=== PATIENT | male | born 1940 | race Caucasian/White ===

== ENCOUNTER → 2019-03-04 | Outpatient (CLI) | payer MEDICARE ==
--- NOTE | 2019-03-05 14:46 | ECHOF ---
Referral Reason:I10 G47.33 I48.1 MEASUREMENTS -------- HEIGHT: 182.9 cm WEIGHT: 120.2 kg BP: RVIDd: 2.7 cm (< 3.3) IVSd: 1.7 cm (0.6 - 1.1) LVIDd: 3.5 cm (3.9 - 5.3) LVPWd: 1.9 cm (0.6 - 1.1) IVSs: 2.3 cm LVIDs: 2.2 cm LVPWs: 2.5 cm LAESV Index (A-L): 66.17 ml/m Ao Diam: 2.8 cm (2.0 - 3.7) AV Cusp: 0.8 cm (1.5 - 2.6) LA Diam: 5.3 cm (2.7 - 3.8) MV EXCURSION: 16.659 mm (> 18.000) MV EF SLOPE: 122 mm/s (70 - 150) EPSS: 0.7 cm MV E Carter: 0.99 m/s MV DecT: 219 ms MV A Carter: 0.31 m/s MV E/A Ratio: 3.22 AV maxP.17 mmHg AV meanP.74 mmHg RAP: 5.00 mmHg RVSP: 32.20 mmHg TAPSE: 13.36 mm FINDINGS -------- Pacerwire seen in RV and RA. Pacemaker This was a technically difficult study with suboptimal views. The left ventricular size is normal. There is severe concentric left ventricular hypertrophy. Ove rall left ventricular systolic function is mild-moderately impaired with, an EF between 40 - 45 %. Left ventricular fillimg pressure cannot be estimated due to paced rhythm. Septal Hypokinesis The right ventricle is normal in size. LA is severely dilated >40 ml/m2 The right atrial size is normal. Lumason used Aortic valve is trileaflet and is severely thickened. There is enugjyxe-xp-iayslu aortic stenosis p resent. Peak/mean gradient across the Aortic Valve is 37.17mmHg / 22.74mmHg. The mitral valve is normal. The mitral valve leaflets are mildly thickened. Mild mitral regurgita tion is present. The tricuspid valve appears structurally normal. Mild tricuspid regurgitation present. Right vent ricular systolic pressure is normal at < 35 mmHg. There is no pulmonic regurgitation present. The aortic root size is normal. IVC Not well visulized. The pulmonary veins were not recorded. There is no pericardial effusion. CONCLUSIONS -------- 1. Pacerwire seen in RV and RA. 2. Pacemaker 3. This was a technically difficult study with suboptimal views. 4. The left ventricular size is normal. 5. There is severe concentric left ventricular hypertrophy. 6. Overall left ventricular systolic function is mild-moderately impaired with, an EF between 40 - 45 %. 7. Left ventricular fillimg pressure cannot be estimated due to paced rhythm. 8. Septal Hypokinesis 9. The right ventricle is normal in size. 10. LA is severely dilated >40 ml/m2 11. The right atrial size is normal. 12. Lumason used 13. Aortic valve is trileaflet and is severely thickened. 14. There is fbzzkssv-ea-depifs aortic stenosis present. 15. Peak/mean gradient across the Aortic Valve is 37.17mmHg / 22.74mmHg. 16. The mitral valve is normal. 17. The mitral valve leaflets are mildly thickened. 18. Mild mitral regurgitation is present. 19. The tricuspid valve appears structurally normal. 20. Mild tricuspid regurgitation present. 21. Right ventricular systolic pressure is normal at < 35 mmHg. 22. There is no pulmonic regurgitation present. 23. The aortic root size is normal. 24. IVC Not well visulized. 25. The pulmonary veins were not recorded. 26. There is no pericardial effusion. [employer]IC INBOARD/OUTBOARD: Hanna Sanchez, [facility]
== END | disposition home or self-care (01) ==
LOC: RADECHMAIN 11:17
PROVIDERS: ATTEND Internal Medicine Cardiovascular Disease
DX: I08.1 Rheumatic disorders of both mitral and tricuspid valves (principal); I11.9 Hypertensive heart disease without heart failure; G47.33 Obstructive sleep apnea (adult) (pediatric); I48.1 Persistent atrial fibrillation; Z95.0 Presence of cardiac pacemaker
CPT/HCPCS: C8929; Q9950; 93306

== ENCOUNTER 2019-07-18 14:21 | Inpatient (IN) | payer MEDICARE ==
[2019-07-18] MEDS ORDERED: MORPHINE SULFATE 4 MG/ML SYRINGE IV STA (14:56)
--- NOTE | 2019-07-18 15:03 | ED ---
General Adult HPI - General Chief complaint: Fall Stated complaint: Fall, hip pain Time Seen by Provider: 07/18/19 14:34 Source: EMS Mode of arrival: EMS Limitations: no limitations - History of Present Illness Initial comments: Dictation was produced using [employer] dictation software. please excuse any grammatical, word or spelling errors. Chief Complaint: 79-year-old male presents with right leg pain. History of Present Illness: -year-old male was walking around at home when he tripped over a board on the floor in his house. Patient states he fell sideways. Patient denies any trauma to the head. Since he has exquisite pain to his right thigh area. EMS was called patient brought to the emergency department. Patient is most comfortable comorbidities. He takes apixaban for atrial fibrillation. was at bedside now that his right foot seems cold. Patient has no other complaints except for right leg pain. States it's worse with movement. EMS was called. EMS provided patient 5 mg of IV morphine with improvement of symptoms. The ROS documented in this emergency department record has been reviewed and confirmed by me. Those systems with pertinent positive or negative responses have been documented in the HPI. All other systems are other negative and/or noncontributory. PHYSICAL EXAM: General Impression: Alert and oriented x3, not in acute distress HEENT: Normocephalic atraumatic, extra-ocular movements intact, pupils equal and reactive to light bilaterally, mucous membranes moist. Cardiovascular: Heart regular rate and rhythm, S1&S2 audible, no murmurs, rubs or gallops Chest: Lungs clear to auscultation bilaterally, no rhonchi, no wheeze, no rales Abdomen: Bowel sounds present, abdomen soft, non-tender, non-distended, no organomegaly Musculoskeletal: Pulses present and equal in all extremities, no peripheral edema, particularly of the right foot compared to the left however there is 2+ DP and PT pulse in the right lower extremity. Tenderness to palpation with squeezing of the right thigh Motor: no focal deficits noted Neurological: CN II-XII grossly intact, no focal motor or sensory deficits noted Skin: Intact with no visualized rashes Psych: Normal affect and mood ED course: 79-year-old male presents with right hip pain after fall. Patient suffered a mechanical fall. His multiple comorbidities and is on anticoagulation therapy. X-rays were obtained. Patient has subcapital femur fracture. Chest x-ray was concerning for possible right lower lobe pneumonia. Patient does not have any URI or respiratory symptoms. No cough. Computed tomography scan of the brain showed old left occipital craniotomy. Patient also has sinus opacifications that are incidentally found.. Patient will be admitted orthopedic surgery. Discussed patient case with Dr. braxton. [facility] was contacted because patient's surgeon is Dr. Guillory. Thanks. Dr. Braxton requests [facility] [place] [facility] to be consulted for medical evaluation and medical consultation. Also cardiology consulted for cardiac clearance. Apixaban will be held at this time in preparation for likely surgery. Patient will require medical consultation. Dr. Delatorre will be on consult for a dressing other medical issues. Labs are grossly unremarkable. EKG interpretation: Ventricular rate 70, paced rhythm, QRS 150, QTc 516. - Related Data Home Medications Medication Instructions Recorded Confirmed Apixaban [Eliquis] 5 mg PO BID@0900,1800 07/18/19 07/18/19 Diltiazem HCl [Cardizem LA] 180 mg PO DAILY 07/18/19 07/18/19 Dulaglutide [Trulicity] 1.5 mg SQ MO 07/18/19 07/18/19 Ergocalciferol [Vitamin D2] 50,000 unit PO TU 07/18/19 07/18/19 Escitalopram [Lexapro] 20 mg PO DAILY 07/18/19 07/18/19 Furosemide [Lasix] 40 mg PO DAILY 07/18/19 07/18/19 Insulin Glargine,Hum.rec.anlog 46 unit SQ BID@0900,1800 07/18/19 07/18/19 [Lantus Solostar] Isosorbide Mononitrate ER [Imdur] 30 mg PO DAILY 07/18/19 07/18/19 Metoprolol Tartrate [Lopressor] 50 mg PO BID@0900,1800 07/18/19 07/18/19 Rosuvastatin Calcium [Crestor] 10 mg PO DAILY 07/18/19 07/18/19 buPROPion [Wellbutrin] 75 mg PO BID@0900,1800 07/18/19 07/18/19 Allergies Allergy/AdvReac Type Severity Reaction Status Date / Time No Known Allergies Allergy Verified 07/18/19 17:06 Review of Systems ROS Statement: Those systems with pertinent positive or pertinent negative responses have been documented in the HPI. ROS Other: All systems not noted in ROS Statement are negative. Past Medical History History of Any Multi-Drug Resistant Organisms: None Reported Past Psychological History: No Psychological Hx Reported Smoking Status: Never smoker Past Alcohol Use History: None Reported Past Drug Use History: None Reported General Exam Limitations: no limitations Course Vital Signs 07/18/19 07/18/19 07/18/19 14:25 15:00 16:30 Temperature 98.2 F Pulse Rate 70 77 75 Respiratory 20 18 18 Rate Blood Pressure 183/102 183/102 168/123 O2 Sat by Pulse 95 97 Oximetry 07/18/19 07/18/19 07/18/19 17:00 17:50 18:00 Temperature Pulse Rate 78 75 85 Respiratory 18 18 16 Rate Blood Pressure 179/124 172/105 185/104 O2 Sat by Pulse 95 Oximetry Medical Decision Making - Lab Data Result diagrams: 07/18/19 14:50 07/18/19 14:50 Lab Results 07/18/19 07/18/19 07/18/19 Range/Units 14:50 14:50 14:50 WBC 7.5 (3.8-10.6) k/uL RBC 5.20 (4.30-5.90) m/uL Hgb 16.1 (13.0-17.5) gm/dL Hct 50.6 (39.0-53.0) % MCV 97.3 (80.0-100.0) fL MCH 31.0 (25.0-35.0) pg MCHC 31.9 (31.0-37.0) g/dL RDW 13.2 (11.5-15.5) % Plt Count 129 L (150-450) k/uL Neutrophils % 82 % Lymphocytes % 11 % Monocytes % 5 % Eosinophils % 0 % Basophils % 1 % Neutrophils # 6.2 (1.3-7.7) k/uL Lymphocytes # 0.8 L (1.0-4.8) k/uL Monocytes # 0.4 (0-1.0) k/uL Eosinophils # 0.0 (0-0.7) k/uL Basophils # 0.1 (0-0.2) k/uL PT 10.7 (9.0-12.0) sec INR 1.0 (<1.2) APTT 22.4 (22.0-30.0) sec Sodium 138 (137-145) mmol/L Potassium 4.8 (3.5-5.1) mmol/L Chloride 100 (98-107) mmol/L Carbon Dioxide 29 (22-30) mmol/L Anion Gap 9 mmol/L BUN 19 (9-20) mg/dL Creatinine 1.44 H (0.66-1.25) mg/dL Est GFR (CKD-EPI)AfAm 53 (>60 ml/min/1.73 sqM) Est GFR (CKD-EPI)NonAf 46 (>60 ml/min/1.73 sqM) Glucose 235 H (74-99) mg/dL Calcium 9.8 (8.4-10.2) mg/dL Disposition Clinical Impression: Hip fracture Disposition: ADMITTED IP TO THIS [facility] Condition: Fair Decision Time: 18:28
[2019-07-18 15:09] LABS: Basophils # (A) 0.1 k/uL (0-0.2); Basophils % (A) 1 %; Eosinophils % (A) 0 %; HCT 50.6 % (39.0-53.0); HGB 16.1 gm/dL (13.0-17.5); Lymphocytes # (A) 0.8 k/uL (1.0-4.8); Lymphocytes % (A) 11 %; MCHC 31.9 g/dL (31.0-37.0); MCV 97.3 fL (80.0-100.0); Mean Platelet Volume 7.5; Monocytes # (A) 0.4 k/uL (0-1.0); Monocytes % (A) 5 %; Neutrophils # (A) 6.2 k/uL (1.3-7.7); Neutrophils % (A) 82 %; Platelet Count 129 k/uL (150-450); RDW 13.2 % (11.5-15.5); WBC 7.5 k/uL (3.8-10.6)
[2019-07-18 15:17] LABS: Calcium 9.8 mg/dL (8.4-10.2); Partial Thromboplastin Time 22.4 sec (22.0-30.0); Potassium 4.8 mmol/L (3.5-5.1); Prothrombin Time 10.7 sec (9.0-12.0)
--- NOTE | 2019-07-18 16:16 | CT ---
EXAMINATION TYPE: CT brain wo con DATE OF EXAM: 07/18/2019 COMPARISON: None INDICATION: Fall, right hip injury. DLP: 2328.4 mGycm, Automated exposure control for dose reduction was used. CONTRAST: None CT of the brain is performed utilizing 3 mm thick sections through the posterior fossa and 3 mm thick sections through the remaining calvarium. Study is performed within 24 hours of arrival to the hosp ital. Motion artifact limits the exam. There is an occipital craniotomy with adjacent encephalomalacia of the cerebellum. No abnormal hyperdensity is present to suggest an acute intracranial hemorrhage. No mass lesion is evident. No acute infarcts are evident. Mild periventricular white matter hypodensity is present, likely on th e basis of chronic white matter ischemic changes. Ventricles and sulci are appropriate for the patient age. There is opacification of the right maxillary sinus. There may be some extension as well as some calc ification in the nasal passage adjacent to the right maxillary sinus. IMPRESSIONS: 1. Mild age-related atrophy with some periventricular ischemic changes. 2. 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 3. Opacified right maxillary sinus with some calcification within the nasal passage portion of the so ft tissue. Recommend additional workup, neoplasm is not excluded
--- NOTE | 2019-07-18 16:25 | XR ---
EXAMINATION TYPE: XR chest 1V DATE OF EXAM: 07/18/2019 COMPARISON: None INDICATION: Pain TECHNIQUE: Single frontal view of the chest is obtained. FINDINGS: The heart size is normal. The pulmonary vasculature is normal. There is an infiltrate in the right lower lobe. Some thickening may be along the right pleural margin . Pacemaker overlies left chest. There is elevation left diaphragm. IMPRESSION: 1. Clinical correlation recommended for right lower lobe pneumonia. Follow-up exams are recommended.
--- NOTE | 2019-07-18 16:29 | XR ---
EXAMINATION TYPE: XR femur RT DATE OF EXAM: 07/18/2019 COMPARISON: None HISTORY: Pain TECHNIQUE: 2 view right femur FINDINGS: There is a subcapital fracture of the right femoral neck. Femoral head articulates with the acetabulum. Joint spaces narrowed Remainder the femur appears intact. Degenerative changes are at the knee. No effusion is evident. IMPRESSION: 1. Subcapital femoral neck fracture right hip. 2. Degenerative joint changes right hip
--- NOTE | 2019-07-18 16:30 | XR ---
EXAMINATION TYPE: XR Hip RT and AP Pelvis DATE OF EXAM: 07/18/2019 COMPARISON: None HISTORY: Pain TECHNIQUE: AP pelvis with right hip FINDINGS: There is a subcapital fracture at the right hip. Mild degenerative joint changes are at the bilateral joint hips. Symphysis pubis and sacroiliac joints are normal. IMPRESSION: 1. Subcapital fracture right hip
[2019-07-18] MEDS ORDERED: HYDROmorphone 0.5 MG/0.5 ML SYRINGE IVP STA (16:31)
[2019-07-18] MEDS ORDERED: NALOXONE 0.4 MG/ML 1 ML VIAL IV PRN (16:46)
[2019-07-18] MEDS ORDERED: ONDANSETRON 4 MG/2 ML VIAL IVP PRN (16:57)
[2019-07-18] MEDS: SODIUM CHLORIDE 0.9% 1,000 ML IV SCH (17:50)
[2019-07-18] MEDS ORDERED: LABETALOL 5 MG/ML VIAL MDV IVP STA (18:02)
--- NOTE | 2019-07-18 20:23 | P.CONS ---
History of Present Illness - Reason for Consult Consult date: 07/18/19 Medical management Requesting physician: Brannon Pond - Chief Complaint Consult for medical management - History of Present Illness The patient is a 79-year-old male with a past medical history of type 2 diabetes with peripheral neuropathy, atrial fibrillation on anticoagulation with Eliquis with his last dose taken this morning, essential hypertension, his tory of cerebral hemorrhage stroke 2006, uric stenosis with plans for TAVR procedure next month at [facility] who presents to the ER via EMS after a fall at home earlier today. Apparently the patient was working in his garage and tripped over at higher block and fell and hit his right hip. The patient denied any head trauma or loss of consciousness, he reported severe right hip pain following this fall and was unable to get up. The patient's found him approximately 30 minutes later breathing and pain in the garage, the patient denied any chest pain or shortness of breath, denies syncope or presyncope prior to his fall. In the ER the patient had a comprehensive workup CT of the head showed mild age- related atrophy with some periventricular ischemic changes, old left occipital craniotomy with subtotal malacia of the adjacent cerebellum, opacified right maxillary sinus with some calcifications in the nasal passage. Hip and pelvic x-rays showed a subcapital fracture of the right hip along with degenerative changes. Abnormal labs include a platelet count of 129, creatinine of 1.44, blood sugar of 235. The patient was given morphine and admitted to the orthopedic service Review of Systems Pertinent positives per HPI all other review of systems are otherwise negative Past Medical History History of Any Multi-Drug Resistant Organisms: None Reported Past Psychological History: No Psychological Hx Reported Smoking Status: Never smoker Past Alcohol Use History: None Reported Past Drug Use History: None Reported Medications and Allergies Home Medications Medication Instructions Recorded Confirmed Type Apixaban [Eliquis] 5 mg PO BID@0900,1800 07/18/19 07/18/19 History Diltiazem HCl [Cardizem LA] 180 mg PO DAILY 07/18/19 07/18/19 History Dulaglutide [Trulicity] 1.5 mg SQ MO 07/18/19 07/18/19 History Ergocalciferol [Vitamin D2] 50,000 unit PO TU 07/18/19 07/18/19 History Escitalopram [Lexapro] 20 mg PO DAILY 07/18/19 07/18/19 History Furosemide [Lasix] 40 mg PO DAILY 07/18/19 07/18/19 History Insulin Glargine,Hum.rec.anlog 46 unit SQ BID@0900,1800 07/18/19 07/18/19 History [Lantus Solostar] Isosorbide Mononitrate ER [Imdur] 30 mg PO DAILY 07/18/19 07/18/19 History Metoprolol Tartrate [Lopressor] 50 mg PO BID@0900,1800 07/18/19 07/18/19 History Rosuvastatin Calcium [Crestor] 10 mg PO DAILY 07/18/19 07/18/19 History buPROPion [Wellbutrin] 75 mg PO BID@0900,1800 07/18/19 07/18/19 History Allergies Allergy/AdvReac Type Severity Reaction Status Date / Time No Known Allergies Allergy Verified 07/18/19 17:06 Physical Exam Vitals: Vital Signs Temp Pulse Resp BP Pulse Ox 07/18/19 18:53 74 18 153/86 07/18/19 18:33 80 16 153/80 07/18/19 18:00 85 16 185/104 07/18/19 17:50 75 18 172/105 07/18/19 17:00 78 18 179/124 95 07/18/19 16:30 75 18 168/123 97 07/18/19 15:00 77 18 183/102 07/18/19 14:25 98.2 F 70 20 183/102 95 Intake and Output 07/18/19 07/18/19 07/18/19 06:59 14:59 22:59 Other: Weight 117.934 kg Constitutional: No acute distress, conversant, pleasant Eyes: Anicteric sclerae, moist conjunctiva, no lid-lag, PERRLA ENMT: NC/AT,Oropharynx clear, no erythema, exudates Neck:Supple, FROM, no masses, or JVD, No carotid bruits; No thyromegaly Lungs: Clear to auscultation, Clear to percussion, Normal respiratory effort, no accessory muscle use Cardiovascular: Heart regular in rate and rhythm, No murmurs, gallops, or rubs no peripheral edema Abdominal: Soft Nontender, nom distended, no guarding, no rebound or rigidity, Normoactive bowel sounds No hepatomegaly, No splenomegaly, No palpable mass No abdominal wall hernia noted Skin: Normal temperature, tone, texture, turgor, No induration No subcutaneous nodules, No rash, lesions, No ulcers Extremities:No digital cyanosis No clubbing, Pedal pulses intact and symmetrical Radial pulses intact and, tenderness to palpation of squeezing the right thigh Psychiatric: Alert and oriented to person, place and time, Appropriate affect Intact judgement Neuro: Muscles Strength 5/5 in all 4 extremities, Sensation to light touch grossly present throughout, Cranial nerves II-XII grossly intact. No focal sensory deficits Results CBC & Chem 7: 07/18/19 14:50 07/18/19 14:50 Labs: Abnormal Lab Results - Last 24 Hours (Table) 07/18/19 07/18/19 Range/Units 14:50 14:50 Plt Count 129 L (150-450) k/uL Lymphocytes # 0.8 L (1.0-4.8) k/uL Creatinine 1.44 H (0.66-1.25) mg/dL Glucose 235 H (74-99) mg/dL Assessment and Plan Assessment: Type 2 diabetes with peripheral neuropathy and hyperglycemia Essential hypertension History of Atrial fibrillation on DOAcs fall with subcapital right hip fracture History of cerebral hemorrhage and stroke Severe aortic stenosis with TAVR scheduled within the next month Plan: The patient is admitted to the primary orthopedic service with a right hip subcapital fracture after fall at home. We'll defer all analgesic therapy and management to the primary service. The patient has a significant cardiac history including atrial fibrillation currently on DOAcs, severe aortic stenosis with planned TAVR procedure , and a history of CVA with intracerebral hemorrhage. Based on the revised cardiac index patient represents a class IV risk and is and is considered high risk for surgery. We'll plan to consult cardiology for any further recommendations. The patient's home medications were restarted and eliquis is held, continue perioperative beta blockers with metoprolol. Resume insulin regimen with Accu-Cheks qachs. Continue to follow patient's clinical course CODE STATUS: Full code Discussed care with patient's Anticipated discharge place : SNF vs home Greater than 60 minutes was spent in the evaluation of this medically complex patient
[2019-07-18 20:35] LABS: Glucose,Whole Blood 208 mg/dL (75-99)
[2019-07-18] MEDS: INSULIN ASPART (NovoLOG) 100 UNIT/ML VIAL SQ SCH (21:28)
[2019-07-19] MEDS: HYDROmorphone 1 MG/ML 1 ML SYRINGE IVP PRN ×4 (01:31→23:34)
[2019-07-19] MEDS: SODIUM CHLORIDE 0.9% 1,000 ML IV SCH ×2 (01:35→09:28)
[2019-07-19 06:55] LABS: Glucose,Whole Blood 213 mg/dL (75-99)
[2019-07-19] MEDS: INSULIN ASPART (NovoLOG) 100 UNIT/ML VIAL SQ SCH ×4 (07:33→19:54)
[2019-07-19] MEDS: DILTIAZEM CD 180 MG CAP.ER.24H PO SCH (09:28)
[2019-07-19] MEDS: buPROPion 75 MG TAB PO SCH ×2 (09:28→18:09)
[2019-07-19] MEDS: ATORVASTATIN 20 MG TAB PO SCH (09:28)
[2019-07-19] MEDS: FUROSEMIDE 40 MG TAB PO SCH (09:28)
[2019-07-19] MEDS: METOPROLOL TARTRATE 50 MG TAB PO SCH ×2 (09:28→17:22)
[2019-07-19] MEDS: ESCITALOPRAM 20 MG TAB PO SCH (09:28)
[2019-07-19] MEDS: ISOSORBIDE MONONITRATE ER 30 MG TAB.ER.24H PO SCH (09:28)
[2019-07-19] MEDS: INSULIN DETEMIR (LEVEMIR) 100 UNIT/ML SYR SQ SCH ×2 (09:29→18:09)
[2019-07-19] MEDS ORDERED: HYDROmorphone 1 MG/ML 1 ML SYRINGE IVP PRN (10:32)
[2019-07-19] MEDS ORDERED: HYDROcodone/APAP 7.5-325MG 1 EACH TAB PO PRN (11:09)
--- NOTE | 2019-07-19 11:14 | P.PN ---
Subjective Progress Note Date: 07/19/19 Principal diagnosis: fall Patient is a 79 y CM with a hx of DM 2 with peripheral neuropathy, A fib on anticoagulation with eliquis, HTN, and aortic stenosis with plan for TAVR at [facility] on August 06, 2019 who presented after a fall with resultant right subcapital femoral hip fracture. Patient seen and examined at bedside. He reports some right hip pain. He denies any chest pain, shortness breath, nausea, or vomiting. He follows with Dr. Jazmyne Kiran at [facility]. He has known aortic stenosis and is currently being worked up for possible to have her. He has recently had a PATI and a TTE done at [facility]. He reports that he has had worsening fatigue over the last several months. He denies any chest pain, shortness of breath, or syncopal episodes. Objective - Vital Signs Vital signs: Vital Signs Temp 99.6 F 07/19/19 07:00 Pulse 64 07/19/19 07:00 Resp 17 07/19/19 07:00 BP 174/67 07/19/19 07:00 Pulse Ox 94 L 07/19/19 07:00 Intake & Output 07/18/19 07/19/19 07/19/19 18:59 06:59 18:59 Weight 117.934 kg Other: Voiding Method Urinal # Voids 2 - Exam General: non toxic, mild distress due to pain, appears at stated age Derm: warm, dry Head: atraumatic, normocephalic, symmetric Eyes: EOMI, no lid lag, anicteric sclera Mouth: no lip lesion, mucus membranes moist Cardiovascular: S1S2 reg with systolic murmur, positive posterior tibial pulse bilateral, Lungs: Decreased bs bilateral, no rhonchi, no rales , no accessory muscle use Abdominal: soft, nontender to palpation, no guarding, no appreciable organomegaly Ext: no gross muscle atrophy, no edema, no contractures Neuro: CN II-XI grossly intact, no focal neuro deficits Psych: Alert, oriented, appropriate affect - Labs CBC & Chem 7: 07/18/19 14:50 07/18/19 14:50 Labs: Abnormal Lab Results - Last 24 Hours (Table) 07/18/19 07/18/19 07/18/19 Range/Units 14:50 14:50 20:32 Plt Count 129 L (150-450) k/uL Lymphocytes # 0.8 L (1.0-4.8) k/uL Creatinine 1.44 H (0.66-1.25) mg/dL Glucose 235 H (74-99) mg/dL POC Glucose (mg/dL) 208 H (75-99) mg/dL 07/19/19 Range/Units 06:53 Plt Count (150-450) k/uL Lymphocytes # (1.0-4.8) k/uL Creatinine (0.66-1.25) mg/dL Glucose (74-99) mg/dL POC Glucose (mg/dL) 213 H (75-99) mg/dL Assessment and Plan Assessment: Patient is a 79 yo CM s/p fall with hip subcapital femoral fracture. Chronic A fib, rate controlled - off eliquis, last dose AM on 07/18 - Lopressor, cardizem - follow HR Aortic stenosis - obtain records of PATI from [facility] - cardio recs for risk stratification for surgery - avoid episodes of hypotension HTN urgency - likely related pain - increase pain control - continue with lopressor, cadizem, and imdur DM 2 - Lantus - SSI - check A1C - Trulicity on hold ISAEL VS CKD - repeat CR in AM - avoid additional nephrotoxic agents DVT prophylaxis: SCDs, consider Heparin if surgery on hold till Sunday Discussed with: patient, nursing, cardio Anticipated discharge: 4-[address]: home with HH VS SNF A total of 40 minutes was spent on the care of this complex patient more than 50% of the time was spent in counseling and care coordination.
[2019-07-19 11:29] LABS: Glucose,Whole Blood 271 mg/dL (75-99)
--- NOTE | 2019-07-19 11:32 | XR ---
EXAMINATION TYPE: XR chest 1V portable DATE OF EXAM: 07/19/2019 HISTORY: pneumonia, ? tenting of diaphragm on right . REFERENCE: Previous study dated 07/18/2019. FINDINGS: There is a bipolar pacemaker in place on the left. Heart is mildly prominent. There is bibasilar airspace disease, worse on the right than the left. Bot h CP angles are blunted. I could not exclude small effusions. The study is quite rotated. IMPRESSION: SUBOPTIMAL EXAMINATION DEMONSTRATING BIBASILAR AIRSPACE DISEASE AND SMALL, BILATERAL EFFUSIONS.
--- NOTE | 2019-07-19 12:23 | P.HPOR ---
History of Present Illness H&P Date: 07/19/19 Chief Complaint: Right hip pain/fracture 79-year-old patient admitted for a right hip femoral neck fracture. He states he was at home walking in the garage while building some shelves for his and tripped over a piece of wood landing on the right hip. He had immediate pain and discomfort. He was brought to our facility and found to have a femoral neck fracture and subsequently was admitted for this. He does have a history of knee osteoarthritis. He reports no other orthopedic complaints at this point. Review of Systems Constitutional: Reports as per HPI Past Medical History Past Medical History: CVA/TIA, Diabetes Mellitus, Hypertension History of Any Multi-Drug Resistant Organisms: None Reported Additional Past Surgical History / Comment(s): brain sx 2007 Past Psychological History: No Psychological Hx Reported Smoking Status: Never smoker Past Alcohol Use History: None Reported Past Drug Use History: None Reported Medications and Allergies Home Medications Medication Instructions Recorded Confirmed Type Apixaban [Eliquis] 5 mg PO BID@0900,1800 07/18/19 07/18/19 History Diltiazem HCl [Cardizem LA] 180 mg PO DAILY 07/18/19 07/18/19 History Dulaglutide [Trulicity] 1.5 mg SQ MO 07/18/19 07/18/19 History Ergocalciferol [Vitamin D2] 50,000 unit PO TU 07/18/19 07/18/19 History Escitalopram [Lexapro] 20 mg PO DAILY 07/18/19 07/18/19 History Furosemide [Lasix] 40 mg PO DAILY 07/18/19 07/18/19 History Insulin Glargine,Hum.rec.anlog 46 unit SQ BID@0900,1800 07/18/19 07/18/19 History [Lantus Solostar] Isosorbide Mononitrate ER [Imdur] 30 mg PO DAILY 07/18/19 07/18/19 History Metoprolol Tartrate [Lopressor] 50 mg PO BID@0900,1800 07/18/19 07/18/19 History Rosuvastatin Calcium [Crestor] 10 mg PO DAILY 07/18/19 07/18/19 History buPROPion [Wellbutrin] 75 mg PO BID@0900,1800 07/18/19 07/18/19 History Allergies Allergy/AdvReac Type Severity Reaction Status Date / Time No Known Allergies Allergy Verified 07/18/19 17:06 Physical Examination Osteopathic Statement: *. No significant issues noted on an osteopathic structural exam other than those noted in the History and Physical/Consult. There is mild shortening of the right lower extremity. There are good pedal pulses bilaterally. Any attempted range of motion of right hip causes severe pain. Gentle log rolling of the left hip is without pain. Good sensation is noted distally to both lower extremities. Results - Labs Labs: Abnormal Lab Results - Last 24 Hours (Table) 07/18/19 07/18/19 07/18/19 Range/Units 14:50 14:50 20:32 Plt Count 129 L (150-450) k/uL Lymphocytes # 0.8 L (1.0-4.8) k/uL Creatinine 1.44 H (0.66-1.25) mg/dL Glucose 235 H (74-99) mg/dL POC Glucose (mg/dL) 208 H (75-99) mg/dL 07/19/19 07/19/19 Range/Units 06:53 11:27 Plt Count (150-450) k/uL Lymphocytes # (1.0-4.8) k/uL Creatinine (0.66-1.25) mg/dL Glucose (74-99) mg/dL POC Glucose (mg/dL) 213 H 271 H (75-99) mg/dL H & H 07/18/19 Range/Units 14:50 Hgb 16.1 (13.0-17.5) gm/dL Hct 50.6 (39.0-53.0) % Coagulation 07/18/19 Range/Units 14:50 INR 1.0 (<1.2) Result Diagrams: 07/18/19 14:50 07/18/19 14:50 - Diagnostic results Hip x-ray: image reviewed (Right femoral neck fracture with some displacement. Moderate/severe osteoarthritis of the right hip.) Assessment and Plan Assessment: 1. Right hip displaced femoral neck fracture 2. Right hip osteoarthritis 3. Multiple medical comorbidities Plan: I discussed his femoral neck fracture and concomitant osteoarthritis. I recommend direct anterior right total hip arthroplasty. I discussed the proc edure, risks, complications and recovery with both patient and his who is at bedside. All questions were answered to their satisfaction. I will await cardiac clearance. Given his last dose of Eliquis yesterday we will plan on proceeding with the direct anterior right total hip arthroplasty procedure on Sunday. Time with Patient: Less than 30
--- NOTE | 2019-07-19 15:01 | ECHOF ---
Referral Reason:Moderate to Severe / Atrial Fibrillation MEASUREMENTS -------- HEIGHT: 182.9 cm WEIGHT: 117.9 kg BP: RVIDd: 3.7 cm (< 3.3) IVSd: 1.4 cm (0.6 - 1.1) LVIDd: 4.1 cm (3.9 - 5.3) LVPWd: 1.2 cm (0.6 - 1.1) IVSs: 1.3 cm LVIDs: 3.1 cm LVPWs: 1.5 cm LA Diam: 5.1 cm (2.7 - 3.8) Ao Diam: 3.7 cm (2.0 - 3.7) AV Cusp: 0.5 cm (1.5 - 2.6) MV EXCURSION: 22.126 mm (> 18.000) MV EF SLOPE: 70 mm/s (70 - 150) EPSS: 0.8 cm MV E Carter: 0.50 m/s MV DecT: 356 ms MV A Carter: 0.64 m/s MV E/A Ratio: 0.78 AV maxP.14 mmHg AV meanP.50 mmHg FINDINGS -------- Paced rhythm. Pt unable to turn due to hip fx. The left ventricular size is normal. There is moderate concentric left ventricular hypertrophy. O verall left ventricular systolic function is mildly impaired with, an EF between 45 - 50 %. Anterse ptal Hypokinesis The right ventricle is normal in size. The left atrium is moderately dilated. The right atrial size is normal. 5.0mg OF Lumason UTLIZED: 2 OR MORE WALL SEGMENTS NOT VISUALIZED. The aortic valve was not well visualized. There is dzweozcs-cd-vnaowh aortic stenosis present. Pe ak/mean gradient across the Aortic Valve is 47.14mmHg / 27.50mmHg. Mild mitral annular calcification present. Mild mitral regurgitation is present. Mild tricuspid regurgitation present. Right ventricular systolic pressure is normal at < 35 mmHg. There is no evidence of pulmonary hypertension. There is no pulmonic regurgitation present. The aortic root size is normal. There is no pericardial effusion. CONCLUSIONS -------- 1. Paced rhythm. 2. Pt unable to turn due to hip fx. 3. The left ventricular size is normal. 4. There is moderate concentric left ventricular hypertrophy. 5. Overall left ventricular systolic function is mildly impaired with, an EF between 45 - 50 %. 6. Anterseptal Hypokinesis 7. The right ventricle is normal in size. 8. The left atrium is moderately dilated. 9. The right atrial size is normal. 10. 5.0mg OF Lumason UTLIZED: 2 OR MORE WALL SEGMENTS NOT VISUALIZED. 11. The aortic valve was not well visualized. 12. There is uebiszqq-ea-rthqbj aortic stenosis present. 13. Peak/mean gradient across the Aortic Valve is 47.14mmHg / 27.50mmHg. 14. Mild mitral annular calcification present. 15. Mild mitral regurgitation is present. 16. Mild tricuspid regurgitation present. 17. Right ventricular systolic pressure is normal at < 35 mmHg. 18. There is no evidence of pulmonary hypertension. 19. There is no pulmonic regurgitation present. 20. The aortic root size is normal. 21. There is no pericardial effusion. [employer] MACHINIST: Josephine Zhang RDCS
--- NOTE | 2019-07-19 16:02 | P.CRDCN ---
History of Present Illness Consult date: 07/19/19 Consult reason: pre-op evaluation Chief complaint: pre-op cardiology clearance History of present illness: HISTORY OF PRESENT ILLNESS AND PLAN: This is a 79-year-old male with history of DM 2, peripheral neuropathy, chronic atrial fibrillation with anticoagulation with Eliquis 5mg twice daily, hypertension, CVA in 2006, severe , EF at 40-45% and planning for TAVR in August 2019. Patient presents to Hospital s/p fall on 07/18/2019 which resulted in sub-capital femur fracture. Cardiology has been consult at this day for Pre- op clearance for right hip repair. Pt following with Dr. Grant at [facility] for upcoming TaVR. Patient had recent PATI and echocardiogram, records to be requested from [facility]. Patient currently lying in bed with severe hip pain. Patient unable to tolerate any movement. remains at bedside. BP currently elevated, probably secondary to hip pain. Patient is on no current telemetry but EKG revealed sinus rhythm with left bundle branch block in the ER. Patient bilateral lung urban are diminished and patient is on 4 L of O2 NC. ELIQUIS has been held for pending hip surgery. No current telemetry. SIGNIFICANT PAST MEDICAL HISTORY: DM 2, peripheral neuropathy, chronic atrial fibrillation with anticoagulation with Eliquis 5mg twice daily, hypertension, CVA in 2006, severe , EF at 40-45% and planning for TAVR in August 2019. PAST SURGICAL HISTORY: See list. EKG = SR, LBBB. HR 70 Troponins negative x none currently. SIGNIFICANT LABORATORY VALUES: WNL. Chest x-ray 07/19/19 = bi-basilar airspace disease and small bilateral effusions Most recent echo = pending obtaining records from [facility] for recent cardiology workup. REVIEW OF SYSTEMS: CONSTITUTIONAL: Denies fever. Denies chills. EYES: Denies blurred vision. Denies blurred vision or vision changes. Denies eye pain. EARS, NOSE, MOUTH & THROAT: Denies headache. Denies sore throat. Denies ear pain Denies hemoptysis. CARDIOVASCULAR: Denies chest pain. Denies shortness of breath. Denies orthopnea. Denies PND. Denies palpitations. RESPIRATORY: Denies cough. Denies shortness of breath. GASTROINTESTINAL: Denies abdominal pain or distention. Denies diarrhea. Denies constipation. Denies nausea. Denies vomiting. MUSCULOSKELETAL: C/O significant RIGHT hip and upper leg pain/myalgias. INTEGUMENTARY: Denies pruitis. Denies rash. ENDOCRINE: Denies fatigue. Denies weight change. Denies polydipsia. Denies polyurina Denies heat/cold intolerance. GENITOURINARY: Denies burning, hematuria or urgency with micturation. HEMATOLOGIC: Denies history of anemia. Denies bleeding. NEUROLOGIC: C/O numbness in RIGHT lower leg. Denies tingling. C/O weakness. PSYCHIATRIC: Denies anxiety. Denies depression. PHYSICAL EXAM: GENERAL: Well developed, in no acute distress. HEENT: Head is atraumatic, normocephalic. Pupils are equal, round. Extra ocular movements intact. Mucous membranes moist. Neck supple. No JVD. No carotid bruit. No thyromegaly. LUNGS: Diminished to auscultation. No wheezes, rales or rhonchi. No chest wall t enderness on palpation or with deep breathing. HEART: Regular rate and rhythm, no rubs or gallops. S1 and S2 heard. No murmur. ABDOMEN: Abdominal exam, WNL. Bowel sounds x4 quads. Soft, non-tender, without masses, organomegaly, or abdominal aorta enlargement. EXTREMITIES/VASCULAR: Extremities have easily palpable radial, femoral, dorsalis pedis and posterior tibial pulses. No cyanosis, calf tenderness. No BLE edema. NEUROLOGIC: Patient is awake, alert and oriented x3. No focal neurologic abn ormalities. FINAL IMPRESSION: 1. status post fall with right femur/hip fracture 2. severe aortic stenosis 3. atrial fibrillation, currently sinus rhythm 4. s/p CVA 5. hypertension PLAN: Telemetry and EKG ordered. Echocardiogram ordered, patient has mild decrease in ejection fraction at 45-50%. Patient is a high risk candidate for surgery under anesthesia but no absolute contraindication. Cautious IV fluid and blood pressure control advised. Avoid low blood pressure. Close hemodynamic monitoring advised. Patient to be admitted to ICU status post right hip repair. Continue to hold ELIQUIS. Continue same all other medical/medication regime. cardiology to follow along. Nurse Practitioner note has been reviewed by the Physician. Signing provider agrees with the documented findings, assessment and plan of care. Past Medical History Past Medical History: CVA/TIA, Diabetes Mellitus, Hypertension History of Any Multi-Drug Resistant Organisms: None Reported Additional Past Surgical History / Comment(s): brain sx 2007 Past Psychological History: No Psychological Hx Reported Smoking Status: Never smoker Past Alcohol Use History: None Reported Past Drug Use History: None Reported Medications and Allergies Home Medications Medication Instructions Recorded Confirmed Type Apixaban [Eliquis] 5 mg PO BID@0900,1800 07/18/19 07/18/19 History Diltiazem HCl [Cardizem LA] 180 mg PO DAILY 07/18/19 07/18/19 History Dulaglutide [Trulicity] 1.5 mg SQ MO 07/18/19 07/18/19 History Ergocalciferol [Vitamin D2] 50,000 unit PO TU 07/18/19 07/18/19 History Escitalopram [Lexapro] 20 mg PO DAILY 07/18/19 07/18/19 History Furosemide [Lasix] 40 mg PO DAILY 07/18/19 07/18/19 History Insulin Glargine,Hum.rec.anlog 46 unit SQ BID@0900,1800 07/18/19 07/18/19 History [Lantus Solostar] Isosorbide Mononitrate ER [Imdur] 30 mg PO DAILY 07/18/19 07/18/19 History Metoprolol Tartrate [Lopressor] 50 mg PO BID@0900,1800 07/18/19 07/18/19 History Rosuvastatin Calcium [Crestor] 10 mg PO DAILY 07/18/19 07/18/19 History buPROPion [Wellbutrin] 75 mg PO BID@0900,1800 07/18/19 07/18/19 History Allergies Allergy/AdvReac Type Severity Reaction Status Date / Time No Known Allergies Allergy Verified 07/18/19 17:06 Physical Exam Vitals: Vital Signs Temp Pulse Pulse Resp BP BP Pulse Ox 07/19/19 15:20 92 L 07/19/19 14:47 98.1 F 60 16 131/70 96 07/19/19 07:00 99.6 F 64 17 174/67 94 L 07/19/19 02:10 98.3 F 79 18 141/78 92 L 07/18/19 20:32 99.2 F 82 18 159/83 94 L 07/18/19 18:53 74 18 153/86 07/18/19 18:33 80 16 153/80 07/18/19 18:00 85 16 185/104 07/18/19 17:50 75 18 172/105 07/18/19 17:00 78 18 179/124 95 07/18/19 16:30 75 18 168/123 97 Intake and Output 07/19/19 07/19/19 07/19/19 06:59 14:59 22:59 Other: # Voids 2 Results 07/18/19 14:50 07/18/19 14:50 Current Medications Generic Name Dose Route Start Last Admin Trade Name Freq PRN Reason Stop Dose Admin Hydrocodone Bitart/Acetaminophen 1 each 07/19/19 11:09 07/19/19 13:10 [place] 7.5-325 PO 1 each Q6H PRN Administration Pain Atorvastatin Calcium 20 mg 07/19/19 09:00 07/19/19 09:28 Lipitor PO 20 mg DAILY [facility] Administration Bupropion HCl 75 mg 07/19/19 09:00 07/19/19 09:28 Wellbutrin PO 75 mg BID@0900,1800 [facility] Administration Diltiazem HCl 180 mg 07/19/19 09:00 07/19/19 09:28 Cardizem Cd PO 180 mg DAILY [facility] Administration Ergocalciferol 50,000 unit 07/22/19 12:00 Vitamin D2 PO TU [facility] Escitalopram Oxalate 20 mg 07/19/19 09:00 07/19/19 09:28 Lexapro PO 20 mg DAILY [facility] Administration Furosemide 40 mg 07/19/19 09:00 07/19/19 09:28 Lasix PO 40 mg DAILY [facility] Administration Hydromorphone HCl 1 mg 07/19/19 11:09 Dilaudid IVP Q3HR PRN Pain Insulin Aspart 0 unit 07/18/19 21:00 07/19/19 13:10 Novolog SQ 6 unit ACHS [facility] Administration Protocol Insulin Detemir 46 unit 07/19/19 09:00 07/19/19 09:29 Levemir SQ 46 unit BID@0900,1800 [facility] Administration Isosorbide Mononitrate 30 mg 07/19/19 09:00 07/19/19 09:28 Imdur PO 30 mg DAILY [facility] Administration Metoprolol Tartrate 50 mg 07/19/19 09:00 07/19/19 09:28 Lopressor PO 50 mg BID@0900,1800 [facility] Administration Naloxone HCl 0.2 mg 07/18/19 16:46 Narcan IV Q2M PRN Opioid Reversal Ondansetron HCl 4 mg 07/18/19 16:57 Zofran IVP Q8HR PRN Nausea And Vomiting Intake and Output 07/19/19 07/19/19 07/19/19 06:59 14:59 22:59 Other: # Voids 2 07/18/19 14:50 07/18/19 14:50
[2019-07-19 17:04] LABS: Glucose,Whole Blood 186 mg/dL (75-99)
[2019-07-19] MEDS: HYDROcodone/APAP 10-325MG 1 EACH TAB PO PRN (19:49)
[2019-07-19 19:53] LABS: Glucose,Whole Blood 130 mg/dL (75-99)
[2019-07-20] MEDS: HYDROcodone/APAP 10-325MG 1 EACH TAB PO PRN ×3 (04:16→22:35)
[2019-07-20 06:42] LABS: Glucose,Whole Blood 178 mg/dL (75-99)
[2019-07-20 07:06] LABS: Calcium 9.2 mg/dL (8.4-10.2); Potassium 4.4 mmol/L (3.5-5.1)
[2019-07-20 07:14] LABS: Basophils # (A) 0.1 k/uL (0-0.2); Basophils % (A) 1 %; Eosinophils # (A) 0.1 k/uL (0-0.7); Eosinophils % (A) 2 %; HCT 44.7 % (39.0-53.0); Lymphocytes # (A) 0.7 k/uL (1.0-4.8); Lymphocytes % (A) 11 %; MCHC 31.3 g/dL (31.0-37.0); MCV 99.3 fL (80.0-100.0); Mean Platelet Volume 8.5; Monocytes # (A) 0.4 k/uL (0-1.0); Monocytes % (A) 6 %; Neutrophils % (A) 79 %; RDW 13.3 % (11.5-15.5); WBC 6.3 k/uL (3.8-10.6)
[2019-07-20] MEDS: ATORVASTATIN 20 MG TAB PO SCH (07:36)
[2019-07-20] MEDS: METOPROLOL TARTRATE 50 MG TAB PO SCH ×2 (07:36→18:45)
[2019-07-20] MEDS: FUROSEMIDE 40 MG TAB PO SCH (07:36)
[2019-07-20] MEDS: ISOSORBIDE MONONITRATE ER 30 MG TAB.ER.24H PO SCH (07:36)
[2019-07-20] MEDS: ESCITALOPRAM 20 MG TAB PO SCH (07:37)
[2019-07-20] MEDS: INSULIN DETEMIR (LEVEMIR) 100 UNIT/ML SYR SQ SCH ×2 (07:37→18:01)
[2019-07-20] MEDS: INSULIN ASPART (NovoLOG) 100 UNIT/ML VIAL SQ SCH ×4 (07:37→20:04)
[2019-07-20] MEDS: HYDROmorphone 1 MG/ML 1 ML SYRINGE IVP PRN (07:37)
[2019-07-20] MEDS: DILTIAZEM CD 180 MG CAP.ER.24H PO SCH (07:38)
[2019-07-20] MEDS: buPROPion 75 MG TAB PO SCH ×2 (07:38→18:45)
[2019-07-20 08:51] LABS: Platelet Count 82 k/uL (150-450)
[2019-07-20 11:29] LABS: Glucose,Whole Blood 126 mg/dL (75-99)
--- NOTE | 2019-07-20 12:08 | P.PN ---
Subjective This is a pleasant 79-year-old male past medical history significant for valvular heart disease scheduled for TAVR August 2019, diabetes mellitus, paroxysmal atrial fibrillation on long-term anticoagulation, hypertension, CVA and cardiomyopathy with ejection fraction 40-45%. He unfortunately suffered a fall and is scheduled for orthopedic surgery tomorrow. Eliquis is currently on hold. He is seen and examined sitting up in bed in no acute distress. He is complaining of significant pain in his right hip. He denies chest pain, diz ziness, palpitations or shortness of breath. Blood pressure 124/68 heart rate 65 afebrile maintaining oxygen saturation on nasal cannula. Laboratory data reviewed, WBC 6.3, hemoglobin 14, platelets 82, sodium 138, potassium 4.4, magnesium 2.0, creatinine 1.39 and NT proBNP 4280. Currently maintained on atorvastatin 20 mg daily, diltiazem 180 mg daily, Lasix 40 mg by mouth daily, Imdur 30 mg daily and metoprolol 50 mg twice a day. Echocardiogram obtained reveals mildly impaired LV systolic function with ejection fraction 45-50%, anteroseptal hypokinesia, moderate to severe stenosis with a mean gradient 27 mmHg, mild MR and mild TR. GENERAL: Well-appearing, well-nourished and in no acute distress. NECK: Supple without JVD or thyromegaly. LUNGS: Breath sounds clear to auscultation bilaterally. Respiration equal and unlabored. No wheezes, rales or rhonchi. HEART: Regular rate and rhythm with systolic ejection murmur at the base, no rubs or gallops. S1 and S2 heard. EXTREMITIES: Normal range of motion, no edema. No clubbing or cyanosis. Peripheral pulses intact. ASSESSMENT Mechanical fall Right femoral neck fracture Aortic stenosis, severe awaiting to have her procedure Paroxysmal atrial fibrillation on long-term anticoagulation, Maintaining sinus mechanism History of CVA Hypertension Dyslipidemia PLAN Continue current medical regimen. Patient is high risk to undergo surgical intervention however contraindications. Hold Eliquis and resume after surgery as soon as possible for thromboembolic protection. Recommend recovery on selective care unit post surgery. Nurse Practitioner note has been reviewed, I agree with a documented findings and plan of care. Patient was seen and examined. Objective - Vital Signs Vital signs: Vital Signs Temp 99.2 F 07/20/19 07:00 Pulse 65 07/20/19 07:00 Resp 19 07/20/19 07:00 BP 124/68 07/20/19 07:00 Pulse Ox 92 L 07/20/19 07:00 Intake & Output 07/19/19 07/20/19 07/20/19 18:59 06:59 18:59 Intake Total 240 Output Total 975 Balance -735 Intake: Intake, IV Titration 240 Amount Sodium Chloride 0.9% 1, 240 000 ml @ 120 mls/hr IV . Q8H20M [facility] Rx#:[id number] Output: Urine 975 Other: Voiding Method Indwelling Catheter Indwelling Catheter # Voids 2 - Labs CBC & Chem 7: 07/20/19 05:36 07/20/19 05:36 Labs: Abnormal Lab Results - Last 24 Hours (Table) 07/19/19 07/19/19 07/20/19 Range/Units 17:02 19:51 05:36 Plt Count (150-450) k/uL Lymphocytes # (1.0-4.8) k/uL Carbon Dioxide 31 H (22-30) mmol/L Creatinine 1.39 H (0.66-1.25) mg/dL Glucose 129 H (74-99) mg/dL POC Glucose (mg/dL) 186 H 130 H (75-99) mg/dL 07/20/19 07/20/19 07/20/19 Range/Units 05:36 06:40 11:27 Plt Count 82 L (150-450) k/uL Lymphocytes # 0.7 L (1.0-4.8) k/uL Carbon Dioxide (22-30) mmol/L Creatinine (0.66-1.25) mg/dL Glucose (74-99) mg/dL POC Glucose (mg/dL) 178 H 126 H (75-99) mg/dL
--- NOTE | 2019-07-20 13:18 | P.PN ---
Progress Note - Text Progress Note Date: 07/20/19 Patient seen lying in bed with his at the bedside. He reports some persistent right hip pain. He has no new complaints today. He has been seen by cardiology. We did review his increased risk for surgery given his cardiac and medical comorbidities. Both he and his understand this. He has pain with any attempted log rolling of the right hip. His distal neurovascular exam remains intact to both lower extremities. Homans and Robinson remain negative bilaterally. Impression: 1. Right hip femoral neck fracture 2. Multiple medical and cardiac comorbidities Plan: We will plan to proceed with direct anterior right total hip arthroplasty tomorrow
--- NOTE | 2019-07-20 15:21 | P.PN ---
Subjective Progress Note Date: 07/20/19 Principal diagnosis: Right hip fracture Patient was seen and examined. No acute events overnight. Patient reports pain in his right lower extremity that is well-controlled when he is not moving. He denies any chest pain, shortness of breath or palpitations. No nausea or vomi ting. No fever or chills. His is at bedside. Objective - Vital Signs Vital signs: Vital Signs Temp 99.2 F 07/20/19 07:00 Pulse 65 07/20/19 07:00 Resp 19 07/20/19 07:00 BP 124/68 07/20/19 07:00 Pulse Ox 92 L 07/20/19 07:00 Intake & Output 07/19/19 07/20/19 07/20/19 18:59 06:59 18:59 Intake Total 240 420 Output Total 975 Balance -735 420 Intake: Intake, IV Titration 240 Amount Sodium Chloride 0.9% 1, 240 000 ml @ 120 mls/hr IV . Q8H20M [facility] Rx#:[id number] Oral 420 Output: Urine 975 Other: Voiding Method Indwelling Catheter Indwelling Catheter # Voids 2 - Exam General: [non toxic], [no distress on nasal cannula], [appears at stated age] Derm: [warm], [dry] Head: [atraumatic], [normocephalic], [symmetric] Eyes: [EOMI], [no lid lag], [anicteric sclera] Mouth: [no lip lesion], [mucus membranes moist] Cardiovascular: [S1S2 reg with systolic murmur], [no murmur], [positive DP pulse bilateral], Lungs: [Decreased breath sounds bilateral], [no rhonchi, no rales] , [no accessory muscle use] Abdominal: [soft], [ nontender to palpation], [no guarding], [no appreciable organomegaly] Ext: [no gross muscle atrophy], [no edema], [shortened right lower extremity with external rotation] Neuro: [ CN II-XI grossly intact], [no focal neuro deficits] Psych: [Alert], [oriented], [appropriate affect] - Labs CBC & Chem 7: 07/20/19 05:36 07/20/19 05:36 Labs: Abnormal Lab Results - Last 24 Hours (Table) 07/19/19 07/19/19 07/20/19 Range/Units 17:02 19:51 05:36 Plt Count (150-450) k/uL Lymphocytes # (1.0-4.8) k/uL Carbon Dioxide 31 H (22-30) mmol/L Creatinine 1.39 H (0.66-1.25) mg/dL Glucose 129 H (74-99) mg/dL POC Glucose (mg/dL) 186 H 130 H (75-99) mg/dL 07/20/19 07/20/19 07/20/19 Range/Units 05:36 06:40 11:27 Plt Count 82 L (150-450) k/uL Lymphocytes # 0.7 L (1.0-4.8) k/uL Carbon Dioxide (22-30) mmol/L Creatinine (0.66-1.25) mg/dL Glucose (74-99) mg/dL POC Glucose (mg/dL) 178 H 126 H (75-99) mg/dL Assessment and Plan Assessment: Chronic atrial fibrillation Aortic stenosis Hypertension Diabetes mellitus Acute kidney injury on chronic kidney disease Last dose of Eliquis was July 18. Plans: Continue beta santiago. Continue Cardizem. Potassium greater than 4 magnesium greater than 2. Telemetry monitoring. Cardiology following. As seen on echocardiogram. Plans: Cardiology evaluated the patient, high risk for surgery, recommends cardiac selective postsurgery. BP 114/68. Plans: Continue beta santiago. Continue Cardizem. Monitor vitals, adjust medications as necessary. Urzmh-mw-bean glucose 126. Plans: Continue home dose of insulin. Hold Trulicity. Insulin sliding-scale. Regular Accu-Cheks. Hypoglycemic precautions. Creatinine 1.39. Improved from admission. Plans: Daily BMP. Avoid nephrotoxins. [Patient admitted after mechanical fall and right hip fracture. Cardio evaluated the patient, cleared for surgery but high risk. Plans for OR on Sunday. Social work on board for rehab. Patient is pending clinical improvement. Likely DC in 2-3 days.]
[2019-07-20 16:44] LABS: Glucose,Whole Blood 179 mg/dL (75-99)
[2019-07-20 20:01] LABS: Glucose,Whole Blood 163 mg/dL (75-99)
[2019-07-21 06:47] LABS: Glucose,Whole Blood 65 mg/dL (75-99)
[2019-07-21] MEDS: INSULIN ASPART (NovoLOG) 100 UNIT/ML VIAL SQ SCH ×4 (06:59→21:05)
[2019-07-21] MEDS: INSULIN DETEMIR (LEVEMIR) 100 UNIT/ML SYR SQ SCH ×2 (06:59→20:47)
[2019-07-21 07:04] LABS: Glucose,Whole Blood 61 mg/dL (75-99)
[2019-07-21] MEDS ORDERED: DEXTROSE 10 % IN WATER 250 ML IV ONE (07:10)
[2019-07-21] MEDS: FUROSEMIDE 40 MG TAB PO SCH (07:13)
[2019-07-21] MEDS: ATORVASTATIN 20 MG TAB PO SCH (07:16)
[2019-07-21] MEDS: METOPROLOL TARTRATE 50 MG TAB PO SCH ×2 (07:16→20:54)
[2019-07-21] MEDS: ISOSORBIDE MONONITRATE ER 30 MG TAB.ER.24H PO SCH (07:16)
[2019-07-21] MEDS: buPROPion 75 MG TAB PO SCH ×2 (07:20→20:49)
[2019-07-21] MEDS: ESCITALOPRAM 20 MG TAB PO SCH (07:20)
[2019-07-21] MEDS: DILTIAZEM CD 180 MG CAP.ER.24H PO SCH (07:20)
[2019-07-21 07:27] LABS: Glucose,Whole Blood 115 mg/dL (75-99)
[2019-07-21] MEDS: DEXTROSE 5%-0.9% NACL 1,000 ML IV SCH (09:21)
[2019-07-21] MEDS: HYDROmorphone 1 MG/ML 1 ML SYRINGE IVP PRN (10:59)
[2019-07-21 11:56] LABS: Glucose,Whole Blood 115 mg/dL (75-99)
[2019-07-21] MEDS ORDERED: PATIENT'S OWN MED (Dulaglutide [Trulicity] 1.5 MG) SQ SCH (12:00)
--- NOTE | 2019-07-21 13:06 | P.PN ---
Subjective Progress Note Date: 07/21/19 Principal diagnosis: Right hip fracture Patient was seen and examined. No acute events overnight. Patient reports pain in his right lower extremity that is well-controlled when he is not moving. He denies any chest pain, shortness of breath or palpitations. No nausea or vomi ting. No fever or chills. Family at beside, questions answered. Objective - Vital Signs Vital signs: Vital Signs Temp 98.2 F 07/21/19 07:07 Pulse 70 07/21/19 07:07 Resp 17 07/21/19 07:07 BP 162/80 07/21/19 07:07 Pulse Ox 98 07/21/19 07:07 Intake & Output 07/20/19 07/21/19 07/21/19 18:59 06:59 18:59 Intake Total 420 200 Output Total 400 Balance 420 -200 Intake: Oral 420 200 Output: Urine 400 Other: Voiding Method Indwelling Catheter Indwelling Catheter - Exam General: [non toxic], [no distress on nasal cannula], [appears at stated age] Derm: [warm], [dry] Head: [atraumatic], [normocephalic], [symmetric] Eyes: [EOMI], [no lid lag], [anicteric sclera] Mouth: [no lip lesion], [mucus membranes moist] Cardiovascular: [S1S2 reg with systolic murmur], [no murmur], [positive DP pulse bilateral], Lungs: [Decreased breath sounds bilateral], [no rhonchi, no rales] , [no accessory muscle use] Abdominal: [soft], [ nontender to palpation], [no guarding], [no appreciable organomegaly] Ext: [no gross muscle atrophy], [no edema], [shortened right lower extremity with external rotation] Neuro: [no focal neuro deficits] Psych: [Alert], [oriented], [appropriate affect] - Labs CBC & Chem 7: 07/20/19 05:36 07/20/19 05:36 Labs: Abnormal Lab Results - Last 24 Hours (Table) 07/20/19 07/20/19 07/21/19 Range/Units 16:29 20:00 06:44 POC Glucose (mg/dL) 179 H 163 H 65 L (75-99) mg/dL 07/21/19 07/21/1920 Range/Units 07:03 07:20 11:53 POC Glucose (mg/dL) 61 L 115 H 115 H (75-99) mg/dL Assessment and Plan Assessment: Chronic atrial fibrillation Aortic stenosis Hypertension Diabetes mellitus Acute kidney injury on chronic kidney disease Last dose of Eliquis was July 18. Plans: Continue beta santiago. Continue Cardizem. Potassium greater than 4 magnesium greater than 2. Telemetry monitoring. Cardiology following. As seen on echocardiogram. Plans: Cardiology evaluated the patient, high risk for surgery, recommends cardiac selective postsurgery. BP 162/80. Plans: Continue beta santiago. Continue Cardizem. Monitor vitals, adjust medications as necessary. Rktoo-ub-qmcy glucose 115. Plans: Continue home dose of insulin. Hold Trulicity. Insulin sliding-scale. Regular Accu-Cheks. Hypoglycemic precautions. Creatinine 1.39. Improved from admission. Plans: Daily BMP. Avoid nephrotoxins. [Patient admitted after mechanical fall and right hip fracture. Cardio evaluated the patient, cleared for surgery but high risk. Plans for OR today. Social work on board for rehab. Patient is pending clinical improvement. Likely DC in 2-3 days.]
[2019-07-21] MEDS ORDERED: LACTATED RINGERS 1,000 ML IV ONE ×2 (13:25→16:25)
[2019-07-21 13:32] LABS: Glucose,Whole Blood 111 mg/dL (75-99)
--- NOTE | 2019-07-21 13:32 | CDI ---
Documentation Clarification Form Date: 07/21/2019 01:26:53 PM From: Pat Delgado RN, CCDS Admit Date: 07/18/2019 04:46:00 PM Patient Name: Jarrod Tinoco Visit Number: [id number] Discharge Date: ATTENTION: The Clinical Documentation Specialists (CDI) and [facility] Coding Staff appreciate your assistance in clarifying documentation. Please respond to the clarification below the line at the bottom and electronically sign. The CDI & [facility] Coding staff will review the response and follow-up if needed. Please note: Queries are made part of the Legal Health Record. If you have any questions, please contact the author of this message via ITS. Dr. Dea Walters Patient was admitted 07/18 with right hip fracture. Labs on day of admission has BUN 19 Creatinine 1.44 and GFR 46 acute kidney injury on chronic kidney disease is in your progress note on 07/20 and further specificity of the chronic kidney disease is needed. History/Risk Factors: Diabetes, Chronic atrial fibrillation, (paroxysmal per cardiology on 07/20) Clinical Indicators: 79-year-old male who present to ED on 07/18 after a mechanical fall on his right hip. 07/20 BUN 19 CR 1.39 GFR:48 Patients Baseline BUN/CR/GFR: Not noted Treatment: 07/18 1/Liter .9 saline @ 120 hr 07/21 D5/<9 @ 50 mls/hr IV Monitor BUN, Cr, Lytes In order to capture the severity of condition, please clarify if the condition signifies: CKD Stage 3 (GFR 30-59) Other, please specify Unable to determine (Last Revision: September 2017) unable to determine, probably acute kidney injury and not CKD MTDD
[2019-07-21] MEDS ORDERED: MIDAZOLAM 2 MG/2 ML VIAL IV ONE (14:00)
[2019-07-21] MEDS ORDERED: ROCURONIUM BROMIDE 10 MG/ML 5 ML VIAL IV ONE (14:15)
[2019-07-21] MEDS ORDERED: NEOSTIGMINE 1 MG/ML 10 ML VIAL ONE (14:15)
[2019-07-21] MEDS ORDERED: ETOMIDATE 2 MG/ML 10 ML VIAL ONE (14:15)
[2019-07-21] MEDS ORDERED: hydrALAZINE HCL 20 MG/ML 1 ML VIAL ONE (14:15)
[2019-07-21] MEDS ORDERED: fentaNYL (PF) 50 MCG/ML 2 ML AMP ONE (14:15)
[2019-07-21] MEDS ORDERED: METOPROLOL TARTRATE 5 MG/5 ML VIAL IVP ONE (14:15)
[2019-07-21] MEDS ORDERED: SUCCINYLCHOLINE CHLORIDE 100 MG/5 ML SYR IV ONE (14:15)
[2019-07-21] MEDS ORDERED: GLYCOPYRROLATE 0.2 MG/ML 2 ML VIAL ONE (14:15)
[2019-07-21] MEDS ORDERED: ESMOLOL 100 MG/10 ML VIAL ONE (14:15)
[2019-07-21] MEDS ORDERED: NALOXONE 0.4 MG/ML 1 ML VIAL ONE (14:15)
[2019-07-21] MEDS ORDERED: DEXAMETHASONE SOD PHOS (MDV) 100 MG/10 ML VIAL ONE (14:15)
[2019-07-21] MEDS ORDERED: LABETALOL 5 MG/ML VIAL MDV ONE (14:15)
[2019-07-21] MEDS ORDERED: PHENYLEPHRINE-0.9% NACL SYG 1 MG/10 ML SYRINGE ONE (14:15)
[2019-07-21] MEDS ORDERED: LIDOCAINE 1% INJ 10MG/ML (20 ML MDV) ONE (14:15)
[2019-07-21] MEDS ORDERED: ONDANSETRON 4 MG/2 ML VIAL ONE (14:15)
[2019-07-21] MEDS ORDERED: SODIUM CHLORIDE 0.9% 100 ML with ceFAZolin 2,000 MG IV ONE ×2 (14:49)
[2019-07-21] MEDS ORDERED: ceFAZolin 3,000 MG in SODIUM CHLORIDE 0.9% IRRIGATIO 3,000 ML IRRIGATION ONE (14:50)
[2019-07-21] MEDS: ROPIVACAINE 246.25 MG, EPINEPHrine 0.5 MG, KETOROLAC 30 MG, cloNIDine HCL/PF 80 MCG, WA... MISCELLANE ONE ×15 (15:05→15:49)
[2019-07-21] MEDS ORDERED: ONDANSETRON 4 MG/2 ML VIAL IVP PRN (16:11)
[2019-07-21] MEDS ORDERED: NALOXONE 0.4 MG/ML 1 ML VIAL IV PRN (16:11)
--- NOTE | 2019-07-21 16:11 | P.OP ---
Date of Procedure: 07/21/19 Preoperative Diagnosis: Displaced left hip femoral neck fracture Postoperative Diagnosis: Displaced left hip femoral neck fracture Procedure(s) Performed: Direct anterior left total hip arthroplasty Implants: 1. Depuy Corail KA size 16 standard collar press-fit femoral stem 2. Depuy pinnacle 62 mm multihole press-fit acetabular shell 3. Depuy pinnacle polyethylene acetabular liner neutral 36 mm ID 62 mm OD 4. Depuy metallic femoral head 36 mm -2 Anesthesia: TODDA, local Surgeon: Joselo Choudhury Spice Fumigator #1: Keven Bella Estimated Blood Loss (ml): 150 Pathology: other (Femoral head) Condition: stable Disposition: PACU Indications for Procedure: 79-year-old patient seen with a displaced left hip femoral neck fracture. He did have some concomitant osteoarthritis. We discussed direct anterior left total hip arthroplasty. I reviewed the procedure risks complications benefits and recovery with the patient and his . They were agreeable. Consent was obtained. Medical and cardiac clearances were obtained. The patient and family understood he was a high risk candidate for any type of surgery. Operative Findings: See description of procedure Description of Procedure: The patient was taken to the operative suite. Patient underwent a general anesthetic by the department of anesthesia. Patient was then transferred to the Collins table. Patient was given preoperative IV antibiotics. Both lower extremities were placed in standard leg spars. The hip was then prepped and draped in the normal sterile orthopedic fashion. A standard anterior incision was made beginning 3 cm lateral and 1 cm distal to the ASIS extending 10 cm. Dissection was then carried down through the subcutaneous soft tissues down to the fascia overlying the tensor fascia tristian. An incision was now made through the fascia. Careful dissection was taken down exposing the tensor fascia tristian muscle. A Cobra retractor was now placed along the medial femoral neck and a s econd one along the lateral femoral neck. The venous circumflex vessels were now identified, cauterized and clipped. We identified the anterior hip capsule. An incision was made through the hip capsule along the lateral border. I performed a partial anterior capsulectomy. I immediately encountered hemarthrosis and noted the displaced comminuted femoral neck fracture Retractors were now placed around the femoral neck itself. I utilized a sagittal saw to cut away some of the residual femoral neck distally. I removed those bony fragments. The femoral head was now removed without difficulty. The femoral head did reveal some moderate osteoarthritic changes as well. The extremity was now rotated to 45 of external rotation. It was locked in position. Residual labrum was now debrided out. I did note some moderate plus osteoarthritis of the acetabulum. Serial reaming was performed of the acetabulum while Berry QUINTANILLA assisted holding an anterior retractor for exposure. Once we reached the appropriate size and a trial was position and fit nicely. The appropriate size was now chosen opened and made available. It was introduced into the acetabulum without difficulty. The C-arm/fluoroscopy was now brought into the operative field. We made sure we had a true AP pelvic view. We now under direct C- arm/fluoroscopy introduced into the acetabular component with appropriate v ersion and inclination. I held the cup in appropriate position well Berry QUINTANILLA used a mallet to seat the acetabular component. I noted the component now to be well seated and stable. Acetabular cup introduce her was removed. The C-arm was pulled back. An appropriate liner was introduced and clicked into position. It was felt to be stable. At this point retractors were removed. The extr emity was now placed into 120 external rotation with no traction. The leg was now dropped to the ground and adducted. Appropriate retractors were now positioned along the proximal femur. We also placed our femoral look into position. Additional capsular releasing was performed to gain access to the proximal femur. We now used a box osteotome. A canal finder was now utilized. Serial broaching was now performed with the assistance of Berry QUINTANILLA tapping the broaches down with a mallet while held the broach in appropriate rotation and position. This was done until we reached the appropriate size with good overall rotational stability. Appropriate calcar planing was performed. A trial head/neck was placed into position. The hip was now reduced. The C- arm/fluoroscopy was brought back into the operative field. A spot film was obtained of the nonoperative hip. A spot film was obtained of the trial components. Overlays were performed, we noted good overall alignment and pos itioning for determining leg length. The C-arm/fluoroscopy was pulled back. Retractors were repositioned and the hip was dislocated. The leg was again taken down to the ground and adducted. Appropriate retractors were repositioned as well as the femoral hook. All trial components were removed. The femoral implant was opened along with the femoral head. The femoral implant was introduced on the appropriate handle into our pre-broached area. I held the component position well Berry QUINTANILLA used a mallet to seat the femoral component. The femoral component was now noted to be well seated and stable.. The femoral head was introduced with good positioning and fixation noted. Retractors were now removed. The hip was now reduced. There appeared be good positioning of the hip confirmed on intraoperative fluoroscopy. Spot films were obtained to document this. The deep and superficial soft tissues were infiltrated with local analgesic. Bipolar cautery had been utilized intermitte ntly through the procedure for hemostasis. The wound was irrigated copiously with pulse lavage mechanical irrigation. The fascia was repaired with Vicryl suture. The subcutaneous soft tissues were repaired in layers with Vicryl suture. The skin was approximated with pernio/Dermabond. Sterile dressings were applied. Patient was then awakened, transferred to a bed and taken to recovery in stable condition. Berry QUINTANILLA assisted with the complex procedure.
[2019-07-21] MEDS ORDERED: HYDROmorphone 0.5 MG/0.5 ML SYRINGE IVP ONE (17:07)
[2019-07-21 17:41] LABS: Glucose,Whole Blood 142 mg/dL (75-99)
--- NOTE | 2019-07-21 17:43 | P.CNPUL ---
History of Present Illness Consult date: 07/21/19 Reason for consult: other Chief complaint: Right hip fracture, severe aortic stenosis History of present illness: 79-year-old white male patient with past history of type 2 diabetes mellitus with peripheral neuropathy, chronic atrial fibrillation on Eliquis, hypertension, history of CVA in 2006, severe aortic valve stenosis with plans for TAVR procedure next month at [facility] who presented to the emergency department via EMS after sustaining a fall at home on 07/18/2019. The patient was working in his garage and tripped over a higher block and fell onto his right hip. No loss of consciousness, no chest pain or shortness of breath, no syncope or presyncope. CT of the head showed mild age-related atrophy with some periventricular ischemic changes, old left occipital craniotomy with subtotal malacia of the adjacent cerebellum, opacified right maxillary sinus with some calcifications in the nasal passage. Hip and pelvic x-rays showed a subcapital fracture of the right hip along with degenerative changes. Preoperative echocardiogram showed EF between 45 and 50%, moderate to severe aortic stenosis with peak/mean gradient of 47.1/27.5 mmHg, mild MR and mild TR, and right ventricular systolic pressure of less than 35 mmHg. Today on 07/21/2019 patient underwent left total hip arthroplasty for the displaced left hip femoral neck fracture. Following his surgery he seen in the recovery room, he is still somnolent, but really spends to verbal questioning, denies any acute distress, been noted to be hypertensive in the postoperative period, he was given hydralazine, and labetalol, and currently his blood pressure is better controlled at 152/46, he is on 6 L of oxygen per simple mask and his pulse ox is 98%, and sinus mechanism with a rate of 70 BPM, he is afebrile, respirations are nonlabored, patient was given a couple doses of Narcan earlier for hypoventilation related to sedation. Patient was requested to be monitored in the ICU in the immediate postoperative period related to his complex medical history and severe aortic stenosis Review of Systems All systems: negative Constitutional: Denies chills, Denies fever Eyes: denies blurred vision, denies pain Ears, nose, mouth and throat: Denies headache, Denies sore throat Cardiovascular: Reports shortness of breath, Denies chest pain Respiratory: Denies cough Gastrointestinal: Denies abdominal pain, Denies diarrhea, Denies nausea, Denies vomiting Musculoskeletal: Reports frequent falls, Denies myalgias Musculoskeletal: right: hip pain Integumentary: Denies pruritus, Denies rash Neurological: Denies numbness, Denies weakness Psychiatric: Denies anxiety, Denies depression Endocrine: Denies fatigue, Denies weight change Past Medical History Past Medical History: Atrial Fibrillation, CVA/TIA, Diabetes Mellitus, Hypertension Additional Past Medical History / Comment(s): Moderate to severe aortic stenosis awaiting TAVR procedure next month History of Any Multi-Drug Resistant Organisms: None Reported Additional Past Surgical History / Comment(s): brain sx 2006 Past Psychological History: No Psychological Hx Reported Smoking Status: Never smoker Past Alcohol Use History: None Reported Past Drug Use History: None Reported Medications and Allergies Home Medications Medication Instructions Recorded Confirmed Type Apixaban [Eliquis] 5 mg PO BID@0900,1800 07/18/19 07/18/19 History Diltiazem HCl [Cardizem LA] 180 mg PO DAILY 07/18/19 07/18/19 History Dulaglutide [Trulicity] 1.5 mg SQ MO 07/18/19 07/18/19 History Ergocalciferol [Vitamin D2] 50,000 unit PO TU 07/18/19 07/18/19 History Escitalopram [Lexapro] 20 mg PO DAILY 07/18/19 07/18/19 History Furosemide [Lasix] 40 mg PO DAILY 07/18/19 07/18/19 History Insulin Glargine,Hum.rec.anlog 46 unit SQ BID@0900,1800 07/18/19 07/18/19 History [Lantus Solostar] Isosorbide Mononitrate ER [Imdur] 30 mg PO DAILY 07/18/19 07/18/19 History Metoprolol Tartrate [Lopressor] 50 mg PO BID@0900,1800 07/18/19 07/18/19 History Rosuvastatin Calcium [Crestor] 10 mg PO DAILY 07/18/19 07/18/19 History buPROPion [Wellbutrin] 75 mg PO BID@0900,1800 07/18/19 07/18/19 History Allergies Allergy/AdvReac Type Severity Reaction Status Date / Time No Known Allergies Allergy Verified 02/17/20 13:25 Physical Exam Vitals: Vital Signs Temp Pulse Resp BP BP Pulse Ox 07/21/19 17:07 97.5 F L 70 18 168/51 164/48 96 07/21/19 13:17 98.3 F 70 16 139/75 94 L 07/21/19 07:07 98.2 F 70 17 162/80 98 07/21/19 02:25 97.9 F 70 18 123/73 94 L 07/20/19 18:55 98.8 F 69 18 116/67 95 Intake and Output 07/21/19 07/21/19 07/21/19 06:59 14:59 22:59 Intake Total 1101 300 Output Total 400 500 300 Balance -400 601 0 Intake: IV 1101 300 Output: Urine 400 500 150 Uretheral (Horan) 500 Estimated Blood Loss 150 Other: Voiding Method Indwelling Catheter GENERAL EXAM: Somnolent, 79 -year-old white male patient, responding to verbal stimuli, following commands, squeezing hands and command currently on 6 L per face mask, with a pulse ox of 98%, comfortable in no apparent distress. HEAD: Normocephalic/atraumatic. EYES: Normal reaction of pupils, equal size. Conjunctiva pink, sclera white. NOSE: Clear with pink turbinates. THROAT: No erythema or exudates. NECK: No masses, no JVD, no thyroid enlargement, no adenopathy. CHEST: No chest wall deformity. Symmetrical expansion. LUNGS: Equal air entry with no crackles, wheeze, rhonchi or dullness. CVS: Regular rate and rhythm, normal S1 and S2, no gallops, no murmurs, no rubs ABDOMEN: Soft, nontender. No hepatosplenomegaly, normal bowel sounds, no guarding or rigidity. EXTREMITIES: No clubbing, no edema, no cyanosis, 2+ pulses and upper and lower extremities. Right anterior hip incision covered with a dressing, clean dry and intact, distal pulses are palpable MUSCULOSKELETAL: Muscle strength and tone normal. SPINE: No scoliosis or deformity SKIN: No rashes CENTRAL NERVOUS SYSTEM: Somnolent and oriented -2. No focal deficits, tone is normal in all 4 extremities. PSYCHIATRIC: Somnolent and oriented -2. Appropriate affect. Intact judgment and insight. Results - Laboratory Findings CBC and BMP: 07/20/19 05:36 07/20/19 05:36 PT/INR, D-dimer PT 10.7 sec (9.0-12.0) 07/18/19 14:50 INR 1.0 (<1.2) 07/18/19 14:50 Abnormal lab findings: Abnormal Labs 07/18/19 07/18/19 07/18/19 14:50 14:50 20:32 Plt Count 129 L Lymphocytes # 0.8 L Carbon Dioxide Creatinine 1.44 H Glucose 235 H POC Glucose (mg/dL) 208 H 07/19/19 07/19/19 07/19/19 06:53 11:27 17:02 Plt Count Lymphocytes # Carbon Dioxide Creatinine Glucose POC Glucose (mg/dL) 213 H 271 H 186 H 07/19/19 07/20/19 07/20/19 19:51 05:36 05:36 Plt Count 82 L Lymphocytes # 0.7 L Carbon Dioxide 31 H Creatinine 1.39 H Glucose 129 H POC Glucose (mg/dL) 130 H 07/20/19 07/20/19 07/20/19 06:40 11:27 16:29 Plt Count Lymphocytes # Carbon Dioxide Creatinine Glucose POC Glucose (mg/dL) 178 H 126 H 179 H 07/20/19 07/21/19 07/21/19 20:00 06:44 07:03 Plt Count Lymphocytes # Carbon Dioxide Creatinine Glucose POC Glucose (mg/dL) 163 H 65 L 61 L 07/21/19 07/21/19 07/21/19 07:20 11:53 13:23 Plt Count Lymphocytes # Carbon Dioxide Creatinine Glucose POC Glucose (mg/dL) 115 H 115 H 111 H - Diagnostic Findings Chest x-ray: report reviewed, image reviewed Assessment and Plan Plan: Assessment: #1. Acute hypoxic respiratory failure related to combination of acute congestive heart failure with systolic dysfunction, small bilateral pleural effusions, and hypoventilation related to procedural sedation #2. Mechanical fall and right hip subcapital fracture, status post right total hip arthroplasty postoperative day 0 #3. Acute kidney injury #4. Chronic congestive heart failure with EF of 40-45% #5. Chronic A. fib on Eliquis which is currently on hold for right hip surgery #6. Severe aortic stenosis awaiting TAVR at [facility] on 08/06/2019 #7. Diabetes mellitus with peripheral neuropathy #8. Hypertension #9. History of cerebral hemorrhagic stroke in 2017 status post craniotomy Plan: Continue current medical treatment, pain control, close hemodynamic monitoring in the intensive care unit, currently vital signs are stable, patient has been seen and evaluated in the recovery room following the procedure, we'll obtain follow-up chest x-ray in the morning, incentive spirometry to the bedside, continue antibiotics per orthopedic surgery, DVT prophylaxis per orthopedic surgery, patient's Eliquis is being resumed tonight. Repeat blood work in the morning. We'll continue to follow and monitor patient closely in the intensive care unit. I performed a history & physical examination of the patient and discussed their management with my nurse practitioner, Milly Amos. I reviewed the nurse practitioner's note and agree with the documented findings and plan of care. Lung sounds are positive for diminished breath sounds. The findings and the i mpression was discussed with the patient. I attest to the documentation by the nurse practitioner. Time with Patient: Greater than 30
[2019-07-21] MEDS: SODIUM CHLORIDE 0.9% 1,000 ML IV SCH (18:04)
[2019-07-21] MEDS: APIXABAN 5 MG TAB PO SCH (20:54)
[2019-07-21] MEDS: SENNOSIDES-DOCUSATE SODIUM 1 EACH TAB PO SCH (20:55)
[2019-07-21 21:00] LABS: Glucose,Whole Blood 169 mg/dL (75-99)
[2019-07-22] MEDS: SODIUM CHLORIDE 0.9% 1,000 ML IV SCH (00:36)
--- NOTE | 2019-07-22 03:31 | XR ---
EXAMINATION TYPE: XR Hip Limited RT, FL guidance operating room DATE OF EXAM: 07/21/2019 Comparison: 07/18/2019 Clinical History: 79-year-old male RT anterior hip Findings: 2 intraoperative fluoroscopic images during anterior right hip replacement. FLUOROSCOPY Fluoroscopy time of 21 seconds was used during anterior total right hip arthroplasty. 2 image/s docu ment/s the procedure. Impression: Fluoroscopy as above.
[2019-07-22] MEDS: HYDROcodone/APAP 10-325MG 1 EACH TAB PO PRN ×2 (03:37→10:46)
[2019-07-22 05:05] LABS: Basophils % (A) 0 %; Eosinophils % (A) 0 %; HCT 36.6 % (39.0-53.0); HGB 11.7 gm/dL (13.0-17.5); Lymphocytes # (A) 0.4 k/uL (1.0-4.8); Lymphocytes % (A) 5 %; MCH 31.3 pg (25.0-35.0); MCV 97.6 fL (80.0-100.0); Mean Platelet Volume 9.5; Monocytes # (A) 0.3 k/uL (0-1.0); Monocytes % (A) 5 %; Neutrophils # (A) 5.8 k/uL (1.3-7.7); Neutrophils % (A) 88 %; RBC 3.75 m/uL (4.30-5.90); RDW 13.1 % (11.5-15.5); WBC 6.6 k/uL (3.8-10.6)
[2019-07-22 05:14] LABS: Platelet Count 82 k/uL (150-450)
[2019-07-22 05:29] LABS: Calcium 8.7 mg/dL (8.4-10.2); Potassium 4.4 mmol/L (3.5-5.1)
[2019-07-22 06:42] LABS: Glucose,Whole Blood 248 mg/dL (75-99)
[2019-07-22] MEDS: DEXTROSE 5%-0.9% NACL 1,000 ML IV SCH (06:45)
[2019-07-22] MEDS: INSULIN ASPART (NovoLOG) 100 UNIT/ML VIAL SQ SCH ×4 (06:55→21:21)
--- NOTE | 2019-07-22 07:37 | XR ---
EXAMINATION TYPE: XR chest 1V portable DATE OF EXAM: 07/22/2019 Comparison: 07/19/2019 Clinical History: 79 year-old male shortness of breath Findings: Left anterior chest wall pacemaker generator with right atrial and right ventricular leads. Continued slight asymmetric elevation left hemidiaphragm. Interstitial densities and patchy bibasilar opacitie s persist though there is been slight improvement in aeration of the right base. Most of the left hea rt margin is obscured by the elevated left hemidiaphragm. Suspected old healed right-sided rib fractu re deformities. Impression: 1. Correlate for continued mild pulmonary vascular congestion. 2. Small effusions with adjacent atelectasis and/or consolidation persist, but with some interval imp rovement in aeration at the right base. 3. Continued asymmetric elevation left hemidiaphragm.
--- NOTE | 2019-07-22 09:00 | P.PN ---
Subjective Progress Note Date: 07/22/19 On today's evaluation of 07/22/2019 the patient is postop day #1. He is doing well. No specific complaints. Is on oxygen at 3 L per minute nasal cannula. Chest x-ray from today shows small bilateral pleural effusions. There is also some mild pulmonary vascular congestion. There is also some elevation of left hemidiaphragm. The patient is a pacemaker on the left. Note that the patient has multiple medical problems and comorbidities. He has severe aortic stenosis awaiting APAP are procedure. He has type II diabetic and he has peripheral neuropathy, history of atrial fibrillation maintained on Eliquis on outpatient basis along with hypertension. He has also encountered a previous history of CVA back in 2006. His appetite ejection fraction is 45-50%. There is severe aortic stenosis. No major edema in his lower extremities. Surgical wound site over the right hip area dry clean and intact. He is receiving IV fluid rate of 50 mL an hour. Tolerating diet. No altered mentation. Objective - Vital Signs Vital signs: Vital Signs Temp 99.2 F 07/22/19 08:00 Pulse 69 07/22/19 08:00 Resp 18 07/22/19 08:00 BP 136/68 07/22/19 08:00 Pulse Ox 97 07/22/19 08:00 Intake & Output 07/21/19 07/22/19 07/22/19 18:59 06:59 18:59 Intake Total 1451 1157 546 Output Total 900 545 175 Balance 551 612 371 Weight 121.5 kg 123 kg Intake: IV 1451 677 106 Lactated Ringers 1,000 ml 50 50 @ 0 mls/hr IV .[facility] Rx#:[id number] Sodium Chloride 0.9% 1, 550 100 000 ml @ 50 mls/hr IV . Q20H [facility] Rx#:[id number] ceFAZolin 2 gm In Sodium 50 Chloride 0.9% 50 ml @ 100 mls/hr IVPB Q8HR [facility] Rx# :[id number] pressure bag 27 6 Oral 480 440 Output: Urine 750 545 175 Uretheral (Horan) 500 Estimated Blood Loss 150 Other: Voiding Method Indwelling Catheter Indwelling Catheter ABP, PAP, CO, CI - Last Documented Arterial Blood Pressure 128/51 - Exam GENERAL EXAM: Somnolent, 79 -year-old white male patient, responding to verbal stimuli, following commands, squeezing hands and command currently on 6 L per face mask, with a pulse ox of 98%, comfortable in no apparent distress. HEAD: Normocephalic/atraumatic. EYES: Normal reaction of pupils, equal size. Conjunctiva pink, sclera white. NOSE: Clear with pink turbinates. THROAT: No erythema or exudates. NECK: No masses, no JVD, no thyroid enlargement, no adenopathy. CHEST: No chest wall deformity. Symmetrical expansion. LUNGS: Equal air entry with no crackles, wheeze, rhonchi or dullness. CVS: Regular rate and rhythm, normal S1 and S2, no gallops, and there is a systolic ejection murmur grade 4/6 heard throughout the precordium mainly in the left apex radiating to the neck. ABDOMEN: Soft, nontender. No hepatosplenomegaly, normal bowel sounds, no guarding or rigidity. EXTREMITIES: No clubbing, no edema, no cyanosis, 2+ pulses and upper and lower extremities. Right anterior hip incision covered with a dressing, clean dry and intact, distal pulses are palpable MUSCULOSKELETAL: Muscle strength and tone normal. SPINE: No scoliosis or deformity SKIN: No rashes CENTRAL NERVOUS SYSTEM: Somnolent and oriented -2. No focal deficits, tone is normal in all 4 extremities. PSYCHIATRIC: Somnolent and oriented -2. Appropriate af - Labs CBC & Chem 7: 07/22/19 04:50 07/22/19 04:50 Labs: Abnormal Lab Results - Last 24 Hours (Table) 07/21/19 07/21/19 07/21/19 Range/Units 11:53 13:23 17:39 RBC (4.30-5.90) m/uL Hgb (13.0-17.5) gm/dL Hct (39.0-53.0) % Plt Count (150-450) k/uL Lymphocytes # (1.0-4.8) k/uL Sodium (137-145) mmol/L BUN (9-20) mg/dL Glucose (74-99) mg/dL POC Glucose (mg/dL) 115 H 111 H 142 H (75-99) mg/dL 07/21/19 07/22/19 07/22/19 Range/Units 20:59 04:50 04:50 RBC 3.75 L (4.30-5.90) m/uL Hgb 11.7 L (13.0-17.5) gm/dL Hct 36.6 L (39.0-53.0) % Plt Count 82 L (150-450) k/uL Lymphocytes # 0.4 L (1.0-4.8) k/uL Sodium 134 L (137-145) mmol/L BUN 27 H (9-20) mg/dL Glucose 251 H (74-99) mg/dL POC Glucose (mg/dL) 169 H (75-99) mg/dL 07/22/19 Range/Units 06:41 RBC (4.30-5.90) m/uL Hgb (13.0-17.5) gm/dL Hct (39.0-53.0) % Plt Count (150-450) k/uL Lymphocytes # (1.0-4.8) k/uL Sodium (137-145) mmol/L BUN (9-20) mg/dL Glucose (74-99) mg/dL POC Glucose (mg/dL) 248 H (75-99) mg/dL Assessment and Plan Plan: #1. Acute hypoxic respiratory failure related to combination of acute congestive heart failure with systolic dysfunction, small bilateral pleural effusions, and hypoventilation related to procedural sedation, clinically improved and the patient is currently on 3 L of oxygen by nasal cannula. Chest x-ray showing some small bilateral pleural effusions and the left hemidiaphragm is slightly elevated compared to the right. There is also in mild four-vessel congestion. #2. Right hip ORIF and the patient is postop day #1. The patient has a mechanical fall and right hip subcapital fracture, #3. Acute kidney injury, recovered and the creatinine is down to 0.9. #4. Chronic congestive heart failure with EF of 40-45% #5. Chronic A. fib on Eliquis which is currently on hold for right hip surgery #6. Severe aortic stenosis awaiting TAVR at [facility] on 08/06/2019 #7. Diabetes mellitus with peripheral neuropathy #8. Hypertension #9. History of cerebral hemorrhagic stroke in 2017 status post craniotomy #10 pacemaker insertion and the patient is atrially paced Plan IV to KVO. Incentive spirometer. Restart anticoagulation with Eliquis Advance diet Lantus Insulin for blood sugar control in addition to sliding scale coverage [place] for pain control Lasix 40 mg on a daily basis Physical therapy involvement We'll continue to follow
[2019-07-22] MEDS: ATORVASTATIN 20 MG TAB PO SCH (09:34)
[2019-07-22] MEDS: ISOSORBIDE MONONITRATE ER 30 MG TAB.ER.24H PO SCH (09:34)
[2019-07-22] MEDS: DILTIAZEM CD 180 MG CAP.ER.24H PO SCH (09:34)
[2019-07-22] MEDS: buPROPion 75 MG TAB PO SCH ×2 (09:34→17:53)
[2019-07-22] MEDS: APIXABAN 5 MG TAB PO SCH ×2 (09:34→21:21)
[2019-07-22] MEDS: METOPROLOL TARTRATE 50 MG TAB PO SCH ×2 (09:35→17:53)
[2019-07-22] MEDS: FUROSEMIDE 40 MG TAB PO SCH (09:35)
[2019-07-22] MEDS: ESCITALOPRAM 20 MG TAB PO SCH (09:37)
[2019-07-22] MEDS: INSULIN DETEMIR (LEVEMIR) 100 UNIT/ML SYR SQ SCH ×2 (09:38→18:02)
[2019-07-22] MEDS: HYDROcodone/APAP 7.5-325MG 1 EACH TAB PO PRN ×3 (10:45→21:55)
[2019-07-22 11:46] LABS: Glucose,Whole Blood 273 mg/dL (75-99)
[2019-07-22] MEDS ORDERED: ERGOCALCIFEROL 50,000 UNIT CAP PO SCH (12:00)
--- NOTE | 2019-07-22 13:24 | P.PN ---
Subjective Progress Note Date: 07/22/19 Principal diagnosis: s/p right anterior total hip arthroplasty Patient evaluated at bedside in the ICU, he is sitting in the hospital chair. His pain is well controlled, no acute complaints. He had done well with PT at this time. He denies chest pain, shortness of breath, nausea/vomiting, fever or chills Objective - Vital Signs Vital signs: Vital Signs Temp 99.2 F 07/22/19 08:00 Pulse 69 07/22/19 12:00 Resp 21 07/22/19 12:32 BP 134/71 07/22/19 12:00 Pulse Ox 90 L 07/22/19 12:00 Intake & Output 07/21/19 07/22/19 07/22/19 18:59 06:59 18:59 Intake Total 1451 1157 942 Output Total 900 545 390 Balance 551 612 552 Weight 121.5 kg 123 kg Intake: IV 1451 677 262 Lactated Ringers 1,000 ml 50 50 @ 0 mls/hr IV .[facility] Rx#:[id number] Sodium Chloride 0.9% 1, 550 200 000 ml @ 20 mls/hr IV . Q24H [facility] Rx#:[id number] ceFAZolin 2 gm In Sodium 50 50 Chloride 0.9% 50 ml @ 100 mls/hr IVPB Q8HR [facility] Rx# :[id number] pressure bag 27 12 Oral 480 680 Output: Urine 750 545 390 Uretheral (Horan) 500 Estimated Blood Loss 150 Other: Voiding Method Indwelling Catheter Indwelling Catheter Indwelling Catheter ABP, PAP, CO, CI - Last Documented Arterial Blood Pressure 142/57 - Exam Right lower extremity: Incision is clean, dry and intact. Exofin tape is in good condition. No significant soft tissue swelling or erythema. Calf is soft, no tenderness with palpation. Skin is warm to touch, dorsalis pedis pulse is 2+ - Labs CBC & Chem 7: 07/22/19 04:50 07/22/19 04:50 Labs: Abnormal Lab Results - Last 24 Hours (Table) 07/21/19 07/21/19 07/21/19 Range/Units 13:23 17:39 20:59 RBC (4.30-5.90) m/uL Hgb (13.0-17.5) gm/dL Hct (39.0-53.0) % Plt Count (150-450) k/uL Lymphocytes # (1.0-4.8) k/uL Sodium (137-145) mmol/L BUN (9-20) mg/dL Glucose (74-99) mg/dL POC Glucose (mg/dL) 111 H 142 H 169 H (75-99) mg/dL 07/22/19 07/22/19 07/22/19 Range/Units 04:50 04:50 06:41 RBC 3.75 L (4.30-5.90) m/uL Hgb 11.7 L (13.0-17.5) gm/dL Hct 36.6 L (39.0-53.0) % Plt Count 82 L (150-450) k/uL Lymphocytes # 0.4 L (1.0-4.8) k/uL Sodium 134 L (137-145) mmol/L BUN 27 H (9-20) mg/dL Glucose 251 H (74-99) mg/dL POC Glucose (mg/dL) 248 H (75-99) mg/dL 07/22/19 Range/Units 11:44 RBC (4.30-5.90) m/uL Hgb (13.0-17.5) gm/dL Hct (39.0-53.0) % Plt Count (150-450) k/uL Lymphocytes # (1.0-4.8) k/uL Sodium (137-145) mmol/L BUN (9-20) mg/dL Glucose (74-99) mg/dL POC Glucose (mg/dL) 273 H (75-99) mg/dL Assessment and Plan Plan: Assessment: Post op day #1 s/p direct anterior right total hip arthroplasty Plan: Pain control, will decrease norco to 7.5mg/325mg DVT prophylaxis, he has resumed Eliquis Wound care instructions discussed Urinary catheter to be removed today Continue with PT, walker for ambulation Anticipate transfer to , hopeful discharge to home tomorrow with homecare Time with Patient: Less than 30
--- NOTE | 2019-07-22 14:01 | P.PN ---
Subjective Progress Note Date: 07/22/19 Principal diagnosis: Right hip fracture Patient was seen and examined. No acute events overnight. Patient reports well-controlled right lower extremity. He denies any chest pain, shortness of breath or palpitations. No nausea or vomiting. No fever or chills. Objective - Vital Signs Vital signs: Vital Signs Temp 99.2 F 07/22/19 08:00 Pulse 69 07/22/19 12:00 Resp 21 07/22/19 12:32 BP 134/71 07/22/19 12:00 Pulse Ox 90 L 07/22/19 12:00 Intake & Output 07/21/19 07/22/19 07/22/19 18:59 06:59 18:59 Intake Total 1451 1157 942 Output Total 900 545 390 Balance 551 612 552 Weight 121.5 kg 123 kg Intake: IV 1451 677 262 Lactated Ringers 1,000 ml 50 50 @ 0 mls/hr IV .[facility] Rx#:[id number] Sodium Chloride 0.9% 1, 550 200 000 ml @ 20 mls/hr IV . Q24H [facility] Rx#:[id number] ceFAZolin 2 gm In Sodium 50 50 Chloride 0.9% 50 ml @ 100 mls/hr IVPB Q8HR [facility] Rx# :[id number] pressure bag 27 12 Oral 480 680 Output: Urine 750 545 390 Uretheral (Horan) 500 Estimated Blood Loss 150 Other: Voiding Method Indwelling Catheter Indwelling Catheter Indwelling Catheter ABP, PAP, CO, CI - Last Documented Arterial Blood Pressure 142/57 - Exam General: [non toxic], [no distress on nasal cannula], [appears at stated age] Derm: [warm], [dry] Head: [atraumatic], [normocephalic], [symmetric] Eyes: [EOMI], [no lid lag], [anicteric sclera] Mouth: [no lip lesion], [mucus membranes moist] Cardiovascular: [S1S2 reg with systolic murmur], [no murmur], [positive DP pulse bilateral], Lungs: [Decreased breath sounds bilateral], [no rhonchi, no rales] , [no accessory muscle use] Abdominal: [soft], [ nontender to palpation], [no guarding], [no appreciable organomegaly] Ext: [no gross muscle atrophy], [no edema], [right hip with restricted range of motion due to pain, lateral dressing clean dry and intact] Neuro: [no focal neuro deficits] Psych: [Alert], [oriented], [appropriate affect] - Labs CBC & Chem 7: 07/22/19 04:50 07/22/19 04:50 Labs: Abnormal Lab Results - Last 24 Hours (Table) 07/21/19 07/21/19 07/22/19 Range/Units 17:39 20:59 04:50 RBC 3.75 L (4.30-5.90) m/uL Hgb 11.7 L (13.0-17.5) gm/dL Hct 36.6 L (39.0-53.0) % Plt Count 82 L (150-450) k/uL Lymphocytes # 0.4 L (1.0-4.8) k/uL Sodium (137-145) mmol/L BUN (9-20) mg/dL Glucose (74-99) mg/dL POC Glucose (mg/dL) 142 H 169 H (75-99) mg/dL 07/22/19 07/22/19 07/22/19 Range/Units 04:50 06:41 11:44 RBC (4.30-5.90) m/uL Hgb (13.0-17.5) gm/dL Hct (39.0-53.0) % Plt Count (150-450) k/uL Lymphocytes # (1.0-4.8) k/uL Sodium 134 L (137-145) mmol/L BUN 27 H (9-20) mg/dL Glucose 251 H (74-99) mg/dL POC Glucose (mg/dL) 248 H 273 H (75-99) mg/dL Assessment and Plan Assessment: Acute blood loss anemia Chronic atrial fibrillation Aortic stenosis Hypertension Diabetes mellitus Hemoglobin 11.7. Expected blood loss from surgery. Plans: Repeat CBC tomorrow morning. Transfuse if hemoglobin less than 7. Last dose of Eliquis was July 18. Plans: Continue beta santiago. Continue Cardizem. Eliquis restarted today. Potassium greater than 4 magnesium greater than 2. Telemetry monitoring. Cardiology following. As seen on echocardiogram. Plans: Cardiology evaluated the patient, high risk for surgery, recommends ICU monitoring postsurgery. BP 134/71. Plans: Continue beta santigao. Continue Cardizem. Monitor vitals, adjust medications as necessary. [id number] glucose 273. Plans: Continue home dose of insulin. Hold Trulicity. Insulin sliding-scale. Regular Accu-Cheks. Hypoglycemic precautions. [Patient admitted after mechanical fall and right hip fracture. POD 1 of direct anterior left total hip arthroplasty. Patient to start working with PT. Social work on board for rehab.]
[2019-07-22 17:04] LABS: Glucose,Whole Blood 264 mg/dL (75-99)
[2019-07-22 17:23] LABS: Glucose,Whole Blood 235 mg/dL (75-99)
[2019-07-22 20:29] LABS: Glucose,Whole Blood 328 mg/dL (75-99)
[2019-07-22] MEDS: SENNOSIDES-DOCUSATE SODIUM 1 EACH TAB PO SCH (21:21)
[2019-07-23 06:14] LABS: Glucose,Whole Blood 148 mg/dL (75-99)
[2019-07-23] MEDS: INSULIN ASPART (NovoLOG) 100 UNIT/ML VIAL SQ SCH ×4 (06:15→21:02)
[2019-07-23] MEDS: FUROSEMIDE 40 MG TAB PO SCH (08:57)
[2019-07-23] MEDS: ATORVASTATIN 20 MG TAB PO SCH (08:57)
[2019-07-23] MEDS: APIXABAN 5 MG TAB PO SCH ×2 (08:57→19:52)
[2019-07-23] MEDS: SODIUM CHLORIDE 0.9% 1,000 ML IV SCH (08:57)
[2019-07-23] MEDS: METOPROLOL TARTRATE 50 MG TAB PO SCH ×2 (08:57→17:04)
[2019-07-23] MEDS: DILTIAZEM CD 180 MG CAP.ER.24H PO SCH (08:57)
[2019-07-23] MEDS: ESCITALOPRAM 20 MG TAB PO SCH (08:57)
[2019-07-23] MEDS: ISOSORBIDE MONONITRATE ER 30 MG TAB.ER.24H PO SCH (08:57)
[2019-07-23] MEDS: HYDROcodone/APAP 7.5-325MG 1 EACH TAB PO PRN ×2 (08:58→23:17)
[2019-07-23] MEDS: INSULIN DETEMIR (LEVEMIR) 100 UNIT/ML SYR SQ SCH ×2 (08:58→17:58)
[2019-07-23] MEDS: buPROPion 75 MG TAB PO SCH ×2 (08:58→17:04)
[2019-07-23] MEDS ORDERED: BENZOCAINE/MENTHOL LOZENG 1 EACH LOZENGE MUCOUS MEM PRN (11:50)
--- NOTE | 2019-07-23 12:05 | P.PN ---
Subjective Progress Note Date: 07/23/19 Principal diagnosis: s/p right anterior total hip arthroplasty Patient has been transferred from the ICU to the cardiac stepdown unit. Pain is well-controlled at this time. Physical therapy/occupational therapy are on the case at this time. According to their notes, is having a difficult time with transferring, he's requiring multiple assistance when doing so , they're will mmending subacute rehab. He denies chest pain, shortness of breath, nausea/vomiting, fever or chills Objective - Vital Signs Vital signs: Vital Signs Temp 97.8 F 07/23/19 08:00 Pulse 78 07/23/19 08:00 Resp 18 07/23/19 09:20 BP 131/68 07/23/19 08:00 Pulse Ox 83 L 07/23/19 09:20 Intake & Output 07/22/19 07/23/19 07/23/19 18:59 06:59 18:59 Intake Total 1207 160 240 Output Total 500 125 200 Balance 707 35 40 Weight 122.5 kg Intake: IV 527 160 Sodium Chloride 0.9% 1, 465 160 000 ml @ 20 mls/hr IV . Q24H [facility] Rx#:[id number] ceFAZolin 2 gm In Sodium 50 Chloride 0.9% 50 ml @ 100 mls/hr IVPB Q8HR [facility] Rx# :[id number] pressure bag 12 Oral 680 240 Output: Urine 500 125 200 Other: Voiding Method Indwelling Catheter Urinal # Voids 1 ABP, PAP, CO, CI - Last Documented Arterial Blood Pressure 142/57 - Exam Right lower extremity: Incision is clean, dry and intact. Exofin tape is in good condition. No significant soft tissue swelling or erythema. Calf is soft, no tenderness with palpation. Skin is warm to touch, dorsalis pedis pulse is 2+ - Labs CBC & Chem 7: 07/22/19 04:50 07/22/19 04:50 Labs: Abnormal Lab Results - Last 24 Hours (Table) 07/22/19 07/22/19 07/22/19 Range/Units 17:02 17:21 20:26 POC Glucose (mg/dL) 264 H 235 H 328 H (75-99) mg/dL 07/23/19 Range/Units 06:13 POC Glucose (mg/dL) 148 H (75-99) mg/dL Assessment and Plan Plan: Assessment: Post op day #2 s/p direct anterior right total hip arthroplasty Plan: Pain control, continue current medication DVT prophylaxis, he has resumed Eliquis Wound care instructions discussed Urinary catheter to be removed today Continue with PT, walker for ambulation Authorization has been placed for subacute rehab, will await placement Time with Patient: Less than 30
--- NOTE | 2019-07-23 12:27 | P.CONS ---
History of Present Illness - Chief Complaint Walking difficulty, right hip fracture - History of Present Illness I had the opportunity to see patient for inpatient rehab consultation with regard to walking difficulty.. Admitted to [facility] 14 history trip and fall and garage and right hip pain. Evaluated by Dr. Choudhury and found to have a right femoral neck fracture and on underwent MAYNOR. Was seen by cardiology preoperatively. Chest x-ray demonstrated congestion, atelectasis and effusions. OT reports supervision for upper dressing to person assist for lower dressing, moderate assistance for bathing and total assistance for toileting. 2 person maximal assistance for functional mobility. PT prescribed. Previous functional history as elicited from patient: 79-year-old right-handed white male who is lives in one floor home with . Both are retired. does cooking, laundry, driving. Patient independent with sitdown shower and gait with standard cane around the house and outside. PMD is Christina Patel. Patient denies tobacco or alcohol history. Family history both parents with heart disease. Past Medical History Past Medical History: Atrial Fibrillation, CVA/TIA, Diabetes Mellitus, Hypertension Additional Past Medical History / Comment(s): Moderate to severe aortic stenosis awaiting TAVR procedure next month History of Any Multi-Drug Resistant Organisms: None Reported Additional Past Surgical History / Comment(s): brain sx 2007 Past Psychological History: No Psychological Hx Reported Smoking Status: Never smoker Past Alcohol Use History: None Reported Past Drug Use History: None Reported Medications and Allergies Home Medications Medication Instructions Recorded Confirmed Type Apixaban [Eliquis] 5 mg PO BID@0900,1800 07/18/19 07/18/19 History Diltiazem HCl [Cardizem LA] 180 mg PO DAILY 07/18/19 07/18/19 History Dulaglutide [Trulicity] 1.5 mg SQ MO 07/18/19 07/18/19 History Ergocalciferol [Vitamin D2] 50,000 unit PO TU 07/18/19 07/18/19 History Escitalopram [Lexapro] 20 mg PO DAILY 07/18/19 07/18/19 History Furosemide [Lasix] 40 mg PO DAILY 07/18/19 07/18/19 History Insulin Glargine,Hum.rec.anlog 46 unit SQ BID@0900,1800 07/18/19 07/18/19 History [Lantus Solostar] Isosorbide Mononitrate ER [Imdur] 30 mg PO DAILY 07/18/19 07/18/19 History Metoprolol Tartrate [Lopressor] 50 mg PO BID@0900,1800 07/18/19 07/18/19 History Rosuvastatin Calcium [Crestor] 10 mg PO DAILY 07/18/19 07/18/19 History buPROPion [Wellbutrin] 75 mg PO BID@0900,1800 07/18/19 07/18/19 History Allergies Allergy/AdvReac Type Severity Reaction Status Date / Time No Known Allergies Allergy Verified 07/21/19 13:25 Physical Exam Vitals: Vital Signs Temp Pulse Pulse Pulse Resp BP BP 07/23/19 09:20 18 07/23/19 08:00 97.8 F 78 18 131/68 07/23/19 04:00 97.3 F L 70 16 116/61 07/23/19 01:04 18 07/23/19 01:03 98.5 F 70 18 134/67 07/22/19 23:00 70 12 134/73 07/22/19 22:00 70 19 137/61 07/22/19 21:00 70 18 128/62 07/22/19 20:00 98.4 F 73 19 132/68 07/22/19 19:00 70 19 132/65 07/22/19 18:00 70 20 135/76 07/22/19 17:00 70 13 129/81 07/22/19 16:00 98.2 F 70 11 L 115/71 07/22/19 15:24 22 07/22/19 15:00 70 22 141/67 07/22/19 14:45 70 19 141/67 07/22/19 14:30 70 18 07/22/19 14:00 70 18 124/69 07/22/19 13:30 70 18 124/69 07/22/19 13:00 70 20 120/69 07/22/19 12:32 21 07/22/19 12:30 70 16 120/69 Pulse Ox 07/23/19 09:20 83 L 07/23/19 08:00 91 L 07/23/19 04:00 94 L 07/23/19 01:04 07/23/19 01:03 97 07/22/19 23:00 97 07/22/19 22:00 95 07/22/19 21:00 91 L 07/22/19 20:00 90 L 07/22/19 19:00 93 L 07/22/19 18:00 98 07/22/19 17:00 99 07/22/19 16:00 85 L 07/22/19 15:24 07/22/19 15:00 85 L 07/22/19 14:45 89 L 07/22/19 14:30 95 07/22/19 14:00 94 L 07/22/19 13:30 95 07/22/19 13:00 95 07/22/19 12:32 07/22/19 12:30 92 L Intake and Output 07/22/19 07/23/19 07/23/19 22:59 06:59 14:59 Intake Total 160 240 Output Total 125 200 Balance 160 -125 40 Intake: IV 160 Sodium Chloride 0.9% 1, 160 000 ml @ 20 mls/hr IV . Q24H [facility] Rx#:[id number] Oral 240 Output: Urine 125 200 Other: Voiding Method Urinal Urinal # Voids 1 1 Weight 122.5 kg Skin: Atrophic, intact. General: Overweight build and comfortable appearance. Head: Normocephalic, atraumatic. Eyes: Symmetric. Pupils equal round. Ears: Symmetric. Hearing within normal limits. Mouth: Clear. Neck: Supple. Carotid without bruit. Cardiac: Regular rate and rhythm. Lungs: Clear anteriorly and posteriorly. Abdomen: Soft active nontender. Extremities: Normal tone. Neurological: Mental status: Alert, cooperative, pleasant. Cranial nerves: Symmetric facial tone and trapezius. Motor: Active movement all 4 limbs but with at least giveaway weakness right hip and leg. Sensation: Intact throughout. DTRs: Symmetric and equal throughout. Mobility: Observe therapy for difficulty standing patient from Janis chair with two-person assist. Results CBC & Chem 7: 07/22/19 04:50 07/22/19 04:50 Labs: Abnormal Lab Results - Last 24 Hours (Table) 07/22/19 07/22/19 07/22/19 Range/Units 17:02 17:21 20:26 POC Glucose (mg/dL) 264 H 235 H 328 H (75-99) mg/dL 02/19/20 Range/Units 06:13 POC Glucose (mg/dL) 148 H (75-99) mg/dL Assessment and Plan (1) Hip fracture Current Visit: Yes Status: Acute Code(s): S72.009A - FRACTURE OF UNSP PART OF NECK OF UNSP FEMUR, INIT SNOMED Code(s): 632206266 Plan: Impression: 1. Walking ability. 2. Right femoral neck fracture status post MAYNOR. 3. Hypertension. 4. Diabetes. 5. Atrial fibrillation. 6. History of stroke. Comments and plan: At this time OT ongoing in PT prescribed. Safety concerns noted. 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
[2019-07-23 12:38] LABS: Glucose,Whole Blood 202 mg/dL (75-99)
--- NOTE | 2019-07-23 14:54 | P.PN ---
Subjective Progress Note Date: 07/23/19 Principal diagnosis: Right hip fracture Patient was seen and examined. No acute events overnight. Patient reports well-controlled right lower extremity. He denies any chest pain, shortness of breath or palpitations. No nausea or vomiting. No fever or chills. Objective - Vital Signs Vital signs: Vital Signs Temp 97.8 F 07/23/19 08:00 Pulse 76 07/23/19 12:00 Resp 20 07/23/19 12:00 BP 137/67 07/23/19 12:00 Pulse Ox 97 07/23/19 12:00 Intake & Output 07/22/19 07/23/19 07/23/19 18:59 06:59 18:59 Intake Total 1207 160 600 Output Total 500 125 200 Balance 707 35 400 Weight 122.5 kg Intake: IV 527 160 Sodium Chloride 0.9% 1, 465 160 000 ml @ 20 mls/hr IV . Q24H [facility] Rx#:[id number] ceFAZolin 2 gm In Sodium 50 Chloride 0.9% 50 ml @ 100 mls/hr IVPB Q8HR [facility] Rx# :[id number] pressure bag 12 Oral 680 600 Output: Urine 500 125 200 Other: Voiding Method Indwelling Catheter Urinal # Voids 1 ABP, PAP, CO, CI - Last Documented Arterial Blood Pressure 142/57 - Exam General: [non toxic], [no distress on nasal cannula], [appears at stated age] Derm: [warm], [dry] Head: [atraumatic], [normocephalic], [symmetric] Eyes: [EOMI], [no lid lag], [anicteric sclera] Mouth: [no lip lesion], [mucus membranes moist] Cardiovascular: [S1S2 reg with systolic murmur], [no murmur], [positive DP pulse bilateral], Lungs: [Decreased breath sounds bilateral], [no rhonchi, no rales] , [no accessory muscle use] Abdominal: [soft], [ nontender to palpation], [no guarding], [no appreciable organomegaly] Ext: [no gross muscle atrophy], [no edema], [right hip with restricted range of motion due to pain, lateral dressing clean dry and intact] Neuro: [no focal neuro deficits] Psych: [Alert], [oriented], [appropriate affect] - Labs CBC & Chem 7: 07/22/19 04:50 07/22/19 04:50 Labs: Abnormal Lab Results - Last 24 Hours (Table) 07/22/19 07/22/19 07/22/19 Range/Units 17:02 17:21 20:26 POC Glucose (mg/dL) 264 H 235 H 328 H (75-99) mg/dL 07/23/19 07/23/19 Range/Units 06:13 12:26 POC Glucose (mg/dL) 148 H 202 H (75-99) mg/dL Assessment and Plan Assessment: Acute blood loss anemia Chronic atrial fibrillation Aortic stenosis Hypertension Diabetes mellitus Hemoglobin 11.7. Expected blood loss from surgery. Plans: Repeat CBC tomorrow morning. Transfuse if hemoglobin less than 7. Last dose of Eliquis was July 18. Plans: Continue beta santiago. Continue Cardizem. Eliquis restarted yesterday. Potassium greater than 4 magnesium greater than 2. Telemetry monitoring. Cardiology following. As seen on echocardiogram. Plans: Cardiology following. BP 137/67. Plans: Continue beta santiago. Continue Cardizem. Monitor vitals, adjust medications as necessary. [id number] glucose 202. Plans: Continue home dose of insulin. Hold Trulicity. Insulin sliding-scale. Regular Accu-Cheks. Hypoglycemic precautions. [Patient admitted after mechanical fall and right hip fracture. POD 2 of direct anterior left total hip arthroplasty. Patient to start working with PT. Ins urance authorization pending for inpatient rehab.]
[2019-07-23 17:54] LABS: Glucose,Whole Blood 217 mg/dL (75-99)
[2019-07-23] MEDS: SENNOSIDES-DOCUSATE SODIUM 1 EACH TAB PO SCH (19:52)
[2019-07-23 19:54] VITALS: RESP 18
[2019-07-23 20:56] LABS: Glucose,Whole Blood 241 mg/dL (75-99)
[2019-07-24] MEDS: SODIUM CHLORIDE 0.9% 1,000 ML IV SCH (01:41)
[2019-07-24 05:57] LABS: Glucose,Whole Blood 105 mg/dL (75-99)
[2019-07-24] MEDS: INSULIN ASPART (NovoLOG) 100 UNIT/ML VIAL SQ SCH ×2 (05:58→14:40)
[2019-07-24] MEDS: ISOSORBIDE MONONITRATE ER 30 MG TAB.ER.24H PO SCH (08:57)
[2019-07-24] MEDS: METOPROLOL TARTRATE 50 MG TAB PO SCH (08:57)
[2019-07-24] MEDS: DILTIAZEM CD 180 MG CAP.ER.24H PO SCH (08:57)
[2019-07-24] MEDS: INSULIN DETEMIR (LEVEMIR) 100 UNIT/ML SYR SQ SCH (08:57)
[2019-07-24] MEDS: APIXABAN 5 MG TAB PO SCH (08:57)
[2019-07-24] MEDS: FUROSEMIDE 40 MG TAB PO SCH (08:57)
[2019-07-24] MEDS: ESCITALOPRAM 20 MG TAB PO SCH (08:57)
[2019-07-24] MEDS: buPROPion 75 MG TAB PO SCH (08:57)
[2019-07-24] MEDS: ATORVASTATIN 20 MG TAB PO SCH (08:57)
--- NOTE | 2019-07-24 09:42 | P.PN ---
Subjective Progress Note Date: 07/24/19 Principal diagnosis: s/p right anterior total hip arthroplasty Patient's pain is well-controlled this time. He has no acute complaints today. He denies chest pain, shortness of breath, nausea/vomiting, fever or chills Objective - Vital Signs Vital signs: Vital Signs Temp 98.1 F 07/24/19 04:00 Pulse 76 07/24/19 04:00 Resp 18 07/24/19 04:00 BP 122/64 07/24/19 04:00 Pulse Ox 96 07/24/19 04:00 Intake & Output 07/23/19 07/24/19 07/24/19 18:59 06:59 18:59 Intake Total 960 240 Output Total 300 150 Balance 660 -150 240 Weight 118.3 kg Intake: Oral 960 240 Output: Urine 300 150 Other: Voiding Method Urinal ABP, PAP, CO, CI - Last Documented Arterial Blood Pressure 142/57 - Exam Right lower extremity: Incision is clean, dry and intact. Exofin tape is in good condition. No significant soft tissue swelling or erythema. Calf is soft, no tenderness with palpation. Skin is warm to touch, dorsalis pedis pulse is 2+ - Labs CBC & Chem 7: 07/22/19 04:50 07/22/19 04:50 Labs: Abnormal Lab Results - Last 24 Hours (Table) 07/23/19 07/23/19 07/23/19 Range/Units 12:26 17:41 20:54 POC Glucose (mg/dL) 202 H 217 H 241 H (75-99) mg/dL 07/24/19 Range/Units 05:55 POC Glucose (mg/dL) 105 H (75-99) mg/dL Assessment and Plan Plan: Assessment: Post op day #3 s/p direct anterior right total hip arthroplasty Plan: Pain control, planning for discharge on [place] 7.5 mg/325 mg DVT prophylaxis, he has resumed Eliquis Wound care instructions discussed Continue with PT, walker for ambulation Discharge to subacute rehab today Time with Patient: Less than 30
--- NOTE | 2019-07-24 09:44 | P.DS ---
Providers Date of admission: 07/18/19 16:46 Expected date of discharge: 07/24/19 Attending physician: Joselo Choudhury Consults: 07/18/19 16:47 Consult Physician Routine Consulting Provider: Sumanth Delatorre Consult Reason/Comments: medical consult Do you want consulting provider notified?: Yes 07/18/19 17:12 Consult Physician Routine Consulting Provider: Que Regan Consult Reason/Comments: cardiac clearance Do you want consulting provider notified?: Yes 07/21/19 15:01 Consult Physician Routine Consulting Provider: Shalom Bourne Consult Reason/Comments: PER DR DANIEL KILPATRICK. STRONG CARDIAC HISTORY. Do you want consulting provider notified?: Yes 07/23/19 10:19 Consult Physician Routine Consulting Provider: Berry Luis Consult Reason/Comments: IPR Do you want consulting provider notified?: Yes Primary care physician: Christina Patel DO Hospital Course: Date of admission: 07/18/2019 Date of discharge: 07/24/2019 Admission diagnosis: Displaced right femoral neck fracture Discharge diagnosis: Status post direct anterior right total hip arthroplasty Attending physician: Dr. Choudhury Surgical procedures: Direct anterior right total hip arthroplasty Brief history: Patient is a 79-year-old male who presented to [facility] on 07/18/2019 after sustaining a fall. Upon arrival to the hospital, imaging test demonstrated a displaced right femoral neck fracture. Orthopedic team was contacted with regards to this case, he was admitted under our care with plan for likely surgical intervention. Proper consults were placed for medical and cardiology clearance. Hospital course: Details of patient's surgery can be found in operative report. Patient tolerated the procedure well and was subsequently transported to orthopedic floor. Patient's orthopeidc and medical care was provided daily. Patient had daily laboratory tests performed for evaluation of overall blood counts. Patient had daily physical therapy to include strengthening range of motion as well as education with walker ambulation. Patient was treated with Eliquis for their postoperative DVT prophylaxis during their inpatient stay. Patient was noted to have a relatively uneventful postoperative course. Patient reported satisfactory pain control with oral pain medications by postoperative day 0. Patient showed satisfactory progress with physical therapy. Patient m kavita steadily through the program and had no difficulty meeting the goals by postoperative day 3. Given patient's otherwise satisfactory course and having met physical therapy goals, plan is to discharge patient rehab on postoperative day 3. Discharge condition/disposition: Patient will be discharged rehab in stable condition. Discharge medications: Instructions are given on resumption of patient's normal daily medications per primary care recommendation, in addition patient will be prescribed [place] 7.5 mg/325 mg, Colace 100 mg. Discharge instructions: 1. Wound care and infection precautions, keep incision dry and covered while showering, no lotions, creams, moisturizers. No soaking, tubs, pools, hottubs. Do not scrub over the incision. 2. Weight-bear as tolerated with walker / cane until follow-up. 3. Ice and elevate when necessary. Do not exceed 20 minutes per hour with ice pack. 4. Utilize compression sleeve until seen at first follow up appointment. 5. Visiting nursing care. 6. Home physical therapy. 7. Pain meds and anticoagulants per prescription. 8. Pain medication has potential to cause constipation. Increase oral fluid and fiber intake. Contact primary care provider if you have not had a bowel movement within 48 hours after discharge 9. No anti-inflammatory medication until discussed at first post operative visit, this including Motrin, Aleve, Mobic, Diclofenac. 10. Follow up in office at 2 weeks postop with Berry Bella PA-C 11. Follow up with your primary care doctor 7-10 days after discharge. 12. Contact [facility] with any questions, . Procedures: Direct anterior right total hip arthroplasty Patient Condition at Discharge: Fair Plan - Discharge Summary New Discharge Prescriptions: New Docusate [Colace] 100 mg PO DAILY #30 capsule HYDROcodone/APAP 7.5-325MG [[place] 7.5] 1 - 2 each PO Q6HR PRN #56 tab PRN Reason: Pain No Action Insulin Glargine,Hum.rec.anlog [Lantus Solostar] 46 unit SQ BID@0900,1800 Furosemide [Lasix] 40 mg PO DAILY Escitalopram [Lexapro] 20 mg PO DAILY Apixaban [Eliquis] 5 mg PO BID@0900,1800 buPROPion [Wellbutrin] 75 mg PO BID@0900,1800 Metoprolol Tartrate [Lopressor] 50 mg PO BID@0900,1800 Isosorbide Mononitrate ER [Imdur] 30 mg PO DAILY Ergocalciferol [Vitamin D2] 50,000 unit PO TU Diltiazem HCl [Cardizem LA] 180 mg PO DAILY Rosuvastatin Calcium [Crestor] 10 mg PO DAILY Dulaglutide [Trulicity] 1.5 mg SQ MO Discharge Medication List Apixaban [Eliquis] 5 mg PO BID@0900,1800 07/18/19 [History] Diltiazem HCl [Cardizem LA] 180 mg PO DAILY 07/18/19 [History] Dulaglutide [Trulicity] 1.5 mg SQ MO 07/18/19 [History] Ergocalciferol [Vitamin D2] 50,000 unit PO TU 07/18/19 [History] Escitalopram [Lexapro] 20 mg PO DAILY 07/18/19 [History] Furosemide [Lasix] 40 mg PO DAILY 07/18/19 [History] Insulin Glargine,Hum.rec.anlog [Lantus Solostar] 46 unit SQ BID@0900,1800 07/18/19 [History] Isosorbide Mononitrate ER [Imdur] 30 mg PO DAILY 07/18/19 [History] Metoprolol Tartrate [Lopressor] 50 mg PO BID@0900,1800 07/18/19 [History] Rosuvastatin Calcium [Crestor] 10 mg PO DAILY 07/18/19 [History] buPROPion [Wellbutrin] 75 mg PO BID@0900,1800 07/18/19 [History] Docusate [Colace] 100 mg PO DAILY #30 capsule 07/24/19 [Rx] HYDROcodone/APAP 7.5-325MG [[place] 7.5] 1 - 2 each PO Q6HR PRN #56 tab 07/24/19 [Rx] Follow up Appointment(s)/Referral(s): Christina Patel DO [Primary Care Provider] - 1-2 days Keven Bella PAC [[employer]] - 2 Weeks Activity/Diet/Wound Care/Special Instructions: Orthopedic Discharge Instructions: 1. Wound care and infection precautions, keep incision dry and covered while showering, no lotions, creams, moisturizers. No soaking, pools, hot tubs. Do not scrub over incision. 2. Weight-bear as tolerated with walker / cane until follow-up. 3. Ice and elevate when necessary. Do not exceed 20 minutes per hour with ice pack. 4. Utilize compression sleeve until seen at first follow up appointment. 5. Pain meds and anticoagulants per prescription. 6. Pain medication has potential to cause constipation. Increase oral fluid and fiber intake. Contact primary care provider if you have not had a bowel movement within 48 hours after discharge. 7. No anti-inflammatory medication until discussed at first post operative visit, this including Motrin, Aleve, Mobic, Diclofenac. 8. Follow up in office at 2 weeks postop with Berry Bella PA-C 9. Follow up with your primary care doctor 7-10 days after discharge. 10. Contact [facility] with any questions, . Discharge Disposition: TRANSFER TO SNF/ECF
[2019-07-24 10:42] LABS: Basophils % (A) 0 %; Eosinophils # (A) 0.2 k/uL (0-0.7); Eosinophils % (A) 2 %; HCT 33.8 % (39.0-53.0); HGB 11.2 gm/dL (13.0-17.5); Lymphocytes # (A) 0.4 k/uL (1.0-4.8); Lymphocytes % (A) 6 %; Mean Platelet Volume 7.9; Monocytes # (A) 0.4 k/uL (0-1.0); Monocytes % (A) 6 %; Neutrophils # (A) 5.8 k/uL (1.3-7.7); Neutrophils % (A) 85 %; RBC 3.48 m/uL (4.30-5.90); RDW 13.7 % (11.5-15.5); WBC 6.8 k/uL (3.8-10.6)
[2019-07-24 10:53] LABS: Platelet Count 128 k/uL (150-450)
[2019-07-24 11:00] VITALS: TEMP 98
[2019-07-24 12:16] LABS: Glucose,Whole Blood 124 mg/dL (75-99)
--- NOTE | 2019-07-24 12:46 | P.PN ---
Subjective Progress Note Date: 07/24/19 Principal diagnosis: Right hip fracture Patient was seen and examined. No acute events overnight. Patient reports well-controlled right lower extremity. He denies any chest pain, shortness of breath or palpitations. No nausea or vomiting. No fever or chills. Objective - Vital Signs Vital signs: Vital Signs Temp 98.0 F 07/24/19 08:00 Pulse 86 07/24/19 08:00 Resp 18 07/24/19 08:00 BP 142/69 07/24/19 08:00 Pulse Ox 94 L 07/24/19 08:00 Intake & Output 07/23/19 07/24/19 07/24/19 18:59 06:59 18:59 Intake Total 960 260 Output Total 300 150 450 Balance 660 -150 -190 Weight 118.3 kg Intake: IV 20 Sodium Chloride 0.9% 1, 20 000 ml @ 20 mls/hr IV . Q24H LAURA Rx#:[id number] Oral 960 240 Output: Urine 300 150 450 Other: Voiding Method Urinal # Bowel Movements 1 ABP, PAP, CO, CI - Last Documented Arterial Blood Pressure 142/57 - Exam General: [non toxic], [no distress on nasal cannula], [appears at stated age] Derm: [warm], [dry] Head: [atraumatic], [normocephalic], [symmetric] Eyes: [EOMI], [no lid lag], [anicteric sclera] Mouth: [no lip lesion], [mucus membranes moist] Cardiovascular: [S1S2 reg with systolic murmur], [no murmur], [positive DP pulse bilateral], Lungs: [Decreased breath sounds bilateral], [no rhonchi, no rales] , [no accessory muscle use] Abdominal: [soft], [ nontender to palpation], [no guarding], [no appreciable organomegaly] Ext: [no gross muscle atrophy], [no edema], [right hip with restricted range of motion due to pain, lateral dressing clean dry and intact] Neuro: [no focal neuro deficits] Psych: [Alert], [oriented], [appropriate affect] - Labs CBC & Chem 7: 07/24/19 10:21 07/22/19 04:50 Labs: Abnormal Lab Results - Last 24 Hours (Table) 07/23/19 07/23/19 07/24/19 Range/Units 17:41 20:54 05:55 RBC (4.30-5.90) m/uL Hgb (13.0-17.5) gm/dL Hct (39.0-53.0) % Plt Count (150-450) k/uL Lymphocytes # (1.0-4.8) k/uL POC Glucose (mg/dL) 217 H 241 H 105 H (75-99) mg/dL 07/24/19 07/24/19 Range/Units 10:21 11:50 RBC 3.48 L (4.30-5.90) m/uL Hgb 11.2 L (13.0-17.5) gm/dL Hct 33.8 L (39.0-53.0) % Plt Count 128 L D (150-450) k/uL Lymphocytes # 0.4 L (1.0-4.8) k/uL POC Glucose (mg/dL) 124 H (75-99) mg/dL Assessment and Plan Assessment: Acute blood loss anemia Chronic atrial fibrillation Aortic stenosis Hypertension Diabetes mellitus Hemoglobin 11.2. Expected blood loss from surgery. Plans: Repeat CBC tomorrow morning. Transfuse if hemoglobin less than 7. Last dose of Eliquis was July 18. Plans: Continue beta santiago. Continue Cardizem. Eliquis restarted. Potassium greater than 4 magnesium greater than 2. Telemetry monitoring. Cardiology following. As seen on echocardiogram. Plans: Cardiology following. BP 142/69. Plans: Continue beta santiago. Continue Cardizem. Monitor vitals, adjust medications as necessary. Rlhzv-yu-mown glucose 124. Plans: Continue home dose of insulin. Hold Trulicity. Insulin sliding-scale. Regular Accu-Cheks. Hypoglycemic precautions. [Patient admitted after mechanical fall and right hip fracture. POD 3 of direct anterior left total hip arthroplasty. Patient to start working with PT. Plans for [facility] today.]
[2019-07-24 13:39] VITALS: BP 115/69; PULSE 77
[2019-07-24] MEDS: HYDROcodone/APAP 7.5-325MG 1 EACH TAB PO PRN (14:43)
[2019-07-24 14:51] VITALS: BMI 32.5
== END 2019-07-24 14:55 | DRG 469 ==
LOC: EC 14:21 → 4SSUR 16:46 → 2SICU 07-21 14:09 → 3SCARD 07-23 01:02
PROVIDERS: ADMIT Orthopaedic Surgery; ATTEND Orthopaedic Surgery
PROC: 0SRB0JA Replacement of Left Hip Joint with Synthetic Substitute, Uncemented, Open Approach (ICD-10-PCS; principal; 2019-07-21 14:22)
DX: S72.012A Unspecified intracapsular fracture of left femur, initial encounter for closed fracture (principal); I50.23 Acute on chronic systolic (congestive) heart failure; J96.01 Acute respiratory failure with hypoxia; I13.0 Hypertensive heart and chronic kidney disease with heart failure and stage 1 through stage 4 chronic kidney disease, or unspecified chronic kidney disease; N17.9 Acute kidney failure, unspecified; I48.20 Chronic atrial fibrillation, unspecified; D62 Acute posthemorrhagic anemia; J98.11 Atelectasis; E11.22 Type 2 diabetes mellitus with diabetic chronic kidney disease; E11.42 Type 2 diabetes mellitus with diabetic polyneuropathy; E78.5 Hyperlipidemia, unspecified; Z96.641 Presence of right artificial hip joint; M16.11 Unilateral primary osteoarthritis, right hip; M17.10 Unilateral primary osteoarthritis, unspecified knee; W01.0XXA Fall on same level from slipping, tripping and stumbling without subsequent striking against object, initial encounter; I35.0 Nonrheumatic aortic (valve) stenosis; I44.7 Left bundle-branch block, unspecified; I16.0 Hypertensive urgency; N18.9 Chronic kidney disease, unspecified; Y92.009 Unspecified place in unspecified non-institutional (private) residence as the place of occurrence of the external cause; Z86.73 Personal history of transient ischemic attack (TIA), and cerebral infarction without residual deficits; Z79.4 Long term (current) use of insulin; Z79.899 Other long term (current) drug therapy; Z79.01 Long term (current) use of anticoagulants
CPT/HCPCS: 36415; 70450; 71045; 73501; 73502; 80048; 83735; 83880; 85025; 85610; 85730; 88305; 88311; 93005; 93306; 94760; 96374; 96375; 99285

== ENCOUNTER 2020-07-13 11:02 | Emergency (ER) | payer MEDICARE ==
[2020-07-13 11:08] VITALS: TEMP 98.5
--- NOTE | 2020-07-13 12:30 | ED ---
Psych HPI - General Chief Complaint: Psychiatric Symptoms Stated Complaint: EPS eval Time Seen by Provider: 07/13/20 11:11 Source: patient Mode of arrival: ambulatory - History of Present Illness Initial Comments: Patient is an 80-year-old male, history of A. fib, diabetes, presenting to the emergency department for a psych evaluation. Patient states he is having suicidal thoughts that of an increasing over the past few days and also wanting to "hurt everyone around him." He states he has felt this way in the past many years ago but recently with family drama his thoughts have come back. He denies taking any new medications, he denies alcohol or drug abuse. Patient denies any pains anywhere including no chest pains or shortness of breath, no recent fevers. He has no further complaints. Upon arrival to the ER, his vitals are stable. - Related Data Home Medications Medication Instructions Recorded Confirmed Apixaban [Eliquis] 5 mg PO BID@0900,1800 07/18/19 07/13/20 Diltiazem HCl [Cardizem LA] 180 mg PO DAILY 07/18/19 07/13/20 Dulaglutide [Trulicity] 1.5 mg SQ MO 07/18/19 07/13/20 Ergocalciferol [Vitamin D2 50,000 unit PO TU 07/18/19 07/13/20 (DRISDOL)] Insulin Glargine,Hum.rec.anlog 46 unit SQ BID@0900,1800 07/18/19 07/13/20 [Lantus Solostar] Metoprolol Tartrate [Lopressor] 50 mg PO BID@0900,1800 07/18/19 07/13/20 Rosuvastatin Calcium [Crestor] 10 mg PO DAILY 07/18/19 07/13/20 HYDROcodone/APAP 10-325MG [[place] 1 tab PO TID PRN 07/13/20 07/13/20 10-325] Nitroglycerin 0.4 mg SUBLINGUAL Q5M PRN 07/13/20 07/13/20 Allergies Allergy/AdvReac Type Severity Reaction Status Date / Time No Known Allergies Allergy Verified 07/13/20 11:08 Review of Systems ROS Statement: Those systems with pertinent positive or pertinent negative responses have been documented in the HPI. ROS Other: All systems not noted in ROS Statement are negative. Past Medical History Past Medical History: Atrial Fibrillation, CVA/TIA, Diabetes Mellitus, Hypertension Additional Past Medical History / Comment(s): Moderate to severe aortic stenosis awaiting TAVR procedure next month History of Any Multi-Drug Resistant Organisms: None Reported Additional Past Surgical History / Comment(s): brain sx 2006 Past Psychological History: No Psychological Hx Reported Smoking Status: Never smoker Past Alcohol Use History: None Reported Past Drug Use History: None Reported General Exam - General Exam Comments Initial Comments: GENERAL: Patient is well-developed and well-nourished. Patient is nontoxic and in no acute distress. HEAD: Atraumatic, normocephalic. EYES: Pupils equal round and reactive to light, extraocular movements intact, sclera anicteric, conjunctiva are normal. Eyelids were unremarkable. ENT: TMs normal, nares patent, oropharynx clear without exudates. Moist mucous membranes. NECK: Normal range of motion, supple without lymphadenopathy or JVD. LUNGS: Unlabored respirations. Breath sounds clear to auscultation bilaterally and equal. No wheezes rales or rhonchi. HEART: Regular rate and rhythm without murmurs, rubs or gallops. ABDOMEN: Soft, nontender, normoactive bowel sounds. No guarding, no rebound. No masses appreciated. : Deferred MUSCULOSKELETAL: Normal extremities with adequate strength and normal range of motion, no pitting or edema. No clubbing or cyanosis. NEUROLOGICAL: Patient is alert and oriented x 3. Motor and sensory are also intact. Cranial nerves II through XII grossly intact. Symmetrical smile. Normal speech, normal gait. PSYCH: Patient seems anxious, angry SKIN: Warm, Dry, normal turgor, no rashes or lesions noted. Limitations: no limitations Course Vital Signs 07/13/20 07/13/20 11:05 13:56 Temperature 98.5 F Pulse Rate 74 86 Respiratory 18 16 Rate Blood Pressure 157/95 141/79 O2 Sat by Pulse 94 L 99 Oximetry Medical Decision Making - Medical Decision Making Patient is an 80-year-old male with history of A. fib, diabetes, presenting for psychiatric evaluation. He is having suicidal thoughts and thoughts of wanting to "harm everyone around him." He denies any drug or alcohol use. Patient was evaluated by EPS. Patient did agree to a safety plan. Patient was given providers that are in his network with his insurance. He will check in with mobile crisis tonight at 1800. Patient is discharged with his . Patient is in agreement with this plan of care. Strict return parameters were discussed with the patient and he verbalized understanding. Case discussed with Dr. Aldridge. Disposition Clinical Impression: Suicidal ideation, Depression Disposition: HOME SELF-CARE Condition: Stable Instructions (If sedation given, give patient instructions): Suicide Prevention (ED) Additional Instructions: Please return to the Emergency Department if symptoms worsen or any other concerns. Safety contract in place. Please contact [facility] as discussed. Is patient prescribed a controlled substance at d/c from ED?: No Referrals: Christina Patel DO [Primary Care Provider] - 1-2 days
[2020-07-13 13:57] VITALS: BP 141/79; PULSE 86; RESP 16
== END 2020-07-13 14:10 | disposition home or self-care (01) ==
LOC: EC 11:02
DX: F32.9 Major depressive disorder, single episode, unspecified (principal); I48.91 Unspecified atrial fibrillation; E11.9 Type 2 diabetes mellitus without complications; I10 Essential (primary) hypertension; Z79.4 Long term (current) use of insulin; Z79.01 Long term (current) use of anticoagulants; Z79.899 Other long term (current) drug therapy; Z86.73 Personal history of transient ischemic attack (TIA), and cerebral infarction without residual deficits
CPT/HCPCS: 82075; 99285

== ENCOUNTER 2020-09-18 19:40 | Emergency (ER) | payer MEDICARE ==
--- NOTE | 2020-09-18 20:25 | ED ---
General Adult HPI - General Chief complaint: Recheck/Abnormal Lab/Rx Stated complaint: Covid exposure - History of Present Illness Initial comments: Patient is an 80-year-old male with past medical history of A. fib, CVA, diabetes who accompanies his to the emergency Department. was short of breath and therefore tested for occult blood. She was found because of the positive. Patient is a symptomatically but also requesting testing. They have both had both Pfizer vaccines. Second dose was on the . He denies any sick contacts other than his who tested positive. He denies any chest pain or shortness of breath. No fevers, chills or cough. No other alleviating, precipitating or modifying factors - Related Data Home Medications Medication Instructions Recorded Confirmed Apixaban [Eliquis] 5 mg PO BID@0900,1800 07/18/19 07/13/20 Diltiazem HCl [Cardizem LA] 180 mg PO DAILY 07/18/19 07/13/20 Dulaglutide [Trulicity] 1.5 mg SQ MO 07/18/19 07/13/20 Ergocalciferol [Vitamin D2 50,000 unit PO TU 07/18/19 07/13/20 (DRISDOL)] Insulin Glargine,Hum.rec.anlog 46 unit SQ BID@0900,1800 07/18/19 07/13/20 [Lantus Solostar] Metoprolol Tartrate [Lopressor] 50 mg PO BID@0900,1800 07/18/19 07/13/20 Rosuvastatin Calcium [Crestor] 10 mg PO DAILY 07/18/19 07/13/20 HYDROcodone/APAP 10-325MG [[place] 1 tab PO TID PRN 07/13/20 07/13/20 10-325] Nitroglycerin 0.4 mg SUBLINGUAL Q5M PRN 07/13/20 07/13/20 Allergies Allergy/AdvReac Type Severity Reaction Status Date / Time No Known Allergies Allergy Verified 07/13/20 11:08 Review of Systems ROS Statement: Those systems with pertinent positive or pertinent negative responses have been documented in the HPI. ROS Other: All systems not noted in ROS Statement are negative. Past Medical History Past Medical History: Atrial Fibrillation, CVA/TIA, Diabetes Mellitus, Hypertension Additional Past Medical History / Comment(s): Moderate to severe aortic stenosis awaiting TAVR procedure next month History of Any Multi-Drug Resistant Organisms: None Reported Additional Past Surgical History / Comment(s): brain sx 2007 Past Psychological History: No Psychological Hx Reported Smoking Status: Never smoker Past Alcohol Use History: None Reported Past Drug Use History: None Reported Medical Decision Making - Medical Decision Making Upon arrival patient was placed into room 5 with his . Thorough history and physical exam was performed. Patient is offered Covid. He is requesting discharge before he receives his results. Patient is notified that he will be called with positive results. Patient is discharged home without any discharge instructions - Lab Data Lab Results 09/18/20 Range/Units 20:16 Coronavirus (PCR) Not Detected (Not Detectd) Disposition Clinical Impression: Exposure to COVID-19 virus Disposition: HOME SELF-CARE Condition: Stable Is patient prescribed a controlled substance at d/c from ED?: No Referrals: Christina Patel DO [Primary Care Provider] - 1-2 days Time of Disposition: 20:25
== END 2020-09-18 20:37 | disposition home or self-care (01) ==
LOC: EC 19:40
DX: Z20.822 Contact with and (suspected) exposure to COVID-19 (principal); I48.91 Unspecified atrial fibrillation; E11.9 Type 2 diabetes mellitus without complications; I10 Essential (primary) hypertension; Z86.73 Personal history of transient ischemic attack (TIA), and cerebral infarction without residual deficits; Z79.4 Long term (current) use of insulin; Z79.01 Long term (current) use of anticoagulants
CPT/HCPCS: 87635; 99282

== ENCOUNTER 2021-03-08 06:20 | Emergency (ER) | payer MEDICARE ==
[2021-03-08 06:25] VITALS: RESP 18; TEMP 98.6
[2021-03-08] MEDS ORDERED: KETOROLAC 15 MG/ML 1 ML VIAL IM STA (06:43)
[2021-03-08] MEDS ORDERED: METOPROLOL TARTRATE 50 MG TAB PO STA (06:49)
--- NOTE | 2021-03-08 06:55 | ED ---
General Adult HPI - General Chief complaint: Extremity Injury, Lower Stated complaint: Fall,Hip Pain Time Seen by Provider: 03/08/21 06:26 Source: patient Mode of arrival: ambulatory Limitations: no limitations - History of Present Illness Initial comments: 81-year-old male with a past medical history of atrial fibrillation, hypertension, diabetes mellitus presents to the emergency room for a chief complaint of left leg pain. Patient states he has pain starting in the left mid buttock that radiates down to his foot. States it is a burning pain. Patient denies any bladder or bowel changes, saddle anesthesia, weakness of the legs, fevers or chills. Patient able to ambulate. Patient has no other complaints at this time including shortness of breath, chest pain, abdominal pain, nausea or vomiting, headache, or visual changes. - Related Data Home Medications Medication Instructions Recorded Confirmed Apixaban [Eliquis] 5 mg PO BID@0900,1800 07/18/19 03/08/21 Diltiazem HCl [Cardizem LA] 180 mg PO DAILY 07/18/19 03/08/21 Dulaglutide [Trulicity] 1.5 mg SQ MO 07/18/19 03/08/21 Ergocalciferol [Vitamin D2 50,000 unit PO MO 07/18/19 03/08/21 (DRISDOL)] Insulin Glargine,Hum.rec.anlog 39 unit SQ BID@0900,1800 07/18/19 03/08/21 [Lantus Solostar Pen] Metoprolol Tartrate [Lopressor] 50 mg PO BID@0900,1800 07/18/19 03/08/21 Rosuvastatin Calcium [Crestor] 10 mg PO DAILY 07/18/19 03/08/21 Nitroglycerin 0.4 mg SUBLINGUAL Q5M PRN 07/13/20 03/08/21 ARIPiprazole [Abilify] 2 mg PO HS 03/08/21 03/08/21 Losartan Potassium 50 mg PO DAILY 03/08/21 03/08/21 Tamsulosin HCl [Flomax] 0.4 mg PO DAILY 03/08/21 03/08/21 Allergies Allergy/AdvReac Type Severity Reaction Status Date / Time No Known Allergies Allergy Verified 03/08/21 07:13 Review of Systems ROS Statement: Those systems with pertinent positive or pertinent negative responses have been documented in the HPI. ROS Other: All systems not noted in ROS Statement are negative. Past Medical History Past Medical History: Atrial Fibrillation, CVA/TIA, Diabetes Mellitus, Hypertension Additional Past Medical History / Comment(s): Moderate to severe aortic stenosis awaiting TAVR procedure next month History of Any Multi-Drug Resistant Organisms: None Reported Additional Past Surgical History / Comment(s): brain sx 2007 Past Psychological History: No Psychological Hx Reported Smoking Status: Never smoker Past Alcohol Use History: None Reported Past Drug Use History: None Reported General Exam Limitations: no limitations General appearance: alert, in no apparent distress Head exam: Present: atraumatic Eye exam: Present: normal appearance, PERRL, EOMI. Absent: scleral icterus, conjunctival injection ENT exam: Present: normal exam, mucous membranes moist Neck exam: Present: normal inspection, full ROM. Absent: tenderness Respiratory exam: Present: normal lung sounds bilaterally. Absent: respiratory distress, wheezes Cardiovascular Exam: Present: regular rate, normal rhythm, normal heart sounds GI/Abdominal exam: Present: soft, normal bowel sounds. Absent: distended, tenderness Extremities exam: Present: normal capillary refill (cap refill < 2 seconds, DP pulse 2+ LLE), other (+ SLR left leg. Strength 5 out of 5 of bilateral lower extremities) Back exam: Absent: vertebral tenderness Neurological exam: Present: alert Course Vital Signs 03/08/21 03/08/21 03/08/21 06:20 07:25 10:23 Temperature 98.6 F Pulse Rate 75 71 Respiratory 18 18 18 Rate Blood Pressure 208/93 194/91 O2 Sat by Pulse 99 98 Oximetry Medical Decision Making - Medical Decision Making Patient presents with radicular symptoms of the left leg. Neurovascular status intact. X-ray of the lumbar spine was obtained to rule out masses. X-ray shows compression fracture of L3 which is age indeterminate. Therefore a CT was ordered. This does show severe compression deformity of indeterminate age L3. There is posterior superior wall displacement into the canal. There is wall the slice an L3 in conjunction with facet hypertrophy contributing to AP spinal canal stenosis. Case was discussed with neck branch to spoke with Dr. Govea's and about this case as patient is a patient of [facility]. At this time given patient has full strength and neurovascularly intact discharged home with TLSO and outpatient follow-up. He will return here for any worsening symptoms. Disposition Clinical Impression: L3 vertebral fracture Disposition: HOME SELF-CARE Condition: Good Instructions (If sedation given, give patient instructions): Thoracolumbar Fracture (ED) Additional Instructions: Please take Motrin and Tylenol for pain. Please use brace. Follow-up with orthopedics. Return to the emergency room for any worsening symptoms such as bladder or bowel changes, saddle anesthesia, or weakness of the legs. Is patient prescribed a controlled substance at d/c from ED?: No Referrals: Christina Patel DO [Primary Care Provider] - 1-2 days Mariusz Rosales DO [Doctor of Osteopathic Medicine] - 1-2 days Time of Disposition: 11:13
--- NOTE | 2021-03-08 08:02 | XR ---
AP pelvis HISTORY: Hip pain Single frontal view the pelvis submitted and correlated to prior pelvis 07/18/2019 Interval right hip arthroplasty change is noted. Degenerative disc changes are present in the lower l umbar spine. Bone mineralization is reduced. No evident fracture or dislocation. Phlebolith noted in the left hemipelvis. Patient is rotated. IMPRESSION: Low bone mineralization, postop change and degenerative disc disease.
--- NOTE | 2021-03-08 08:05 | XR ---
Lumbar spine HISTORY: Pain 3 views of the lumbar spine No comparisons There is a levoscoliosis present. There is a compression deformity at L3, loss of height centrally of greater than 50%. Bone mineralization is reduced. Anterior wedging is noted at T12. Sclerosis is pre sent in the posterior elements of the lumbar spine. There is multilevel spondylosis. Loss of disc hei ght is greatest at L5-S1, L1-2. Atherosclerotic calcifications present in the aorta iliac distributio n. 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 Degenerative disc disease, ost eopenia, facet arthropathy and scoliosis.
--- NOTE | 2021-03-08 09:52 | CT ---
EXAMINATION TYPE: CT lumbar spine wo con DATE OF EXAM: 03/08/2021 COMPARISON: 03/08/2021 HISTORY: Pain down Lt leg, abn lumbar xray CT DLP: 1261.6 mGycm CONTRAST: None TECHNIQUE: CT of the lumbar spine is performed on a spiral scan at 3 mm thick sections. Reconstructed images are performed in the coronal and sagittal planes. FINDINGS: There is a superior endplate compression deformity of T12. There is a severe compression de formity of L3 there is approximately a 0.6 cm superior posterior wall displacement. Borderline spinal canal stenosis is present at 1.0 cm. T12-L1: No focal disc herniation or significant disc bulge is evident. No spinal canal stenosis or neural foraminal stenosis is present. L1-L2: Broad-based disc bulge is mild intrathecal sac compression. Facet hypertrophy is present. No s [place] canal stenosis is present. Mild left and moderate right foraminal narrowing is present. L2-L3: No focal disc herniation is identified. Posterior wall displacement is contributing to AP spin al canal stenosis at 1.0 cm. Moderate bilateral foraminal stenosis is present. L3-L4: Facet hypertrophy and congenitally short pedicles are activity into spinal canal stenosis at t he L3-4 level. Broad-based disc bulges moderate intrathecal sac impression. L4-L5: No focal disc herniation or significant disc bulge is evident. Facet hypertrophy is present. M ild disc bulge has intrathecal sac contact. There is some mild canal narrowing. Severe right and mode rate to severe left foraminal stenosis is present. Correlate with radicular symptoms. L5-S1: Vacuum disc phenomenon is present. Disc bulges anterior thecal sac contact. Moderate to severe left foraminal stenosis and severe right foraminal stenosis present. Correlate with radicular sympto ms. IMPRESSION: 1. Severe compression deformity of indeterminate age of L3. There is posterior-superior wall displace ment into the canal. 2. Wall displacement at L3 in conjunction with facet hypertrophy is contributing to AP spinal canal s tenosis of 1.0 cm. 3. Facet hypertrophy and congenitally short pedicles at L3-4 disc contributing to spinal canal narrow ing. 4. Milder disc bulge is present within the lumbar spine discussed above with mild anterior thecal sac compression but without stenosis. 5. Multilevel foraminal stenosis moderate to severe discussed above. Correlate with radicular symptom s
[2021-03-08 10:27] VITALS: BP 194/91; PULSE 71
== END 2021-03-08 11:53 | disposition home or self-care (01) ==
LOC: EC 06:20
DX: S32.030A Wedge compression fracture of third lumbar vertebra, initial encounter for closed fracture (principal); I10 Essential (primary) hypertension; E11.9 Type 2 diabetes mellitus without complications; I48.91 Unspecified atrial fibrillation; Z79.01 Long term (current) use of anticoagulants; Z79.4 Long term (current) use of insulin; Z86.73 Personal history of transient ischemic attack (TIA), and cerebral infarction without residual deficits; X58.XXXA Exposure to other specified factors, initial encounter
CPT/HCPCS: 99284; 96372; 72100; 72170; 72131; J1885

== ENCOUNTER 2021-04-22 17:45 | Emergency (ER) | payer MEDICARE ==
[2021-04-22 18:00] VITALS: RESP 18
[2021-04-22] MEDS ORDERED: MORPHINE SULFATE 4 MG/ML SYRINGE IM STA (18:22)
[2021-04-22] MEDS ORDERED: KETOROLAC 15 MG/ML 1 ML VIAL IM STA (18:22)
--- NOTE | 2021-04-22 18:29 | ED ---
General Adult HPI - General Chief complaint: Extremity Problem,Nontraumatic Stated complaint: Numbness/Burning in Lt Leg Time Seen by Provider: 04/22/21 17:52 Source: patient Mode of arrival: ambulatory Limitations: no limitations - History of Present Illness Initial comments: Dictation was produced using [employer] dictation software. please excuse any grammatical, word or spelling errors. Chief Complaint: 81-year-old male presents to the emergency department for burning sensation to the left lower extremity History of Present Illness: Is an 81-year-old male who has past medical history of sciatica to the right lower extremity. States that at that time he had symptoms from his back or down his leg. Over the last 3 days he's had a burning sensation from his left gluteal area going down his left lower extremity and affecting his left lateral ankle. Patient states he has palpatory tenderness to the left gluteus area. Denies any numbness to his left lower extremity. Patient denies any back pain. No fever, chills or night sweats. Patient states his leg feels worse whenever he moves it. Denies any nausea vomiting. No constitutional symptoms. Patient states he made his symptoms worse recently when trying to move boxes full of [place] decorations. The ROS documented in this emergency department record has been reviewed and confirmed by me. Those systems with pertinent positive or negative responses have been documented in the HPI. All other systems are other negative and/or noncontributory. PHYSICAL EXAM: General Impression: Alert and oriented x3, not in acute distress HEENT: Normocephalic atraumatic, extra-ocular movements intact, pupils equal and reactive to light bilaterally, mucous membranes moist. Cardiovascular: Heart regular rate and rhythm Chest: Able to complete full sentences, no retractions, no tachypnea Abdomen: abdomen soft, non-tender, non-distended, no organomegaly Musculoskeletal: Pulses present and equal in all extremities, no peripheral edema, good capillary refill to the left foot, warm to touch, palpatory tenderness to the left piriformis. He states that there is a burning sensation to the left lateral malleolus Motor: no focal deficits noted Neurological: CN II-XII grossly intact, no focal motor or sensory deficits noted Skin: Intact with no visualized rashes Psych: Normal affect and mood ED course: 81-year-old male presents to the emergency department for clinical presentation concerning for sciatica. Vital signs upon arrival are within acceptable limits. Hip and pelvis x-ray shows osteopenia which could limit evaluation for nondisplaced fractures. There is a lucency near intertrochanteric region of indeterminate significance. Otherwise no other acute processes. Patient notified of change lucency in his x-ray and told to follow-up with primary care doctor. He is reevaluated at the bedside a 40 5 PM [facility] stable medical condition. Physical presentation consistent with sciatica arising from the piriformis. - Related Data Home Medications Medication Instructions Recorded Confirmed Apixaban [Eliquis] 5 mg PO BID 07/18/19 04/22/21 Diltiazem HCl [Cardizem LA] 180 mg PO DAILY 07/18/19 04/22/21 Dulaglutide [Trulicity] 1.5 mg SQ MO 07/18/19 04/22/21 Insulin Glargine,Hum.rec.anlog 39 unit SQ BID 07/18/19 04/22/21 [Lantus Solostar Pen] Metoprolol Tartrate [Lopressor] 50 mg PO BID 07/18/19 04/22/21 Rosuvastatin Calcium [Crestor] 10 mg PO DAILY 07/18/19 04/22/21 ARIPiprazole [Abilify] 2 mg PO HS 03/08/21 04/22/21 Losartan Potassium 50 mg PO DAILY 03/08/21 04/22/21 Tamsulosin HCl [Flomax] 0.4 mg PO DAILY 03/08/21 04/22/21 Cholecalciferol [Vitamin D3 (25 25 mcg PO DAILY 04/22/21 04/22/21 Mcg = 1000 Iu)] Allergies Allergy/AdvReac Type Severity Reaction Status Date / Time No Known Allergies Allergy Verified 04/22/21 18:41 Review of Systems ROS Statement: Those systems with pertinent positive or pertinent negative responses have been documented in the HPI. ROS Other: All systems not noted in ROS Statement are negative. Past Medical History Past Medical History: Atrial Fibrillation, CVA/TIA, Diabetes Mellitus, Hype rtension Additional Past Medical History / Comment(s): Moderate to severe aortic stenosis awaiting TAVR procedure next month History of Any Multi-Drug Resistant Organisms: None Reported Additional Past Surgical History / Comment(s): brain sx 2006 Past Psychological History: No Psychological Hx Reported Smoking Status: Never smoker Past Alcohol Use History: None Reported Past Drug Use History: None Reported General Exam Limitations: no limitations Course Vital Signs 04/22/21 17:49 Temperature 98.1 F Pulse Rate 70 Respiratory 18 Rate Blood Pressure 191/119 O2 Sat by Pulse 98 Oximetry Disposition Clinical Impression: Sciatica Disposition: HOME SELF-CARE Condition: Good Instructions (If sedation given, give patient instructions): Sciatica (ED) Additional Instructions: there was a strange indetermite lucency on your hip xray that you need to follow up with your PCP about Is patient prescribed a controlled substance at d/c from ED?: No Referrals: Christina Patel DO [Primary Care Provider] - 1-2 days
--- NOTE | 2021-04-22 19:22 | XR ---
EXAMINATION TYPE: XR Hip LT and AP Pelvis DATE OF EXAM: 04/22/2021 COMPARISON: 03/08/2021 prior radiographs of the pelvis and hip joints HISTORY: 81 years Male. STUDY INDICATION GIVEN: left piriformis pain . TECHNIQUE: AP pelvis and AP and lateral left hip joint radiographs IMPRESSION: There is generalized osteopenia which could limit evaluation for nondisplaced fractures. There is a S-shaped lucency in the intertrochanteric region of indeterminate significance and may be artifactual or reflective of a nondisplaced fracture of the left intertrochanteric region. Left hip j oint CT without contrast may be beneficial. 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 There are degenerative changes in lower lumbar spine and bila teral right greater than left sacroiliac joints. There is total arthroplasty of the right hip joint with intact appearing hardware. Included abdomen and pelvis are within normal limit.
[2021-04-22] MEDS ORDERED: ACET/COD 300 MG/30 MG STARTER PACK 6 TAB BTL PO STA (20:45)
[2021-04-23 00:40] VITALS: BP 168/89; PULSE 69; TEMP 98.7
== END 2021-04-22 21:15 | disposition home or self-care (01) ==
LOC: EC 17:45
DX: M54.32 Sciatica, left side (principal); I48.91 Unspecified atrial fibrillation; E11.9 Type 2 diabetes mellitus without complications; I10 Essential (primary) hypertension; Z79.01 Long term (current) use of anticoagulants; Z79.4 Long term (current) use of insulin; Z86.73 Personal history of transient ischemic attack (TIA), and cerebral infarction without residual deficits
CPT/HCPCS: 99284; 96372 ×2; 73502; J2270; J1885

== ENCOUNTER 2021-04-24 08:06 | Emergency (ER) | payer MEDICARE ==
[2021-04-24 08:19] VITALS: RESP 18; TEMP 98.3
[2021-04-24] MEDS ORDERED: ORPHENADRINE 30 MG/ML 2 ML VIAL IM STA (08:37)
[2021-04-24] MEDS ORDERED: KETOROLAC 15 MG/ML 1 ML VIAL IM STA (08:37)
--- NOTE | 2021-04-24 09:03 | ED ---
General Adult HPI - General Chief complaint: Back Pain/Injury Stated complaint: Revisit/Back Pain Time Seen by Provider: 04/24/21 08:20 Source: patient, EMS, RN notes reviewed, old records reviewed Mode of arrival: EMS Limitations: no limitations - History of Present Illness Initial comments: Patient is a 81-year-old male with history of A. fib, diabetes, presenting to the emergency department via EMS with complaints of left sided sciatica pain over the past few days. He was seen here 2 days ago for similar complaint. He did have x-rays and pain control, he states he was feeling a little bit better. He said describes the pain as deep and his "flu with some radiation down the back of his leg, describes as burning and sharp at times. He denies any falls or trauma in the past couple weeks. No fevers or chills, he does have chronic back pain but he states it has not changed. He denies any surgeries of his left hip, does have right hip replacement. He has no further complaints. Upon arrival to the ER, his vitals are stable. - Related Data Home Medications Medication Instructions Recorded Confirmed Apixaban [Eliquis] 5 mg PO BID 07/18/19 04/22/21 Diltiazem HCl [Cardizem LA] 180 mg PO DAILY 07/18/19 04/22/21 Dulaglutide [Trulicity] 1.5 mg SQ MO 07/18/19 04/22/21 Insulin Glargine,Hum.rec.anlog 39 unit SQ BID 07/18/19 04/22/21 [Lantus Solostar Pen] Metoprolol Tartrate [Lopressor] 50 mg PO BID 07/18/19 04/22/21 Rosuvastatin Calcium [Crestor] 10 mg PO DAILY 07/18/19 04/22/21 ARIPiprazole [Abilify] 2 mg PO HS 03/08/21 04/22/21 Losartan Potassium 50 mg PO DAILY 03/08/21 04/22/21 Tamsulosin HCl [Flomax] 0.4 mg PO DAILY 03/08/21 04/22/21 Cholecalciferol [Vitamin D3 (25 25 mcg PO DAILY 04/22/21 04/22/21 Mcg = 1000 Iu)] Previous Rx's Medication Instructions Recorded Cyclobenzaprine [Flexeril] 5 mg PO BID #10 tablet 04/24/21 predniSONE 50 mg PO DAILY #5 tab 04/24/21 Allergies Allergy/AdvReac Type Severity Reaction Status Date / Time No Known Allergies Allergy Verified 04/22/21 18:41 Review of Systems ROS Statement: Those systems with pertinent positive or pertinent negative responses have been documented in the HPI. ROS Other: All systems not noted in ROS Statement are negative. Past Medical History Past Medical History: Atrial Fibrillation, CVA/TIA, Diabetes Mellitus, Hypertens ion Additional Past Medical History / Comment(s): Moderate to severe aortic stenosis awaiting TAVR procedure next month History of Any Multi-Drug Resistant Organisms: None Reported Additional Past Surgical History / Comment(s): brain sx 2006 Past Psychological History: No Psychological Hx Reported Smoking Status: Never smoker Past Alcohol Use History: None Reported Past Drug Use History: None Reported General Exam - General Exam Comments Initial Comments: GENERAL: Patient is well-developed and well-nourished. Patient is nontoxic and in no acute distress. HEAD: Atraumatic, normocephalic. EYES: Pupils equal round and reactive to light, extraocular movements intact, sclera anicteric, conjunctiva are normal. Eyelids were unremarkable. ENT: Moist mucous membranes. NECK: Normal range of motion, supple without lymphadenopathy or JVD. LUNGS: Unlabored respirations. Breath sounds clear to auscultation bilaterally and equal. No wheezes rales or rhonchi. HEART: Regular rate and rhythm without murmurs, rubs or gallops. ABDOMEN: Soft, nontender, normoactive bowel sounds. MUSCULOSKELETAL: Pain with palpation in the left glue, puriform S, sciatica area, increased pain with straight leg raise. Neurovascular intact bilateral lower extremity is. No clubbing or cyanosis. NEUROLOGICAL: Patient is alert and oriented x 3. Normal speech, normal gait. SKIN: Warm, Dry, normal turgor, no rashes or lesions noted. Course Vital Signs 04/24/21 08:09 Temperature 98.3 F Pulse Rate 66 Respiratory 18 Rate Blood Pressure 196/85 O2 Sat by Pulse 96 Oximetry Medical Decision Making - Medical Decision Making Patient is an 81-year-old male here for left sided sciatica pain increasing over the past week. He was seen for the same complaint 2 days ago. Hip x-ray performed 2 days ago, reveals a lucency in the intertrochanteric region of indeterminate significance. Given patient's continued pain, we did do a CT of the left hip, this revealed no fractures or dislocations. Patient was given pain control and Norflex here in the ER. He reports some mild improvement of symptoms. Discussed these findings with him. We will try a course of oral steroids and a muscle relaxer. If symptoms persist he needs to follow-up with an orthopedic doctor. He states he has seen Dr. Field in the past for his knee and will follow-up with him. Return parameters were discussed with him and he verbalized understanding. Case discussed with Dr. Love. Disposition Clinical Impression: Left sided sciatica Disposition: HOME SELF-CARE Condition: Stable Instructions (If sedation given, give patient instructions): Sciatica (ED) Additional Instructions: Please return to the Emergency Department if symptoms worsen or any other concerns. Trial of oral steroids, be sure to monitor your glucose levels. Recommend heat packs to the area, muscle relaxers at nighttime. Continue with Tylenol for pain relief. If symptoms persist, follow up with your orthopedic doctor. Prescriptions: Cyclobenzaprine [Flexeril] 5 mg PO BID #10 tablet predniSONE 50 mg PO DAILY #5 tab Is patient prescribed a controlled substance at d/c from ED?: No Referrals: Christina Patel DO [Primary Care Provider] - 1-2 days Joselo Choudhury DO [Doctor of Osteopathic Medicine] - 1-2 days Time of Disposition: 09:50
--- NOTE | 2021-04-24 09:33 | CT ---
EXAMINATION TYPE: CT hip LT wo con DATE OF EXAM: 04/24/2021 COMPARISON: 04/22/2021 left hip radiographs HISTORY: Lt hip pain, abn xray TECHNIQUE: CT scan of the left hip joint without contrast CT DLP: 701.5 mGycm Automated exposure control for dose reduction was used. FINDINGS: No acute fracture or dislocation. Mild osteoarthrosis of the left hip joint. Degenerative changes at the left ischium. Left fat-containing inguinal hernia. Mild soft tissue swelling posterior aspect of the proximal thigh. There are sclerotic calcifications in the left common femoral artery. [employer] radiograph shows right total hip arthroplasty which was not scanned. IMPRESSION: NO ACUTE FRACTURE OR DISLOCATION. LEFT FAT-CONTAINING INGUINAL HERNIA.
[2021-04-24 10:05] VITALS: BP 155/91; PULSE 70
== END 2021-04-24 10:06 | disposition home or self-care (01) ==
LOC: EC 08:06
DX: M54.32 Sciatica, left side (principal); E11.9 Type 2 diabetes mellitus without complications; I10 Essential (primary) hypertension; I48.91 Unspecified atrial fibrillation; Z79.01 Long term (current) use of anticoagulants; Z79.4 Long term (current) use of insulin; Z79.52 Long term (current) use of systemic steroids; Z79.899 Other long term (current) drug therapy
CPT/HCPCS: 73700; 99284; 96372 ×2; J2360; J1885

== ENCOUNTER 2021-05-04 07:51 | Day surgery (SDC) | payer MEDICARE ==
[2021-05-04 08:38] VITALS: TEMP 98.5
[2021-05-04 08:44] LABS: Glucose,Whole Blood 201 mg/dL (75-99)
[2021-05-04] MEDS ORDERED: diazePAM 5 MG TAB PO STA (08:48)
--- NOTE | 2021-05-04 10:07 | CT ---
EXAMINATION TYPE: CT lumbar spine wo con DATE OF EXAM: 05/04/2021 9:46 AM COMPARISON: 03/08/2021 HISTORY: Low back pain CT DLP: 1900.2 mGycm Automated exposure control for dose reduction was used. Unenhanced CT of the lumbar spine was performed. Bone and soft tissue window settings are submitted as well as coronal and sagittal reconstructions. T12-L1: No focal disc herniation or significant disc bulge is evident. No spinal canal stenosis or ne ural foraminal stenosis is present. L1-L2: Broad-based disc bulge is mild intrathecal sac compression. Facet hypertrophy is present. No spinal canal stenosis is present. Mild left and moderate right foraminal narrowing is present. L2-L3: No focal disc herniation is identified. Posterior wall displacement is contributing to AP spin al canal stenosis at 1.0 cm. Moderate bilateral foraminal stenosis is present. L3-L4: Facet hypertrophy and congenitally short pedicles are activity into spinal canal stenosis at t he L3-4 level. Broad-based disc bulges moderate intrathecal sac impression. L4-L5: No focal disc herniation or significant disc bulge is evident. Facet hypertrophy is present. M ild disc bulge has intrathecal sac contact. There is some mild canal narrowing. Severe right and mode rate to severe left foraminal stenosis is present. Correlate with radicular symptoms. L5-S1: Vacuum disc phenomenon is present. Disc bulges anterior thecal sac contact. Moderate to severe left foraminal stenosis and severe right foraminal stenosis present. Correlate with radicular sympto ms. Severe compression fracture involving L3 with loss of height estimated at the approximately 90%. Bony retropulsion estimated at 4 mm. Moderate loss of height involving T12 with loss of height of approxi mately 50% is also unchanged. IMPRESSION: 1. Compression fractures of L3 and T12 unchanged from prior study. 2. Spinal stenosis at L3 is unchanged. See above
[2021-05-04 10:16] VITALS: BP 151/89; PULSE 74; RESP 16
== END 2021-05-04 10:19 | disposition home or self-care (01) ==
LOC: RADPROMAIN 07:51
PROVIDERS: ATTEND Orthopaedic Surgery
DX: M48.56XA Collapsed vertebra, not elsewhere classified, lumbar region, initial encounter for fracture (principal); M48.061 Spinal stenosis, lumbar region without neurogenic claudication
CPT/HCPCS: 72131

== ENCOUNTER 2021-06-09 06:56 | Emergency (ER) | payer MEDICARE ==
[2021-06-09 07:09] VITALS: PULSE 70; RESP 16
[2021-06-09] MEDS ORDERED: HYDROmorphone 1 MG/ML 1 ML SYRINGE IVP STA (07:17)
[2021-06-09] MEDS ORDERED: ONDANSETRON 4 MG/2 ML VIAL IVP STA (07:17)
--- NOTE | 2021-06-09 07:30 | ED ---
Back Pain HPI - General Chief Complaint: Back Pain/Injury Stated Complaint: leg pain Time Seen by Provider: 06/09/21 07:03 Source: patient, RN notes reviewed Limitations: no limitations - History of Present Illness Initial Comments: This an 81-year-old male presents emergency Department chief complaint of left leg pain. Patient states she's been dealing with sciatica for several weeks. Patient states his been getting worse and worse when he cannot tolerated. Patient states that he attempted to have an MRI yesterday but was unable to lay flat he states he seen Dr. Rosales who stated they were given medication prior for repeat MRI. Patient states that he is unable tolerate the pain presents today. He denies any bowel, bladder incontinence or retention. He states he only has pain areas on his left leg denies any paresthesias. Patient states that he's had no pain relief at home that is helping. Patient offers no other complaints. - Related Data Home Medications Medication Instructions Recorded Confirmed Apixaban [Eliquis] 5 mg PO BID 07/18/19 05/04/21 Diltiazem HCl [Cardizem LA] 180 mg PO DAILY 07/18/19 04/25/21 Dulaglutide [Trulicity] 1.5 mg SQ WEEKLY 07/18/19 05/04/21 Insulin Glargine,Hum.rec.anlog 39 unit SQ BID 07/18/19 04/25/21 [Lantus Solostar Pen] Metoprolol Tartrate [Lopressor] 50 mg PO BID 07/18/19 04/25/21 Rosuvastatin Calcium [Crestor] 10 mg PO DAILY 07/18/19 04/25/21 ARIPiprazole [Abilify] 2 mg PO HS 03/08/21 04/25/21 Losartan Potassium 50 mg PO DAILY 03/08/21 04/25/21 Cholecalciferol [Vitamin D3 (25 25 mcg PO DAILY 04/22/21 04/25/21 Mcg = 1000 Iu)] Previous Rx's Medication Instructions Recorded Cyclobenzaprine [Flexeril] 5 mg PO BID #10 tablet 04/24/21 predniSONE 50 mg PO DAILY #5 tab 04/24/21 HYDROcodone/APAP 5-325MG [[place] 5] 1 each PO Q6HR PRN #12 tab 06/09/21 Allergies Allergy/AdvReac Type Severity Reaction Status Date / Time No Known Allergies Allergy Verified 05/04/21 08:34 Review of Systems ROS Statement: Those systems with pertinent positive or pertinent negative responses have been documented in the HPI. ROS Other: All systems not noted in ROS Statement are negative. Past Medical History Past Medical History: Atrial Fibrillation, CVA/TIA, Diabetes Mellitus, Hypertension Additional Past Medical History / Comment(s): Moderate to severe aortic stenosis - had TAVR History of Any Multi-Drug Resistant Organisms: None Reported Past Surgical History: Orthopedic Surgery Additional Past Surgical History / Comment(s): brain sx 2006 - due to bleed, TAVR, right hip 2019 Past Psychological History: Anxiety, Depression Smoking Status: Never smoker Past Alcohol Use History: None Reported Past Drug Use History: None Reported General Exam General appearance: alert, in no apparent distress Head exam: Present: atraumatic, normocephalic, normal inspection Eye exam: Present: normal appearance, PERRL, EOMI. Absent: scleral icterus, conjunctival injection, periorbital swelling ENT exam: Present: normal exam, mucous membranes moist Neck exam: Present: normal inspection, full ROM. Absent: tenderness, meningismus, lymphadenopathy Respiratory exam: Present: normal lung sounds bilaterally. Absent: respiratory distress, wheezes, rales, rhonchi, stridor Cardiovascular Exam: Present: regular rate, normal rhythm, normal heart sounds. Absent: systolic murmur, diastolic murmur, rubs, gallop, clicks GI/Abdominal exam: Present: soft, normal bowel sounds. Absent: distended, tenderness, guarding, rebound, rigid Extremities exam: Present: other (Lower extremity neurovascular intact, there is pain with range of motion left leg though strength is equal) Neurological exam: Present: alert, oriented X3, CN II-XII intact, reflexes normal. Absent: motor sensory deficit Skin exam: Present: warm, dry, intact, normal color. Absent: rash Course Vital Signs 06/09/21 07:02 Temperature 97.5 F L Pulse Rate 70 Respiratory 16 Rate Blood Pressure 176/106 O2 Sat by Pulse 97 Oximetry Medical Decision Making - Medical Decision Making 81-year-old male presented low back pain. This is chronic issue with left sciatica type symptoms. Patient does see Dr. Rosales currently. I did contact [facility] who discussed the case with Dr. Rosales who recommended patient only to have pain management and to be discharged home with follow-up in office. Disposition Clinical Impression: Sciatica, Lumbar radiculopathy Disposition: HOME SELF-CARE Condition: Stable Instructions (If sedation given, give patient instructions): Acute Low Back Pain (ED) Additional Instructions: Please return to the Emergency Department if symptoms worsen or any other concerns. Prescriptions: HYDROcodone/APAP 5-325MG [[place] 5] 1 each PO Q6HR PRN #12 tab PRN Reason: Pain Is patient prescribed a controlled substance at d/c from ED?: Yes When asked, does pt state using other controlled substances?: No If prescribed controlled substance>3 days was MAPS reviewed?: Prescribed <3 Days If opioid is for acute pain is fill amount 7 days or less?: Yes If Rx opioid, was Start Talking consent form obtained?: Yes Referrals: Christina Patel DO [Primary Care Provider] - 1-2 days Mariusz Rosales DO [Doctor of Osteopathic Medicine] - 1-2 days Time of Disposition: 08:16
[2021-06-09] MEDS ORDERED: DEXAMETHASONE SOD PHOSPHATE 10 MG/ML 1 ML VIAL IVP STA (08:01)
[2021-06-09 08:45] VITALS: BP 133/82; TEMP 98
== END 2021-06-09 08:45 | disposition home or self-care (01) ==
LOC: EC 06:56
DX: M54.16 Radiculopathy, lumbar region (principal); M54.42 Lumbago with sciatica, left side; I48.91 Unspecified atrial fibrillation; E11.9 Type 2 diabetes mellitus without complications; I10 Essential (primary) hypertension; F41.9 Anxiety disorder, unspecified; F32.A Depression, unspecified; Z79.01 Long term (current) use of anticoagulants; Z79.4 Long term (current) use of insulin; Z86.73 Personal history of transient ischemic attack (TIA), and cerebral infarction without residual deficits
CPT/HCPCS: 99283; 96374; 96375 ×2; J1100; J2405; J1170

== ENCOUNTER 2022-11-06 14:02 | Inpatient (IN) | payer MEDICARE ==
--- NOTE | 2022-11-06 14:45 | ED ---
General Adult HPI - General Chief complaint: Arrhythmia/Palpitations Stated complaint: Pacemaker Sent by Time Seen by Provider: 11/06/22 14:28 Source: patient, family, RN notes reviewed Mode of arrival: ambulatory Limitations: no limitations - History of Present Illness Initial comments: Patient is a pleasant 82-year-old male presenting to the emergency department with concerns for fatigue and lightheadedness. Symptoms have been present for months. Patient does have history of pacemaker. Patient went to a new bug trimmer appointment today. They did interrogate his pacemaker and determined that if likely has not been working since July. Patient denies chest pain. Patient states symptoms are with exertion. - Related Data Home Medications Medication Instructions Recorded Confirmed Apixaban [Eliquis] 5 mg PO BID 07/18/19 06/13/21 Dulaglutide [Trulicity] 1.5 mg SQ WEEKLY 07/18/19 06/13/21 Insulin Glargine,Hum.rec.anlog 42 unit SQ BID 07/18/19 06/13/21 [Lantus Solostar Pen] Metoprolol Tartrate [Lopressor] 50 mg PO BID 07/18/19 06/13/21 Rosuvastatin Calcium [Crestor] 10 mg PO DAILY 07/18/19 06/13/21 ARIPiprazole [Abilify] 2 mg PO HS 03/08/21 06/13/21 Acetaminophen-Codeine 300-30mg 1 tab PO Q8H PRN 06/09/21 06/13/21 [Tylenol w/codeine #3] Lactulose 20 gm PO DAILY PRN 06/09/21 06/13/21 Tamsulosin HCl [Flomax] 0.4 mg PO DAILY 06/09/21 06/13/21 predniSONE [Deltasone] 20 mg PO DAILY 06/09/21 06/13/21 Previous Rx's Medication Instructions Recorded Cyclobenzaprine [Flexeril] 5 mg PO BID #10 tablet 04/24/21 HYDROcodone/APAP 5-325MG [[place] 5] 1 each PO Q6HR PRN #12 tab 06/09/21 Allergies Allergy/AdvReac Type Severity Reaction Status Date / Time No Known Allergies Allergy Verified 11/06/22 14:14 Review of Systems ROS Statement: Those systems with pertinent positive or pertinent negative responses have been documented in the HPI. ROS Other: All systems not noted in ROS Statement are negative. Constitutional: Denies: fever Eyes: Denies: eye pain ENT: Denies: ear pain Respiratory: Denies: dyspnea Cardiovascular: Denies: chest pain Endocrine: Reports: as per HPI, fatigue Gastrointestinal: Denies: abdominal pain Genitourinary: Denies: dysuria Neurological: Denies: headache Past Medical History Past Medical History: Atrial Fibrillation, CVA/TIA, Diabetes Mellitus, Hypertension Additional Past Medical History / Comment(s): Moderate to severe aortic stenosis - had TAVR History of Any Multi-Drug Resistant Organisms: None Reported Past Surgical History: Orthopedic Surgery Additional Past Surgical History / Comment(s): brain sx 2006 - due to bleed, TAV R, right hip 2019 Past Anesthesia/Blood Transfusion Reactions: No Reported Reaction Past Psychological History: Anxiety, Depression Smoking Status: Never smoker Past Alcohol Use History: None Reported Past Drug Use History: None Reported General Exam Limitations: no limitations General appearance: alert, in no apparent distress Head exam: Present: atraumatic, normocephalic Eye exam: Present: normal appearance, PERRL, EOMI Neck exam: Present: normal inspection Respiratory exam: Present: normal lung sounds bilaterally Cardiovascular Exam: Present: bradycardia, irregular rhythm Expanded Peripheral pulses: 2+: Radial (R), Radial (L) GI/Abdominal exam: Present: soft. Absent: tenderness Extremities exam: Present: normal inspection. Absent: pedal edema, calf tenderness Neurological exam: Present: alert, oriented X3, CN II-XII intact. Absent: motor sensory deficit Expanded Neurological exam: Present: protecting the airway Speech: Present: fluid speech Motor strength exam: RUE: 5, LUE: 5, RLE: 5, LLE: 5 Eye Response: (4) open spontaneously Motor Response: (6) obeys commands Verbal Response: (5) oriented Psychiatric exam: Present: normal affect, normal mood Skin exam: Present: normal color Course Vital Signs 11/06/22 14:11 Temperature 97.4 F L Pulse Rate 34 L Respiratory 18 Rate Blood Pressure 183/68 O2 Sat by Pulse 98 Oximetry EKG Findings - EKG Results: EKG: interpreted by ERMD (Right bundle branch block. LVH.), normal axis, normal ST/T EKG shows: bradycardia, atrial fibrillation Medical Decision Making - Medical Decision Making Was pt. sent in by a medical professional or institution ([facility] Fitzgerald, CARD CUTTER, urgent care, hospital, or [place] health care facility...) When possible be specific @ -Patient was sent in by cardiology office with report of having pacemaker interrogated already Did you speak to anyone other than the patient for history (EMS, parent, family, police, friend...)? What history was obtained from this source @ -Family is present who helps provide history of pacemaker Did you review nursing and triage notes (agree or disagree)? Why? @ -I reviewed and agree with nursing and triage notes Were old charts reviewed (outside hosp., previous admission, EMS record, old EKG, old radiological studies, urgent care reports/EKG's, [place] health care facility records)? Report findings @ -No old charts were reviewed Differential Diagnosis (chest pain, altered mental status, abdominal pain women, abdominal pain men, vaginal bleeding, weakness, fever, dyspnea, syncope, headache, dizziness, GI bleed, back pain, seizure, CVA, palpatations, mental health)? @ -Differential Dizziness: Benign paroxysmal positional Vertigo, Menieres disease, otitis media, acoustic neuroma, vertebrobasilar insufficiency, cerebellar stroke, encephalitis, hypovolemic, arrhythmia, coronary artery syndrome, anemia, this is not meant to be an all-inclusive list EKG interpreted by me (3pts min.). @ -As above X-rays interpreted by me (1pt min.). @ -Chest x-ray shows no acute process CT interpreted by me (1pt min.). @ -None done U/S interpreted by me (1pt. min.). @ -None done What testing was considered but not performed or refused? (CT, X-rays, U/S, labs)? Why? @ -None What meds were considered but not given or refused? Why? @ -None Did you discuss the management of the patient with other professionals (professionals i.e. [facility] Fitzgerald, CARD CUTTER, lab, RT, psych nurse, social psychologist, linseed cake trimmer, teacher, fisheries technical officer, case management director)? Give summary @ -Case was discussed with Dr. Wei who will consult with cardiology. Case also discussed with practitioner Yesica who will admit covering with Dr. Holt, working for Dr. Sprague Was smoking cessation discussed for >3mins.? @ -No Was critical care preformed (if so, how long)? @ -No Were there social determinants of health that impacted care today? How? (Homelessness, low income, unemployed, alcoholism, drug addiction, transportation, low edu. Level, literacy, decrease access to med. care, alf, rehab)? @ -No Was there de-escalation of care discussed even if they declined (Discuss DNR or withdrawal of care, Hospice)? DNR status @ -No What co-morbidities impacted this encounter? (DM, HTN, Smoking, COPD, CAD, Cancer, CVA, ARF, Chemo, Hep., AIDS, mental health diagnosis, sleep apnea, morbid obesity)? @ -None Was patient admitted / discharged? Hospital course, mention meds given and route, prescriptions, significant lab abnormalities, going to OR and other perti nent info. @ -Bradycardia. Patient has persistent bradycardia. Patient's blood pressure is actually running high. Cardiology updated. Patient will be admitted to medicine with cardiac consult for definitive treatment Undiagnosed new problem with uncertain prognosis? @ -No Drug Therapy requiring intensive monitoring for toxicity (Heparin, Nitro, Insulin, Cardizem)? @ -No Were any procedures done? @ -No Diagnosis/symptom? @ -Bradycardia Acute, or Chronic, or Acute on Chronic? @ -Acute Uncomplicated (without systemic symptoms) or Complicated (systemic symptoms)? @ -default Side effects of treatment? @ -No Exacerbation, Progression, or Severe Exacerbation? @ -No Poses a threat to life or bodily function? How? (Chest pain, USA, PA, pneumonia, PE, COPD, DKA, ARF, appy, cholecystitis, CVA, Diverticulitis, Homicidal, Suicidal, threat to staff... and all critical care pts) @ -No - Lab Data Result diagrams: 11/06/22 15:02 11/06/22 15:02 Lab Results 11/06/22 11/06/22 11/06/22 Range/Units 15:02 15:02 15:02 WBC 5.0 (3.8-10.6) k/uL RBC 4.39 (4.30-5.90) m/uL Hgb 13.9 (13.0-17.5) gm/dL Hct 43.2 (39.0-53.0) % MCV 98.3 (80.0-100.0) fL MCH 31.6 (25.0-35.0) pg MCHC 32.2 (31.0-37.0) g/dL RDW 13.0 (11.5-15.5) % Plt Count 117 L (150-450) k/uL MPV 8.3 Neutrophils % 73 % Lymphocytes % 17 % Monocytes % 8 % Eosinophils % 1 % Basophils % 0 % Neutrophils # 3.7 (1.3-7.7) k/uL Lymphocytes # 0.8 L (1.0-4.8) k/uL Monocytes # 0.4 (0-1.0) k/uL Eosinophils # 0.0 (0-0.7) k/uL Basophils # 0.0 (0-0.2) k/uL PT 12.1 H (9.0-12.0) sec INR 1.2 H (<1.2) APTT 25.7 (22.0-30.0) sec Sodium 139 (137-145) mmol/L Potassium 4.3 (3.5-5.1) mmol/L Chloride 102 (98-107) mmol/L Carbon Dioxide 27 (22-30) mmol/L Anion Gap 10 mmol/L BUN 20 (9-20) mg/dL Creatinine 1.20 (0.66-1.25) mg/dL Est GFR (CKD-EPI)AfAm 65 (>60 ml/min/1.73 sqM) Est GFR (CKD-EPI)NonAf 56 (>60 ml/min/1.73 sqM) Glucose 85 (74-99) mg/dL Calcium 9.5 (8.4-10.2) mg/dL Magnesium 1.8 (1.6-2.3) mg/dL Total Bilirubin 1.3 (0.2-1.3) mg/dL AST 26 (17-59) U/L ALT 18 (4-49) U/L Alkaline Phosphatase 60 (38-126) U/L Troponin I (0.000-0.034) ng/mL Total Protein 6.9 (6.3-8.2) g/dL Albumin 4.0 (3.5-5.0) g/dL TSH 1.990 (0.465-4.680) mIU/L Free T4 1.61 (0.78-2.19) ng/dL Free T3 pg/mL 4.2 (2.8-5.3) pg/ml 11/06/22 Range/Units 15:02 WBC (3.8-10.6) k/uL RBC (4.30-5.90) m/uL Hgb (13.0-17.5) gm/dL Hct (39.0-53.0) % MCV (80.0-100.0) fL MCH (25.0-35.0) pg MCHC (31.0-37.0) g/dL RDW (11.5-15.5) % Plt Count (150-450) k/uL MPV Neutrophils % % Lymphocytes % % Monocytes % % Eosinophils % % Basophils % % Neutrophils # (1.3-7.7) k/uL Lymphocytes # (1.0-4.8) k/uL Monocytes # (0-1.0) k/uL Eosinophils # (0-0.7) k/uL Basophils # (0-0.2) k/uL PT (9.0-12.0) sec INR (<1.2) APTT (22.0-30.0) sec Sodium (137-145) mmol/L Potassium (3.5-5.1) mmol/L Chloride (98-107) mmol/L Carbon Dioxide (22-30) mmol/L Anion Gap mmol/L BUN (9-20) mg/dL Creatinine (0.66-1.25) mg/dL Est GFR (CKD-EPI)AfAm (>60 ml/min/1.73 sqM) Est GFR (CKD-EPI)NonAf (>60 ml/min/1.73 sqM) Glucose (74-99) mg/dL Calcium (8.4-10.2) mg/dL Magnesium (1.6-2.3) mg/dL Total Bilirubin (0.2-1.3) mg/dL AST (17-59) U/L ALT (4-49) U/L Alkaline Phosphatase (38-126) U/L Troponin I 0.029 (0.000-0.034) ng/mL Total Protein (6.3-8.2) g/dL Albumin (3.5-5.0) g/dL TSH (0.465-4.680) mIU/L Free T4 (0.78-2.19) ng/dL Free T3 pg/mL (2.8-5.3) pg/ml Disposition Clinical Impression: Bradycardia Disposition: ADMITTED IP TO THIS HOSP Condition: Serious Is patient prescribed a controlled substance at d/c from ED?: No Referrals: Roland Holt MD [Primary Care Provider] - 1-2 days Time of Disposition: 16:13
[2022-11-06 15:25] LABS: INR 1.2 (<1.2); Partial Thromboplastin Time 25.7 sec (22.0-30.0); Prothrombin Time 12.1 sec (9.0-12.0)
[2022-11-06 15:37] LABS: ALT 18 U/L (4-49); AST 26 U/L (17-59); African American GFR (CKD) 65 (>60 ml/min/1.73 sqM); Alkaline Phosphatase 60 U/L (38-126); Anion Gap 10 mmol/L; Blood Urea Nitrogen 20 mg/dL (9-20); Calcium 9.5 mg/dL (8.4-10.2); Carbon Dioxide 27 mmol/L (22-30); Chloride 102 mmol/L (98-107); Glucose 85 mg/dL (74-99); Magnesium 1.8 mg/dL (1.6-2.3); Non-African American GFR(CKD) 56 (>60 ml/min/1.73 sqM); Potassium 4.3 mmol/L (3.5-5.1); Sodium 139 mmol/L (137-145); Total Bilirubin 1.3 mg/dL (0.2-1.3); Total Protein 6.9 g/dL (6.3-8.2)
--- NOTE | 2022-11-06 15:43 | XR ---
EXAMINATION TYPE: XR chest 2V DATE OF EXAM: 11/06/2022 3:29 PM COMPARISON: Chest radiographs from 07/22/2019 TECHNIQUE: XR chest 2V Frontal and lateral views of the chest. CLINICAL INDICATION:Male, 82 years old with history of dysrhythmia; FINDINGS: Lungs/Pleura: There is no evidence of pleural effusion, focal consolidation, or pneumothorax. Elevat ion left hemidiaphragm again demonstrated. Chronic senescent parenchymal change. Pulmonary vascularity: Prominence of the pulmonary vasculature. Heart/mediastinum: Cardiomediastinal silhouette is enlarged and stable. Proximal aortic stent graft. Two lead cardiac conduction device overlying the left hemithorax with lead tips projecting over the right ventricle and right atrium. Musculoskeletal: No acute osseous pathology. Mild degenerative changes of the thoracic spine. Remote right-sided rib fractures. IMPRESSION: 1. Cardiomegaly with mild pulmonary vascular congestion. Correlate for CHF exacerbation. 2. Continued asymmetric elevation left hemidiaphragm.
[2022-11-06 15:47] LABS: Basophils % (A) 0 %; Eosinophils % (A) 1 %; HCT 43.2 % (39.0-53.0); HGB 13.9 gm/dL (13.0-17.5); Lymphocytes # (A) 0.8 k/uL (1.0-4.8); Lymphocytes % (A) 17 %; MCH 31.6 pg (25.0-35.0); MCHC 32.2 g/dL (31.0-37.0); MCV 98.3 fL (80.0-100.0); Mean Platelet Volume 8.3; Monocytes # (A) 0.4 k/uL (0-1.0); Monocytes % (A) 8 %; Neutrophils # (A) 3.7 k/uL (1.3-7.7); Neutrophils % (A) 73 %; Platelet Count 117 k/uL (150-450); RBC 4.39 m/uL (4.30-5.90)
[2022-11-06 15:55] LABS: T4, Free (Free Thyroxine) 1.61 ng/dL (0.78-2.19)
[2022-11-06] MEDS ORDERED: ENALAPRILAT 1.25 MG/ML 1 ML VIAL IVP STA ×2 (16:11→17:39)
[2022-11-06] MEDS ORDERED: NALOXONE 0.4 MG/ML 1 ML VIAL IV PRN (16:14)
[2022-11-06] MEDS ORDERED: DEXTROSE 50% SYRINGE 50 ML IVP PRN ×2 (20:05)
[2022-11-06] MEDS ORDERED: ERGOCALCIFEROL 1,250 MCG (50,000 IU) CAPSULE PO SCH (20:15)
[2022-11-06 20:17] LABS: Glucose,Whole Blood 153 mg/dL (70-110)
--- NOTE | 2022-11-06 20:59 | HP ---
HISTORY AND PHYSICAL CHIEF COMPLAINTS: Not feeling well and bradycardia. HISTORY OF PRESENT ILLNESS: An 82-year-old gentleman with a past medical history of multiple medical problems including a pacemaker implantation about 10 or 12 years ago, is not feeling well since past several months. The pacemaker was apparently not functioning and was planning a repeat pacemaker insertion. The EKG showed significant bradycardia with possibly junctional rhythm. There is no history of any fever, rigors, or chills. PAST MEDICAL HISTORY: Atrial fibrillation, CHF, CVA, TIA. Rest of the history and rest of the chart is also reviewed. HOME MEDICATIONS: Reviewed include melatonin. Dose and rest of medication noted. ALLERGIES: None. FAMILY HISTORY: No history of heart disease or strokes in the family. SOCIAL HISTORY: Previous history of smoking. REVIEW OF SYSTEMS: A 14-point review is negative except as mentioned earlier. PHYSICAL EXAMINATION: VITAL SIGNS: Pulse is 36, blood pressure 197/87, respirations 19. CHEST: Conjunctivae normal. NECK: No jugular venous distention. CARDIOVASCULAR: S1, S2. Bradycardic. RESPIRATIONS: Breath sounds diminished at the bases. No rhonchi. No crackles. ABDOMEN: Soft, obese. LEGS: No edema. No swelling. NERVOUS SYSTEM: No focal deficits. SKIN: No ulcer, rash, bleeding. JOINTS: No active deforming arthropathy. LABORATORY DATA: Reviewed. ASSESSMENT: 1. Severe bradycardia secondary to pacemaker malfunction. 2. History of possible sick sinus syndrome. 3. History of atrial fibrillation. 4. History of cerebrovascular accident, transient ischemic attack. 5. Diabetes mellitus, type 2. 6. Hypertension. 7. Moderate to severe aortic stenosis, status post transcatheter aortic valve replacement. RECOMMENDATIONS AND DISCUSSION: This is an 82-year-old gentleman, who presented with multiple complex medical issues, we will monitor the patient closely. Consult Cardiology. Monitor telemetry. Avoid bradycardic medications hydralazine p.r.n. for blood pressure elevations. Otherwise, I would recommend cardiology consultation. Possible pacemaker implantation. Prognosis guarded. Further recommendations to follow. See orders for further details. MMODL / IJN: [id number] /
[2022-11-06] MEDS: ACETAMINOPHEN TAB 500 MG TAB PO SCH (22:35)
[2022-11-06] MEDS: diphenhydrAMINE 25 MG CAP PO SCH (22:36)
[2022-11-06] MEDS: MELATONIN 5 MG TABLET PO SCH (22:36)
[2022-11-06] MEDS: INSULIN ASPART (NovoLOG) 100 UNIT/ML VIAL SQ SCH (22:37)
[2022-11-07 06:14] LABS: Glucose,Whole Blood 74 mg/dL (70-110)
[2022-11-07] MEDS ORDERED: ceFAZolin 1 GM in SODIUM CHLORIDE 0.9% IRRIG BTL 250 ML IRRIGATION PRN (07:00)
[2022-11-07] MEDS: INSULIN ASPART (NovoLOG) 100 UNIT/ML VIAL SQ SCH ×3 (08:45→21:55)
[2022-11-07] MEDS: INSULIN DETEMIR (LEVEMIR) 100 UNIT/ML SYR SQ SCH (08:46)
[2022-11-07] MEDS: ATORVASTATIN 20 MG TAB PO SCH (08:50)
[2022-11-07] MEDS: CHOLECALCIFEROL 125 MCG (5000 IU) TABLET PO SCH (08:50)
[2022-11-07] MEDS: ARIPiprazole 5 MG TAB PO SCH (08:50)
[2022-11-07] MEDS: TAMSULOSIN 0.4 MG CAP.ER.24H PO SCH (08:50)
--- NOTE | 2022-11-07 10:45 | P.CRDCN ---
History of Present Illness History of present illness: HISTORY OF PRESENTING ILLNESS Patient is pleasant 82-year-old male with history diabetes mellitus type 2, peripheral neuropathy, chronic atrial fibrillation, hypertension, stroke in 2007 as well as reported "brain bleed ", severe aortic stenosis status post TAVR, mild cardiomyopathy EF 40-45%, mild increasing dementia as well as poor follow- up who presents secondary to bradycardia and increase lightheadedness. Patient apparently had previously followed with Dr. Mccauley in [facility] and had TAVR 2019. He has not been seen in the system in a while. Unfortunately his 3 months ago and has not been following up with appointments as scheduled. He was seen in our office secondary to bradycardia with pacemaker interrogation showing end of battery life. There was issues with impedance of the leads and unclear if has ever had any issues with leads. He de nies any recent chest pain or pressure. He does not recall if he had heart catheterization prior to his valve replacement. He has not actually passed out however has been feeling lightheaded for last few months. EKG shows atrial fibrillation with junctional escape rhythm. TSH noted to be normal. He is normally on metoprolol however this has been held. REVIEW OF SYSTEMS At the time of my exam: CONSTITUTIONAL: Denies fever or chills. CARDIOVASCULAR: Denies chest pain, +chronic shortness of breath, no orthopnea, PND or palpitations. +lightheadedness RESPIRATORY: Denies cough. GASTROINTESTINAL: Denies abdominal pain, diarrhea, constipation, nausea or vomiting. MUSCULOSKELETAL: Denies myalgias. NEUROLOGIC: Denies numbness, tingling or weakness. ENDOCRINE: Denies fatigue, weight change, polydipsia or polyurina. GENITOURINARY: Denies burning, hematuria or urgency with micturation. HEMATOLOGIC: Denies history of anemia or bleeding. PHYSICAL EXAMINATION Vital signs reviewed. CONSTITUTIONAL: No apparent distress. HEENT: Head is normocephalic. Pupils are equal, round. Sclerae anicteric. Mucous membranes of the mouth are moist. No JVD. No carotid bruit. CHEST EXAMINATION: Lungs are clear to auscultation. No chest wall tenderness is noted on palpation or with deep breathing. HEART EXAMINATION: Regular rhythm, bradycardic. S1, S2 heard. +2/6 systolic murmur, no gallops or rub. ABDOMEN: Soft, nontender. Positive bowel sounds. EXTREMITIES: 2+ peripheral pulses, no lower extremity edema and no calf tenderness. NEUROLOGIC EXAMINATION: Patient is awake, alert and oriented x3. ASSESSMENT 1. Symptomatic bradycardia 2. Status post dual-chamber per pacemaker with battery end of battery life 3. History of mild cardiomyopathy EF 40-45% 4. History of prior transcatheter aortic valve replacement 5. Chronic atrial fibrillation 6. History of stroke as well as hemorrhagic stroke per patient 7. Dementia 8. Poor follow-up PLAN Patient with end of battery life and will need a generator change. He may additionally need pacemaker lead implantation if significant issues with a lead. Check echo to determine if he needs a defibrillator. Otherwise not having any significant anginal type symptoms. Hold metoprolol for now and likely restart after pacemaker. Further recommendations to follow. Past Medical History Past Medical History: Atrial Fibrillation, Heart Failure, CVA/TIA, Diabetes Mellitus, Hypertension Additional Past Medical History / Comment(s): Moderate to severe aortic stenosis - had TAVR History of Any Multi-Drug Resistant Organisms: None Reported Past Surgical History: Orthopedic Surgery, Tonsillectomy Additional Past Surgical History / Comment(s): brain sx 2006 - due to bleed, TAVR, right hip 2019 Past Anesthesia/Blood Transfusion Reactions: No Reported Reaction Smoking Status: Former smoker Medications and Allergies Home Medications Medication Instructions Recorded Confirmed Type Apixaban [Eliquis] 5 mg PO BID 07/18/19 11/06/22 History Insulin Glargine,Hum.rec.anlog 42 unit SQ DAILY 07/18/19 11/06/22 History [Lantus Solostar Pen] Rosuvastatin Calcium [Crestor] 10 mg PO DAILY 07/18/19 11/06/22 History Tamsulosin HCl [Flomax] 0.4 mg PO DAILY 06/09/21 11/06/22 History ARIPiprazole [Abilify] 5 mg PO DAILY 11/06/22 11/06/22 History Acetaminophen/Diphenhydramine 2 tab PO HS 11/06/22 11/06/22 History [Tylenol PM 500-25mg] Cholecalciferol [Vitamin D3 (125 125 mcg PO DAILY 11/06/22 11/06/22 History Mcg = 5000 Iu)] Ergocalciferol (Vitamin D2) 1,250 mcg PO MO 11/06/22 11/06/22 History [Drisdol (50,000 Iu)] Melatonin 10 mg PO HS 11/06/22 11/06/22 History Metoprolol Tartrate [Lopressor] 100 mg PO BID 11/06/22 11/06/22 History Allergies Allergy/AdvReac Type Severity Reaction Status Date / Time No Known Allergies Allergy Verified 11/06/22 17:01 Physical Exam Vitals: Vital Signs Temp Pulse Pulse Resp BP BP Pulse Ox 11/07/22 10:19 38 L 18 11/07/22 08:29 95 11/07/22 07:55 97.9 F 38 L 18 149/70 95 11/07/22 04:00 96.7 F L 35 L 18 140/66 94 L 11/07/22 02:00 44 L 18 11/07/22 00:00 98.7 F 44 L 18 164/72 94 L 11/06/22 20:00 98.1 F 49 L 18 121/61 94 L 11/06/22 18:46 99.4 F 20 219/95 98 11/06/22 17:19 36 L 19 197/87 97 11/06/22 16:16 98.1 F 36 L 18 221/79 95 11/06/22 14:11 97.4 F L 34 L 18 183/68 98 Intake and Output 11/06/22 11/07/22 11/07/22 22:59 06:59 14:59 Output Total 225 200 Balance -225 -200 Output: Urine 225 200 Other: Voiding Method Urinal # Voids 2 Weight 111.584 kg Results 11/06/22 15:02 11/06/22 15:02 Cardiac Enzymes 11/06/22 11/06/22 Range/Units 15:02 15:02 AST 26 (17-59) U/L Troponin I 0.029 (0.000-0.034) ng/mL Coagulation 11/06/22 Range/Units 15:02 PT 12.1 H (9.0-12.0) sec APTT 25.7 (22.0-30.0) sec CBC 11/06/22 Range/Units 15:02 WBC 5.0 (3.8-10.6) k/uL RBC 4.39 (4.30-5.90) m/uL Hgb 13.9 (13.0-17.5) gm/dL Hct 43.2 (39.0-53.0) % Plt Count 117 L (150-450) k/uL Comprehensive Metabolic Panel 11/06/22 Range/Units 15:02 Sodium 139 (137-145) mmol/L Potassium 4.3 (3.5-5.1) mmol/L Chloride 102 (98-107) mmol/L Carbon Dioxide 27 (22-30) mmol/L BUN 20 (9-20) mg/dL Creatinine 1.20 (0.66-1.25) mg/dL Glucose 85 (74-99) mg/dL Calcium 9.5 (8.4-10.2) mg/dL AST 26 (17-59) U/L ALT 18 (4-49) U/L Alkaline Phosphatase 60 (38-126) U/L Total Protein 6.9 (6.3-8.2) g/dL Albumin 4.0 (3.5-5.0) g/dL Current Medications Generic Name Dose Route Start Last Admin Trade Name Freq PRN Reason Stop Dose Admin Acetaminophen 1,000 mg 11/06/22 21:00 11/06/22 22:35 Acetaminophen Tab 500 Mg Tab PO 1,000 mg HS LAURA Administration Aripiprazole 5 mg 11/07/22 09:00 11/07/22 08:50 Aripiprazole 5 Mg Tab PO 5 mg DAILY LAURA Administration Atorvastatin Calcium 20 mg 11/07/22 09:00 11/07/22 08:50 Atorvastatin 20 Mg Tab PO 20 mg DAILY LAURA Administration Cholecalciferol 125 mcg 11/07/22 09:00 11/07/22 08:50 Cholecalciferol 125 Mcg (5000 Iu) Tablet PO 125 mcg DAILY LAURA Administration Dextrose/Water 25 ml 11/06/22 20:05 Dextrose 50% Syringe 50 Ml IVP PER PROTOCOL PRN Hypoglycemia Protocol Dextrose/Water 50 ml 11/06/22 20:05 Dextrose 50% Syringe 50 Ml IVP PER PROTOCOL PRN Hypoglycemia Protocol Diphenhydramine HCl 50 mg 11/06/22 21:00 11/06/22 22:36 Diphenhydramine 25 Mg Cap PO 50 mg HS LAURA Administration Ergocalciferol 1,250 mcg 11/06/22 20:15 11/06/22 22:36 Ergocalciferol 1,250 Mcg (50,000 Iu) Capsule PO 1,250 mcg MO LAURA Administration Hydralazine HCl 10 mg 11/06/22 20:04 Hydralazine Hcl 20 Mg/Ml 1 Ml Vial IVP Q4HR PRN Blood Pressure - High Insulin Aspart 0 unit 11/06/22 21:00 11/07/22 08:45 Insulin Aspart (Novolog) 100 Unit/Ml Vial SQ Not Given ACHS REPLACED BY [facility] Protocol Insulin Detemir 42 unit 11/07/22 07:00 11/07/22 08:46 Insulin Detemir (Levemir) 100 Unit/Ml Syr SQ Not Given DAILY@0700 LAURA Melatonin 10 mg 11/06/22 21:00 11/06/22 22:36 Melatonin 5 Mg Tablet PO 10 mg HS LAURA Administration Naloxone HCl 0.2 mg 11/06/22 16:14 Naloxone 0.4 Mg/Ml 1 Ml Vial IV Q2M PRN Opioid Reversal Tamsulosin HCl 0.4 mg 11/07/22 09:00 11/07/22 08:50 Tamsulosin 0.4 Mg Cap.Er.24h PO 0.4 mg DAILY LAURA Administration Intake and Output 11/06/22 11/07/22 11/07/22 22:59 06:59 14:59 Output Total 225 200 Balance -225 -200 Output: Urine 225 200 Other: Voiding Method Urinal # Voids 2 Weight 111.584 kg 11/06/22 15:02 11/06/22 15:02
[2022-11-07 12:13] LABS: Glucose,Whole Blood 63 mg/dL (70-110)
[2022-11-07 12:34] LABS: Basophils % (A) 0 %; Eosinophils % (A) 1 %; HCT 41.9 % (39.0-53.0); HGB 13.4 gm/dL (13.0-17.5); Lymphocytes # (A) 0.8 k/uL (1.0-4.8); Lymphocytes % (A) 18 %; MCV 99.8 fL (80.0-100.0); Mean Platelet Volume 8.1; Monocytes # (A) 0.3 k/uL (0-1.0); Monocytes % (A) 6 %; Neutrophils # (A) 3.2 k/uL (1.3-7.7); Neutrophils % (A) 74 %; Platelet Count 100 k/uL (150-450); RDW 13.1 % (11.5-15.5); WBC 4.3 k/uL (3.8-10.6)
[2022-11-07 12:36] VITALS: BMI 30.7
[2022-11-07 12:50] LABS: African American GFR (CKD) 67 (>60 ml/min/1.73 sqM); Anion Gap 10 mmol/L; Blood Urea Nitrogen 16 mg/dL (9-20); Calcium 9.3 mg/dL (8.4-10.2); Carbon Dioxide 28 mmol/L (22-30); Chloride 102 mmol/L (98-107); Glucose 67 mg/dL (74-99); Non-African American GFR(CKD) 58 (>60 ml/min/1.73 sqM); Sodium 140 mmol/L (137-145)
[2022-11-07 13:06] LABS: Glucose,Whole Blood 88 mg/dL (70-110)
--- NOTE | 2022-11-07 13:56 | PN ---
PROGRESS NOTE DATE OF SERVICE: 11/07/2022 SUBJECTIVE: This is an 82-year-old gentleman admitted with bradycardia and pacemaker failure. He is scheduled to have a generator change by Cardiology. Dr. Tavares is also evaluating the ejection fraction for possible AICD. No chest pain. No palpitations. No fever. OBJECTIVE: VITAL SIGNS: Pulse is 38, blood pressure is 149/70, respirations 18. CHEST: Clear to auscultation. CARDIOVASCULAR: S1 and S2. ABDOMEN: Soft. LABORATORY DATA: Labs are reviewed. TSH is normal. ASSESSMENT: 1. Severe bradycardia, symptomatic secondary to pacemaker malfunction. 2. History of atrial fibrillation. 3. History of cerebrovascular accident and transient ischemic attack. 4. History of possible sick sinus syndrome. 5. History of mild cardiomyopathy. 6. Diabetes mellitus, type 2. 7. Aortic stenosis, status post transcatheter aortic valve replacement. 8. Multiple medical issues. RECOMMENDATIONS: This is an 82-year-old gentleman who presented with multiple complex medical issues, we will monitor the patient closely. Otherwise, I would recommend continue the current medications. Avoid beta blockers. Closely follow with Cardiology. Possible generator change and insertion and further recommendations to follow. See orders for further details. Prognosis guarded. MMODL / IJN: [id number] /
[2022-11-07] MEDS ORDERED: fentaNYL (PF) 50 MCG/ML 2 ML AMP ONE ×2 (14:44→15:54)
[2022-11-07] MEDS ORDERED: hydrALAZINE HCL 20 MG/ML 1 ML VIAL ONE (15:04)
[2022-11-07] MEDS: MIDAZOLAM 2 MG/2 ML VIAL IV ONE ×2 (15:07→15:44)
[2022-11-07] MEDS ORDERED: hydrALAZINE HCL 20 MG/ML 1 ML VIAL IV ONE (15:07)
[2022-11-07] MEDS ORDERED: fentaNYL (PF) 50 MCG/1 ML VIAL IV ONE (15:07)
[2022-11-07] MEDS ORDERED: MIDAZOLAM 2 MG/2 ML VIAL IV ONE ×2 (15:07→16:35)
[2022-11-07] MEDS: fentaNYL (PF) 50 MCG/1 ML VIAL IV ONE ×2 (15:07→15:43)
[2022-11-07] MEDS ORDERED: LIDOCAINE 1% INJ 10MG/ML (30 ML VIAL-PF) SQ ONE (15:10)
[2022-11-07] MEDS ORDERED: SODIUM CHLORIDE 0.9% 500 ML 500 ML IV ONE (15:10)
[2022-11-07] MEDS ORDERED: IOPAMIDOL-250 100ML BTL INTRAARTER ONE (15:37)
[2022-11-07] MEDS: fentaNYL (PF) 50 MCG/ML 2 ML AMP IV ONE ×3 (15:56→16:26)
[2022-11-07] MEDS ORDERED: LIDOCAINE 1% INJ 10MG/ML (20 ML MDV) ONE (16:23)
[2022-11-07] MEDS ORDERED: LIDOCAINE 1% INJ 10MG/ML (20 ML MDV) SQ ONE (16:37)
--- NOTE | 2022-11-07 17:09 | P.PCN ---
Description of Procedure: CARDIOLOGY PROCEDURE NOTE Retail Sales Manager: Dr. Stu Wei HPI: Patient is a pleasant 82 year old male with history of Afib, SSS, heart block s/p dual chamber PPM however poor thresholds on RV and RA leads from a few years back. He has been having poor followup and found to have battery life and bradycardia. Therefore generator change with possible pacemaker lead placement was recommended. Procedure performed: Insertion dual chamber permanent pacemaker, placement of RV lead, generator change Site: Left subclavian Indications: Sick Sinus Syndrome Complications: None Blood Loss: Minimal Description of Procedure: After the risks, benefits, and alternatives of the above-mentioned procedure was explained in detail with the patient, informed consent was obtained. The patient was taken to the cardiac catheterization suite where the left subclavian area was sterily prepped and draped in the usual fashion. One percent lidocaine was used to anesthetize the left subclavian area. Twenty milliliters of Isoview 370 contrast was injected into the left antecubital vein to allow for direct visualization of the left subclavian vein under fluoroscopy. A 1.5 inch incision was made utilizing a #15 blade in the left subclavian site. Hemostasis was made complete. Electrocautery along with digital blunt dissection was utilized to dissect to the level of the prior generator. The prior generator and leads were exposed and leads were both noted to be poor sensitivity and pacing thresholds. The decision was made to place a new RV lead. A thin walled micro puncuture needle was used to cannulate the left subclavian vein. A guide-wire was inserted through the needle into the vascular lumen under fluoroscopic guidance. The needle was removed. A venous sheath and dilator were advanced over the guidewire into the vascular lumen under fluoroscopic guidance however eventually needed a longer sheath given some tortuosity. A right ventricular bipolar lead was inserted into the sheath and advanced under fluoroscopic guidance into the right ventricle under fluoroscopic guidance. Adequate sensing and pacing thresholds were achieved and the lead was screwed into place in the RV apex. The sheath was then torn away. The lead collar was advanced and anchored into place utilizing #0 silk suture. The leads were then inserted into the appropriate position into the generator. They were then secured with the setscrew provided. The prior RV lead was capped and sutured in place. The leads and generator were inserted into the pocket with the leads posterior. The subcutaneous tissue was approximated utilizing #2.0 and 3.0 vicryl in an interrupted stitch fashion. The dermal layer was approximated utilizing #4.0 vicryl. The area was cleansed with sterile saline and dried. A sterile 4x4 dressing was applied and the patient was transferred to the post catheterization holding area in stable and satisfactory condition. The patient tolerated the procedure well. Generator Data Hydro Sprayer Operator: [employer] Brand: [id number] Richardson XT DR MRI Model #: W1DR01 Serial#: [id number] Right Atrial Bipolar Lead Data: Type: Active fixation lead Hydro Sprayer Operator: [employer] Model#: 4087 Serial Number: [id number] Right Ventricular Bipolar Lead Data: Type: Active fixation lead Hydro Sprayer Operator: [employer] Model #: 5076-58 Serial #: [id number] Capped Right Ventricular Bipolar Lead Data: Type: Active fixation lead Hydro Sprayer Operator: [employer] Model #: 4088 Serial #: [id number] Stimulation Thresholds: Right atrial bipolar lead pacing and sensing thresholds Voltage: NA Impedance: 399ohms P-wave sensin.1 Right Ventricular bipolar lead pacing and sensing thresholds Pulse Width: 0.4ms Voltage: 0.5 Impedance: 1083 ohms R-wave sensin mV Parameter Setting: Pacing mode is VVIR Lower rate 60 bpm Upper rate 120 bpm Impressions: 1. Successful generator change of a dual chamber permanent pacemaker in the left pectoral site. 2. Additional placement of new RV lead placement 3. Prior RV and RA lead failure with inadequate pacing and sensing thresholds Plan: 1. Routine post procedure care will be instituted as well as outpatient follow- up surveillance.
[2022-11-07] MEDS ORDERED: ACETAMINOPHEN TAB 325 MG TAB PO PRN (17:14)
[2022-11-07 17:26] LABS: Glucose,Whole Blood 68 mg/dL (70-110)
[2022-11-07] MEDS: SODIUM CHLORIDE 0.9% 1,000 ML IV SCH ×2 (19:03)
--- NOTE | 2022-11-07 19:32 | XR ---
EXAMINATION TYPE: XR chest 1V portable DATE OF EXAM: 11/07/2022 7:13 PM COMPARISON: Chest radiographs from 11/06/2022 TECHNIQUE: XR chest 1V portable Frontal view of the chest. CLINICAL INDICATION:Male, 82 years old with history of Lead placement check; FINDINGS: Lungs/Pleura: No evidence of focal consolidation or pneumothorax. Blunting of the costophrenic angles is present. Pulmonary vascularity: Pulmonary vascular congestion. Heart/mediastinum: Cardiomediastinal silhouette is enlarged and stable. Three lead cardiac conduction device overlying the left hemithorax with lead tips projecting over the right ventricle, right atriu m and coronary sinus. Musculoskeletal: No acute osseous pathology. IMPRESSION: Cardiac conduction leads are felt to be in appropriate position. Congestive heart failure changes with bilateral pleural effusions, pulmonary vascular congestion and cardiomegaly.
[2022-11-07 20:08] LABS: Glucose,Whole Blood 161 mg/dL (70-110)
[2022-11-07] MEDS: ACETAMINOPHEN TAB 500 MG TAB PO SCH (21:54)
[2022-11-07] MEDS: MELATONIN 5 MG TABLET PO SCH (21:55)
[2022-11-07] MEDS: TEMAZEPAM 15 MG CAP PO PRN (21:55)
[2022-11-07] MEDS: diphenhydrAMINE 25 MG CAP PO SCH (21:55)
[2022-11-08] MEDS: hydrALAZINE HCL 20 MG/ML 1 ML VIAL IVP PRN ×2 (00:47→20:14)
[2022-11-08] MEDS: SODIUM CHLORIDE 0.9% 1,000 ML IV SCH ×4 (05:53→21:35)
[2022-11-08 06:19] LABS: Glucose,Whole Blood 108 mg/dL (70-110)
[2022-11-08] MEDS: INSULIN ASPART (NovoLOG) 100 UNIT/ML VIAL SQ SCH ×4 (06:24→21:11)
[2022-11-08] MEDS: INSULIN DETEMIR (LEVEMIR) 100 UNIT/ML SYR SQ SCH (06:26)
[2022-11-08] MEDS: CHOLECALCIFEROL 125 MCG (5000 IU) TABLET PO SCH (08:29)
[2022-11-08] MEDS: ARIPiprazole 5 MG TAB PO SCH (08:29)
[2022-11-08] MEDS: ATORVASTATIN 20 MG TAB PO SCH (08:29)
[2022-11-08] MEDS: TAMSULOSIN 0.4 MG CAP.ER.24H PO SCH (08:29)
--- NOTE | 2022-11-08 09:06 | CA ---
Transthoracic Echo Report Name: Jarrod Tinoco Age: 82 Gender: M : 1940 Exam Date: 11/07/2022 11:11 Exam Location: [facility] Ht (in): 75 Wt (lb): 246 Ordering Physician: Stu Wei DO ([email or web address]) Attending/Referring Phys: Financial Rep Robin Crisostomo Procedure CPT: Indications: re: LV function Cardiac Hx: Technical Quality: Technically difficult study Contrast 1: Agitated Saline Total Dose (mL): 1 Contrast 2: Lumason Total Dose (mL): 1 MEASUREMENTS (Male / Female) Normal Values 2D ECHO LV Diastolic Diameter PLAX 3.0 cm 4.2 - 5.9 / 3.9 - 5.3 cm LV Systolic Diameter PLAX 2.8 cm IVS Diastolic Thickness 1.4 cm 0.6 - 1.0 / 0.6 - 0.9 cm LVPW Diastolic Thickness 3.0 cm 0.6 - 1.0 / 0.6 - 0.9 cm LV Relative Wall Thickness 1.5 RV Internal Dim ED PLAX 3.2 cm LVOT Diameter 2.2 cm Aortic Root Diameter 2.4 cm LA Systolic Diameter LX 4.6 cm 3.0 - 4.0 / 2.7 - 3.8 cm LV Diastolic Volume MOD BP 72.7 cm??? 67 - 155 / 56 - 104 cm??? LV Systolic Volume MOD BP 27.5 cm??? 22 - 58 / 19 - 49 cm??? LV Ejection Fraction MOD BP 62.2 % >= 55 % LV Diastolic Volume MOD 4C 89.5 cm??? LV Systolic Volume MOD 4C 35.4 cm??? LV Ejection Fraction MOD 4C 60.4 % LV Diastolic Length 4C 8.4 cm LV Systolic Length 4C 7.8 cm LV Diastolic Volume MOD 2C 55.6 cm??? LV Systolic Volume MOD 2C 19.3 cm??? LV Ejection Fraction MOD 2C 65.3 % LV Diastolic Length 2C 7.8 cm LV Systolic Length 2C 7.0 cm LA Volume 113.0 cm??? 18 - 58 / 22 - 52 cm??? DOPPLER AV Peak Velocity 127.8 cm/s AV Peak Gradient 6.5 mmHg LVOT Peak Velocity 78.7 cm/s LVOT Peak Gradient 2.5 mmHg AV Area Cont Eq pk 2.3 cm??? MV E' Velocity 3.0 cm/s TR Peak Velocity 324.3 cm/s TR Peak Gradient 42.1 mmHg Right Ventricular Systolic Press 47.1 mmHg FINDINGS Left Ventricle Left ventricular ejection fraction is estimated at 50-55 %. Right Ventricle Mild to Moderate right ventricular dilatation. RVSP= 45mmhg Right Atrium Moderate right atrial dilatation. Left Atrium Moderate Left atrial dilatation. LA volume Index= 47.1ml/m2 Mitral Valve Mitral valve not well visualized. No mitral stenosis, regurgitation or prolapse. Aortic Valve Aortic valve not well visualized. No aortic valve stenosis or regurgitation. Tricuspid Valve Tricuspid valve not well visualized. Mild to moderate TR. Pulmonic Valve Pulmonic valve not well visualized. No pulmonic regurgitation. Pericardium Normal pericardium. Aorta Normal size aortic root and proximal ascending aorta. CONCLUSIONS Low normal left ventricular systolic function was EF around 50% Poorly visualized aortic valve. Normally functioning transcatheter aortic valve Previewed by: Dr. Srinivas Tavares MD (Electronically Signed) Final Date: 08 November 2022 09:05
[2022-11-08 11:31] LABS: Glucose,Whole Blood 102 mg/dL (70-110)
--- NOTE | 2022-11-08 12:38 | PN ---
PROGRESS NOTE DATE OF SERVICE: 11/08/2022 SUBJECTIVE: This 82-year-old gentleman was admitted with severe bradycardia and pacemaker malfunction, underwent insertion of a dual-chamber permanent pacemaker and RV lead and generator change. No fever, no cough. OBJECTIVE: VITAL SIGNS: Pulse is 57, blood pressure 192/73, respirations 16. CHEST: Few scattered rhonchi. ABDOMEN: Soft. LEGS: No edema. NERVOUS SYSTEM: Nonfocal. LABORATORY DATA: Reviewed. ASSESSMENT: 1. Severe bradycardia with pacemaker malfunction, status post dual-chamber permanent pacemaker placement as well as RV lead and generator change. 2. Hypertension. 3. History of atrial fibrillation. 4. History of cerebrovascular accident and transient ischemic attack. 5. Possible sick sinus syndrome. 6. History of mild cardiomyopathy. 7. Diabetes mellitus type 2. 8. Multiple medical issues. RECOMMENDATIONS: Recommend to continue current medications, symptomatic treatment. Otherwise at this time, I recommend continuing the current medications. Monitor blood pressure closely. We will initiate Norvasc at this time. Further recommendations to follow. MMODL / IJN: [id number] /
--- NOTE | 2022-11-08 13:16 | P.PN ---
Subjective Progress Note Date: 11/08/22 HISTORY OF PRESENTING ILLNESS Patient is pleasant 82-year-old male with history diabetes mellitus type 2, peripheral neuropathy, chronic atrial fibrillation, hypertension, stroke in 2006 as well as reported "brain bleed ", severe aortic stenosis status post TAVR, mild cardiomyopathy EF 40-45%, mild increasing dementia as well as poor follow- up who presents secondary to bradycardia and increase lightheadedness. Patient apparently had previously followed with Dr. Mccauley in [facility] and had TAVR 2019. He has not been seen in the system in a while. Unfortunately his 3 months ago and has not been following up with appointments as scheduled. He was seen in our office secondary to bradycardia with pacemaker interrogation showing end of battery life. There was issues with impedance of the leads and unclear if has ever had any issues with leads. He denies any recent chest pain or pressure. He does not recall if he had heart catheterization prior to his valve replacement. He has not actually passed out however has been feeling lightheaded for last few months. EKG shows atrial fibrillation with junctional escape rhythm. TSH noted to be normal. He is normally on metoprolol however this has been held. 11/08 Yesterday, patient underwent generator change of dual-chamber permanent pacemaker and additional placement of new RV lead. Patient is seen today in [facility]. He is complaining of discomfort in the shoulder and also in his tailbone since he underwent pacemaker. Pacemaker is functioning as expected. Blood pressure is 192/73, heart rate in the 57-62 range. Pulse ox 92% on room air. Lab work is been ordered for tomorrow. Patient states he is not urinating very much but is eating and drinking okay. PHYSICAL EXAMINATION Vital signs reviewed. CONSTITUTIONAL: No apparent distress. HEENT: Head is normocephalic. Pupils are equal, round. Sclerae anicteric. Mucous membranes of the mouth are moist. No JVD. No carotid bruit. CHEST EXAMINATION: Lungs are clear to auscultation. No chest wall tenderness is noted on palpation or with deep breathing. HEART EXAMINATION: Regular rhythm, bradycardic. S1, S2 heard. +2/6 systolic murmur, no gallops or rub. ABDOMEN: Soft, nontender. Positive bowel sounds. EXTREMITIES: 2+ peripheral pulses, no lower extremity edema and no calf tenderness. NEUROLOGIC EXAMINATION: Patient is awake, alert and oriented x3. ASSESSMENT 1. Symptomatic bradycardia 2. Status post dual-chamber per pacemaker with battery end of battery life status post successful generator change and new RV lead 11/07 3. History of mild cardiomyopathy EF 40-45% 4. History of prior transcatheter aortic valve replacement 5. Chronic atrial fibrillation 6. History of stroke as well as hemorrhagic stroke per patient 7. Dementia 8. Poor follow-up PLAN Patient has tenderness at the pacemaker site. Plan to hold eliquis one more da y. Regarding elevated blood pressure readings, patient will degrees resumed on Lopressor 50 mg twice daily and started on lisinopril 10 mg daily. Blood work ordered for tomorrow. Anticipate discharge home tomorrow. Nurse practitioner note has been reviewed, I agree with the documented findings and plan of care. Patient was seen and examined. Objective - Vital Signs Vital signs: Vital Signs Temp 97.6 F 11/08/22 08:00 Pulse 57 L 11/08/22 11:10 Resp 16 11/08/22 11:10 BP 192/73 11/08/22 11:10 Pulse Ox 92 L 11/08/22 11:10 FiO2 Intake & Output 11/07/22 11/08/22 11/08/22 18:59 06:59 18:59 Intake Total 250 Output Total 425 400 Balance -175 -400 Weight 111.584 kg Intake: IV 250 Output: Urine 425 400 Other: Voiding Method Urinal Urinal Urinal # Voids 2 4 - Labs CBC & Chem 7: 11/07/22 12:08 11/07/22 12:08 Labs: Abnormal Lab Results - Last 24 Hours (Table) 11/07/22 11/07/22 11/07/22 Range/Units 12:08 12:08 17:15 Glucose 67 L (74-99) mg/dL POC Glucose (mg/dL) 68 L (70-110) mg/dL Hemoglobin A1c 6.7 H % 11/07/22 Range/Units 20:07 Glucose (74-99) mg/dL POC Glucose (mg/dL) 161 H (70-110) mg/dL Hemoglobin A1c %
[2022-11-08 16:20] LABS: Glucose,Whole Blood 190 mg/dL (70-110)
[2022-11-08] MEDS: METOPROLOL TARTRATE 50 MG TAB PO SCH ×2 (17:20→21:11)
[2022-11-08] MEDS: amLODIPine 10 MG TAB PO SCH (17:20)
[2022-11-08] MEDS: lisinopriL 10 MG TAB PO SCH (17:20)
[2022-11-08] MEDS: ACETAMINOPHEN TAB 500 MG TAB PO SCH (20:13)
[2022-11-08] MEDS: MELATONIN 5 MG TABLET PO SCH (20:14)
[2022-11-08] MEDS: TEMAZEPAM 15 MG CAP PO PRN (20:14)
[2022-11-08] MEDS: diphenhydrAMINE 25 MG CAP PO SCH (20:14)
[2022-11-08 20:58] LABS: Glucose,Whole Blood 159 mg/dL (70-110)
[2022-11-09 06:41] LABS: Glucose,Whole Blood 84 mg/dL (70-110)
[2022-11-09] MEDS: INSULIN ASPART (NovoLOG) 100 UNIT/ML VIAL SQ SCH ×4 (06:51→20:59)
[2022-11-09] MEDS: INSULIN DETEMIR (LEVEMIR) 100 UNIT/ML SYR SQ SCH (06:51)
[2022-11-09] MEDS: lisinopriL 10 MG TAB PO SCH (08:20)
[2022-11-09] MEDS: ATORVASTATIN 20 MG TAB PO SCH (08:20)
[2022-11-09] MEDS: METOPROLOL TARTRATE 50 MG TAB PO SCH ×2 (08:20→20:30)
[2022-11-09] MEDS: CHOLECALCIFEROL 125 MCG (5000 IU) TABLET PO SCH (08:20)
[2022-11-09] MEDS: TAMSULOSIN 0.4 MG CAP.ER.24H PO SCH (08:20)
[2022-11-09] MEDS: amLODIPine 10 MG TAB PO SCH (08:21)
[2022-11-09] MEDS: ARIPiprazole 5 MG TAB PO SCH (08:21)
[2022-11-09 08:26] LABS: Basophils % (A) 0 %; Eosinophils % (A) 1 %; HCT 44.2 % (39.0-53.0); HGB 14.2 gm/dL (13.0-17.5); Lymphocytes # (A) 0.7 k/uL (1.0-4.8); Lymphocytes % (A) 10 %; MCH 32.4 pg (25.0-35.0); MCHC 32.1 g/dL (31.0-37.0); MCV 100.8 fL (80.0-100.0); Mean Platelet Volume 7.7; Monocytes # (A) 0.4 k/uL (0-1.0); Monocytes % (A) 6 %; Neutrophils # (A) 5.7 k/uL (1.3-7.7); Neutrophils % (A) 83 %; Platelet Count 132 k/uL (150-450); RBC 4.39 m/uL (4.30-5.90); RDW 12.8 % (11.5-15.5); WBC 6.9 k/uL (3.8-10.6)
[2022-11-09 08:43] LABS: African American GFR (CKD) 59 (>60 ml/min/1.73 sqM); Anion Gap 11 mmol/L; Blood Urea Nitrogen 18 mg/dL (9-20); Calcium 9.3 mg/dL (8.4-10.2); Carbon Dioxide 27 mmol/L (22-30); Chloride 103 mmol/L (98-107); Glucose 84 mg/dL (74-99); Non-African American GFR(CKD) 51 (>60 ml/min/1.73 sqM); Potassium 3.5 mmol/L (3.5-5.1); Sodium 141 mmol/L (137-145)
[2022-11-09 11:57] LABS: Glucose,Whole Blood 157 mg/dL (70-110)
--- NOTE | 2022-11-09 14:30 | P.PN ---
Subjective Progress Note Date: 11/09/22 HISTORY OF PRESENTING ILLNESS Patient is pleasant 82-year-old male with history diabetes mellitus type 2, peripheral neuropathy, chronic atrial fibrillation, hypertension, stroke in 2006 as well as reported "brain bleed ", severe aortic stenosis status post TAVR, mild cardiomyopathy EF 40-45%, mild increasing dementia as well as poor follow- up who presents secondary to bradycardia and increase lightheadedness. Patient apparently had previously followed with Dr. Mccauley in [facility] and had TAVR 2019. He has not been seen in the system in a while. Unfortunately his 3 months ago and has not been following up with appointments as scheduled. He was seen in our office secondary to bradycardia with pacemaker interrogation showing end of battery life. There was issues with impedance of the leads and unclear if has ever had any issues with leads. He denies any recent chest pain or pressure. He does not recall if he had heart catheterization prior to his valve replacement. He has not actually passed out however has been feeling lightheaded for last few months. EKG shows atrial fibrillation with junctional escape rhythm. TSH noted to be normal. He is normally on metoprolol however this has been held. 11/08 Yesterday, patient underwent generator change of dual-chamber permanent pacemaker and additional placement of new RV lead. Patient is seen today in fol low-up. He is complaining of discomfort in the shoulder and also in his tailbone since he underwent pacemaker. Pacemaker is functioning as expected. Blood pressure is 192/73, heart rate in the 57-62 range. Pulse ox 92% on room air. Lab work is been ordered for tomorrow. Patient states he is not urinating very much but is eating and drinking okay. 11/09 Patient is seen today in follow-up. He still has some tenderness at the pacemaker site but no sign of infection or inflammation. He has been resumed on beta santiago. Heart rate is in the 60s, blood pressure 131/61. Creatinine slightly elevated from yesterday at 1.29. PHYSICAL EXAMINATION Vital signs reviewed. CONSTITUTIONAL: No apparent distress. HEENT: Head is normocephalic. Pupils are equal, round. Sclerae anicteric. Mucous membranes of the mouth are moist. No JVD. No carotid bruit. CHEST EXAMINATION: Lungs are clear to auscultation. No chest wall tenderness is noted on palpation or with deep breathing. HEART EXAMINATION: Regular rhythm, bradycardic. S1, S2 heard. +2/6 systolic murmur, no gallops or rub. ABDOMEN: Soft, nontender. Positive bowel sounds. EXTREMITIES: 2+ peripheral pulses, no lower extremity edema and no calf tenderness. NEUROLOGIC EXAMINATION: Patient is awake, alert and oriented x3. ASSESSMENT 1. Symptomatic bradycardia 2. Status post dual-chamber per pacemaker with battery end of battery life s tatus post successful generator change and new RV lead 11/07 3. History of mild cardiomyopathy EF 40-45% 4. History of prior transcatheter aortic valve replacement 5. Chronic atrial fibrillation 6. History of stroke as well as hemorrhagic stroke per patient 7. Dementia 8. Poor follow-up PLAN Continue patient's current cardiac medications and he can be resumed on eliquis at the time of discharge. Patient is cleared from cardiology for discharge. Nurse practitioner note has been reviewed, I agree with the documented findings and plan of care. Patient was seen and examined. Objective - Vital Signs Vital signs: Vital Signs Temp 98.4 F 11/09/22 04:00 Pulse 60 11/09/22 08:00 Resp 16 11/09/22 08:00 BP 165/64 11/09/22 08:00 Pulse Ox 96 11/09/22 09:30 FiO2 Intake & Output 11/08/22 11/09/22 11/09/22 18:59 06:59 18:59 Intake Total 470 Output Total 350 400 Balance -350 70 Intake: Oral 470 Output: Urine 350 400 Other: Voiding Method Urinal Urinal Urinal - Labs CBC & Chem 7: 11/09/22 07:50 11/09/22 07:50 Labs: Abnormal Lab Results - Last 24 Hours (Table) 11/08/22 11/08/22 11/09/22 Range/Units 16:18 20:37 07:50 MCV 100.8 H (80.0-100.0) fL Plt Count 132 L (150-450) k/uL Lymphocytes # 0.7 L (1.0-4.8) k/uL Creatinine (0.66-1.25) mg/dL POC Glucose (mg/dL) 190 H 159 H (70-110) mg/dL 11/09/22 Range/Units 07:50 MCV (80.0-100.0) fL Plt Count (150-450) k/uL Lymphocytes # (1.0-4.8) k/uL Creatinine 1.29 H (0.66-1.25) mg/dL POC Glucose (mg/dL) (70-110) mg/dL
--- NOTE | 2022-11-09 15:16 | P.PN ---
Subjective Progress Note Date: 11/09/22 This is an 82-year-old male who was recently admitted with symptomatic bradycardia being evaluated by cardiology and is status post battery change with lead replacement with Dr. Wei yesterday. Patient has been cleared by cardiology for discharge and is instructed to continue with sling and is having significant weakness and difficulty with ambulation will have physical therapy evaluate the patient as patient and family would like to go to rehab. Case management is following and patient will require insurance authorization for this. Patient is currently afebrile denies chest pain or shortness of breath. No reports of nausea or vomiting noted and patient is tolerating diet. Review of systems: Constitutional: No reports of fatigue, fever, or chills Cardiovascular: No reports of chest pain or palpitations Respiratory: No reports of shortness of breath or cough GI: reports of nausea, no reports of of vomiting, : No reports of dysuria or retention Neurovascular: reports of generalized weakness and difficulty with performing ADLs and ambulation All medications have been reviewed PHYSICAL EXAMINATION: GENERAL: The patient is alert and oriented x3, generally weak, elderly a ppearing, Well developed, well nourished. HEENT: Pupils are round and equally reacting to light. EOMI. no scleral icterus. No conjunctival pallor. Normocephalic, atraumatic. No pharyngeal erythema. No thyromegaly. CARDIOVASCULAR: S1 and S2 muffled PULMONARY: diminished breath sounds bilaterally with no wheezing or rhonchi noted. ABDOMEN: soft. Nontender on exam. non-distended, normoactive bowel sounds. No palpable organomegaly. MUSCULOSKELETAL: No joint swelling or deformity. EXTREMITIES: No cyanosis, clubbing, or pedal edema. NEUROLOGICAL: Gross neurological examination did not reveal any focal deficits. Diffuse weakness SKIN: No rashes. Assessment: Severe bradycardia with pacemaker malfunction, status post dual-chamber permanent pacemaker placement as well as RV lead and generator change Hypertension Gait dysfunction with generalized weakness History of atrial fibrillation Diabetes mellitus, type II History of CVA/TIA Possible sick sinus syndrome History of mild cardiomyopathy GI prophylaxis DVT prophylaxis Full code Plan: Recommend to continue with current medications and management status post battery replacement and lead replacement of the pacemaker with cardiology following. Cardiology has cleared the patient for discharge Per nursing staff patient is significantly weak and difficulty with gait and ADLs and patient and family would like to go to rehab for strength and mobility prior to returning home as patient lives alone Will have physical therapy evaluate the patient and case management now following working on accepting facilities and patient will also require insurance authorization Recommend continue telemetry monitoring and will continue to follow closely Possible discharge in the next 24-48 hours The impression and plan of care has been dictated by Mabel Knowles, nurse practitioner as directed. Dr. Celestine MD I have performed a history and examination and MDM of this patient, discussed the same with the dictator, and agree with the dictator's assessment and plan as written ,documented as a scribe. Based on total visit time, I have performed more than 50% of the visit. Any additional findings or plans will be noted. Objective - Vital Signs Vital signs: Vital Signs Temp 98.4 F 11/09/22 04:00 Pulse 60 11/09/22 08:00 Resp 16 11/09/22 12:00 BP 131/62 11/09/22 12:00 Pulse Ox 93 L 11/09/22 12:00 FiO2 Intake & Output 11/08/22 11/09/22 11/09/22 18:59 06:59 18:59 Intake Total 470 Output Total 350 400 Balance -350 70 Intake: Oral 470 Output: Urine 350 400 Other: Voiding Method Urinal Urinal Urinal - Labs CBC & Chem 7: 11/09/22 07:50 11/09/22 07:50 Labs: Abnormal Lab Results - Last 24 Hours (Table) 11/08/22 11/08/22 11/09/22 Range/Units 16:18 20:37 07:50 MCV 100.8 H (80.0-100.0) fL Plt Count 132 L (150-450) k/uL Lymphocytes # 0.7 L (1.0-4.8) k/uL Creatinine (0.66-1.25) mg/dL POC Glucose (mg/dL) 190 H 159 H (70-110) mg/dL 11/09/22 11/09/22 Range/Units 07:50 11:53 MCV (80.0-100.0) fL Plt Count (150-450) k/uL Lymphocytes # (1.0-4.8) k/uL Creatinine 1.29 H (0.66-1.25) mg/dL POC Glucose (mg/dL) 157 H (70-110) mg/dL
[2022-11-09 16:59] LABS: Glucose,Whole Blood 139 mg/dL (70-110)
[2022-11-09] MEDS: TEMAZEPAM 15 MG CAP PO PRN (20:30)
[2022-11-09] MEDS: diphenhydrAMINE 25 MG CAP PO SCH (20:30)
[2022-11-09] MEDS: MELATONIN 5 MG TABLET PO SCH (20:30)
[2022-11-09] MEDS: ACETAMINOPHEN TAB 500 MG TAB PO SCH (20:30)
[2022-11-09 20:59] LABS: Glucose,Whole Blood 131 mg/dL (70-110)
[2022-11-09] MEDS: SODIUM CHLORIDE 0.9% 1,000 ML IV SCH ×2 (21:55)
[2022-11-09 23:06] VITALS: TEMP 97.9
[2022-11-10 04:59] VITALS: PULSE 62
[2022-11-10] MEDS: INSULIN DETEMIR (LEVEMIR) 100 UNIT/ML SYR SQ SCH (06:36)
[2022-11-10] MEDS: INSULIN ASPART (NovoLOG) 100 UNIT/ML VIAL SQ SCH ×2 (06:36→12:11)
[2022-11-10 06:37] LABS: Glucose,Whole Blood 106 mg/dL (70-110)
[2022-11-10 09:11] VITALS: RESP 18
[2022-11-10] MEDS: TAMSULOSIN 0.4 MG CAP.ER.24H PO SCH (09:12)
[2022-11-10] MEDS: ATORVASTATIN 20 MG TAB PO SCH (09:12)
[2022-11-10] MEDS: METOPROLOL TARTRATE 50 MG TAB PO SCH (09:12)
[2022-11-10] MEDS: CHOLECALCIFEROL 125 MCG (5000 IU) TABLET PO SCH (09:12)
[2022-11-10] MEDS: ARIPiprazole 5 MG TAB PO SCH (09:12)
[2022-11-10] MEDS: amLODIPine 10 MG TAB PO SCH (09:12)
[2022-11-10] MEDS: lisinopriL 10 MG TAB PO SCH (09:12)
--- NOTE | 2022-11-10 09:14 | P.PN ---
Subjective Progress Note Date: 11/10/22 HISTORY OF PRESENTING ILLNESS Patient is pleasant 82-year-old male with history diabetes mellitus type 2, peripheral neuropathy, chronic atrial fibrillation, hypertension, stroke in 2006 as well as reported "brain bleed ", severe aortic stenosis status post TAVR, mild cardiomyopathy EF 40-45%, mild increasing dementia as well as poor follow- up who presents secondary to bradycardia and increase lightheadedness. Patient apparently had previously followed with Dr. Mccauley in [facility] and had TAVR 2019. He has not been seen in the system in a while. Unfortunately his 3 months ago and has not been following up with appointments as scheduled. He was seen in our office secondary to bradycardia with pacemaker interrogation showing end of battery life. There was issues with impedance of the leads and unclear if has ever had any issues with leads. He denies any recent chest pain or pressure. He does not recall if he had heart catheterization prior to his valve replacement. He has not actually passed out however has been feeling lightheaded for last few months. EKG shows atrial fibrillation with junctional escape rhythm. TSH noted to be normal. He is normally on metoprolol however this has been held. 11/08 Yesterday, patient underwent generator change of dual-chamber permanent pacemaker and additional placement of new RV lead. Patient is seen today in fol low-up. He is complaining of discomfort in the shoulder and also in his tailbone since he underwent pacemaker. Pacemaker is functioning as expected. Blood pressure is 192/73, heart rate in the 57-62 range. Pulse ox 92% on room air. Lab work is been ordered for tomorrow. Patient states he is not urinating very much but is eating and drinking okay. 11/09 Patient is seen today in follow-up. He still has some tenderness at the pacemaker site but no sign of infection or inflammation. He has been resumed on beta santiago. Heart rate is in the 60s, blood pressure 131/61. Creatinine slightly elevated from yesterday at 1.29. 11/10 The patient states that he is waiting for discharge to rehab. He was cleared for discharge from cardiology yesterday. Blood pressure 145/74, heart rate is in the 60s. Pulse ox 94% on room air. PHYSICAL EXAMINATION Vital signs reviewed. CONSTITUTIONAL: No apparent distress. HEENT: Head is normocephalic. Pupils are equal, round. Sclerae anicteric. Mucous membranes of the mouth are moist. No JVD. No carotid bruit. CHEST EXAMINATION: Lungs are clear to auscultation. No chest wall tenderness is noted on palpation or with deep breathing. HEART EXAMINATION: Regular rhythm, bradycardic. S1, S2 heard. +2/6 systolic murmur, no gallops or rub. ABDOMEN: Soft, nontender. Positive bowel sounds. EXTREMITIES: 2+ peripheral pulses, no lower extremity edema and no calf tenderness. NEUROLOGIC EXAMINATION: Patient is awake, alert and oriented x3. ASSESSMENT 1. Symptomatic bradycardia 2. Status post dual-chamber per pacemaker with battery end of battery life status post successful generator change and new RV lead 11/07 3. History of mild cardiomyopathy EF 40-45% 4. History of prior transcatheter aortic valve replacement 5. Chronic atrial fibrillation 6. History of stroke as well as hemorrhagic stroke per patient 7. Dementia 8. Poor follow-up PLAN Continue patient's current cardiac medications and resume eliquis. Patient is cleared from cardiology for discharge. Nurse practitioner note has been reviewed, I agree with the documented findings and plan of care. Patient was seen and examined. Objective - Vital Signs Vital signs: Vital Signs Temp 97.9 F 11/09/22 20:00 Pulse 62 11/10/22 04:00 Resp 16 11/10/22 04:00 BP 158/71 11/10/22 04:00 Pulse Ox 92 L 11/10/22 04:00 FiO2 Intake & Output 11/09/22 11/10/22 11/10/22 18:59 06:59 18:59 Intake Total 358 540 Output Total 225 175 Balance 133 365 Intake: Oral 358 540 Output: Urine 225 175 Other: Voiding Method Urinal Urinal # Bowel Movements 1 - Labs CBC & Chem 7: 11/09/22 07:50 11/09/22 07:50 Labs: Abnormal Lab Results - Last 24 Hours (Table) 11/09/22 11/09/22 11/09/22 Range/Units 07:50 07:50 11:53 MCV 100.8 H (80.0-100.0) fL Plt Count 132 L (150-450) k/uL Lymphocytes # 0.7 L (1.0-4.8) k/uL Creatinine 1.29 H (0.66-1.25) mg/dL POC Glucose (mg/dL) 157 H (70-110) mg/dL 11/09/22 11/09/22 Range/Units 16:45 20:58 MCV (80.0-100.0) fL Plt Count (150-450) k/uL Lymphocytes # (1.0-4.8) k/uL Creatinine (0.66-1.25) mg/dL POC Glucose (mg/dL) 139 H 131 H (70-110) mg/dL
[2022-11-10] MEDS ORDERED: APIXABAN 5 MG TAB PO SCH (09:15)
[2022-11-10 10:47] LABS: African American GFR (CKD) 66 (>60 ml/min/1.73 sqM); Anion Gap 8 mmol/L; Blood Urea Nitrogen 23 mg/dL (9-20); Calcium 9.1 mg/dL (8.4-10.2); Carbon Dioxide 29 mmol/L (22-30); Chloride 104 mmol/L (98-107); Glucose 151 mg/dL (74-99); Non-African American GFR(CKD) 57 (>60 ml/min/1.73 sqM); Sodium 141 mmol/L (137-145)
[2022-11-10 12:08] LABS: Glucose,Whole Blood 122 mg/dL (70-110)
--- NOTE | 2022-11-10 14:05 | P.DS ---
Providers Date of admission: 11/06/22 16:15 Expected date of discharge: 11/10/22 Attending physician: Julianne Sprague Consults: 11/06/22 16:14 Consult Physician Urgent Consulting Provider: Stu Wei Consult Reason/Comments: bradycardia Do you want consulting provider notified?: Already Contacted Primary care physician: Roland Holt [facility] Course: Final diagnosis Severe bradycardia with pacemaker malfunction, status post dual-chamber permanent pacemaker placement as well as RV lead and generator change Hypertension Gait dysfunction with generalized weakness History of atrial fibrillation Diabetes mellitus, type II History of CVA/TIA Possible sick sinus syndrome History of mild cardiomyopathy GI prophylaxis DVT prophylaxis Full code Discharge disposition Patient is being discharged in a stable condition with guarded prognosis to [facility]. Patient will follow-up with Dr. Holt in the outpatient setting upon discharge. Patient is to follow-up with cardiology outpatient in one week as scheduled. Total time taken is greater than 35 minutes. Hospital course This is a 82-year-old male who was recently admitted with symptomatic bradycardia was evaluated by cardiology and had battery replacement along with lead replacement and has been cleared by cardiology for discharge. Patient with weakness and was evaluated by physical therapy recommending rehab and patient is agreeable. Patient to continue with scaling of the left upper extremity until follow-up with cardiology. Please refer to cardiology notes for further HPI. Currently no reports of chest pain, shortness of breath, or palpitations. Patient is afebrile. No reports of nausea or vomiting and patient is tolerating diet. Patient will be going to [facility] today. Physical exam: Gen: This is a 82-year-old male who is awake, alert and oriented 3, well- developed, well-nourished, obese HEENT: Head is atraumatic, normocephalic. Pupils equal, round. Sclerae is anicteric. NECK: Supple. No JVD. No lymphadenopathy. No thyromegaly. LUNGS: Clear to auscultation. No wheezes or rhonchi. No intercostal retractions. HEART: S1, S2 are muffled, left upper chest wall dressing is dry and intact ABDOMEN: Soft. Bowel sounds are present. No masses. No tenderness. EXTREMITIES: No pedal edema. No calf tenderness. NEUROLOGICAL: Patient is awake, alert and oriented x3. Cranial nerves 2 through 12 are grossly intact. Diffusely weak Please refer to medication reconciliation sheet for a list of medications. The impression and plan of care has been dictated by Mabel Knowles, Nurse Practitioner as directed. Dr. Stevo MD I have performed a history and examination and MDM of this patient, discussed the same with the dictator, and agree with the dictator's assessment and plan as written ,documented as a scribe. Based on total visit time, I have performed more than 50% of the visit. Patient Condition at Discharge: Fair Plan - Discharge Summary Discharge Rx Participant: Yes New Discharge Prescriptions: New Acetaminophen Tab [Tylenol] 650 mg PO Q6HR PRN #30 tab PRN Reason: Mild Pain (Scale 1 To 3) amLODIPine [Norvasc] 10 mg PO DAILY #30 tab lisinopriL [Zestril] 10 mg PO DAILY #30 tab Metoprolol Tartrate [Lopressor] 50 mg PO BID 30 Days #60 tab Continue Insulin Glargine,Hum.rec.anlog [Lantus Solostar Pen] 42 unit SQ DAILY Apixaban [Eliquis] 5 mg PO BID Rosuvastatin Calcium [Crestor] 10 mg PO DAILY Melatonin 10 mg PO HS Acetaminophen/Diphenhydramine [Tylenol PM 500-25mg] 2 tab PO HS Tamsulosin HCl [Flomax] 0.4 mg PO DAILY Cholecalciferol [Vitamin D3 (125 Mcg = 5000 Iu)] 125 mcg PO DAILY Ergocalciferol (Vitamin D2) [Drisdol (50,000 Iu)] 1,250 mcg PO MO ARIPiprazole [Abilify] 5 mg PO DAILY Discontinued Metoprolol Tartrate [Lopressor] 100 mg PO BID Discharge Medication List Apixaban [Eliquis] 5 mg PO BID 07/18/19 [History] Insulin Glargine,Hum.rec.anlog [Lantus Solostar Pen] 42 unit SQ DAILY 07/18/19 [History] Rosuvastatin Calcium [Crestor] 10 mg PO DAILY 07/18/19 [History] Tamsulosin HCl [Flomax] 0.4 mg PO DAILY 06/09/21 [History] ARIPiprazole [Abilify] 5 mg PO DAILY 11/06/22 [History] Acetaminophen/Diphenhydramine [Tylenol PM 500-25mg] 2 tab PO HS 11/06/22 [History] Cholecalciferol [Vitamin D3 (125 Mcg = 5000 Iu)] 125 mcg PO DAILY 11/06/22 [History] Ergocalciferol (Vitamin D2) [Drisdol (50,000 Iu)] 1,250 mcg PO MO 11/06/22 [History] Melatonin 10 mg PO HS 11/06/22 [History] Acetaminophen Tab [Tylenol] 650 mg PO Q6HR PRN #30 tab 11/09/22 [Rx] Metoprolol Tartrate [Lopressor] 50 mg PO BID 30 Days #60 tab 11/09/22 [Rx] amLODIPine [Norvasc] 10 mg PO DAILY #30 tab 11/09/22 [Rx] lisinopriL [Zestril] 10 mg PO DAILY #30 tab 11/09/22 [Rx] Follow up Appointment(s)/Referral(s): Stu Wei DO [STAFF PHYSICIAN] - 1 Week (office will call with an appointment.) Roland Holt MD [Primary Care Provider] - 1-2 days Patient Instructions/Handouts: Pacemaker (DC) Activity/Diet/Wound Care/Special Instructions: Patient is going to [facility] Recommend continue with the sling of the left upper extremity per cardiology recommendations secondary to pacemaker battery and lead replacement Follow-up with cardiology outpatient in 1-2 weeks Follow-up primary care provider on discharge Continue taking medications as prescribed Measure blood pressure every day at the same time and keep a diary of all readings for primary and cardiology follow-up Discharge Disposition: HOME SELF-CARE
[2022-11-10 14:13] VITALS: BP 152/71
== END 2022-11-10 15:35 | DRG 243 ==
LOC: EC 14:02 → 3SCARD 16:15
PROVIDERS: ADMIT Hospitalist; ATTEND Hospitalist
PROC: 0JPT0PZ Removal of Cardiac Rhythm Related Device from Trunk Subcutaneous Tissue and Fascia, Open Approach (ICD-10-PCS; principal; 2022-11-07 07:30)
PROC: 0JH606Z Insertion of Pacemaker, Dual Chamber into Chest Subcutaneous Tissue and Fascia, Open Approach (ICD-10-PCS; principal; 2022-11-07 07:30)
PROC: 02HK3JZ Insertion of Pacemaker Lead into Right Ventricle, Percutaneous Approach (ICD-10-PCS; principal; 2022-11-07 07:30)
DX: T82.111A Breakdown (mechanical) of cardiac pulse generator (battery), initial encounter (principal); F03.93 Unspecified dementia, unspecified severity, with mood disturbance; F03.94 Unspecified dementia, unspecified severity, with anxiety; I42.9 Cardiomyopathy, unspecified; I48.20 Chronic atrial fibrillation, unspecified; I49.5 Sick sinus syndrome; Z79.4 Long term (current) use of insulin; I11.0 Hypertensive heart disease with heart failure; I50.9 Heart failure, unspecified; E11.42 Type 2 diabetes mellitus with diabetic polyneuropathy; Z20.822 Contact with and (suspected) exposure to COVID-19; R26.9 Unspecified abnormalities of gait and mobility; Z79.01 Long term (current) use of anticoagulants; Z79.85 Long-term (current) use of injectable non-insulin antidiabetic drugs; Z79.899 Other long term (current) drug therapy; Z87.891 Personal history of nicotine dependence; Z95.2 Presence of prosthetic heart valve; Z86.73 Personal history of transient ischemic attack (TIA), and cerebral infarction without residual deficits; Y71.2 Prosthetic and other implants, materials and accessory cardiovascular devices associated with adverse incidents
CPT/HCPCS: 33207; 33228; 36415; 71045; 71046; 80048; 80053; 83036; 83735; 84439; 84443; 84481; 84484; 85025; 85610; 85730; 87635; 93005; 93306; 94760; 96374; 99285

== ENCOUNTER 2023-03-05 20:15 | Inpatient (IN) | payer MEDICARE ==
[2023-03-05 20:24] LABS: Glucose,Whole Blood 100 mg/dL (70-110)
[2023-03-05] MEDS ORDERED: SODIUM CHLORIDE 0.9% 500 ML 500 ML IV STA (21:20)
[2023-03-05 21:55] LABS: INR 1.2 (<1.2); Partial Thromboplastin Time 26.3 sec (22.0-30.0)
[2023-03-05 22:00] LABS: Basophils % (A) 0 %; Eosinophils # (A) 0.1 k/uL (0-0.7); Eosinophils % (A) 1 %; HCT 37.2 % (39.0-53.0); HGB 12.1 gm/dL (13.0-17.5); Lymphocytes # (A) 1.1 k/uL (1.0-4.8); Lymphocytes % (A) 18 %; MCH 32.1 pg (25.0-35.0); MCHC 32.4 g/dL (31.0-37.0); MCV 99.1 fL (80.0-100.0); Mean Platelet Volume 9.8; Monocytes # (A) 0.5 k/uL (0-1.0); Monocytes % (A) 7 %; Neutrophils # (A) 4.4 k/uL (1.3-7.7); Neutrophils % (A) 72 %; Platelet Count 108 k/uL (150-450); RBC 3.75 m/uL (4.30-5.90); RDW 13.5 % (11.5-15.5); WBC 6.1 k/uL (3.8-10.6)
[2023-03-05 23:07] LABS: ALT 14 U/L (4-49); AST 21 U/L (17-59); African American GFR (CKD) 22 (>60 ml/min/1.73 sqM); Albumin 4.1 g/dL (3.5-5.0); Alkaline Phosphatase 53 U/L (38-126); Anion Gap 14 mmol/L; Blood Urea Nitrogen 42 mg/dL (9-20); Calcium 9.5 mg/dL (8.4-10.2); Carbon Dioxide 20 mmol/L (22-30); Chloride 105 mmol/L (98-107); Glucose 112 mg/dL (74-99); Non-African American GFR(CKD) 19 (>60 ml/min/1.73 sqM); Potassium 4.3 mmol/L (3.5-5.1); Sodium 139 mmol/L (137-145); Total Bilirubin 0.9 mg/dL (0.2-1.3); Total Protein 6.9 g/dL (6.3-8.2)
[2023-03-05] MEDS ORDERED: SODIUM CHLORIDE 0.9% 1,000 ML IV STA (23:11)
--- NOTE | 2023-03-05 23:13 | ED ---
General Adult HPI - General Chief complaint: Weakness Stated complaint: WEAKNESS Time Seen by Provider: 03/05/23 21:11 Source: EMS Mode of arrival: EMS Limitations: physical limitation - History of Present Illness Initial comments: Patient is an 83-year-old male who presents to the emergency department for weakness. According to EMS family states patient has had weakness over the last couple days where he has almost fallen. They deny any actual fall state they have guided patient to the ground. Patient presents by himself. Is alert and oriented 4. Patient states he has no symptoms besides weakness and that he overall feels well. He denies leg pain and swelling. Denies injury, headache. Denies fever, chills, upper respiratory symptoms. Denies chest pain and shortness of breath. Denies abdominal pain, nausea, vomiting. Denies urinary symptoms. Denies changes in bowel habits. - Related Data Home Medications Medication Instructions Recorded Confirmed Apixaban [Eliquis] 5 mg PO BID 07/18/19 11/06/22 Insulin Glargine,Hum.rec.anlog 42 unit SQ DAILY 07/18/19 11/06/22 [Lantus Solostar Pen] Rosuvastatin Calcium [Crestor] 10 mg PO DAILY 07/18/19 11/06/22 Tamsulosin HCl [Flomax] 0.4 mg PO DAILY 06/09/21 11/06/22 ARIPiprazole [Abilify] 5 mg PO DAILY 11/06/22 11/06/22 Acetaminophen/Diphenhydramine 2 tab PO HS 11/06/22 11/06/22 [Tylenol PM 500-25mg] Cholecalciferol [Vitamin D3 (125 125 mcg PO DAILY 11/06/22 11/06/22 Mcg = 5000 Iu)] Ergocalciferol (Vitamin D2) 1,250 mcg PO MO 11/06/22 11/06/22 [Drisdol (50,000 Iu)] Melatonin 10 mg PO HS 11/06/22 11/06/22 Previous Rx's Medication Instructions Recorded Acetaminophen Tab [Tylenol] 650 mg PO Q6HR PRN #30 tab 11/09/22 Metoprolol Tartrate [Lopressor] 50 mg PO BID 30 Days #60 tab 11/09/22 amLODIPine [Norvasc] 10 mg PO DAILY #30 tab 11/09/22 lisinopriL [Zestril] 10 mg PO DAILY #30 tab 11/09/22 Allergies Allergy/AdvReac Type Severity Reaction Status Date / Time No Known Allergies Allergy Verified 11/06/22 17:01 Review of Systems ROS Statement: Those systems with pertinent positive or pertinent negative responses have been documented in the HPI. ROS Other: All systems not noted in ROS Statement are negative. Past Medical History Past Medical History: Atrial Fibrillation, Heart Failure, CVA/TIA, Diabetes Mellitus, Hypertension Additional Past Medical History / Comment(s): Moderate to severe aortic stenosis - had TAVR History of Any Multi-Drug Resistant Organisms: None Reported Past Surgical History: Orthopedic Surgery, Tonsillectomy Additional Past Surgical History / Comment(s): brain sx 2006 - due to bleed, TAVR, right hip 2019 Past Anesthesia/Blood Transfusion Reactions: No Reported Reaction Past Psychological History: Anxiety, Depression Smoking Status: Former smoker Past Alcohol Use History: None Reported Past Drug Use History: None Reported General Exam Limitations: physical limitation General appearance: alert Head exam: Present: atraumatic, normocephalic, normal inspection Eye exam: Present: normal appearance, PERRL, EOMI. Absent: scleral icterus, conjunctival injection, periorbital swelling ENT exam: Present: normal oropharynx, mucous membranes dry Neck exam: Present: normal inspection. Absent: tenderness, meningismus Respiratory exam: Present: normal lung sounds bilaterally. Absent: respiratory distress, wheezes, rales, rhonchi, stridor Cardiovascular Exam: Present: regular rate, normal rhythm, normal heart sounds. Absent: systolic murmur, diastolic murmur, rubs, gallop, clicks GI/Abdominal exam: Present: soft, normal bowel sounds. Absent: distended, tenderness, guarding, rebound, rigid Extremities exam: Present: normal inspection, full ROM, normal capillary refill. Absent: pedal edema, calf tenderness Neurological exam: Present: alert Expanded Sensory exam: Upper Extremity Light Touch: Normal, Lower Extremity Light Touch: Normal Motor strength exam: RUE: 5, LUE: 5, RLE: 5, LLE: 5 Psychiatric exam: Present: normal affect, normal mood Skin exam: Present: warm, dry, intact, normal color. Absent: rash Course Vital Signs 03/05/23 03/05/23 03/06/23 20:17 23:18 00:46 Temperature 98.7 F Pulse Rate 72 60 60 Respiratory 18 18 18 Rate Blood Pressure 118/65 120/67 137/78 O2 Sat by Pulse 97 98 99 Oximetry 03/06/23 01:05 Temperature Pulse Rate 72 Respiratory 18 Rate Blood Pressure 122/69 O2 Sat by Pulse 98 Oximetry Medical Decision Making - Medical Decision Making EKG taken at 21:27, interpreted by myself Electronic ventricular pacemaker Ventricular rate 99, QRS duration 207, QTC 541 Was pt. sent in by a medical professional or institution ([facility], [facility], urgent care, hospital, or custodial...) When possible be specific @ -No Did you speak to anyone other than the patient for history (EMS, parent, family, police, friend...)? What history was obtained from this source @ -EMS provided history Did you review nursing and triage notes (agree or disagree)? Why? @ -I reviewed and agree with nursing and triage notes Were old charts reviewed (outside hosp., previous admission, EMS record, old EKG, old radiological studies, urgent care reports/EKG's, custodial records)? Report findings @ -No old charts were reviewed Differential Diagnosis (chest pain, altered mental status, abdominal pain women, abdominal pain men, vaginal bleeding, weakness, fever, dyspnea, syncope, headache, dizziness, GI bleed, back pain, seizure, CVA, palpatations, mental health)? @ -not applicable EKG interpreted by me (3pts min.). @ -As above X-rays interpreted by me (1pt min.). @ -None done CT interpreted by me (1pt min.). @ -None done U/S interpreted by me (1pt. min.). @ -None done What testing was considered but not performed or refused? (CT, X-rays, U/S, labs)? Why? @ -None What meds were considered but not given or refused? Why? @ -None Did you discuss the management of the patient with other professionals (professionals i.e. [facility], [facility], lab, RT, psych nurse, delinquency prevention social worker, ux researcher, teacher, founder and chief technical officer, case advocate)? Give summary @ -No Was smoking cessation discussed for >3mins.? @ -No Was critical care preformed (if so, how long)? @ -No Were there social determinants of health that impacted care today? How? (Homelessness, low income, unemployed, alcoholism, drug addiction, transportation, low edu. Level, literacy, decrease access to med. care, [place] [facility], rehab)? @ -No Was there de-escalation of care discussed even if they declined (Discuss DNR or withdrawal of care, Hospice)? DNR status @ -No What co-morbidities impacted this encounter? (DM, HTN, Smoking, COPD, CAD, Cancer, CVA, ARF, Chemo, Hep., AIDS, mental health diagnosis, sleep apnea, morbid obesity)? @ -None Was patient admitted / discharged? Hospital course, mention meds given and route, prescriptions, significant lab abnormalities, going to OR and other pertinent info. @ -83-year-old presenting for weakness. Patient appears dehydrated.Laboratory studies significant for acute kidney injury, creatinine at 2.88, baseline around 1, BUN at 42. Troponin is 0.033. Patient does not have chest pain or shortness of breath. Other laboratory studies were relatively unremarkable. Patient was unable to give urine. Bladder scan was performed with > 800 cc's. Horan catheter was placed. Renal ultrasound ordered and pending. Patient be admitted for dehydration, ISAEL, urinary retention. [place] from [facility] accepts Undiagnosed new problem with uncertain prognosis? @ -No Drug Therapy requiring intensive monitoring for toxicity (Heparin, Nitro, Insulin, Cardizem)? @ -No Were any procedures done? @ -No Diagnosis/symptom? @ -Dehydration, ISAEL, urinary retention Acute, or Chronic, or Acute on Chronic? @ -acute Uncomplicated (without systemic symptoms) or Complicated (systemic symptoms)? @ -uncomplicated Side effects of treatment? @ -No Exacerbation, Progression, or Severe Exacerbation? @ -No Poses a threat to life or bodily function? How? (Chest pain, USA, PA, pneumonia, PE, COPD, DKA, ARF, appy, cholecystitis, CVA, Diverticulitis, Homicidal, Suicidal, threat to staff... and all critical care pts) @ -No Dr. Barrientos is my attending - Lab Data Result diagrams: 03/05/23 21:26 03/05/23 21:55 Lab Results 03/05/23 03/05/23 03/05/23 Range/Units 20:23 21:26 21:26 WBC 6.1 (3.8-10.6) k/uL RBC 3.75 L (4.30-5.90) m/uL Hgb 12.1 L (13.0-17.5) gm/dL Hct 37.2 L (39.0-53.0) % MCV 99.1 (80.0-100.0) fL MCH 32.1 (25.0-35.0) pg MCHC 32.4 (31.0-37.0) g/dL RDW 13.5 (11.5-15.5) % Plt Count 108 L (150-450) k/uL MPV 9.8 Neutrophils % 72 % Lymphocytes % 18 % Monocytes % 7 % Eosinophils % 1 % Basophils % 0 % Neutrophils # 4.4 (1.3-7.7) k/uL Lymphocytes # 1.1 (1.0-4.8) k/uL Monocytes # 0.5 (0-1.0) k/uL Eosinophils # 0.1 (0-0.7) k/uL Basophils # 0.0 (0-0.2) k/uL PT 12.0 (9.0-12.0) sec INR 1.2 H (<1.2) APTT 26.3 (22.0-30.0) sec Sodium (137-145) mmol/L Potassium (3.5-5.1) mmol/L Chloride (98-107) mmol/L Carbon Dioxide (22-30) mmol/L Anion Gap mmol/L BUN (9-20) mg/dL Creatinine (0.66-1.25) mg/dL Est GFR (CKD-EPI)AfAm (>60 ml/min/1.73 sqM) Est GFR (CKD-EPI)NonAf (>60 ml/min/1.73 sqM) Glucose (74-99) mg/dL POC Glucose (mg/dL) 100 (70-110) mg/dL POC Glu [employer] [place] Plasma Lactic Acid Smith (0.7-2.0) mmol/L Calcium (8.4-10.2) mg/dL Magnesium (1.6-2.3) mg/dL Total Bilirubin (0.2-1.3) mg/dL AST (17-59) U/L ALT (4-49) U/L Alkaline Phosphatase (38-126) U/L Troponin I (0.000-0.034) ng/mL Total Protein (6.3-8.2) g/dL Albumin (3.5-5.0) g/dL Influenza Type A (PCR) (Not Detectd) Influenza Type B (PCR) (Not Detectd) RSV (PCR) (Not Detectd) SARS-CoV-2 (PCR) (Not Detectd) 03/05/23 03/05/23 03/05/23 Range/Units 21:26 21:26 21:55 WBC (3.8-10.6) k/uL RBC (4.30-5.90) m/uL Hgb (13.0-17.5) gm/dL Hct (39.0-53.0) % MCV (80.0-100.0) fL MCH (25.0-35.0) pg MCHC (31.0-37.0) g/dL RDW (11.5-15.5) % Plt Count (150-450) k/uL MPV Neutrophils % % Lymphocytes % % Monocytes % % Eosinophils % % Basophils % % Neutrophils # (1.3-7.7) k/uL Lymphocytes # (1.0-4.8) k/uL Monocytes # (0-1.0) k/uL Eosinophils # (0-0.7) k/uL Basophils # (0-0.2) k/uL PT (9.0-12.0) sec INR (<1.2) APTT (22.0-30.0) sec Sodium 139 (137-145) mmol/L Potassium 4.3 (3.5-5.1) mmol/L Chloride 105 (98-107) mmol/L Carbon Dioxide 20 L (22-30) mmol/L Anion Gap 14 mmol/L BUN 42 H (9-20) mg/dL Creatinine 2.88 H (0.66-1.25) mg/dL Est GFR (CKD-EPI)AfAm 22 (>60 ml/min/1.73 sqM) Est GFR (CKD-EPI)NonAf 19 (>60 ml/min/1.73 sqM) Glucose 112 H (74-99) mg/dL POC Glucose (mg/dL) (70-110) mg/dL POC Glu [employer] ID Plasma Lactic Acid Smith 1.3 (0.7-2.0) mmol/L Calcium 9.5 (8.4-10.2) mg/dL Magnesium 2.0 (1.6-2.3) mg/dL Total Bilirubin 0.9 (0.2-1.3) mg/dL AST 21 (17-59) U/L ALT 14 (4-49) U/L Alkaline Phosphatase 53 (38-126) U/L Troponin I (0.000-0.034) ng/mL Total Protein 6.9 (6.3-8.2) g/dL Albumin 4.1 (3.5-5.0) g/dL Influenza Type A (PCR) Not Detected (Not Detectd) Influenza Type B (PCR) Not Detected (Not Detectd) RSV (PCR) Not Detected (Not Detectd) SARS-CoV-2 (PCR) Not Detected (Not Detectd) 03/05/23 Range/Units 21:55 WBC (3.8-10.6) k/uL RBC (4.30-5.90) m/uL Hgb (13.0-17.5) gm/dL Hct (39.0-53.0) % MCV (80.0-100.0) fL MCH (25.0-35.0) pg MCHC (31.0-37.0) g/dL RDW (11.5-15.5) % Plt Count (150-450) k/uL MPV Neutrophils % % Lymphocytes % % Monocytes % % Eosinophils % % Basophils % % Neutrophils # (1.3-7.7) k/uL Lymphocytes # (1.0-4.8) k/uL Monocytes # (0-1.0) k/uL Eosinophils # (0-0.7) k/uL Basophils # (0-0.2) k/uL PT (9.0-12.0) sec INR (<1.2) APTT (22.0-30.0) sec Sodium (137-145) mmol/L Potassium (3.5-5.1) mmol/L Chloride (98-107) mmol/L Carbon Dioxide (22-30) mmol/L Anion Gap mmol/L BUN (9-20) mg/dL Creatinine (0.66-1.25) mg/dL Est GFR (CKD-EPI)AfAm (>60 ml/min/1.73 sqM) Est GFR (CKD-EPI)NonAf (>60 ml/min/1.73 sqM) Glucose (74-99) mg/dL POC Glucose (mg/dL) (70-110) mg/dL POC Glu [employer] ID Plasma Lactic Acid Smith (0.7-2.0) mmol/L Calcium (8.4-10.2) mg/dL Magnesium (1.6-2.3) mg/dL Total Bilirubin (0.2-1.3) mg/dL AST (17-59) U/L ALT (4-49) U/L Alkaline Phosphatase (38-126) U/L Troponin I 0.033 (0.000-0.034) ng/mL Total Protein (6.3-8.2) g/dL Albumin (3.5-5.0) g/dL Influenza Type A (PCR) (Not Detectd) Influenza Type B (PCR) (Not Detectd) RSV (PCR) (Not Detectd) SARS-CoV-2 (PCR) (Not Detectd) Disposition Clinical Impression: Dehydration, Weakness, ISAEL (acute kidney injury) Disposition: ADMITTED IP TO THIS HOSP Condition: Fair
[2023-03-05] MEDS ORDERED: NALOXONE 0.4 MG/ML 1 ML VIAL IV PRN (23:26)
--- NOTE | 2023-03-06 00:04 | XR ---
EXAM: XR Chest, 2 Views CLINICAL HISTORY: ITS.REASON XR Reason: Weakness TECHNIQUE: Frontal and lateral views of the chest. COMPARISON: No relevant prior studies available. FINDINGS: Lungs: Unremarkable. No consolidation. Pleural space: Small bilateral pleural effusions. No pneumothorax. Heart: Cardiomegaly. Mediastinum: Unremarkable. Bones/joints: Unremarkable. Tubes, lines and devices: Pacemaker leads. Upper abdomen: Elevated LEFT hemidiaphragm. IMPRESSION: Small bilateral pleural effusions.
[2023-03-06] MEDS: SODIUM CHLORIDE 0.9% 1,000 ML IV SCH ×2 (00:06→12:11)
[2023-03-06 01:50] LABS: Appearance,Urine Clear (Clear); Bilirubin,Urine Negative (Negative); Blood,Urine Negative (Negative); Color,Urine Yellow; Glucose,Urine (UA) Negative (Negative); Ketones,Urine Negative (Negative); Leukocyte Esterase,Urine Negative (Negative); Nitrite,Urine Negative (Negative); Protein,Urine Trace (Negative); Specific Gravity,Urine 1.023 (1.001-1.035); Urobilinogen,Urine <2.0 mg/dL (<2.0)
--- NOTE | 2023-03-06 05:18 | US ---
EXAM: US Retroperitoneal Complete, Renal CLINICAL HISTORY: urinary retention TECHNIQUE: Real-time complete ultrasound of the retroperitoneum with image documentation. COMPARISON: No relevant prior studies available. FINDINGS: Right kidney: Right kidney measures 9.2 x 5.9 x 5 cm. Lobulated right kidney with increased echogenicity. A 2.1 x 1.9 x 1.7 cm cyst is seen in the superior pole of the right kidney. No stones. No hydronephrosis. Left kidney: Left kidney measures 10.3 x 6.4 x 5.7 cm. Lobulated left kidney with increased echogenicity. No stones. No hydronephrosis. Bladder: Tip of Horan catheter is seen within a partially collapsed urinary bladder. Cannot exclude that the inflated portion of the Horan catheter is within the prostatic urethra. The ureteral jets were not seen within the urinary bladder. IMPRESSION: 1. Lobulated kidneys with increased echogenicity suggesting medical renal disease. 2. Tip of Horan catheter is seen within a partially collapsed urinary bladder. Cannot exclude that the inflated portion of the Horan catheter is within the prostatic urethra. 3. The ureteral jets were not seen within the urinary bladder. <MYCVCSECTION> Communications: 03/06/23 05:35 Verify Receipt Verified receipt with Clerk Byers who will be giving exam to Dr. Sprague on 03/06 05:35 (-04:00)
--- NOTE | 2023-03-06 09:25 | P.GSCN ---
History of Present Illness Consult date: 03/06/23 History of present illness: 83 yo male brought to the hospital for weaknass. Was found to be in urine retention and we were consulted. He had a catheter placed for a bladder scan greater than 800ml. He also apparently is dehydrated. He was on tamsulosin prior to admission. He stated that he wasnt having any real problems prior to admission with his voiding. He states that he wasnt aware that he was having problems when they put the catheter in.[ 600ml obtained] Review of Systems All systems: negative - Constitutional Denies fever, Denies weight loss - EENT Eyes: denies blurred vision Ears, nose, mouth and throat: Denies dysphagia - Cardiovascular Denies chest pain, Denies shortness of breath - Respiratory Denies cough, Denies 7 - Gastrointestinal Reports as per HPI - Genitourinary Denies dysuria, Denies hematuria - Integumentary Denies rash, Denies unusual bruising - Neurological Denies headaches, Denies syncope - Hematologic/Lymphatic Denies easy bleeding, Denies easy bruising Past Medical History Past Medical History: Atrial Fibrillation, Heart Failure, CVA/TIA, Diabetes Mellitus, Hypertension Additional Past Medical History / Comment(s): Moderate to severe aortic stenosis - had TAVR History of Any Multi-Drug Resistant Organisms: None Reported Past Surgical History: Orthopedic Surgery, Tonsillectomy Additional Past Surgical History / Comment(s): brain sx 2006 - due to bleed, TAVR, right hip 2019 Past Anesthesia/Blood Transfusion Reactions: No Reported Reaction Past Psychological History: Anxiety, Depression Smoking Status: Former smoker Past Alcohol Use History: None Reported Past Drug Use History: None Reported Medications and Allergies Home Medications Medication Instructions Recorded Confirmed Type Apixaban [Eliquis] 5 mg PO BID 07/18/19 11/06/22 History Insulin Glargine,Hum.rec.anlog 42 unit SQ DAILY 07/18/19 11/06/22 History [Lantus Solostar Pen] Rosuvastatin Calcium [Crestor] 10 mg PO DAILY 07/18/19 11/06/22 History Tamsulosin HCl [Flomax] 0.4 mg PO DAILY 06/09/21 11/06/22 History ARIPiprazole [Abilify] 5 mg PO DAILY 11/06/22 11/06/22 History Acetaminophen/Diphenhydramine 2 tab PO HS 11/06/22 11/06/22 History [Tylenol PM 500-25mg] Cholecalciferol [Vitamin D3 (125 125 mcg PO DAILY 11/06/22 11/06/22 History Mcg = 5000 Iu)] Ergocalciferol (Vitamin D2) 1,250 mcg PO MO 11/06/22 11/06/22 History [Drisdol (50,000 Iu)] Melatonin 10 mg PO HS 11/06/22 11/06/22 History Acetaminophen Tab [Tylenol] 650 mg PO Q6HR PRN #30 tab 11/09/22 Rx Metoprolol Tartrate [Lopressor] 50 mg PO BID 30 Days #60 tab 11/09/22 Rx amLODIPine [Norvasc] 10 mg PO DAILY #30 tab 11/09/22 Rx lisinopriL [Zestril] 10 mg PO DAILY #30 tab 11/09/22 Rx Allergies Allergy/AdvReac Type Severity Reaction Status Date / Time No Known Allergies Allergy Verified 11/06/22 17:01 Surgical - Exam Vital Signs Temp Pulse Resp BP Pulse Ox 98.7 F 72 18 118/65 97 03/05/23 20:17 03/05/23 20:17 03/05/23 20:17 03/05/23 20:17 03/05/23 20:17 - General well developed, well nourished, no distress - Eyes normal ocular movement, no icteric - ENT no hearing loss, no congestion - Neck no masses, trachea midline - Respiratory normal respiratory effort, clear to auscultation - Abdomen Abdomen: soft, non tender, no guarding, no rigid, no rebound - Genitourinary Indwelling catheter , uncircumcised. - Integumentary no rash, no abnormal pigmentation - Neurologic no disoriented, no combative - Psychiatric oriented to time, oriented to person, oriented to place, speech is normal, memory intact Results - Labs 03/05/23 21:26 03/05/23 21:55 Abnormal Lab Results - Last 24 Hours (Table) 03/05/23 03/05/23 03/05/23 Range/Units 21:26 21:26 21:55 RBC 3.75 L (4.30-5.90) m/uL Hgb 12.1 L (13.0-17.5) gm/dL Hct 37.2 L (39.0-53.0) % Plt Count 108 L (150-450) k/uL INR 1.2 H (<1.2) Carbon Dioxide 20 L (22-30) mmol/L BUN 42 H (9-20) mg/dL Creatinine 2.88 H (0.66-1.25) mg/dL Glucose 112 H (74-99) mg/dL Urine Protein (Negative) 03/06/23 Range/Units 00:47 RBC (4.30-5.90) m/uL Hgb (13.0-17.5) gm/dL Hct (39.0-53.0) % Plt Count (150-450) k/uL INR (<1.2) Carbon Dioxide (22-30) mmol/L BUN (9-20) mg/dL Creatinine (0.66-1.25) mg/dL Glucose (74-99) mg/dL Urine Protein Trace H (Negative) Diabetes panel 03/05/23 Range/Units 21:55 Sodium 139 (137-145) mmol/L Potassium 4.3 (3.5-5.1) mmol/L Chloride 105 (98-107) mmol/L Carbon Dioxide 20 L (22-30) mmol/L BUN 42 H (9-20) mg/dL Creatinine 2.88 H (0.66-1.25) mg/dL Glucose 112 H (74-99) mg/dL Calcium 9.5 (8.4-10.2) mg/dL AST 21 (17-59) U/L ALT 14 (4-49) U/L Alkaline Phosphatase 53 (38-126) U/L Total Protein 6.9 (6.3-8.2) g/dL Albumin 4.1 (3.5-5.0) g/dL Calcium panel 03/05/23 Range/Units 21:55 Calcium 9.5 (8.4-10.2) mg/dL Albumin 4.1 (3.5-5.0) g/dL Pituitary panel 03/05/23 Range/Units 21:55 Sodium 139 (137-145) mmol/L Potassium 4.3 (3.5-5.1) mmol/L Chloride 105 (98-107) mmol/L Carbon Dioxide 20 L (22-30) mmol/L BUN 42 H (9-20) mg/dL Creatinine 2.88 H (0.66-1.25) mg/dL Glucose 112 H (74-99) mg/dL Calcium 9.5 (8.4-10.2) mg/dL Adrenal panel 03/05/23 Range/Units 21:55 Sodium 139 (137-145) mmol/L Potassium 4.3 (3.5-5.1) mmol/L Chloride 105 (98-107) mmol/L Carbon Dioxide 20 L (22-30) mmol/L BUN 42 H (9-20) mg/dL Creatinine 2.88 H (0.66-1.25) mg/dL Glucose 112 H (74-99) mg/dL Calcium 9.5 (8.4-10.2) mg/dL Total Bilirubin 0.9 (0.2-1.3) mg/dL AST 21 (17-59) U/L ALT 14 (4-49) U/L Alkaline Phosphatase 53 (38-126) U/L Total Protein 6.9 (6.3-8.2) g/dL Albumin 4.1 (3.5-5.0) g/dL Assessment and Plan Assessment: Impression: Urine retention. gemneralized weakness. Arf perhaps due to the retention. multiple meical comorbidites. Recommedation: c/w tamsulosin. Leave catheter until weakness subsides. Remove sandoval when weakness subsides for a voiding trial.
[2023-03-06] MEDS ORDERED: ONDANSETRON 4 MG/2 ML VIAL IVP PRN (09:44)
[2023-03-06] MEDS ORDERED: NALOXONE 0.4 MG/ML 1 ML VIAL IV PRN (09:44)
[2023-03-06] MEDS ORDERED: ACETAMINOPHEN TAB 325 MG TAB PO PRN (09:44)
[2023-03-06] MEDS ORDERED: MELATONIN 3 MG TABLET PO PRN (09:44)
[2023-03-06] MEDS ORDERED: MAG HYDROX/AL HYDROX/SIMETH 30 ML CUP PO PRN (09:44)
[2023-03-06] MEDS ORDERED: DEXTROSE 50% SYRINGE 50 ML IVP PRN ×2 (09:46)
[2023-03-06 11:42] LABS: Glucose,Whole Blood 129 mg/dL (70-110)
[2023-03-06] MEDS: INSULIN ASPART (NovoLOG) 100 UNIT/ML VIAL SQ SCH ×3 (11:42→21:37)
--- NOTE | 2023-03-06 13:39 | P.HPIM ---
History of Present Illness H&P Date: 03/06/23 History of present illness; 83-year-old male with history diabetes mellitus type 2, peripheral neuropathy, chronic atrial fibrillation, hypertension, stroke, severe aortic stenosis status post TAVR, mild cardiomyopathy EF 40-45%, mild increasing dementia who presented to the ER because of increased weakness. Family noticed that the patient is becoming more and more weak and has been having a hard time ambulating. Patient has almost fallen on a couple of occasions. Denies any fever or chills at home. Denies any chest pain or shortness of breath. Denied any confusion. There was no complain of weakness of any extremity. No complain of urinary or bowel incontinence. No complaints of jerking movement of any extremity. Because of increased confusion, patient was brought to the ER Initial lab work done in the ER showed WBC 6.1, hemoglobin 10.1, platelet 06/04/2007, sodium 100 and potassium 4.3, bun 42, creatinine 2.88 Influenza AMB not detected RSV not detected COVID-19 not detected Ultrasound abdomen and kidneys showed lobulated kidneys with increased echogenicity suggesting medical renal disease UA was negative for any infection Chest x-ray done in the ER showed small bilateral pleural effusions REVIEW OF SYSTEMS: CONSTITUTIONAL: As mentioned above HEENT: No recent visual problems or hearing problems. Denied any sore throat. CARDIOVASCULAR: No chest pain, orthopnea, PND, no palpitations, no syncope. PULMONARY: No shortness of breath, no cough, no hemoptysis. GASTROINTESTINAL: No diarrhea, no nausea, no vomiting, no abdominal pain. NEUROLOGICAL: No headaches, no weakness, no numbness. HEMATOLOGICAL: Denies any bleeding or petechiae. GENITOURINARY: Denies any burning micturition, frequency, or urgency. MUSCULOSKELETAL/RHEUMATOLOGICAL: Denies any joint pain, swelling, or any muscle pain. ENDOCRINE: Denies any polyuria or polydipsia. The rest of the 14-point review of systems is negative. PHYSICAL EXAMINATION: GENERAL: The patient is alert and oriented x3, not in any acute distress. Well developed, well nourished. HEENT: Pupils are round and equally reacting to light. EOMI. No scleral icterus. No conjunctival pallor. Normocephalic, atraumatic. No pharyngeal erythema. No thyromegaly. CARDIOVASCULAR: S1 and S2 present. No murmurs, rubs, or gallops. PULMONARY: Chest is clear to auscultation, no wheezing or crackles. ABDOMEN: Soft, nontender, nondistended, normoactive bowel sounds. No palpable organomegaly. MUSCULOSKELETAL: No joint swelling or deformity. EXTREMITIES: No cyanosis, clubbing, or pedal edema. NEUROLOGICAL: Gross neurological examination did not reveal any focal deficits. SKIN: No rashes. Assessment and plan Acute kidney injury Elevated troponin Urinary retention Generalized weakness Status post dual-chamber per pacemaker History of mild cardiomyopathy EF 40-45% History of prior transcatheter aortic valve replacement Chronic atrial fibrillation History of stroke Hypertension Hyperlipidemia Insulin-dependent diabetes mellitus Dementia Monitor vital signs Monitor CBC Monitor CMP Continue telemetry monitoring Trend troponin Fall precautions Strict I's and O's Continue Horan Consult cardiology Neurology on board, recommended keeping Horan in for now, trial to void to be initiated on a later date PT consulted OT consulted Labs and medication were reviewed.. Continue same treatment. Continue with symptomatic treatment. Resume home medication. Monitor labs and vitals. DVT and GI prophylaxis. Further recommendations as per clinical course of the patient Dictation was produced using [employer] acquired by [employer] dictation software. please excuse any grammatical, word or spelling errors. Past Medical History Past Medical History: Atrial Fibrillation, Heart Failure, CVA/TIA, Diabetes Mellitus, Hypertension Additional Past Medical History / Comment(s): Moderate to severe aortic stenosis - had TAVR History of Any Multi-Drug Resistant Organisms: None Reported Past Surgical History: Orthopedic Surgery, Tonsillectomy Additional Past Surgical History / Comment(s): brain sx 2006 - due to bleed, TAVR, right hip 2019 Past Anesthesia/Blood Transfusion Reactions: No Reported Reaction Past Psychological History: Anxiety, Depression Smoking Status: Former smoker Past Alcohol Use History: None Reported Past Drug Use History: None Reported Medications and Allergies Home Medications Medication Instructions Recorded Confirmed Type Apixaban [Eliquis] 5 mg PO BID 07/18/19 03/06/23 History Insulin Glargine,Hum.rec.anlog 42 unit SQ DAILY 07/18/19 03/06/23 History [Lantus Solostar Pen] Rosuvastatin Calcium [Crestor] 10 mg PO DAILY 07/18/19 03/06/23 History Tamsulosin HCl [Flomax] 0.4 mg PO DAILY 06/09/21 03/06/23 History ARIPiprazole [Abilify] 5 mg PO HS 11/06/22 03/06/23 History Acetaminophen/Diphenhydramine 2 tab PO HS 11/06/22 03/06/23 History [Tylenol PM 500-25mg] Cholecalciferol [Vitamin D3 (125 125 mcg PO DAILY 11/06/22 03/06/23 History Mcg = 5000 Iu)] Ergocalciferol (Vitamin D2) 1,250 mcg PO MO 11/06/22 03/06/23 History [Drisdol (50,000 Iu)] Melatonin 10 mg PO HS 11/06/22 03/06/23 History Acetaminophen Tab [Tylenol] 650 mg PO Q6HR PRN #30 tab 11/09/22 03/06/23 Rx amLODIPine [Norvasc] 10 mg PO DAILY #30 tab 11/09/22 03/06/23 Rx lisinopriL [Zestril] 10 mg PO DAILY #30 tab 11/09/22 03/06/23 Rx ALPRAZolam [Xanax] 0.25 mg PO BID PRN 03/06/23 03/06/23 History ARIPiprazole [Abilify] 10 mg PO DAILY 03/06/23 03/06/23 History Gabapentin 300 mg PO BID 03/06/23 03/06/23 History Metoprolol Tartrate [Lopressor] 100 mg PO BID 03/06/23 03/06/23 History Allergies Allergy/AdvReac Type Severity Reaction Status Date / Time No Known Allergies Allergy Verified 03/06/23 09:45 Physical Exam Vitals: Vital Signs Temp Pulse Resp BP Pulse Ox 03/06/23 08:34 99.0 F 60 17 120/79 96 03/06/23 06:08 98.5 F 60 16 164/81 97 03/06/23 04:32 60 18 157/73 97 03/06/23 03:32 60 18 147/74 98 03/06/23 02:05 59 L 18 134/90 98 03/06/23 01:05 72 18 122/69 98 03/06/23 00:46 60 18 137/78 99 03/05/23 23:18 60 18 120/67 98 03/05/23 20:17 98.7 F 72 18 118/65 97 Intake and Output 1003/06/23 03/06/23 22:59 06:59 14:59 Output Total 1700 Balance -1700 Output: Urine 1700 Uretheral (Horan) 600 Other: Weight 102.965 kg Results CBC & Chem 7: 03/05/23 21:26 03/05/23 21:55 Labs: Abnormal Lab Results - Last 24 Hours (Table) 03/05/23 03/05/23 03/05/23 Range/Units 21:26 21:26 21:55 RBC 3.75 L (4.30-5.90) m/uL Hgb 12.1 L (13.0-17.5) gm/dL Hct 37.2 L (39.0-53.0) % Plt Count 108 L (150-450) k/uL INR 1.2 H (<1.2) Carbon Dioxide 20 L (22-30) mmol/L BUN 42 H (9-20) mg/dL Creatinine 2.88 H (0.66-1.25) mg/dL Glucose 112 H (74-99) mg/dL Troponin I (0.000-0.034) ng/mL Urine Protein (Negative) 03/06/23 03/06/23 Range/Units 00:47 07:25 RBC (4.30-5.90) m/uL Hgb (13.0-17.5) gm/dL Hct (39.0-53.0) % Plt Count (150-450) k/uL INR (<1.2) Carbon Dioxide (22-30) mmol/L BUN (9-20) mg/dL Creatinine (0.66-1.25) mg/dL Glucose (74-99) mg/dL Troponin I 0.042 H* (0.000-0.034) ng/mL Urine Protein Trace H (Negative)
--- NOTE | 2023-03-06 13:49 | P.CRDCN ---
History of Present Illness Consult date: 03/06/23 Reason for Consult (text): Elevated troponins History of present illness: HISTORY OF PRESENTING ILLNESS This is an 83-year-old male patient of Dr. Wei with history of diabetes mellitus type 2, peripheral neuropathy, chronic atrial fibrillation, hypertension, stroke in 2006 as well as reported "brain bleed ", severe aortic stenosis status post TAVR, mild cardiomyopathy EF 40-45%, sick sinus syndrome status post pacemaker with recent generator change in November 2022. We have been asked to evaluate the patient for elevated troponins. Patient presented to the hospital due to generalized weakness that has been progressively worsening over the last couple of days. He denies having any chest pain, no shortness of breath, no dyspnea on exertion, no palpitations, no lightheadedness or dizziness. Patient has been found to have acute kidney injury secondary to obstructive uropathy and dehydration. He has had a Horan catheter placed with initial 800 mL return. His creatinine at this time is 2.88 in in November it was 1.0. Telemetry paced rhythm Chest x-ray small bilateral pleural effusions WBC 6.1, hemoglobin 12.1, platelet count 108. INR 1.2. Sodium 139, potassium 4.3, CO2 20, BUN 42 creatinine 2.88. Blood sugar 112. Troponins 0.033, 0.032, 0.042 and 0.040. Urinalysis negative. Influenza A, influenza B, RSV, Covid 19 not detected. Home cardiac medications: Amlodipine 10 mg daily, eliquis 5 mg twice daily, lisinopril 10 mg daily, Lopressor 100 mg twice daily, Crestor 10 mg daily REVIEW OF SYSTEMS At the time of my exam: CONSTITUTIONAL: Denies fever or chills. CARDIOVASCULAR: Denies chest pain, denies shortness of breath, no orthopnea, PND or palpitations. +lightheadedness RESPIRATORY: Denies cough. GASTROINTESTINAL: Denies abdominal pain, diarrhea, constipation, nausea or vomiting. MUSCULOSKELETAL: Denies myalgias. NEUROLOGIC: Denies numbness, tingling or weakness. ENDOCRINE: Denies fatigue, weight change, polydipsia or polyurina. GENITOURINARY: Reports difficulty urinating. HEMATOLOGIC: Denies history of anemia or bleeding. PHYSICAL EXAMINATION Vital signs reviewed. Blood pressure 152/84, heart rate in the 60s, pulse ox 95% on room air. CONSTITUTIONAL: No apparent distress. HEENT: Head is normocephalic. Pupils are equal, round. Sclerae anicteric. Mucous membranes of the mouth are dry. No JVD. CHEST EXAMINATION: Lungs are clear to auscultation. No chest wall tenderness is noted on palpation or with deep breathing. HEART EXAMINATION: Regular rhythm. S1, S2 heard. +2/6 systolic murmur, no gallops or rub. ABDOMEN: Soft, nontender. Horan catheter draining katya urine.. EXTREMITIES: 2+ peripheral pulses, no lower extremity edema and no calf tenderness. NEUROLOGIC EXAMINATION: Patient is awake, alert and oriented x3. ASSESSMENT Mildly elevated troponin secondary to acute kidney injury, acute coronary syndrome ruled out Acute kidney injury Obstructive uropathy Chronic atrial fibrillation Hypertension Diabetes mellitus type 2 Peripheral neuropathy History of stroke and brain bleed Severe aortic stenosis status post TAVR Mild cardiomyopathy EF 40-45% PLAN Obtain EKG Resume patient's home cardiac medications except for lisinopril Obtain 2-D echocardiogram to assess cardiac structure and function Further recommendations as patient progresses Thank you kindly for this consultation. Nurse practitioner note has been reviewed, I agree with documented findings and plan of care. Patient was seen and examined. Past Medical History Past Medical History: Atrial Fibrillation, Heart Failure, CVA/TIA, Diabetes Mellitus, Hypertension Additional Past Medical History / Comment(s): Moderate to severe aortic stenosis - had TAVR History of Any Multi-Drug Resistant Organisms: None Reported Past Surgical History: Orthopedic Surgery, Tonsillectomy Additional Past Surgical History / Comment(s): brain sx 2006 - due to bleed, TAVR, right hip 2019 Past Anesthesia/Blood Transfusion Reactions: No Reported Reaction Past Psychological History: Anxiety, Depression Smoking Status: Former smoker Past Alcohol Use History: None Reported Past Drug Use History: None Reported Medications and Allergies Home Medications Medication Instructions Recorded Confirmed Type Apixaban [Eliquis] 5 mg PO BID 07/18/19 03/06/23 History Insulin Glargine,Hum.rec.anlog 42 unit SQ DAILY 07/18/19 03/06/23 History [Lantus Solostar Pen] Rosuvastatin Calcium [Crestor] 10 mg PO DAILY 07/18/19 03/06/23 History Tamsulosin HCl [Flomax] 0.4 mg PO DAILY 06/09/21 03/06/23 History ARIPiprazole [Abilify] 5 mg PO HS 11/06/22 03/06/23 History Acetaminophen/Diphenhydramine 2 tab PO HS 11/06/22 03/06/23 History [Tylenol PM 500-25mg] Cholecalciferol [Vitamin D3 (125 125 mcg PO DAILY 11/06/22 03/06/23 History Mcg = 5000 Iu)] Ergocalciferol (Vitamin D2) 1,250 mcg PO MO 11/06/22 03/06/23 History [Drisdol (50,000 Iu)] Melatonin 10 mg PO HS 11/06/22 03/06/23 History Acetaminophen Tab [Tylenol] 650 mg PO Q6HR PRN #30 tab 11/09/22 03/06/23 Rx amLODIPine [Norvasc] 10 mg PO DAILY #30 tab 11/09/22 03/06/23 Rx lisinopriL [Zestril] 10 mg PO DAILY #30 tab 11/09/22 03/06/23 Rx ALPRAZolam [Xanax] 0.25 mg PO BID PRN 03/06/23 03/06/23 History ARIPiprazole [Abilify] 10 mg PO DAILY 03/06/23 03/06/23 History Gabapentin 300 mg PO BID 03/06/23 03/06/23 History Metoprolol Tartrate [Lopressor] 100 mg PO BID 03/06/23 03/06/23 History Allergies Allergy/AdvReac Type Severity Reaction Status Date / Time No Known Allergies Allergy Verified 03/06/23 09:45 Physical Exam Vitals: Vital Signs Temp Pulse Resp BP Pulse Ox 03/06/23 10:05 60 16 152/84 95 03/06/23 08:34 99.0 F 60 17 120/79 96 03/06/23 06:08 98.5 F 60 16 164/81 97 03/06/23 04:32 60 18 157/73 97 03/06/23 03:32 60 18 147/74 98 03/06/23 02:05 59 L 18 134/90 98 03/06/23 01:05 72 18 122/69 98 03/06/23 00:46 60 18 137/78 99 03/05/23 23:18 60 18 120/67 98 03/05/23 20:17 98.7 F 72 18 118/65 97 Intake and Output 10/02/23 10/03/23 10/03/23 22:59 06:59 14:59 Output Total 1700 Balance -1700 Output: Urine 1700 Uretheral (Horan) 600 Other: Weight 102.965 kg Results 03/05/23 21:26 03/05/23 21:55 Cardiac Enzymes 03/05/23 03/05/23 03/06/23 Range/Units 21:55 21:55 03:55 AST 21 (17-59) U/L Troponin I 0.033 0.032 (0.000-0.034) ng/mL 03/06/23 03/06/23 Range/Units 07:25 11:34 AST (17-59) U/L Troponin I 0.042 H* 0.040 H* (0.000-0.034) ng/mL Coagulation 03/05/23 Range/Units 21:26 PT 12.0 (9.0-12.0) sec APTT 26.3 (22.0-30.0) sec CBC 03/05/23 Range/Units 21:26 WBC 6.1 (3.8-10.6) k/uL RBC 3.75 L (4.30-5.90) m/uL Hgb 12.1 L (13.0-17.5) gm/dL Hct 37.2 L (39.0-53.0) % Plt Count 108 L (150-450) k/uL Comprehensive Metabolic Panel 03/05/23 Range/Units 21:55 Sodium 139 (137-145) mmol/L Potassium 4.3 (3.5-5.1) mmol/L Chloride 105 (98-107) mmol/L Carbon Dioxide 20 L (22-30) mmol/L BUN 42 H (9-20) mg/dL Creatinine 2.88 H (0.66-1.25) mg/dL Glucose 112 H (74-99) mg/dL Calcium 9.5 (8.4-10.2) mg/dL AST 21 (17-59) U/L ALT 14 (4-49) U/L Alkaline Phosphatase 53 (38-126) U/L Total Protein 6.9 (6.3-8.2) g/dL Albumin 4.1 (3.5-5.0) g/dL Current Medications Generic Name Dose Route Start Last Admin Trade Name Freq PRN Reason Stop Dose Admin Acetaminophen 650 mg 03/06/23 09:44 Acetaminophen Tab 325 Mg Tab PO Q6HR PRN Mild Pain or Fever > 100.5 Al Hydroxide/Mg Hydroxide 15 ml 03/06/23 09:44 Mag Hydrox/Al Hydrox/Simeth 30 Ml Cup PO Q6HR PRN Indigestion Dextrose/Water 25 ml 03/06/23 09:46 Dextrose 50% Syringe 50 Ml IVP PER PROTOCOL PRN Hypoglycemia Protocol Dextrose/Water 50 ml 03/06/23 09:46 Dextrose 50% Syringe 50 Ml IVP PER PROTOCOL PRN Hypoglycemia Protocol Sodium Chloride 1,000 mls @ 75 mls/hr 03/05/23 23:30 03/06/23 12:11 Saline 0.9% IV 75 mls/hr .[id number] LAURA Administration Insulin Aspart 0 unit 03/06/23 12:30 03/06/23 11:42 Insulin Aspart (Novolog) 100 Unit/Ml Vial SQ Not Given ACHS LAURA Protocol Melatonin 3 mg 03/06/23 09:44 Melatonin 3 Mg Tablet PO HS PRN Insomnia Naloxone HCl 0.2 mg 03/06/23 09:44 Naloxone 0.4 Mg/Ml 1 Ml Vial IV Q2M PRN Opioid Reversal Ondansetron HCl 4 mg 03/06/23 09:44 Ondansetron 4 Mg/2 Ml Vial IVP Q8HR PRN Nausea And Vomiting Intake and Output 03/05/23 03/06/23 03/06/23 22:59 06:59 14:59 Output Total 1700 Balance -1700 Output: Urine 1700 Uretheral (Horan) 600 Other: Weight 102.965 kg 03/05/23 21:26 03/05/23 21:55
[2023-03-06] MEDS: amLODIPine 10 MG TAB PO SCH (13:59)
[2023-03-06] MEDS: APIXABAN 2.5 MG TABLET PO SCH ×2 (13:59→21:38)
[2023-03-06 17:03] LABS: Glucose,Whole Blood 145 mg/dL (70-110)
[2023-03-06 20:17] LABS: Glucose,Whole Blood 160 mg/dL (70-110)
[2023-03-06] MEDS: METOPROLOL TARTRATE 50 MG TAB PO SCH (21:38)
[2023-03-07] MEDS: SODIUM CHLORIDE 0.9% 1,000 ML IV SCH ×2 (03:21→14:35)
[2023-03-07 07:19] LABS: Glucose,Whole Blood 143 mg/dL (70-110)
[2023-03-07 08:39] LABS: Basophils # (A) 0.01 X 10*3/uL (0.00-0.10); Basophils % (A) 0.1 %; Eosinophils # (A) 0.01 X 10*3/uL (0.04-0.35); Eosinophils % (A) 0.1 %; HCT 44.7 % (39.6-50.0); HGB 15.1 d/dL (13.0-17.0); Lymphocytes # (A) 1.07 X 10*3/uL (0.90-5.00); Lymphocytes % (A) 12.1 %; MCH 32.2 pg (27.0-32.0); MCHC 33.8 d/dL (32.0-37.0); MCV 95.3 FL (80.0-97.0); Mean Platelet Volume 10.1 FL (9.5-12.2); Monocytes # (A) 0.93 X 10*3/uL (0.20-1.00); Monocytes % (A) 10.5 %; NRBC Per 100 WBC 0 X 10*3/uL (0.00-0.01); Neutrophils # (A) 6.76 X 10*3/uL (1.80-7.70); Neutrophils % (A) 76.6 %; Platelet Count 105 X 10*3/uL (140-440); RBC 4.69 X 10*6/uL (4.40-5.60); RDW 13.1 % (11.5-14.5); WBC 8.83 X 10*3/uL (4.50-10.00)
[2023-03-07 09:00] LABS: ALT 13 U/L (10-49); AST 40 U/L (14-35); Albumin/Globulin Ratio 1.74 Ratio (1.60-3.17); Alkaline Phosphatase 58 U/L (41-126); BUN/Creat Ratio 15.85 Ratio (12.00-20.00); Blood Urea Nitrogen 20.6 mg/dL (9.0-27.0); Calcium 9.8 mg/dL (8.7-10.3); Carbon Dioxide 22.3 mmol/L (21.6-31.8); Chloride 106 mmol/L (96-109); Globulin 2.3 d/dL (1.6-3.3); Glucose 128 mg/dL (70-110); Potassium 3.9 mmol/L (3.5-5.5); Sodium 141 mmol/L (135-145); Total Bilirubin 1.3 mg/dL (0.3-1.2); Total Protein 6.3 d/dL (6.2-8.2)
[2023-03-07] MEDS ORDERED: ATORVASTATIN 20 MG TAB PO SCH (09:00)
[2023-03-07] MEDS: INSULIN ASPART (NovoLOG) 100 UNIT/ML VIAL SQ SCH ×2 (09:52→13:06)
[2023-03-07] MEDS: METOPROLOL TARTRATE 50 MG TAB PO SCH (09:54)
[2023-03-07] MEDS: amLODIPine 10 MG TAB PO SCH (09:54)
[2023-03-07] MEDS: APIXABAN 2.5 MG TABLET PO SCH (09:54)
--- NOTE | 2023-03-07 12:06 | CA ---
Transthoracic Echo Report Name: Jarrod Tinoco Age: 83 Gender: M : 1940 Exam Date: 03/07/2023 07:40 Exam Location: [facility] Ht (in): 74 Wt (lb): 227 Ordering Physician: Cristel Adams Attending/Referring Phys: [id number], Bryan Licensed Psychologist Vivien Garcia [facility] Procedure CPT: Indications: LVF Cardiac Hx: Technical Quality: Very technically difficult study Contrast 1: Lumason Total Dose (mL): 5 Contrast 2: Total Dose (mL): MEASUREMENTS (Male / Female) Normal Values DOPPLER AV Peak Velocity 131.8 cm/s AV Peak Gradient 6.9 mmHg AV Mean Velocity 90.1 cm/s AV Mean Gradient 3.7 mmHg AV Velocity Time Integral 26.8 cm LVOT Peak Velocity 90.1 cm/s LVOT Peak Gradient 3.2 mmHg LVOT Velocity Time Integral 20.7 cm Mitral E Point Velocity 101.6 cm/s Mitral A Point Velocity 27.6 cm/s Mitral E to A Ratio 3.7 MV Deceleration Time 225.1 ms TR Peak Velocity 158.6 cm/s TR Peak Gradient 10.1 mmHg Right Atrial Pressure 8.0 mmHg Pulmonary Artery Systolic Pressu 18.1 mmHg Right Ventricular Systolic Press 18.1 mmHg FINDINGS Left Ventricle Low normal left ventricular function. Left ventricular ejection fraction is estimated at 50-55%. Apical inferior and apical septum johnson appears hypokinetic. Right Ventricle Moderate right ventricular dilatation. Right Atrium Moderate right atrial dilatation. Left Atrium Severe left atrial dilatation. Mitral Valve Mitral valve not well visualized. Mitral valve thickened. Mild mitral annular calcification. No mitral regurgitation. Aortic Valve Aortic valve not well visualized. Normal fuctioning transcatheter aortic valve. No aortic valve stenosis or regurgitation. Tricuspid Valve Tricuspid valve not well visualized. Trace tricuspid regurgitation. Pulmonic Valve Pulmonic valve not well visualized. Pericardium No pericardial effusion. Aorta Aortic root and proximal ascending aorta not well visualized. CONCLUSIONS Normal LV systolic function with hypokinesis of the inferoapical wall Normal functioning bioprosthetic valve in aortic position Previewed by: Dr. Que Regan MD (Electronically Signed) Final Date: 07 March 2023 12:05
[2023-03-07 12:32] LABS: Glucose,Whole Blood 130 mg/dL (70-110)
--- NOTE | 2023-03-07 12:57 | P.PN ---
Subjective Progress Note Date: 03/07/23 HISTORY OF PRESENTING ILLNESS This is an 83-year-old male patient of Dr. Wei with history of diabetes mellitus type 2, peripheral neuropathy, chronic atrial fibrillation, hypertension, stroke in 2006 as well as reported "brain bleed ", severe aortic stenosis status post TAVR, mild cardiomyopathy EF 40-45%, sick sinus syndrome status post pacemaker with recent generator change in November 2022. We have been asked to evaluate the patient for elevated troponins. Patient presented to the hospital due to generalized weakness that has been progressively worsening over the last couple of days. He denies having any chest pain, no shortness of breath, no dyspnea on exertion, no palpitations, no lightheadedness or dizziness. Patient has been found to have acute kidney injury secondary to obstructive uropathy and dehydration. He has had a Horan catheter placed with initial 800 mL return. His creatinine at this time is 2.88 in in November it was 1.0. Telemetry paced rhythm Chest x-ray small bilateral pleural effusions WBC 6.1, hemoglobin 12.1, platelet count 108. INR 1.2. Sodium 139, potassium 4.3, CO2 20, BUN 42 creatinine 2.88. Blood sugar 112. Troponins 0.033, 0.032, 0.042 and 0.040. Urinalysis negative. Influenza A, influenza B, RSV, Covid 19 not detected. Home cardiac medications: Amlodipine 10 mg daily, eliquis 5 mg twice daily, lisinopril 10 mg daily, Lopressor 100 mg twice daily, Crestor 10 mg daily 03/07 Echocardiogram reveals normal LV systolic function with hypokinesis of the inferior apical wall. Normal functioning bioprosthetic valve in aortic position. EF 50-55% PHYSICAL EXAMINATION Vital signs reviewed. Blood pressure 152/84, heart rate in the 60s, pulse ox 9 5% on room air. CONSTITUTIONAL: No apparent distress. HEENT: Head is normocephalic. Pupils are equal, round. Sclerae anicteric. Mucous membranes of the mouth are dry. No JVD. CHEST EXAMINATION: Lungs are clear to auscultation. No chest wall tenderness is noted on palpation or with deep breathing. HEART EXAMINATION: Regular rhythm. S1, S2 heard. +2/6 systolic murmur, no gallops or rub. ABDOMEN: Soft, nontender. Horan catheter draining katya urine.. EXTREMITIES: 2+ peripheral pulses, no lower extremity edema and no calf tenderness. NEUROLOGIC EXAMINATION: Patient is awake, alert. ASSESSMENT Mildly elevated troponin secondary to acute kidney injury, acute coronary syndrome ruled out Acute kidney injury Obstructive uropathy Chronic atrial fibrillation Hypertension Diabetes mellitus type 2 Peripheral neuropathy History of stroke and brain bleed Severe aortic stenosis status post TAVR Mild cardiomyopathy EF 40-45% PLAN Resume patient's home cardiac medications except for lisinopril Noted new hypokinesis of the inferior apical wall. Discussed results with the patient and recommend outpatient stress test and follow-up with Dr. Wei. No further cardiac workup at this time. Nurse practitioner note has been reviewed, I agree with documented findings and plan of care. Patient was seen and examined. Objective - Vital Signs Vital signs: Vital Signs Temp 98.9 F 03/07/23 07:15 Pulse 61 03/07/23 07:15 Resp 18 03/07/23 07:15 BP 155/69 03/07/23 07:15 Pulse Ox 94 L 03/07/23 07:15 FiO2 Intake & Output 03/06/23 03/07/23 03/07/23 18:59 06:59 18:59 Intake Total 118 Output Total 900 700 Balance -900 -582 Weight 98.5 kg Intake: Oral 118 Output: Urine 900 700 - Labs CBC & Chem 7: 03/07/23 04:43 03/07/23 04:43 Labs: Abnormal Lab Results - Last 24 Hours (Table) 03/06/23 03/06/23 03/06/23 Range/Units 11:34 14:31 16:53 MCH (27.0-32.0) pg Plt Count (140-440) X 10*3/uL Eosinophils # (0.04-0.35) X 10*3/uL Anion Gap (4.00-12.00) mmol/L Est GFR (CKD-EPI) (>=60) Glucose (70-110) mg/dL POC Glucose (mg/dL) 145 H (70-110) mg/dL Hemoglobin A1c (<=6.0) % Total Bilirubin (0.3-1.2) mg/dL AST (14-35) U/L Troponin I 0.040 H* 0.042 H* (0.000-0.034) ng/mL 03/06/23 03/06/23 03/07/23 Range/Units 18:48 20:15 04:43 MCH (27.0-32.0) pg Plt Count (140-440) X 10*3/uL Eosinophils # (0.04-0.35) X 10*3/uL Anion Gap (4.00-12.00) mmol/L Est GFR (CKD-EPI) (>=60) Glucose (70-110) mg/dL POC Glucose (mg/dL) 160 H (70-110) mg/dL Hemoglobin A1c 6.3 H (<=6.0) % Total Bilirubin (0.3-1.2) mg/dL AST (14-35) U/L Troponin I 0.054 H* (0.000-0.034) ng/mL 03/07/23 03/07/23 03/07/23 Range/Units 04:43 04:43 07:16 MCH 32.2 H (27.0-32.0) pg Plt Count 105 L (140-440) X 10*3/uL Eosinophils # 0.01 L (0.04-0.35) X 10*3/uL Anion Gap 12.70 H (4.00-12.00) mmol/L Est GFR (CKD-EPI) 55 L (>=60) Glucose 128 H (70-110) mg/dL POC Glucose (mg/dL) 143 H (70-110) mg/dL Hemoglobin A1c (<=6.0) % Total Bilirubin 1.3 H (0.3-1.2) mg/dL AST 40 H (14-35) U/L Troponin I (0.000-0.034) ng/mL
--- NOTE | 2023-03-07 13:00 | CDI ---
Documentation Clarification Form Date: 03/07/2023 12:47:51 PM From: Terri Blanton RN CCDS Phone: [phone] Admit Date: 03/05/2023 11:27:00 PM Patient Name: Jarrod Tinoco Visit Number: [id number] Discharge Date: ATTENTION: The Clinical Documentation Specialists (CDI) and [facility] Coding Staff appreciate your assistance in clarifying documentation. Please respond to the clarification below the line at the bottom and electronically sign. The CDI & [facility] Coding staff will review the response and follow-up if needed. Please note: Queries are made part of the Legal Health Record. If you have any questions, please contact the author of this message via ITS. Dr. Pelon Whiteside MD Your patient has the documented diagnosis of unspecified CHF 03/06,H&P. Additional information regarding the type, acuity of CHF is requested. History/Risk Factors: 83-year-old male presents to the ED, Family states the patient has weakness over the last couple days where he as almost fallen, they guided him to the ground. Medical History: CHF, AFIB, HTN, DM and HLD. 03/06, H&P Clinical Indicators: VS/Pulse OX: B/P 118/65 HR 72 Temp 98.7 F RR 18 SpO2 97% ra Echocardiogram Results: 03/07 EF 50-55% LV systolic function with hypoikinesis of the inferoapical wall. Normal functioning bio prosthetic valve in arotic position. Chest X Ray: 03/06 Small bilateral pleural effusions Treatment: 03/06 Lopressor 100mg po bid In your professional opinion, can you please clarify the acuity and type of CHF if known? [ x ] Chronic Diastolic Heart Failure (preserved EF) [ ] Other, please specify [ ] Unable to determine (Template Last Revised: July 2020) MTDD
[2023-03-07 13:45] VITALS: BP 121/68; PULSE 66; RESP 16; TEMP 98.6
[2023-03-07] MEDS ORDERED: TAMSULOSIN 0.4 MG CAP.ER.24H PO SCH (13:45)
--- NOTE | 2023-03-07 14:25 | P.DS ---
Providers Date of admission: 03/05/23 23:27 Expected date of discharge: 03/07/23 Attending physician: Julianne Sprague Consults: 03/06/23 00:26 Consult Physician Stat Consulting Provider: Willam Alex Consult Reason/Comments: urinary retention Do you want consulting provider notified?: Yes 03/06/23 09:37 Consult Physician Routine Consulting Provider: Que Regan Consult Reason/Comments: Elevated troponin Do you want consulting provider notified?: Yes Primary care physician: Roland Holt [facility] Course: Discharge diagnosis Acute kidney injury likely due to prerenal and urinary retention. Status post Horan catheter placement. Creatinine level improved from 2.88-1.3. Continue Horan catheter and onto generalized weakness improves. Elevated troponin with inferior hypokinesis on echocardiogram. Cardiology recommends outpatient stress test. Urinary retention Generalized weakness Status post dual-chamber per pacemaker History of mild cardiomyopathy EF 40-45% History of prior transcatheter aortic valve replacement Chronic atrial fibrillation History of stroke Hypertension Hyperlipidemia Insulin-dependent diabetes mellitus Dementia Hospital course History of present illness; 83-year-old male with history diabetes mellitus type 2, peripheral neuropathy, chronic atrial fibrillation, hypertension, stroke, severe aortic stenosis status post TAVR, mild cardiomyopathy EF 40-45%, mild increasing dementia who presented to the ER because of increased weakness. Family noticed that the patient is becoming more and more weak and has been having a hard time ambulating. Patient has almost fallen on a couple of occasions. Denies any fever or chills at home. Denies any chest pain or shortness of breath. Denied any confusion. There was no complain of weakness of any extremity. No complain of urinary or bowel incontinence. No complaints of jerking movement of any extremity. Because of increased confusion, patient was brought to the ER Initial lab work done in the ER showed WBC 6.1, hemoglobin 10.1, platelet 06/04/2007, sodium 100 and potassium 4.3, bun 42, creatinine 2.88 Influenza AMB not detected RSV not detected COVID-19 not detected Ultrasound abdomen and kidneys showed lobulated kidneys with increased echogenicity suggesting medical renal disease UA was negative for any infection Chest x-ray done in the ER showed small bilateral pleural effusions 03/07/2023 Patient is currently sitting in the recliner. Awake alert and oriented. No complaints of chest pain or shortness of breath. Patient has been afebrile. No nausea vomiting or abdominal pain or diarrhea. Renal function improved creatinine level I.3 today. 2-D echocardiogram showed ejection fraction 40-40% and inferior wall hypokinesis. Cardiology recommends to follow as an outpatient for stress test. Other laboratory data reviewed. Patient was seen by PT OT and recommends subacute rehab transfer. Continue Horan catheter. Patient will need trial void once generalized weakness improves unable to ambulate. PHYSICAL EXAMINATION: GENERAL: The patient is alert and oriented x3, not in any acute distress. Well developed, well nourished. HEENT: Pupils are round and equally reacting to light. EOMI. No scleral icterus. No conjunctival pallor. Normocephalic, atraumatic. No pharyngeal erythema. No thyromegaly. CARDIOVASCULAR: S1 and S2 present. No murmurs, rubs, or gallops. PULMONARY: Chest is clear to auscultation, no wheezing or crackles. ABDOMEN: Soft, nontender, nondistended, normoactive bowel sounds. No palpable organomegaly. MUSCULOSKELETAL: No joint swelling or deformity. EXTREMITIES: No cyanosis, clubbing, or pedal edema. NEUROLOGICAL: Gross neurological examination did not reveal any focal deficits. SKIN: No rashes. No skin lesions. Vital Signs 03/07/23 03/07/23 07:15 13:25 Temperature 98.9 F 98.6 F Pulse Rate [ 61 66 Right] Respiratory 18 16 Rate Blood Pressure 155/69 121/68 [Left Arm] O2 Sat by Pulse 94 L 97 Oximetry Total time taken greater than 35 minutes including 18 minutes for counseling and coordination of care. Patient Condition at Discharge: Fair Plan - Discharge Summary Discharge Rx Participant: Yes New Discharge Prescriptions: New INSULIN ASPART (NovoLOG) [NovoLOG (formulary)] 0 unit SQ ACHS each Continue Apixaban [Eliquis] 5 mg PO BID Rosuvastatin Calcium [Crestor] 10 mg PO DAILY Acetaminophen/Diphenhydramine [Tylenol PM 500-25mg] 2 tab PO HS Acetaminophen Tab [Tylenol] 650 mg PO Q6HR PRN #30 tab PRN Reason: Mild Pain (Scale 1 To 3) amLODIPine [Norvasc] 10 mg PO DAILY #30 tab lisinopriL [Zestril] 10 mg PO DAILY #30 tab Gabapentin 300 mg PO BID Tamsulosin HCl [Flomax] 0.4 mg PO DAILY Cholecalciferol [Vitamin D3 (125 Mcg = 5000 Iu)] 125 mcg PO DAILY Ergocalciferol (Vitamin D2) [Drisdol (50,000 Iu)] 1,250 mcg PO MO ARIPiprazole [Abilify] 5 mg PO HS ARIPiprazole [Abilify] 10 mg PO DAILY Metoprolol Tartrate [Lopressor] 100 mg PO BID Changed Melatonin 3 mg PO HS PRN #0 PRN Reason: Insomnia Discontinued Insulin Glargine,Hum.rec.anlog [Lantus Solostar Pen] 42 unit SQ DAILY ALPRAZolam [Xanax] 0.25 mg PO BID PRN PRN Reason: Anxiety Discharge Medication List Apixaban [Eliquis] 5 mg PO BID 07/18/19 [History] Rosuvastatin Calcium [Crestor] 10 mg PO DAILY 07/18/19 [History] Tamsulosin HCl [Flomax] 0.4 mg PO DAILY 06/09/21 [History] ARIPiprazole [Abilify] 5 mg PO HS 11/06/22 [History] Acetaminophen/Diphenhydramine [Tylenol PM 500-25mg] 2 tab PO HS 11/06/22 [History] Cholecalciferol [Vitamin D3 (125 Mcg = 5000 Iu)] 125 mcg PO DAILY 11/06/22 [History] Ergocalciferol (Vitamin D2) [Drisdol (50,000 Iu)] 1,250 mcg PO MO 11/06/22 [History] Acetaminophen Tab [Tylenol] 650 mg PO Q6HR PRN #30 tab 11/09/22 [Rx] amLODIPine [Norvasc] 10 mg PO DAILY #30 tab 11/09/22 [Rx] lisinopriL [Zestril] 10 mg PO DAILY #30 tab 11/09/22 [Rx] ARIPiprazole [Abilify] 10 mg PO DAILY 03/06/23 [History] Gabapentin 300 mg PO BID 03/06/23 [History] Metoprolol Tartrate [Lopressor] 100 mg PO BID 03/06/23 [History] INSULIN ASPART (NovoLOG) [NovoLOG (formulary)] 0 unit SQ ACHS each 03/07/23 [Rx] Melatonin 3 mg PO HS PRN #0 03/07/23 [Rx] Follow up Appointment(s)/Referral(s): Stu Wei DO [STAFF PHYSICIAN] - 2 Weeks Roland Holt MD [Primary Care Provider] - 1-2 days Discharge Disposition: TRANSFER TO SNF/ECF
== END 2023-03-07 17:17 | DRG 683 ==
LOC: EC 20:15 → 5NMEDONC 23:27
PROVIDERS: ADMIT Hospitalist; ATTEND Hospitalist
DX: N17.9 Acute kidney failure, unspecified (principal); F03.93 Unspecified dementia, unspecified severity, with mood disturbance; F03.94 Unspecified dementia, unspecified severity, with anxiety; I42.9 Cardiomyopathy, unspecified; I48.20 Chronic atrial fibrillation, unspecified; I50.32 Chronic diastolic (congestive) heart failure; I49.5 Sick sinus syndrome; E11.42 Type 2 diabetes mellitus with diabetic polyneuropathy; E86.0 Dehydration; I11.0 Hypertensive heart disease with heart failure; Z79.4 Long term (current) use of insulin; Z11.52 Encounter for screening for COVID-19; N13.9 Obstructive and reflux uropathy, unspecified; I35.0 Nonrheumatic aortic (valve) stenosis; R33.9 Retention of urine, unspecified; E78.5 Hyperlipidemia, unspecified; Q63.1 Lobulated, fused and horseshoe kidney; Z79.01 Long term (current) use of anticoagulants; Z79.899 Other long term (current) drug therapy; Z86.73 Personal history of transient ischemic attack (TIA), and cerebral infarction without residual deficits; Z87.891 Personal history of nicotine dependence; Z95.0 Presence of cardiac pacemaker; Z95.2 Presence of prosthetic heart valve
CPT/HCPCS: 36415; 51702; 51798; 71046; 76770; 80053; 81003; 83036; 83605; 83735; 84484; 85025; 85610; 85730; 87636; 93005; 93306; 96360; 96361; 99285

== ENCOUNTER 2023-04-12 13:58 | Inpatient (IN) | payer MEDICARE ==
[2023-04-12] MEDS ORDERED: SODIUM CHLORIDE 0.9% 500 ML 500 ML IV STA (15:29)
--- NOTE | 2023-04-12 15:50 | ED ---
General Adult HPI - General Chief complaint: Weakness Stated complaint: weakness Time Seen by Provider: 04/12/23 15:07 Source: patient, EMS, RN notes reviewed, old records reviewed Mode of arrival: EMS Limitations: no limitations - History of Present Illness Initial comments: 83-year-old male presenting with generalized weakness, headache. Patient has had recent admission rehabilitation at local care home. He's been home for approximately 2 weeks. He admits to not drinking much fluid throughout the day. He states that he's had some constipation and has been taking laxatives which has resulted in significant diarrhea. He denies chest pain or abdominal pain. He states he does have a headache and has not urinated today. No focal numbness or weakness. - Related Data Home Medications Medication Instructions Recorded Confirmed Apixaban [Eliquis] 5 mg PO BID 07/18/19 04/12/23 Tamsulosin HCl [Flomax] 0.4 mg PO DAILY 06/09/21 04/12/23 ARIPiprazole [Abilify] 5 mg PO HS 11/06/22 04/12/23 Acetaminophen/Diphenhydramine 2 tab PO HS 11/06/22 04/12/23 [Tylenol PM 500-25mg] Cholecalciferol [Vitamin D3 (125 125 mcg PO DAILY 11/06/22 04/12/23 Mcg = 5000 Iu)] Ergocalciferol (Vitamin D2) 1,250 mcg PO MO 11/06/22 04/12/23 [Drisdol (50,000 Iu)] ARIPiprazole [Abilify] 10 mg PO DAILY 03/06/23 04/12/23 Metoprolol Tartrate [Lopressor] 100 mg PO BID 03/06/23 04/12/23 ALPRAZolam [Xanax] 0.25 mg PO DAILY 04/12/23 04/12/23 Atorvastatin [Lipitor] 20 mg PO DAILY 04/12/23 04/12/23 Insulin Glargine,Hum.rec.anlog 8 units SQ DAILY 04/12/23 04/12/23 [Lantus Solostar Pen] Melatonin 3 mg PO HS 04/12/23 04/12/23 lisinopriL [Zestril] 10 mg PO DAILY 04/12/23 04/12/23 Previous Rx's Medication Instructions Recorded Acetaminophen Tab [Tylenol] 650 mg PO Q6HR PRN #30 tab 11/09/22 amLODIPine [Norvasc] 10 mg PO DAILY #30 tab 11/09/22 Gabapentin 300 mg PO BID #4 cap 03/07/23 Allergies Allergy/AdvReac Type Severity Reaction Status Date / Time No Known Allergies Allergy Verified 04/12/23 15:22 Review of Systems ROS Statement: Those systems with pertinent positive or pertinent negative responses have been documented in the HPI. ROS Other: All systems not noted in ROS Statement are negative. Past Medical History Past Medical History: Atrial Fibrillation, Heart Failure, CVA/TIA, Diabetes Mellitus, Hypertension Additional Past Medical History / Comment(s): Moderate to severe aortic stenosis - had TAVR History of Any Multi-Drug Resistant Organisms: None Reported Past Surgical History: Orthopedic Surgery, Tonsillectomy Additional Past Surgical History / Comment(s): brain sx 2006 - due to bleed, TAVR, right hip 2019 Past Anesthesia/Blood Transfusion Reactions: No Reported Reaction Past Psychological History: Anxiety, Depression Smoking Status: Never smoker Past Alcohol Use History: None Reported Past Drug Use History: None Reported General Exam Limitations: no limitations General appearance: alert, in no apparent distress Head exam: Present: atraumatic, normocephalic Eye exam: Present: normal appearance, PERRL ENT exam: Present: mucous membranes dry Neck exam: Present: normal inspection. Absent: tenderness, meningismus Respiratory exam: Present: normal lung sounds bilaterally. Absent: respiratory distress, wheezes Cardiovascular Exam: Present: regular rate, normal rhythm GI/Abdominal exam: Present: soft. Absent: distended, tenderness, guarding Extremities exam: Present: normal inspection, normal capillary refill Neurological exam: Present: alert, oriented X3, CN II-XII intact. Absent: motor sensory deficit Psychiatric exam: Present: normal affect, normal mood Skin exam: Present: warm, dry, intact Course Vital Signs 04/12/23 04/12/23 04/12/23 14:02 14:05 18:00 Temperature 98.2 F 98.5 F 97.9 F Pulse Rate 65 61 60 Respiratory 18 16 16 Rate Blood Pressure 124/64 124/64 164/74 O2 Sat by Pulse 98 99 96 Oximetry Medical Decision Making - Medical Decision Making Was pt. sent in by a medical professional or institution (, PA, RECYCLING COORDINATOR, urgent care, hospital, or care home...) When possible be specific @ -No Did you speak to anyone other than the patient for history (EMS, parent, family, police, friend...)? What history was obtained from this source @ -No Did you review nursing and triage notes (agree or disagree)? Why? @ -I reviewed and agree with nursing and triage notes Were old charts reviewed (outside hosp., previous admission, EMS record, old EKG, old radiological studies, urgent care reports/EKG's, care home records)? Report findings @ -No old charts were reviewed Differential Diagnosis (chest pain, altered mental status, abdominal pain women, abdominal pain men, vaginal bleeding, weakness, fever, dyspnea, syncope, headache, dizziness, GI bleed, back pain, seizure, CVA, palpatations, mental health, musculoskeletal)? @ Differential Weakness: Hypoglycemia, shock, sepsis, hyponatremia, anemia, infection, TX, ETOH, adverse medicine reaction, overdose, stroke, this is not meant to be an all-inclusive list. EKG interpreted by me (3pts min.). @ -Paced rhythm rate of 62, Q synagogue wide at 203, QTC 522 X-rays interpreted by me (1pt min.). @ -X-ray of the chest is negative for acute cardiac primary findings] CT interpreted by me (1pt min.). @ -Brain CT negative for intracranial hemorrhage, showing likely old CVA U/S interpreted by me (1pt. min.). @ -None done What testing was considered but not performed or refused? (CT, X-rays, U/S, labs)? Why? @ -None What meds were considered but not given or refused? Why? @ -None Did you discuss the management of the patient with other professionals (professionals i.e. , PA, RECYCLING COORDINATOR, lab, RT, psych nurse, social work supervisor, prosthodontist, teacher, correction officer, case work aide)? Give summary @ -[Dr. Macedo Was smoking cessation discussed for >3mins.? @ -No Was critical care preformed (if so, how long)? @ -No Were there social determinants of health that impacted care today? How? (Homelessness, low income, unemployed, alcoholism, drug addiction, transportation, low edu. Level, literacy, decrease access to med. care, nursing home, rehab)? @ -No Was there de-escalation of care discussed even if they declined (Discuss DNR or withdrawal of care, Hospice)? DNR status @ -No What co-morbidities impacted this encounter? (DM, HTN, Smoking, COPD, CAD, Cancer, CVA, ARF, Chemo, Hep., AIDS, mental health diagnosis, sleep apnea, morbid obesity)? @ CVA, hypertension, Was patient admitted / discharged? Hospital course, mention meds given and route, prescriptions, significant lab abnormalities, going to OR and other pertinent info. @ 84-year-old male with weakness. Laboratory testing is stable without significant abnormality. Patient does not make urine while in the emergency department, suspect dehydration. Bladder scan reveals only 75 mL in the bladder. The patient will be admitted for IV hydration and generalized weakness. He may require long-term placement. Undiagnosed new problem with uncertain prognosis? @ -No Drug Therapy requiring intensive monitoring for toxicity (Heparin, Nitro, Insulin, Cardizem)? @ -No Were any procedures done? @ -No Diagnosis/symptom? @ -[Weakness, dehydration Acute, or Chronic, or Acute on Chronic? @ -Acute Uncomplicated (without systemic symptoms) or Complicated (systemic symptoms)? @ -default Side effects of treatment? @ -No Exacerbation, Progression, or Severe Exacerbation? @ -No Poses a threat to life or bodily function? How? (Chest pain, [place], [place], pneumonia, PE, COPD, DKA, ARF, appy, cholecystitis, CVA, Diverticulitis, Homicidal, Suicidal, threat to staff... and all critical care pts) @ -No - Lab Data Result diagrams: 04/12/23 15:49 04/12/23 15:49 Lab Results 04/12/23 04/12/23 04/12/23 Range/Units 15:49 15:49 15:49 WBC 4.8 (3.8-10.6) k/uL RBC 4.24 L (4.30-5.90) m/uL Hgb 14.1 (13.0-17.5) gm/dL Hct 42.9 (39.0-53.0) % MCV 101.3 H (80.0-100.0) fL MCH 33.3 (25.0-35.0) pg MCHC 32.9 (31.0-37.0) g/dL RDW 13.0 (11.5-15.5) % Plt Count 123 L (150-450) k/uL MPV 7.9 Neutrophils % 67 % Lymphocytes % 23 % Monocytes % 7 % Eosinophils % 1 % Basophils % 0 % Neutrophils # 3.2 (1.3-7.7) k/uL Lymphocytes # 1.1 (1.0-4.8) k/uL Monocytes # 0.3 (0-1.0) k/uL Eosinophils # 0.1 (0-0.7) k/uL Basophils # 0.0 (0-0.2) k/uL Macrocytosis Slight PT 12.4 (10.0-12.5) sec INR 1.2 H (<1.2) APTT 23.4 (22.0-30.0) sec Sodium 139 (137-145) mmol/L Potassium 4.1 (3.5-5.1) mmol/L Chloride 105 (98-107) mmol/L Carbon Dioxide 25 (22-30) mmol/L Anion Gap 9 mmol/L BUN 19 (9-20) mg/dL Creatinine 0.94 (0.66-1.25) mg/dL Est GFR (CKD-EPI)AfAm 87 (>60 ml/min/1.73 sqM) Est GFR (CKD-EPI)NonAf 75 (>60 ml/min/1.73 sqM) Glucose 151 H (74-99) mg/dL Plasma Lactic Acid Smith (0.7-2.0) mmol/L Calcium 9.3 (8.4-10.2) mg/dL Magnesium 1.8 (1.6-2.3) mg/dL Total Bilirubin 0.7 (0.2-1.3) mg/dL AST 20 (17-59) U/L ALT 14 (4-49) U/L Alkaline Phosphatase 55 (38-126) U/L Troponin I (0.000-0.034) ng/mL Total Protein 6.3 (6.3-8.2) g/dL Albumin 3.7 (3.5-5.0) g/dL 04/12/23 04/12/23 Range/Units 15:49 15:49 WBC (3.8-10.6) k/uL RBC (4.30-5.90) m/uL Hgb (13.0-17.5) gm/dL Hct (39.0-53.0) % MCV (80.0-100.0) fL MCH (25.0-35.0) pg MCHC (31.0-37.0) g/dL RDW (11.5-15.5) % Plt Count (150-450) k/uL MPV Neutrophils % % Lymphocytes % % Monocytes % % Eosinophils % % Basophils % % Neutrophils # (1.3-7.7) k/uL Lymphocytes # (1.0-4.8) k/uL Monocytes # (0-1.0) k/uL Eosinophils # (0-0.7) k/uL Basophils # (0-0.2) k/uL Macrocytosis PT (10.0-12.5) sec INR (<1.2) APTT (22.0-30.0) sec Sodium (137-145) mmol/L Potassium (3.5-5.1) mmol/L Chloride (98-107) mmol/L Carbon Dioxide (22-30) mmol/L Anion Gap mmol/L BUN (9-20) mg/dL Creatinine (0.66-1.25) mg/dL Est GFR (CKD-EPI)AfAm (>60 ml/min/1.73 sqM) Est GFR (CKD-EPI)NonAf (>60 ml/min/1.73 sqM) Glucose (74-99) mg/dL Plasma Lactic Acid Smith 1.6 (0.7-2.0) mmol/L Calcium (8.4-10.2) mg/dL Magnesium (1.6-2.3) mg/dL Total Bilirubin (0.2-1.3) mg/dL AST (17-59) U/L ALT (4-49) U/L Alkaline Phosphatase (38-126) U/L Troponin I 0.019 (0.000-0.034) ng/mL Total Protein (6.3-8.2) g/dL Albumin (3.5-5.0) g/dL Disposition Clinical Impression: Weakness, Dehydration Disposition: ADMITTED IP TO THIS [facility] Condition: Stable Is patient prescribed a controlled substance at d/c from ED?: No Referrals: Roland Holt MD [Primary Care Provider] - 1-2 days Time of Disposition: 19:33
[2023-04-12 16:04] LABS: Basophils % (A) 0 %; Eosinophils # (A) 0.1 k/uL (0-0.7); Eosinophils % (A) 1 %; HCT 42.9 % (39.0-53.0); HGB 14.1 gm/dL (13.0-17.5); Lymphocytes # (A) 1.1 k/uL (1.0-4.8); Lymphocytes % (A) 23 %; MCH 33.3 pg (25.0-35.0); MCHC 32.9 g/dL (31.0-37.0); MCV 101.3 fL (80.0-100.0); Macrocytosis Slight; Mean Platelet Volume 7.9; Monocytes # (A) 0.3 k/uL (0-1.0); Monocytes % (A) 7 %; Neutrophils # (A) 3.2 k/uL (1.3-7.7); Neutrophils % (A) 67 %; Platelet Count 123 k/uL (150-450); RBC 4.24 m/uL (4.30-5.90); WBC 4.8 k/uL (3.8-10.6)
[2023-04-12 16:15] LABS: Potassium 4.1 mmol/L (3.5-5.1)
[2023-04-12 16:16] LABS: ALT 14 U/L (4-49); AST 20 U/L (17-59); African American GFR (CKD) 87 (>60 ml/min/1.73 sqM); Albumin 3.7 g/dL (3.5-5.0); Alkaline Phosphatase 55 U/L (38-126); Anion Gap 9 mmol/L; Blood Urea Nitrogen 19 mg/dL (9-20); Calcium 9.3 mg/dL (8.4-10.2); Carbon Dioxide 25 mmol/L (22-30); Chloride 105 mmol/L (98-107); Glucose 151 mg/dL (74-99); Magnesium 1.8 mg/dL (1.6-2.3); Non-African American GFR(CKD) 75 (>60 ml/min/1.73 sqM); Sodium 139 mmol/L (137-145); Total Bilirubin 0.7 mg/dL (0.2-1.3); Total Protein 6.3 g/dL (6.3-8.2)
[2023-04-12 16:25] LABS: INR 1.2 (<1.2); Partial Thromboplastin Time 23.4 sec (22.0-30.0); Prothrombin Time 12.4 sec (10.0-12.5)
--- NOTE | 2023-04-12 16:38 | CT ---
EXAMINATION TYPE: CT brain wo con DATE OF EXAM: 04/12/2023 COMPARISON: 07/18/2019 INDICATION: HEADACHE DLP: 1095.4 mGycm, Automated exposure control for dose reduction was used. CONTRAST: None CT of the brain is performed utilizing 3 mm thick sections through the posterior fossa and 3 mm thick sections through the remaining calvarium. Study is performed within 24 hours of arrival to the hosp ital. No abnormal hyperdensity is present to suggest an acute intracranial hemorrhage. No mass lesion is evident. There is hypodensity within the subcortical watershed region. There is some more central hypodensity suggesting this may be an older infarct. No mass effect on the adjacent sulci is identified also sugg esting older infarct. Correlate with symptoms. This is an interval change from the comparison study. Some mild periventricular white matter hypodensity is present, likely on the basis of chronic white m atter ischemic changes. Ventricles and sulci are prominent for the patient age. There is stable postsurgical change in the inferior medial left cerebellum and left occipital cranium . Significant mucosal thickening within the paranasal sinuses is not identified IMPRESSION: 1. Hypodensity within the subcortical right watershed region. Correlate with the patient's symptoms . Findings appear more suggestive for an old but interval subcortical infarct from comparison. This c ould be evaluated with MRI.
--- NOTE | 2023-04-12 16:46 | XR ---
EXAMINATION TYPE: XR KUB DATE OF EXAM: 04/12/2023 COMPARISON: None HISTORY: Abdomen pain TECHNIQUE: Abdomen is examined in the supine view. FINDINGS: Nonspecific bowel gas is within small bowel loops. Some colonic bowel gas is present. Psoas margins are normal. Again cardiomegaly is not evident. No suspicious calcifications are identified. Right hip prosthesis is noted. IMPRESSION: 1. Nonspecific abdomen.
--- NOTE | 2023-04-12 16:47 | XR ---
EXAMINATION TYPE: XR chest 2V DATE OF EXAM: 04/12/2023 COMPARISON: 03/05/2023 INDICATION: Weakness dizziness abdomen pain TECHNIQUE: Frontal and lateral views of the chest are obtained. FINDINGS: The heart size is normal. Pacemaker overlies left chest. Prior cardiac valve replacement is evident The pulmonary vasculature is normal. The lungs are clear. IMPRESSION: 1. No acute pulmonary process.
[2023-04-12] MEDS ORDERED: NALOXONE 0.4 MG/ML 1 ML VIAL IV PRN (19:21)
[2023-04-12] MEDS ORDERED: ACETAMINOPHEN TAB 325 MG TAB PO PRN (19:27)
[2023-04-12 19:41] LABS: Appearance,Urine Cloudy (Clear); Bacteria,Urine Rare /hpf; Bilirubin,Urine Negative (Negative); Blood,Urine Negative (Negative); Color,Urine Light Yellow; Glucose,Urine (UA) Trace (Negative); Ketones,Urine Negative (Negative); Leukocyte Esterase,Urine Negative (Negative); Mucus,Urine Rare /hpf; Nitrite,Urine Negative (Negative); PH, Urine 5.5 (5.0-8.0); Protein,Urine Trace (Negative); RBC,Urine <1 /hpf (0-5); Urobilinogen,Urine <2.0 mg/dL (<2.0); WBC,Urine 7 /hpf (0-5)
[2023-04-12] MEDS: SODIUM CHLORIDE 0.9% 1,000 ML IV SCH (21:29)
[2023-04-12] MEDS ORDERED: ALPRAZolam 0.25 MG TAB PO PRN (22:50)
[2023-04-12] MEDS: ARIPiprazole 5 MG TAB PO SCH (23:21)
[2023-04-12] MEDS: GABAPENTIN 300 MG CAP PO SCH (23:21)
[2023-04-12] MEDS: METOPROLOL TARTRATE 50 MG TAB PO SCH (23:31)
[2023-04-13] MEDS: APIXABAN 5 MG TAB PO SCH ×3 (00:12→20:43)
[2023-04-13 03:42] LABS: Glucose,Whole Blood 83 mg/dL (70-110)
[2023-04-13 07:28] LABS: Glucose,Whole Blood 85 mg/dL (70-110)
[2023-04-13] MEDS ORDERED: ZINC OXIDE 20% OINT 28.4 GM TUBE TOPICAL PRN (09:00)
[2023-04-13] MEDS: GABAPENTIN 300 MG CAP PO SCH (09:42)
[2023-04-13] MEDS: METOPROLOL TARTRATE 50 MG TAB PO SCH ×2 (09:42→20:43)
[2023-04-13] MEDS: ARIPiprazole 5 MG TAB PO SCH ×2 (11:35→20:43)
[2023-04-13 11:49] LABS: Glucose,Whole Blood 93 mg/dL (70-110)
--- NOTE | 2023-04-13 12:43 | P.HPIM ---
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 His oriented to time place and person, he is a hospital and he can tell its April 2023, he knows the name of the president. Patient says that his dizziness has improved earlier this morning and currently is not dizzy, no headache or leg Numbness. No Chest Pain or Dyspnea. No Other GI or Urinary Symptoms. Patient Conference Was Taking His home Patient was recently discharged from this facility status post renal retention and Horan catheter. A ankle patch molder involved him for high troponin came back to normal with recommendation for outpatient stress test, hold patient felt follow- up with. Vitals stable. unremarkable CBC, nylon, BMP, liver enzymes, Urinalysis is negative for infection. Chest x-ray: No acute process KUB: Nonobstructive gas pattern 10 EKG showing ventricular paced rhythm CT of the brain: Hypodensity within the subcortical right buttock shaft region. Finding appear more suggestive of an old interval subcortical infarct from compression Patient was recently in this hospital last month for urinary retention status post Horan catheter. Also patient had elevated troponin, evaluated by ankle patch molder showing preserved ejection fraction 50-55% with hypokinesia of inferior apical wall Review of Systems Review of systems CONSTITUTIONAL: No fever, no malaise, no fatigue. HEENT: No recent visual problems or hearing problems. Denied any sore throat. CARDIOVASCULAR: No orthopnea, PND, no palpitations, no syncope. PULMONARY: No shortness of breath, no cough, no hemoptysis. GASTROINTESTINAL: No diarrhea, no nausea, no vomiting, no abdominal pain. Normoactive bowel sounds. NEUROLOGICAL: No headaches, no weakness, no numbness. HEMATOLOGICAL: Denies any bleeding or petechiae. GENITOURINARY: Denies any burning micturition, frequency, or urgency. MUSCULOSKELETAL/RHEUMATOLOGICAL: Denies any joint pain, swelling, or any muscle pain. ENDOCRINE: Denies any polyuria or polydipsia. Past Medical History Past Medical History: Atrial Fibrillation, Heart Failure, CVA/TIA, Diabetes Mellitus, Hypertension Additional Past Medical History / Comment(s): Moderate to severe aortic stenosis - had TAVR History of Any Multi-Drug Resistant Organisms: None Reported Past Surgical History: Orthopedic Surgery, Tonsillectomy Additional Past Surgical History / Comment(s): brain sx 2007 - due to bleed, TAVR, right hip 2019 Past Anesthesia/Blood Transfusion Reactions: No Reported Reaction Past Psychological History: Anxiety, Depression Smoking Status: Never smoker Past Alcohol Use History: None Reported Past Drug Use History: None Reported Medications and Allergies Home Medications Medication Instructions Recorded Confirmed Type Apixaban [Eliquis] 5 mg PO BID 07/18/19 04/12/23 History Tamsulosin HCl [Flomax] 0.4 mg PO DAILY 06/09/21 04/12/23 History ARIPiprazole [Abilify] 5 mg PO HS 11/06/22 04/12/23 History Acetaminophen/Diphenhydramine 2 tab PO HS 11/06/22 04/12/23 History [Tylenol PM 500-25mg] Cholecalciferol [Vitamin D3 (125 125 mcg PO DAILY 11/06/22 04/12/23 History Mcg = 5000 Iu)] Ergocalciferol (Vitamin D2) 1,250 mcg PO MO 11/06/22 04/12/23 History [Drisdol (50,000 Iu)] Acetaminophen Tab [Tylenol] 650 mg PO Q6HR PRN #30 tab 11/09/22 04/12/23 Rx amLODIPine [Norvasc] 10 mg PO DAILY #30 tab 11/09/22 04/12/23 Rx ARIPiprazole [Abilify] 10 mg PO DAILY 03/06/23 04/12/23 History Metoprolol Tartrate [Lopressor] 100 mg PO BID 03/06/23 04/12/23 History Gabapentin 300 mg PO BID #4 cap 03/07/23 04/12/23 Rx ALPRAZolam [Xanax] 0.25 mg PO DAILY 04/12/23 04/12/23 History Atorvastatin [Lipitor] 20 mg PO DAILY 04/12/23 04/12/23 History Insulin Glargine,Hum.rec.anlog 8 units SQ DAILY 04/12/23 04/12/23 History [Lantus Solostar Pen] Melatonin 3 mg PO HS 04/12/23 04/12/23 History lisinopriL [Zestril] 10 mg PO DAILY 04/12/23 04/12/23 History Allergies Allergy/AdvReac Type Severity Reaction Status Date / Time No Known Allergies Allergy Verified 04/12/23 15:22 Physical Exam Vitals: Vital Signs Temp Pulse Pulse Pulse Resp BP BP 04/13/23 08:25 75 16 133/78 04/13/23 08:22 60 16 118/72 04/13/23 08:20 59 L 16 162/82 04/13/23 08:04 75 133/78 04/13/23 08:02 60 118/72 04/13/23 08:00 59 L 162/82 04/13/23 07:17 97.4 F L 59 L 16 163/90 04/13/23 03:45 98.6 F 61 18 04/13/23 02:00 98.3 F 60 15 04/12/23 21:17 98 F 60 17 04/12/23 18:00 97.9 F 60 16 164/74 04/12/23 14:05 98.5 F 61 16 124/64 04/12/23 14:02 98.2 F 65 18 124/64 BP Pulse Ox 04/13/23 08:25 98 04/13/23 08:22 99 04/13/23 08:20 96 04/13/23 08:04 04/13/23 08:02 04/13/23 08:00 04/13/23 07:17 97 04/13/23 03:45 161/77 97 04/13/23 02:00 110/59 98 04/12/23 21:17 121/60 100 04/12/23 18:00 96 04/12/23 14:05 99 04/12/23 14:02 98 Intake and Output 04/12/23 04/13/23 04/13/23 22:59 06:59 14:59 Intake Total 150 Output Total 300 200 Balance -150 -200 Intake: IV 150 Sodium Chloride 0.9% 1, 150 000 ml @ 75 mls/hr IV . [id number] [facility] Rx#:[id number] Output: Urine 300 200 Other: Voiding Method Urinal # Voids 2 Weight 112.037 kg GENERAL: The patient is alert and oriented x3, not in any acute distress. Well developed, well nourished. HEENT: Pupils are round and equally reacting to light. EOMI. No scleral icterus. No conjunctival pallor. Normocephalic, atraumatic. No pharyngeal erythema. No thyromegaly. CARDIOVASCULAR: S1 and S2 present. No murmurs, rubs, or gallops. PULMONARY: Chest is clear to auscultation, no wheezing , no crackles. ABDOMEN: Soft, nontender, nondistended, normoactive bowel sounds. No palpable organomegaly. MUSCULOSKELETAL: No joint swelling or deformity. EXTREMITIES: No cyanosis, clubbing, or pedal edema. NEUROLOGICAL: Gross neurological examination did not reveal any focal deficits. SKIN: No rashes. no petechiae. Results CBC & Chem 7: 04/12/23 15:49 04/12/23 15:49 Labs: Abnormal Lab Results - Last 24 Hours (Table) 04/12/23 04/12/23 04/12/23 Range/Units 15:49 15:49 15:49 RBC 4.24 L (4.30-5.90) m/uL MCV 101.3 H (80.0-100.0) fL Plt Count 123 L (150-450) k/uL INR 1.2 H (<1.2) Glucose 151 H (74-99) mg/dL Urine Protein (Negative) Urine Glucose (UA) (Negative) Urine WBC (0-5) /hpf Urine Bacteria (None) /hpf Urine Mucus (None) /hpf 04/12/23 Range/Units 19:24 RBC (4.30-5.90) m/uL MCV (80.0-100.0) fL Plt Count (150-450) k/uL INR (<1.2) Glucose (74-99) mg/dL Urine Protein Trace H (Negative) Urine Glucose (UA) Trace H (Negative) Urine WBC 7 H (0-5) /hpf Urine Bacteria Rare H (None) /hpf Urine Mucus Rare H (None) /hpf Thrombosis Risk Factor Assmnt - Choose All That Apply Any of the Below Risk Factors Present?: Yes Each Factor Represents 1 point: Medical pt on bed rest, Obesity (BMI >25) Other Risk Factors: Yes Each Risk Factor Represents 3 Points: Age 75 years or older Other congenital or acquired thrombophilia - If yes, enter type in comment: No Thrombosis Risk Factor Assessment Total Risk Factor Score: 5 Thrombosis Risk Factor Assessment Level: High Risk Assessment and Plan Assessment: Transient dizziness with possible vertigo. Could be possible metabolic/toxic encephalopathy secondary to medication as patient was on antihistamine and Xanax at home Interval change of the CT of the brain in the right subcortical brain with possible interval changes. History of Urinary retention Generalized weakness Status post dual-chamber per pacemaker History of mild cardiomyopathy EF 40-45% History of prior transcatheter aortic valve replacement Chronic atrial fibrillation History of stroke Hypertension Hyperlipidemia Insulin-dependent diabetes mellitus Dementia Plan: Continue with telemetry monitoring Continue with Eliquis Continue gentle hydration normal saline 75.2 per hour Cardiology consults, Neurology consult Labs and medication were reviewed.. Continue same treatment. Continue with symptomatic treatment. Resume home medication. Monitor labs and vitals. DVT and GI prophylaxis. Further recommendations as per clinical course of the patient DVT prophylaxis: eliquis GI Prophylaxis: Pepcid PT/OT: Pending Prognosis is guarded
--- NOTE | 2023-04-13 13:16 | P.CRDCN ---
History of Present Illness History of present illness: HISTORY OF PRESENT ILLNESS: This is a 83-year-old male with a past medical history significant for diabetes, atrial fibrillation, hypertension, CVA, sick sinus syndrome with pacemaker implantation and recent generator change in November 2022, mild cardiomyopathy 40-45%, and severe aortic stenosis with previous TAVR. Patient follows in the office with Dr. Wei. We have been asked to see the patient in consultation for dizziness and hypokinesia on echocardiogram. She was brought to the hospital from [facility] facility secondary to generalized weakness, headache, and diarrhea per the ER physician note. Patient examined this afternoon at the bedside. He is sitting up in the chair. Patient states he came to the hospital secondary to dizziness. Patient states for the past 2 days he has been feeling dizzy. He reports it feels as if the room is spinning. He states this initially started while he was sitting down watching TV. At the time of examination, his dizziness has resolved. He denies any palpitations. Denies any chest pain or pressure. He denies any shortness of breath. Vital signs are stable. * EKG reveals ventricular paced rhythm * Chest xray negative for acute process * Current home cardiac medications include Eliquis 5 mg twice a day, amlodipine 10 mg daily, metoprolol tartrate 100 mg twice a day, lisinopril 10 mg daily, atorvastatin 20 mg daily * Most recent echocardiogram obtained on 03/07/2023 revealed ejection fraction 50-55%, apical inferior and apical septal wall hypokinesia, normal functioning transcatheter aortic valve, trace TR REVIEW OF SYSTEMS: At the time of my exam: CONSTITUTIONAL: Denies fever or chills. HEENT: Denies blurred vision, vision changes, or eye pain. Denies hemoptysis CARDIOVASCULAR: Denies chest pain. Denies orthopnea. Denies PND. Denies palpitations RESPIRATORY: Denies shortness of breath. GASTROINTESTINAL: Denies abdominal pain. Denies nausea or vomiting. HEMATOLOGIC: Denies bleeding disorders. GENITOURINARY: Denies any blood in urine. SKIN: Denies pruitis. Denies rash. PHYSICAL EXAM: VITAL SIGNS: Reviewed. GENERAL: Well-developed in no acute distress. HEENT: Head is normocephalic. Pupils are equal, round. Sclerae anicteric. Mucous membranes of the mouth are moist. Neck supple. No JVD or thyromegaly LUNGS: Respirations even and unlabored. Lungs essentially clear to auscultation bilaterally. HEART: Regular rate and rhythm. S1 and S2 heard. Systolic murmur noted. ABDOMEN: Soft. Nondistended. Nontender. EXTREMITIES: Normal range of motion. No clubbing or cyanosis. Peripheral pulses intact. No lower extremity edema NEUROLOGIC: Awake and alert. Oriented x 3. ASSESSMENT: Generalized weakness Dizziness History of mild cardiomyopathy, 40-45%, with improved EF, ischemic versus nonischemic History of aortic stenosis status post TAVR Permanent atrial fibrillation Sick sinus syndrome with previous pacemaker implantation and generator change in November 2022 ([employer]) Hypertension Diabetes History of CVA PLAN: Continue current cardiac medications Continue telemetry monitoring Interrogate pacemaker. Patient has a [employer] device. Patient already scheduled on an outpatient basis to have nuclear scan on 04/25/2023 secondary to wall motion abnormalities on recent echocardiogram Patient is currently stable from a cardiac standpoint Further recommendations pending patient's course Nurse practitioner note has been reviewed by physician. Signing provider agrees with the documented findings, assessment, and plan of care. Past Medical History Past Medical History: Atrial Fibrillation, Heart Failure, CVA/TIA, Diabetes Mellitus, Hypertension Additional Past Medical History / Comment(s): Moderate to severe aortic stenosis - had TAVR History of Any Multi-Drug Resistant Organisms: None Reported Past Surgical History: Orthopedic Surgery, Tonsillectomy Additional Past Surgical History / Comment(s): brain sx 2006 - due to bleed, TAVR, right hip 2019 Past Anesthesia/Blood Transfusion Reactions: No Reported Reaction Past Psychological History: Anxiety, Depression Smoking Status: Never smoker Past Alcohol Use History: None Reported Past Drug Use History: None Reported Medications and Allergies Home Medications Medication Instructions Recorded Confirmed Type Apixaban [Eliquis] 5 mg PO BID 07/18/19 04/12/23 History Tamsulosin HCl [Flomax] 0.4 mg PO DAILY 06/09/21 04/12/23 History ARIPiprazole [Abilify] 5 mg PO HS 11/06/22 04/12/23 History Acetaminophen/Diphenhydramine 2 tab PO HS 11/06/22 04/12/23 History [Tylenol PM 500-25mg] Cholecalciferol [Vitamin D3 (125 125 mcg PO DAILY 11/06/22 04/12/23 History Mcg = 5000 Iu)] Ergocalciferol (Vitamin D2) 1,250 mcg PO MO 11/06/22 04/12/23 History [Drisdol (50,000 Iu)] Acetaminophen Tab [Tylenol] 650 mg PO Q6HR PRN #30 tab 11/09/22 04/12/23 Rx amLODIPine [Norvasc] 10 mg PO DAILY #30 tab 11/09/22 04/12/23 Rx ARIPiprazole [Abilify] 10 mg PO DAILY 03/06/23 04/12/23 History Metoprolol Tartrate [Lopressor] 100 mg PO BID 03/06/23 04/12/23 History Gabapentin 300 mg PO BID #4 cap 03/07/23 04/12/23 Rx ALPRAZolam [Xanax] 0.25 mg PO DAILY 04/12/23 04/12/23 History Atorvastatin [Lipitor] 20 mg PO DAILY 04/12/23 04/12/23 History Insulin Glargine,Hum.rec.anlog 8 units SQ DAILY 04/12/23 04/12/23 History [Lantus Solostar Pen] Melatonin 3 mg PO HS 04/12/23 04/12/23 History lisinopriL [Zestril] 10 mg PO DAILY 04/12/23 04/12/23 History Allergies Allergy/AdvReac Type Severity Reaction Status Date / Time No Known Allergies Allergy Verified 04/12/23 15:22 Physical Exam Vitals: Vital Signs Temp Pulse Pulse Pulse Resp BP BP 04/13/23 08:25 75 16 133/78 04/13/23 08:22 60 16 118/72 04/13/23 08:20 59 L 16 162/82 04/13/23 08:04 75 133/78 04/13/23 08:02 60 118/72 04/13/23 08:00 59 L 162/82 04/13/23 07:17 97.4 F L 59 L 16 163/90 04/13/23 03:45 98.6 F 61 18 04/13/23 02:00 98.3 F 60 15 04/12/23 21:17 98 F 60 17 04/12/23 18:00 97.9 F 60 16 164/74 04/12/23 14:05 98.5 F 61 16 124/64 04/12/23 14:02 98.2 F 65 18 124/64 BP Pulse Ox 04/13/23 08:25 98 04/13/23 08:22 99 04/13/23 08:20 96 04/13/23 08:04 04/13/23 08:02 04/13/23 08:00 04/13/23 07:17 97 04/13/23 03:45 161/77 97 04/13/23 02:00 110/59 98 04/12/23 21:17 121/60 100 04/12/23 18:00 96 04/12/23 14:05 99 04/12/23 14:02 98 Intake and Output 04/12/23 04/13/23 04/13/23 22:59 06:59 14:59 Intake Total 150 Output Total 300 200 Balance -150 -200 Intake: IV 150 Sodium Chloride 0.9% 1, 150 000 ml @ 75 mls/hr IV . [id number] [facility] Rx#:[id number] Output: Urine 300 200 Other: Voiding Method Urinal # Voids 2 Weight 112.037 kg Results 04/12/23 15:49 04/12/23 15:49 Cardiac Enzymes 04/12/23 04/12/23 Range/Units 15:49 15:49 AST 20 (17-59) U/L Troponin I 0.019 (0.000-0.034) ng/mL Coagulation 04/12/23 Range/Units 15:49 PT 12.4 (10.0-12.5) sec APTT 23.4 (22.0-30.0) sec CBC 04/12/23 Range/Units 15:49 WBC 4.8 (3.8-10.6) k/uL RBC 4.24 L (4.30-5.90) m/uL Hgb 14.1 (13.0-17.5) gm/dL Hct 42.9 (39.0-53.0) % Plt Count 123 L (150-450) k/uL Comprehensive Metabolic Panel 04/12/23 Range/Units 15:49 Sodium 139 (137-145) mmol/L Potassium 4.1 (3.5-5.1) mmol/L Chloride 105 (98-107) mmol/L Carbon Dioxide 25 (22-30) mmol/L BUN 19 (9-20) mg/dL Creatinine 0.94 (0.66-1.25) mg/dL Glucose 151 H (74-99) mg/dL Calcium 9.3 (8.4-10.2) mg/dL AST 20 (17-59) U/L ALT 14 (4-49) U/L Alkaline Phosphatase 55 (38-126) U/L Total Protein 6.3 (6.3-8.2) g/dL Albumin 3.7 (3.5-5.0) g/dL Current Medications Generic Name Dose Route Start Last Admin Trade Name Freq PRN Reason Stop Dose Admin Acetaminophen 650 mg 04/12/23 19:27 04/12/23 23:20 Acetaminophen Tab 325 Mg Tab PO 650 mg Q6HR PRN Administration Mild Pain or Fever > 100.5 Alprazolam 0.25 mg 04/12/23 22:50 04/12/23 23:20 Alprazolam 0.25 Mg Tab PO 0.25 mg DAILY PRN Administration Mild Anxiety Apixaban 5 mg 04/12/23 23:30 04/13/23 09:42 Apixaban 5 Mg Tab PO 5 mg BID LAURA Administration Protocol Aripiprazole 5 mg 04/12/23 23:00 04/13/23 11:35 Aripiprazole 5 Mg Tab PO 5 mg DAILY LAURA Administration Gabapentin 300 mg 04/12/23 23:00 04/13/23 09:42 Gabapentin 300 Mg Cap PO 300 mg BID LAURA Administration Sodium Chloride 1,000 mls @ 75 mls/hr 04/12/23 19:30 04/12/23 21:29 Saline 0.9% IV 75 mls/hr .[id number] LAURA Administration Melatonin 3 mg 04/13/23 21:00 Melatonin 3 Mg Tablet PO HS LAURA Metoprolol Tartrate 100 mg 04/12/23 23:00 04/13/23 09:42 Metoprolol Tartrate 50 Mg Tab PO 100 mg BID LAURA Administration Multi-Ingredient Ointment 1 applic 04/13/23 09:00 Zinc Oxide 20% Oint 28.4 Gm Tube TOPICAL TID PRN Wound Healing Protocol Naloxone HCl 0.2 mg 04/12/23 19:21 Naloxone 0.4 Mg/Ml 1 Ml Vial IV Q2M PRN Opioid Reversal Intake and Output 04/12/23 04/13/23 04/13/23 22:59 06:59 14:59 Intake Total 150 Output Total 300 200 Balance -150 -200 Intake: IV 150 Sodium Chloride 0.9% 1, 150 000 ml @ 75 mls/hr IV . [id number] [facility] Rx#:[id number] Output: Urine 300 200 Other: Voiding Method Urinal # Voids 2 Weight 112.037 kg 04/12/23 15:49 04/12/23 15:49
[2023-04-13] MEDS: SODIUM CHLORIDE 0.9% 1,000 ML IV SCH ×2 (15:33→20:45)
[2023-04-13 17:17] LABS: Glucose,Whole Blood 169 mg/dL (70-110)
--- NOTE | 2023-04-13 17:23 | P.CNNES ---
History of Present Illness Consult date: 04/13/23 Requesting physician: Nicolas E Sheet Reason for Consult: interval change of brain hypodensity History of Present Illness: This is a history of brain bleed about 20 years ago, atrial fibrillation on eliquis and has pacemaker, diabetes mellitus, diabetic peripheral neuropathy, vertigo who presented emergency department as a worsening of dizziness. Patient is accompanied with his son and his [id number] who provided history. According to family members they stated that patient has chronic dizziness but has been worsening over the past several months and he feels dizzy when he stands up but recently got worse and that he got flushed and the sugar is checked was 214. Also he's been having staring spells in the last 1-2 month and he is nonresponsive lasting between 1-2 minutes or less. Because of worsening of the dizziness and him not feeling well they wanted him to come to the hospital for further evaluation. According to family members at patient is not compliant taking his medication and he'll take him sporadically on and off. This hospital visit the patient had CT of the head is reported that there is hypodensity in the subcortical right watershed region. Ysabel with the patient's symptoms. 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 This could be evaluated with MRI. The family members patient does not have any history of seizures. Prostatic vitals is positive going from supine 162/82 while sitting is 118/72 and standing was 133/78. His orthostatic is positive. Review of Systems The positive and negative as per HPI. Past Medical History Past Medical History: Atrial Fibrillation, Heart Failure, CVA/TIA, Diabetes Mellitus, Hypertension Additional Past Medical History / Comment(s): Moderate to severe aortic stenosis - had TAVR History of Any Multi-Drug Resistant Organisms: None Reported Past Surgical History: Orthopedic Surgery, Tonsillectomy Additional Past Surgical History / Comment(s): brain sx 2006 - due to bleed, TAVR, right hip 2019 Past Anesthesia/Blood Transfusion Reactions: No Reported Reaction Past Psychological History: Anxiety, Depression Smoking Status: Never smoker Past Alcohol Use History: None Reported Past Drug Use History: None Reported Medications and Allergies Home Medications Medication Instructions Recorded Confirmed Type Apixaban [Eliquis] 5 mg PO BID 07/18/19 04/12/23 History Tamsulosin HCl [Flomax] 0.4 mg PO DAILY 06/09/21 04/12/23 History ARIPiprazole [Abilify] 5 mg PO HS 11/06/22 04/12/23 History Acetaminophen/Diphenhydramine 2 tab PO HS 11/06/22 04/12/23 History [Tylenol PM 500-25mg] Cholecalciferol [Vitamin D3 (125 125 mcg PO DAILY 11/06/22 04/12/23 History Mcg = 5000 Iu)] Ergocalciferol (Vitamin D2) 1,250 mcg PO MO 11/06/22 04/12/23 History [Drisdol (50,000 Iu)] Acetaminophen Tab [Tylenol] 650 mg PO Q6HR PRN #30 tab 11/09/22 04/12/23 Rx amLODIPine [Norvasc] 10 mg PO DAILY #30 tab 11/09/22 04/12/23 Rx ARIPiprazole [Abilify] 10 mg PO DAILY 03/06/23 04/12/23 History Metoprolol Tartrate [Lopressor] 100 mg PO BID 03/06/23 04/12/23 History Gabapentin 300 mg PO BID #4 cap 03/07/23 04/12/23 Rx ALPRAZolam [Xanax] 0.25 mg PO DAILY 04/12/23 04/12/23 History Atorvastatin [Lipitor] 20 mg PO DAILY 04/12/23 04/12/23 History Insulin Glargine,Hum.rec.anlog 8 units SQ DAILY 04/12/23 04/12/23 History [Lantus Solostar Pen] Melatonin 3 mg PO HS 04/12/23 04/12/23 History lisinopriL [Zestril] 10 mg PO DAILY 04/12/23 04/12/23 History Allergies Allergy/AdvReac Type Severity Reaction Status Date / Time No Known Allergies Allergy Verified 04/12/23 15:22 Physical Examination - Vital Signs Vital Signs: Vital Signs Temp Pulse Pulse Pulse Resp BP BP 04/13/23 12:39 97.5 F L 60 16 04/13/23 08:25 75 16 133/78 04/13/23 08:22 60 16 118/72 04/13/23 08:20 59 L 16 162/82 04/13/23 08:04 75 133/78 04/13/23 08:02 60 118/72 04/13/23 08:00 59 L 162/82 04/13/23 07:17 97.4 F L 59 L 16 163/90 04/13/23 03:45 98.6 F 61 18 04/13/23 02:00 98.3 F 60 15 04/12/23 21:17 98 F 60 17 04/12/23 18:00 97.9 F 60 16 164/74 BP Pulse Ox 04/13/23 12:39 122/72 99 04/13/23 08:25 98 04/13/23 08:22 99 04/13/23 08:20 96 04/13/23 08:04 04/13/23 08:02 04/13/23 08:00 04/13/23 07:17 97 04/13/23 03:45 161/77 97 04/13/23 02:00 110/59 98 04/12/23 21:17 121/60 100 04/12/23 18:00 96 Intake and Output 04/13/23 04/13/23 04/13/23 06:59 14:59 22:59 Output Total 200 Balance -200 Output: Urine 200 Other: Voiding Method Urinal External Catheter # Bowel Movements 1 GENERAL: The patient is lying in bed and is not in acute distress. NEUROLOGICAL: Higher mental function: The patient is awake, alert, oriented to self, place and time. Patient is following commands. No aphasia and no neglect. Cranial nerves: The pupils are round, equal and reactive to light and accommodation. Visual urban are full to confrontation throughout. Extraocular movement is intact no nystagmus is noted. Facial sensation is normal to touch throughout. The facial strength is normal throughout. Hearing is normal bilaterally to hand rub. Tongue is midline and moved [id number] without any difficulty. No dysarthria is noted. Shoulder shrug is normal bilaterally. Motor: The strength is 5 over 5 throughout. Normal tone and bulk. Cerebellum: Normal finger to nose bilaterally. Sensation: Sensation is normal to touch throughout. Reflexes (right/left): 2+ in uppers while lowers are patellar are 0-1 and ankles are 0. Plantars are mute bilaterally. Results - Laboratory Findings CBC and BMP: 04/12/23 15:49 04/12/23 15:49 Abnormal Lab Findings: Abnormal Labs 04/12/23 04/12/23 04/12/23 15:49 15:49 15:49 RBC 4.24 L MCV 101.3 H Plt Count 123 L INR 1.2 H Glucose 151 H Urine Protein Urine Glucose (UA) Urine WBC Urine Bacteria Urine Mucus 04/12/23 19:24 RBC MCV Plt Count INR Glucose Urine Protein Trace H Urine Glucose (UA) Trace H Urine WBC 7 H Urine Bacteria Rare H Urine Mucus Rare H Assessment and Plan Assessment: This is an 83-year-old gentleman with history of a brain bleed about 20 years ago, atrial fibrillation on eliquis and has pacemaker , diabetes, diabetic neuropathy was is non-compliant taking his medication and take them sporadically. He's been having worsening of his dizziness. Despite his dizziness is worse when he stands up. He also has blank stares in the last month to month was in which he is nonresponsive lasting 1-[address] of the head that showed hypodensity subcortical white watershed region and it felt old. Her CT of the head and our system was in 2019. Hypodensity over right frontal parietal seems old and the last CT of the head was about the 2019 in our system which was not there. He has history of atrial fibrillation and not compliant taking eliquis. He has acute on chronic dizziness likely due to his positive orthostatic hypotension. According to family he has dizziness when he stands up which goes with the orthostatic hypotension Episodes of blank stares and the last 1-2 years lasting 1-2 minutes and during these episodes he is nonresponsive: Unsure if patient is having the seizures. History of brain bleed about 20 years ago Atrial fibrillation on eliquis and has a pacemaker Diabetes mellitus Diabetic neuropathy History of depression Noncompliant taking medication Plan: I ordered carotid duplex, lipid panel Recent 2-D echo on 03/07/2020 degrees reported as normal left ventricle systolic motion with hypokinesis of the inferior apical wall. Normal functioning bioprosthetic valve in aortic position. Cardiology is on board I ordered a routine EEG and likely to be done this coming up Sunday. Because of his blank stares and there is a concern for possible seizures but not absolute also start the patient on Vimpat 50 mg twice a day. I'll not start the patient on Keppra because of his history of 5 depression which medication caused the worsening of agitation and mood Cannot obtain the MRI of the brain since the patient has a pacemaker Patient is on eliquis 5mg bid and lipitor 20mg daily. I'll not add any antiplatelets since the patient is not compliant taking his medication and with antiplatelet in addition to anticoagulation there is increased risk for bleed and families is in agreement of holding off any antiplatelets at this time. Regarding the positive orthostatic hypotension defer the management to the primary team. Patient was notified that he is to be compliant taking his medication. PT and OT are consulted Defer the rest of the medical management to primary and other specialists Upon discharge recommend the patient to follow-up with a neurologist as an outpatient within 2-3 weeks. Plan discussed with the patient, family members (son and [id number]). Thank you for the consultation Time with Patient: Greater than 30
--- NOTE | 2023-04-13 19:12 | US ---
EXAMINATION TYPE: US carotid duplex BILAT DATE OF EXAM: 04/13/2023 COMPARISON: NONE CLINICAL INDICATION: Male, 83 years old with history of stroke; Stroke per order. Hx hypertension, hy perlipidemia, diabetes. TECHNIQUE: Carotid duplex ultrasound examination. Indirect Doppler criteria was utilized. FINDINGS: EXAM MEASUREMENTS: RIGHT: Peak Systolic Velocity (PSV) cm/sec ----- Right CCA: 90.3 ----- Right ICA: 92.2 ----- Right ECA: 123 ICA/CCA ratio: 1.02 RIGHT: End Diastole cm/sec ----- Right CCA: 6.5 ----- Right ICA: 11.2 ----- Right ECA: 13.0 LEFT: Peak Systolic Velocity (PSV) cm/sec ----- Left CCA: 68.2 ----- Left ICA: 136 ----- Left ECA: 123 ICA/CCA ratio: 1.99 LEFT: End Diastole cm/sec ----- Left CCA: 6.8 ----- Left ICA: 19.4 ----- Left ECA: 1.7 VERTEBRALS (direction of flow): Right Vertebral: Antegrade Left Vertebral: Antegrade Rhythm: Normal INSTRUCTIONAL ASSISTANT NOTES: Plaque seen within bilateral bulbs, right proximal ICA, and left proximal ICA. E levated velocity within left mid ICA. There appears to be turbulent flow within the proximal left ICA with bidirectional waveform seen at this segment. IMPRESSION: 1. Less than 50% stenosis of the right carotid bifurcation. 2. 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 Criteria for Assigning % of Stenosis / Diameter reduction (Estimation based on the indirect measurements of the internal carotid artery velocities (ICA PSV). 1. Normal (no stenosis)=ICA PSV < 125 cm/s: ratio < 2.0: ICA EDV<40 cm/s. 2. Less than 50% stenosis=ICA PSV < 125 cm/s: ratio < 2.0: ICA EDV<40 cm/s. 3. 50 to 69% stenosis=ICA PSV of 125 to 230 cm/s: ration 2.0 ? 4.0: ICA EDV 40-100 cm/s. 4. Greater than 70% stenosis to near occlusion= ICA PSV > 230 cm/s: ratio > 4.0: ICA EDV > 100 cm/s. 5. Near occlusion= ICA PSV velocities may be low or undetectable: variable ratio and ICA EDV. 6. Total occlusion=unable to detect flow.
[2023-04-13 20:09] LABS: Glucose,Whole Blood 191 mg/dL (70-110)
[2023-04-13] MEDS: GABAPENTIN 100 MG CAP PO SCH (20:43)
[2023-04-13] MEDS: LACOSAMIDE 50 MG TABLET PO SCH (20:43)
[2023-04-13] MEDS: MELATONIN 3 MG TABLET PO SCH (20:43)
[2023-04-14 07:29] LABS: Glucose,Whole Blood 72 mg/dL (70-110)
[2023-04-14] MEDS: amLODIPine 10 MG TAB PO SCH (08:23)
[2023-04-14] MEDS: APIXABAN 5 MG TAB PO SCH ×2 (08:23→20:54)
[2023-04-14] MEDS: ATORVASTATIN 20 MG TAB PO SCH (08:24)
[2023-04-14] MEDS: FAMOTIDINE 20 MG/2 ML VIAL IV SCH (08:24)
[2023-04-14] MEDS: ARIPiprazole 10 MG TAB PO SCH (08:24)
[2023-04-14] MEDS: GABAPENTIN 100 MG CAP PO SCH ×2 (08:24→20:54)
[2023-04-14] MEDS: lisinopriL 10 MG TAB PO SCH (08:25)
[2023-04-14] MEDS: LACOSAMIDE 50 MG TABLET PO SCH ×2 (08:25→20:54)
[2023-04-14] MEDS: TAMSULOSIN 0.4 MG CAP.ER.24H PO SCH (08:25)
[2023-04-14] MEDS: METOPROLOL TARTRATE 50 MG TAB PO SCH ×2 (08:25→20:54)
--- NOTE | 2023-04-14 09:24 | P.PN ---
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 Patient follows in the office with Dr. Wei. We have been asked to see the patient in consultation for dizziness and hypokinesia on echocardiogram. She was brought to the hospital from [facility] facility secondary to generalized weakness, headache, and diarrhea per the ER physician note. Patient examined this afternoon at the bedside. He is sitting up in the chair. Patient states he came to the hospital secondary to dizziness. Patient states for the past 2 days he has been feeling dizzy. He reports it feels as if the room is spinning. He states this initially started while he was sitting down watching TV. At the time of examination, his dizziness has resolved. He denies any palpitations. Denies any chest pain or pressure. He denies any shortness of breath. Vital signs are stable. * EKG reveals ventricular paced rhythm * Chest xray negative for acute process * Current home cardiac medications include Eliquis 5 mg twice a day, amlodipine 10 mg daily, metoprolol tartrate 100 mg twice a day, lisinopril 10 mg daily, atorvastatin 20 mg daily * Most recent echocardiogram obtained on 03/07/2023 revealed ejection fraction 50-55%, apical inferior and apical septal wall hypokinesia, normal functioning transcatheter aortic valve, trace TR 04/14/2023 Patient examined this morning at the bedside. Patient denies any chest pain or pressure. He denies any shortness of breath. He denies any further episodes of dizziness. Vital signs are stable. Patient's pacemaker was interrogated yesterday. However report has not been received. PHYSICAL EXAM: VITAL SIGNS: Reviewed. GENERAL: Well-developed in no acute distress. HEENT: Head is normocephalic. Pupils are equal, round. Sclerae anicteric. Mucous membranes of the mouth are moist. Neck supple. No JVD or thyromegaly LUNGS: Respirations even and unlabored. Lungs essentially clear to auscultation bilaterally. HEART: Regular rate and rhythm. S1 and S2 heard. Systolic murmur noted. ABDOMEN: Soft. Nondistended. Nontender. EXTREMITIES: Normal range of motion. No clubbing or cyanosis. Peripheral pulses intact. No lower extremity edema NEUROLOGIC: Awake and alert. Oriented x 3. ASSESSMENT: Generalized weakness Dizziness History of mild cardiomyopathy, 40-45%, with improved EF, ischemic versus nonischemic History of aortic stenosis status post TAVR Permanent atrial fibrillation Sick sinus syndrome with previous pacemaker implantation and generator change in November 2022 ([employer]) Hypertension Diabetes History of CVA PLAN: Continue current cardiac medications Continue telemetry monitoring Patient already scheduled on an outpatient basis to have nuclear scan on 04/25/2023 secondary to wall motion abnormalities on recent echocardiogram Patient's pacemaker was interrogated yesterday. However report has not been received. Nursing to contact [employer] to have interrogation report refaxed. If interrogation does not reveal any significant events, the patient may be discharged today from a cardiac standpoint Nurse practitioner note has been reviewed by physician. Signing provider agrees with the documented findings, assessment, and plan of care. Objective - Vital Signs Vital signs: Vital Signs Temp 98 F 04/14/23 07:34 Pulse 59 L 04/14/23 07:34 Resp 17 04/14/23 07:34 BP 148/78 04/14/23 07:34 Pulse Ox 98 04/14/23 07:34 FiO2 Intake & Output 04/13/23 04/14/23 04/14/23 18:59 06:59 18:59 Output Total 1100 Balance -1100 Weight 100.6 kg Output: Urine 1100 Other: Voiding Method External Catheter External Catheter # Voids 2 # Bowel Movements 1 - Labs CBC & Chem 7: 04/12/23 15:49 04/12/23 15:49 Labs: Abnormal Lab Results - Last 24 Hours (Table) 04/13/23 04/13/23 Range/Units 17:15 20:08 POC Glucose (mg/dL) 169 H 191 H (70-110) mg/dL
[2023-04-14 11:13] LABS: Chol/HDL Ratio 2.39 Ratio; LDL Cholesterol,Calculated 26.9 mg/dL (0.0-131.0)
[2023-04-14 12:05] LABS: Glucose,Whole Blood 190 mg/dL (70-110)
--- NOTE | 2023-04-14 12:57 | P.PN ---
Subjective Progress Note Date: 04/14/23 I am following-up with patient and he feels he is at baseline. Objective - Vital Signs Vital signs: Vital Signs Temp 98 F 04/14/23 07:34 Pulse 59 L 04/14/23 07:34 Resp 17 04/14/23 07:34 BP 148/78 04/14/23 07:34 Pulse Ox 98 04/14/23 07:34 FiO2 Intake & Output 04/13/23 04/14/23 04/14/23 18:59 06:59 18:59 Output Total 1100 Balance -1100 Weight 100.6 kg Output: Urine 1100 Other: Voiding Method External Catheter External Catheter # Voids 2 # Bowel Movements 1 - Exam GENERAL: The patient is lying in bed and is not in acute distress. NEUROLOGICAL: Higher mental function: The patient is awake, alert, oriented to self, place and time. Patient is following commands. No aphasia and no neglect. Cranial nerves: The pupils are round, equal and reactive to light and accommodation. Visual urban are full to confrontation throughout. Extraocular movement is intact no nystagmus is noted. Facial sensation is normal to touch throughout. The facial strength is normal throughout. Hearing is normal bilaterally to hand rub. Tongue is midline and moved [id number] without any difficulty. No dysarthria is noted. Shoulder shrug is normal bilaterally. Motor: The strength is 5 over 5 throughout. Normal tone and bulk. Cerebellum: Normal finger to nose bilaterally. Sensation: Sensation is normal to touch throughout. SOME OF THE WORK-UP DURING THIS HOSPITAL VISIT CONSISTED OF: Lipid panel: Triglyceride 162, cholesterol is 102, LDL is 26, HDL is 42. CT of the head is reported that there is hypodensity in the subcortical right watershed region. Correlate with the patient's symptoms. 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 This could be evaluated with MRI. Carotid duplex was reported as less than 50% stenosis of the right carotid bifurcation. 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 - Labs CBC & Chem 7: 04/12/23 15:49 04/12/23 15:49 Labs: Abnormal Lab Results - Last 24 Hours (Table) 04/12/23 04/13/23 04/13/23 Range/Units 15:49 17:15 20:08 POC Glucose (mg/dL) 169 H 191 H (70-110) mg/dL Triglycerides 162.00 H (0.00-149.00) mg/dL 04/14/23 Range/Units 12:03 POC Glucose (mg/dL) 190 H (70-110) mg/dL Triglycerides (0.00-149.00) mg/dL Assessment and Plan Assessment: This is an 83-year-old gentleman with history of a brain bleed about 20 years ago, atrial fibrillation on eliquis and has pacemaker , diabetes, diabetic neuropathy was is non-compliant taking his medication and take them sporadically. He's been having worsening of his dizziness. Despite his di zziness is worse when he stands up. He also has blank stares in the last month to month was in which he is nonresponsive lasting 1-[address] of the head that showed hypodensity subcortical white watershed region and it felt old. Her CT of the head and our system was in 2019. Hypodensity over right frontal parietal seems old and the last CT of the head was about the 2019 in our system which was not there. He has history of atrial fibrillation and not compliant taking eliquis. He has acute on chronic dizziness likely due to his positive orthostatic hypotension. According to family he has dizziness when he stands up which goes with the orthostatic hypotension Episodes of blank stares and the last 1-2 years lasting 1-2 minutes and during these episodes he is nonresponsive: Unsure if patient is having the seizures. A symptomatic left ICA of 50-69% stenosis on the carotid duplex. History of brain bleed about 20 years ago Atrial fibrillation on eliquis and has a pacemaker Diabetes mellitus Diabetic neuropathy History of depression Noncompliant taking medication Plan: Recent 2-D echo on 03/07/2020 degrees reported as normal left ventricle systolic motion with hypokinesis of the inferior apical wall. Normal functioning bioprosthetic valve in aortic position. Cardiology is on board I ordered a routine EEG and likely to be done this coming up Sunday. Because of his blank stares and there is a concern for possible seizures but not absolute also start the patient on Vimpat 50 mg twice a day. I'll not start the patient on Keppra because of his history of 5 depression which medication caused the worsening of agitation and mood Cannot obtain the MRI of the brain since the patient has a pacemaker Patient is on eliquis 5mg bid and lipitor 20mg daily. I added a small dose of aspirin 81 mg daily because of the carotid stenosis. Patient was notified that he is to be compliant taking his medication including his home eliquis. If patient has recurrent falls at home then the recommend holding off the combination of antiplatelet and anticoagulation and consider one of him and may be continue Eliquis especially with a history of A. fib and the benefit outweigh the risk. But if he has severe falls there is a risk of bleed also with the anticoagulation. Regarding the positive orthostatic hypotension defer the management to the prima ry team. Patient has a symptomatic left ICA stenosis and recommended to follow up with a vascular surgeon team as an outpatient. I recommend medical management for now. PT and OT are consulted Defer the rest of the medical management to primary and other specialists Upon discharge recommend the patient to follow-up with a neurologist as an outpatient within 2-3 weeks. Plan discussed with the patient. Time with Patient: Less than 30
[2023-04-14] MEDS: ASPIRIN 81 MG PO SCH (13:13)
[2023-04-14] MEDS: SODIUM CHLORIDE 0.9% 1,000 ML IV SCH (17:20)
[2023-04-14 17:24] LABS: Glucose,Whole Blood 141 mg/dL (70-110)
[2023-04-14 20:11] LABS: Glucose,Whole Blood 133 mg/dL (70-110)
[2023-04-14] MEDS: ARIPiprazole 5 MG TAB PO SCH (20:54)
--- NOTE | 2023-04-14 21:31 | P.PN ---
Subjective This is a pleasant 83-year-old male with history diabetes mellitus type 2, peripheral neuropathy, chronic atrial fibrillation, hypertension, stroke, severe aortic stenosis status post TAVR, mild cardiomyopathy EF 40-45%, mild increasing dementia Patient presents because he was feeling dizzy for the last 2 days, he describes his dizziness is nonspecific and the room is spinning. His oriented to time place and person, he is a hospital and he can tell its April 2023, he knows the name of the president. Patient says that his dizziness has improved earlier this morning and currently is not dizzy, no headache or leg Numbness. No Chest Pain or Dyspnea. No Other GI or Urinary Symptoms. Patient Conference Was Taking His home Patient was recently discharged from this facility status post renal retention and Horan catheter. A tool room lathe operator involved him for high troponin came back to normal with recommendation for outpatient stress test, hold patient felt follow- up with. Vitals stable. unremarkable CBC, nylon, BMP, liver enzymes, Urinalysis is negative for infection. Chest x-ray: No acute process KUB: Nonobstructive gas pattern 10 EKG showing ventricular paced rhythm CT of the brain: Hypodensity within the subcortical right buttock shaft region. Finding appear more suggestive of an old interval subcortical infarct from compression Patient was recently in this hospital last month for urinary retention status post Horan catheter. Also patient had elevated troponin, evaluated by tool room lathe operator showing preserved ejection fraction 50-55% with hypokinesia of inferior apical wall 04/14/2023 I doing well, he denies any more dizziness. His lying in bed most of the time. No other new complaints. Vitals are stable He remains on normal saline 75 mm/h, Eliquis 5 mg and aspirin is added. Also he is on Vimpat Cardiology has cleared the patient for discharge, he scheduled for a nuclear stress test as an outpatient on 04/25 Neurology also on the case will added baby aspirin today, EEG still pending which could be done on Sunday. Physical therapy evaluation is requested. I discussed the plan with the patient today he refused to go to rehab and he wants to go home upon discharge Carotid duplex showing left internal carotid artery stenosis 50-69% Objective - Vital Signs Vital signs: Vital Signs Temp 98 F 04/14/23 07:34 Pulse 59 L 04/14/23 07:34 Resp 17 04/14/23 07:34 BP 148/78 04/14/23 07:34 Pulse Ox 98 04/14/23 07:34 FiO2 Intake & Output 04/13/23 04/14/23 04/14/23 18:59 06:59 18:59 Output Total 1100 Balance -1100 Weight 100.6 kg Output: Urine 1100 Other: Voiding Method External Catheter External Catheter # Voids 2 # Bowel Movements 1 - Labs CBC & Chem 7: 04/12/23 15:49 04/12/23 15:49 Labs: Abnormal Lab Results - Last 24 Hours (Table) 04/13/23 04/13/23 Range/Units 17:15 20:08 POC Glucose (mg/dL) 169 H 191 H (70-110) mg/dL Assessment and Plan Assessment: Transient dizziness with possible vertigo. Could be possible metabolic/toxic encephalopathy secondary to medication as patient was on antihistamine and Xanax at home Interval change of the CT of the brain in the right subcortical brain with possible interval changes. She is left ICA stenosis 50-69% History of Urinary retention Generalized weakness Status post dual-chamber per pacemaker History of mild cardiomyopathy EF 40-45% History of prior transcatheter aortic valve replacement Chronic atrial fibrillation History of stroke Hypertension Hyperlipidemia Insulin-dependent diabetes mellitus Dementia Plan: Continue with telemetry monitoring Continue with Eliquis. Aspirin 81 mg added today Continue gentle hydration normal saline 75.2 per hour Cardiology consults, Neurology consult Labs and medication were reviewed.. Continue same treatment. Continue with symptomatic treatment. Resume home medication. Monitor labs and vitals. DVT and GI prophylaxis. Further recommendations as per clinical course of the patient DVT prophylaxis: eliquis GI Prophylaxis: Pepcid PT/OT: Pending Prognosis is guarded
[2023-04-15] MEDS: SODIUM CHLORIDE 0.9% 1,000 ML IV SCH (05:12)
[2023-04-15 07:27] LABS: Glucose,Whole Blood 95 mg/dL (70-110)
[2023-04-15] MEDS: lisinopriL 10 MG TAB PO SCH (08:13)
[2023-04-15] MEDS: FAMOTIDINE 20 MG/2 ML VIAL IV SCH (08:13)
[2023-04-15] MEDS: METOPROLOL TARTRATE 50 MG TAB PO SCH ×2 (08:14→20:57)
[2023-04-15] MEDS: APIXABAN 5 MG TAB PO SCH ×2 (08:14→20:57)
[2023-04-15] MEDS: ARIPiprazole 10 MG TAB PO SCH (08:14)
[2023-04-15] MEDS: GABAPENTIN 100 MG CAP PO SCH ×2 (08:14→20:57)
[2023-04-15] MEDS: TAMSULOSIN 0.4 MG CAP.ER.24H PO SCH (08:14)
[2023-04-15] MEDS: LACOSAMIDE 50 MG TABLET PO SCH ×2 (08:14→20:57)
[2023-04-15] MEDS: ATORVASTATIN 20 MG TAB PO SCH (08:14)
[2023-04-15] MEDS: amLODIPine 10 MG TAB PO SCH (08:14)
[2023-04-15] MEDS: ASPIRIN 81 MG PO SCH (08:15)
--- NOTE | 2023-04-15 10:36 | P.PN ---
Subjective Progress Note Date: 04/15/23 Patient examined this morning at the bedside. He denies any episodes of chest pain or pressure. He denies any shortness of breath. He has had no further episodes of dizziness. Patient's pacemaker was interrogated yesterday and results were reviewed pacemaker is working appropriately. Vital signs remained stable. Patient is awaiting placement for rehab. Objective - Vital Signs Vital signs: Vital Signs Temp 98.2 F 04/15/23 07:34 Pulse 59 L 04/15/23 07:34 Resp 17 04/15/23 07:34 BP 171/89 04/15/23 07:34 Pulse Ox 98 04/15/23 07:34 FiO2 Intake & Output 04/14/23 04/15/23 04/15/23 18:59 06:59 18:59 Intake Total 900 0 240 Output Total 1200 2200 Balance -300 -2200 240 Weight 99 kg Intake: IV 900 Sodium Chloride 0.9% 1, 900 000 ml @ 75 mls/hr IV . [id number] [facility] Rx#:[id number] Oral 0 240 Output: Urine 1200 2200 Other: Voiding Method External Catheter External Catheter - Exam PHYSICAL EXAM: VITAL SIGNS: Reviewed. GENERAL: Well-developed in no acute distress. HEENT: Head is normocephalic. Pupils are equal, round. Sclerae anicteric. Mucous membranes of the mouth are moist. NECK: Supple. No JVD or thyromegaly RESPIRATORY: Respirations even and unlabored. Lungs diminished to auscultation bilaterally. CARDIO: Regular rate and rhythm. S1 and S2 heard. No murmur or gallops. EXTREMITIES: Normal range of motion. No clubbing or cyanosis. Peripheral pulses intact. Negative for bilateral lower extremity edema NEURO: Orientated to person, time, mood is appropriate - Labs CBC & Chem 7: 04/12/23 15:49 04/12/23 15:49 Labs: Abnormal Lab Results - Last 24 Hours (Table) 04/12/23 04/14/23 04/14/23 Range/Units 15:49 12:03 17:22 POC Glucose (mg/dL) 190 H 141 H (70-110) mg/dL Triglycerides 162.00 H (0.00-149.00) mg/dL 04/14/23 Range/Units 20:03 POC Glucose (mg/dL) 133 H (70-110) mg/dL Triglycerides (0.00-149.00) mg/dL Assessment and Plan Assessment: ASSESSMENT: Generalized weakness Dizziness History of mild cardiomyopathy, 40-45%, with improved EF, ischemic versus nonischemic History of aortic stenosis status post TAVR Permanent atrial fibrillation Sick sinus syndrome with previous pacemaker implantation and generator change in November 2022 ([employer]) Hypertension Diabetes History of CVA Plan: PLAN: Continue current cardiac medications Continue telemetry monitoring Patient already scheduled on an outpatient basis to have nuclear scan on 04/25/2023 secondary to wall motion abnormalities on recent echocardiogram Patient's pacemaker was interrogated report reviewed- interrogation does not reveal any significant events Patient is awaiting placement, the patient may be discharged today from a c ardiac standpoint. Nurse practitioner note has been reviewed by physician. Signing provider agrees with the documented findings, assessment, and plan of care.
--- NOTE | 2023-04-15 11:11 | P.PN ---
Subjective This is a pleasant 83-year-old male with history diabetes mellitus type 2, peripheral neuropathy, chronic atrial fibrillation, hypertension, stroke, severe aortic stenosis status post TAVR, mild cardiomyopathy EF 40-45%, mild increasing dementia Patient presents because he was feeling dizzy for the last 2 days, he describes his dizziness is nonspecific and the room is spinning. His oriented to time place and person, he is a hospital and he can tell its April 2023, he knows the name of the president. Patient says that his dizziness has improved earlier this morning and currently is not dizzy, no headache or leg Numbness. No Chest Pain or Dyspnea. No Other GI or Urinary Symptoms. Patient Conference Was Taking His home Patient was recently discharged from this facility status post renal retention and Horan catheter. A outbound sales professional involved him for high troponin came back to normal with recommendation for outpatient stress test, hold patient felt follow- up with. Vitals stable. unremarkable CBC, nylon, BMP, liver enzymes, Urinalysis is negative for infection. Chest x-ray: No acute process KUB: Nonobstructive gas pattern 10 EKG showing ventricular paced rhythm CT of the brain: Hypodensity within the subcortical right buttock shaft region. Finding appear more suggestive of an old interval subcortical infarct from compression Patient was recently in this hospital last month for urinary retention status post Horan catheter. Also patient had elevated troponin, evaluated by outbound sales professional showing preserved ejection fraction 50-55% with hypokinesia of inferior apical wall 04/14/2023 I doing well, he denies any more dizziness. His lying in bed most of the time. No other new complaints. Vitals are stable He remains on normal saline 75 mm/h, Eliquis 5 mg and aspirin is added. Also he is on Vimpat Cardiology has cleared the patient for discharge, he scheduled for a nuclear stress test as an outpatient on 04/25 Neurology also on the case will added baby aspirin today, EEG still pending which could be done on Sunday. Physical therapy evaluation is requested. I discussed the plan with the patient today he refused to go to rehab and he wants to go home upon discharge Carotid duplex showing left internal carotid artery stenosis 50-69% 04/15/2030 Patient clinically doing well, sent in bed most of the time, no more dizziness, no other new complaints. Patient was already on eliquis for his A. fib, there was concerns about his adherence to therapy and the importance of compliance explained for the patient extensively On the top of that aspirin was added by neurology service for his carotid stenosis on the left side 50-69%. This is her risk of bleeding for the patient I talked to the patient and he is agreeable However patient looks very weak and he needs assistance to move around and this is even felt by the staff and bedside nurse. I talked to the patient extensively his refusing to go to subacute rehab he wants to go home with home care. Patient is at risk of falling and risk of bleeding is higher while he is on blood thinner. We will continue to monitor for now. We will discontinue IV fluid, he tolerates diet well. Creatinine is stable. Objective - Vital Signs Vital signs: Vital Signs Temp 98.2 F 04/15/23 07:34 Pulse 59 L 04/15/23 07:34 Resp 17 04/15/23 07:34 BP 171/89 04/15/23 07:34 Pulse Ox 98 04/15/23 07:34 FiO2 Intake & Output 04/14/23 04/15/23 04/15/23 18:59 06:59 18:59 Intake Total 900 0 240 Output Total 1200 2200 Balance -300 -2200 240 Weight 99 kg Intake: IV 900 Sodium Chloride 0.9% 1, 900 000 ml @ 75 mls/hr IV . [id number] [facility] Rx#:[id number] Oral 0 240 Output: Urine 1200 2200 Other: Voiding Method External Catheter External Catheter - Exam GENERAL: The patient is alert and oriented x3, not in any acute distress. Well developed, well nourished. HEENT: Pupils are round and equally reacting to light. EOMI. No scleral icterus. No conjunctival pallor. Normocephalic, atraumatic. No pharyngeal erythema. No thyromegaly. CARDIOVASCULAR: S1 and S2 present. No murmurs, rubs, or gallops. PULMONARY: Chest is clear to auscultation, no wheezing , no crackles. ABDOMEN: Soft, nontender, nondistended, normoactive bowel sounds. No palpable organomegaly. MUSCULOSKELETAL: No joint swelling or deformity. EXTREMITIES: No cyanosis, clubbing, or pedal edema. NEUROLOGICAL: Gross neurological examination did not reveal any focal deficits. SKIN: No rashes. no petechiae. - Labs CBC & Chem 7: 11/09/23 15:49 04/12/23 15:49 Labs: Abnormal Lab Results - Last 24 Hours (Table) 04/12/23 04/14/23 04/14/23 Range/Units 15:49 12:03 17:22 POC Glucose (mg/dL) 190 H 141 H (70-110) mg/dL Triglycerides 162.00 H (0.00-149.00) mg/dL 04/14/23 Range/Units 20:03 POC Glucose (mg/dL) 133 H (70-110) mg/dL Triglycerides (0.00-149.00) mg/dL Assessment and Plan Assessment: Transient dizziness with possible vertigo. Could be possible metabolic/toxic encephalopathy secondary to medication as patient was on antihistamine and Xanax at home Interval change of the CT of the brain in the right subcortical brain with possible interval changes. She is left ICA stenosis 50-69% History of Urinary retention Generalized weakness Status post dual-chamber per pacemaker History of mild cardiomyopathy EF 40-45% History of prior transcatheter aortic valve replacement Chronic atrial fibrillation History of stroke Hypertension Hyperlipidemia Insulin-dependent diabetes mellitus Dementia Plan: Continue with telemetry monitoring Continue with Eliquis. Aspirin 81 mg added by neurology service Discontinue normal saline 75 ml per hour Cardiology consults, Neurology consult Labs and medication were reviewed.. Continue same treatment. Continue with symptomatic treatment. Resume home medication. Monitor labs and vitals. DVT and GI prophylaxis. Further recommendations as per clinical course of the patient DVT prophylaxis: eliquis GI Prophylaxis: Pepcid PT/OT: Pending. Patient was counseled to go to rehab while he is in a blood thinner, patient declines risks benefits are explained extensively and he verbalized understanding Prognosis is guarded
[2023-04-15 11:43] LABS: Glucose,Whole Blood 143 mg/dL (70-110)
--- NOTE | 2023-04-15 16:40 | P.PN ---
Subjective Progress Note Date: 04/15/23 I am following-up with patient. He is about the same. Objective - Vital Signs Vital signs: Vital Signs Temp 98.2 F 04/15/23 13:07 Pulse 59 L 04/15/23 13:07 Resp 18 04/15/23 13:07 BP 146/77 04/15/23 13:07 Pulse Ox 96 04/15/23 13:07 FiO2 Intake & Output 04/14/23 04/15/23 04/15/23 18:59 06:59 18:59 Intake Total 900 0 480 Output Total 1200 2200 900 Balance -300 -2200 -420 Weight 99 kg Intake: IV 900 Sodium Chloride 0.9% 1, 900 000 ml @ 75 mls/hr IV . [id number] [facility] Rx#:[id number] Oral 0 480 Output: Urine 1200 2200 900 Other: Voiding Method External Catheter External Catheter External Catheter - Exam GENERAL: The patient is lying in bed and is not in acute distress. NEUROLOGICAL: Higher mental function: The patient is awake, alert, oriented to self, place and time. Patient is following commands. No aphasia and no neglect. Cranial nerves: The pupils are round, equal and reactive to light and accommodation. Visual urban are full to confrontation throughout. Extraocular movement is intact no nystagmus is noted. Facial sensation is normal to touch throughout. The facial strength is normal throughout. Hearing is normal bilaterally to hand rub. Tongue is midline and moved [id number] without any difficulty. No dysarthria is noted. Shoulder shrug is normal bilaterally. Motor: The strength is 5 over 5 throughout. Normal tone and bulk. Cerebellum: Normal finger to nose bilaterally. Sensation: Sensation is normal to touch throughout. SOME OF THE WORK-UP DURING THIS HOSPITAL VISIT CONSISTED OF: Lipid panel: Triglyceride 162, cholesterol is 102, LDL is 26, HDL is 42. CT of the head is reported that there is hypodensity in the subcortical right watershed region. Correlate with the patient's symptoms. 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 This could be evaluated with MRI. Carotid duplex was reported as less than 50% stenosis of the right carotid bifurcation. 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 - Labs CBC & Chem 7: 04/12/23 15:49 04/12/23 15:49 Labs: Abnormal Lab Results - Last 24 Hours (Table) 04/14/23 04/14/23 04/15/23 Range/Units 17:22 20:03 11:41 POC Glucose (mg/dL) 141 H 133 H 143 H (70-110) mg/dL Assessment and Plan Assessment: This is an 83-year-old gentleman with history of a brain bleed about 20 years ago, atrial fibrillation on eliquis and has pacemaker , diabetes, diabetic neuropathy was is non-compliant taking his medication and take them sporadically. He's been having worsening of his dizziness. Despite his dizziness is worse when he stands up. He also has blank stares in the last month to month was in which he is nonresponsive lasting 1-[address] of the head that showed hypodensity subcortical white watershed region and it felt old. Her CT of the head and our system was in 2019. Hypodensity over right frontal parietal seems old and the last CT of the head was about the 2019 in our system which was not there. He has history of atrial fibrillation and not compliant taking eliquis. He has acute on chronic dizziness likely due to his positive orthostatic hypotension. According to family he has dizziness when he stands up which goes with the orthostatic hypotension Episodes of blank stares and the last 1-2 years lasting 1-2 minutes and during these episodes he is nonresponsive: Unsure if patient is having the seizures. A symptomatic left ICA of 50-69% stenosis on the carotid duplex. History of brain bleed about 20 years ago Atrial fibrillation on eliquis and has a pacemaker Diabetes mellitus Diabetic neuropathy History of depression Noncompliant taking medication Plan: Recent 2-D echo on 03/07/2020 degrees reported as normal left ventricle systolic motion with hypokinesis of the inferior apical wall. Normal functioning bioprosthetic valve in aortic position. Cardiology is on board I ordered a routine EEG and likely to be done this coming up Sunday. Because of his blank stares and there is a concern for possible seizures but not absolute also start the patient on Vimpat 50 mg twice a day. I'll not start the patient on Keppra because of his history of 5 depression which medication caused the worsening of agitation and mood Cannot obtain the MRI of the brain since the patient has a pacemaker Patient is on eliquis 5mg bid and lipitor 20mg daily. I initially added ASA 81mg daily for his carotid stenosis but the primary felt there is risk of bleed especially since he is on anticoagulation and has falls. I agree with the primary, if the risk outweigh the benefit will stop ASA. Patient was notified that he is to be compliant taking his medication including his home eliquis. Regarding the positive orthostatic hypotension defer the management to the primary team. Patient has a symptomatic left ICA stenosis and recommended to follow up with a vascular surgeon team as an outpatient. I recommend medical management for now. PT and OT are consulted Defer the rest of the medical management to primary and other specialists Upon discharge recommend the patient to follow-up with a neurologist as an outpatient within 2-3 weeks. Plan discussed with the patient's nurse and primary attending. Dr. Schwarz will start neurology service tomorrow A.M. Time with Patient: Less than 30
[2023-04-15 16:54] LABS: Glucose,Whole Blood 190 mg/dL (70-110)
[2023-04-15] MEDS: ARIPiprazole 5 MG TAB PO SCH (20:57)
[2023-04-15] MEDS: MELATONIN 3 MG TABLET PO SCH (20:57)
[2023-04-15 21:17] LABS: Glucose,Whole Blood 145 mg/dL (70-110)
[2023-04-16 07:16] LABS: Glucose,Whole Blood 127 mg/dL (70-110)
[2023-04-16] MEDS: lisinopriL 10 MG TAB PO SCH (08:22)
[2023-04-16] MEDS: TAMSULOSIN 0.4 MG CAP.ER.24H PO SCH (08:22)
[2023-04-16] MEDS: ATORVASTATIN 20 MG TAB PO SCH (08:22)
[2023-04-16] MEDS: LACOSAMIDE 50 MG TABLET PO SCH ×2 (08:22→20:39)
[2023-04-16] MEDS: GABAPENTIN 100 MG CAP PO SCH ×2 (08:22→20:39)
[2023-04-16] MEDS: APIXABAN 5 MG TAB PO SCH ×2 (08:23→20:39)
[2023-04-16] MEDS: ARIPiprazole 10 MG TAB PO SCH (08:23)
[2023-04-16] MEDS: FAMOTIDINE 20 MG/2 ML VIAL IV SCH (08:23)
[2023-04-16] MEDS: METOPROLOL TARTRATE 50 MG TAB PO SCH ×2 (08:23→20:39)
[2023-04-16] MEDS: amLODIPine 10 MG TAB PO SCH (08:23)
--- NOTE | 2023-04-16 11:54 | P.PN ---
Subjective Progress Note Date: 04/16/23 History of present illness: Patient examined this morning at the bedside. He denies any episodes of chest pain or pressure. He denies any shortness of breath. He has had no further episodes of dizziness. Patient's pacemaker was interrogated yesterday and results were reviewed pacemaker is working appropriately. Vital signs remained stable. Patient is awaiting placement for rehab. Updated patient and his family member. All questions have been answered. Blood pressure is 164/82, heart rate is in the 60s. Pulse ox 95% on room air. Physical examination: PHYSICAL EXAM: VITAL SIGNS: Reviewed. GENERAL: Well-developed in no acute distress. HEENT: Head is normocephalic. Pupils are equal, round. Sclerae anicteric. Mucous membranes of the mouth are moist. NECK: Supple. No JVD or thyromegaly RESPIRATORY: Respirations even and unlabored. Lungs diminished to auscultation bilaterally. CARDIO: Regular rate and rhythm. S1 and S2 heard. No murmur or gallops. EXTREMITIES: Normal range of motion. No clubbing or cyanosis. Peripheral pulses intact. Negative for bilateral lower extremity edema NEURO: Orientated to person, time, mood is appropriate Assessment: ASSESSMENT: Generalized weakness Dizziness History of mild cardiomyopathy, 40-45%, with improved EF, ischemic versus nonischemic History of aortic stenosis status post TAVR Permanent atrial fibrillation Sick sinus syndrome with previous pacemaker implantation and generator change in November 2022 ([employer]) Hypertension Diabetes History of CVA Plan: Continue current cardiac medications Patient already scheduled on an outpatient basis to have nuclear scan on 04/25/2023 secondary to wall motion abnormalities on recent echocardiogram- patient to keep this appointment Patient's pacemaker was interrogated report reviewed- interrogation does not reveal any significant events Patient is awaiting placement, the patient may be discharged today from a cardiac standpoint. Cardiology will sign off this case and follow on an as-needed basis. Please reconsult for any new concerns. Nurse practitioner note has been reviewed, I agree with documented findings and plan of care. Patient was seen and examined. Objective - Vital Signs Vital signs: Vital Signs Temp 98.5 F 04/16/23 07:11 Pulse 60 04/16/23 07:11 Resp 20 04/16/23 07:11 BP 164/82 04/16/23 07:11 Pulse Ox 95 04/16/23 07:11 FiO2 Intake & Output 04/15/23 04/16/23 04/16/23 18:59 06:59 18:59 Intake Total 1320 500 Output Total 1500 450 Balance -180 50 Weight 97 kg Intake: IV 300 Sodium Chloride 0.9% 1, 300 000 ml @ 75 mls/hr IV . [id number] [facility] Rx#:[id number] Oral 1020 500 Output: Urine 1500 450 Other: Voiding Method External Catheter External Catheter Indwelling Catheter - Labs CBC & Chem 7: 04/12/23 15:49 04/12/23 15:49 Labs: Abnormal Lab Results - Last 24 Hours (Table) 04/15/23 04/15/23 04/16/23 Range/Units 16:51 21:16 07:15 POC Glucose (mg/dL) 190 H 145 H 127 H (70-110) mg/dL
[2023-04-16 12:29] LABS: Glucose,Whole Blood 179 mg/dL (70-110)
--- NOTE | 2023-04-16 12:42 | EEG ---
ELECTROENCEPHALOGRAM REPORT PREAMBLE: This is an 83-year-old male with episodes of blank stare, rule out seizures. CURRENT MEDICATIONS: 1. Xanax. 2. Norvasc. 3. Eliquis. 4. Abilify. 5. Neurontin. 6. Vimpat. 7. Melatonin. 8. Lopressor. 9. Flomax. 10.Pepcid. EEG FINDINGS: This is a 21-channel digital EEG recorded with video component, utilizing 10/20 International System with referential and bipolar montages. Background consists of moderately well-developed and regulated, mixed frequencies of alpha and some theta activity seen in bihemispheric region. Background does not seem to be clearly reactive to eye opening or closing. Photic driving response was not seen. Different stages of sleep were not seen. No focal or generalized epileptiform activity was seen IMPRESSION: This is an abnormal EEG due to background slowing of [id number] degree. This is suggestive of generalized cerebral dysfunction as can be seen with toxic metabolic encephalopathy or related to diffuse structural brain abnormality. Clinical correlation is recommended. No epileptiform activity was seen. MMODL / IJN: [id number] /
--- NOTE | 2023-04-16 13:18 | P.PN ---
Subjective Progress Note Date: 04/16/23 Patient initially seen by Dr. Les Hernandez. Please refer to his note for details. Patient is a 83-year-old male with new hypodensity on CT over the right frontoparietal, but seems old. Patient is noncompliant taking medication, states that he was missing about 5 doses of Eliquis out of 14 doses of a week. This is because he was very depressed after his . Continue Eliquis. Patient also has left ICA stenosis 50-69% but no antiplatelets because of falls and feels outpatient. Patient was seen for a follow-up. Patient denies headache. Complains of slight dizziness, which he describes as lightheadedness but no vertigo. He denies any falls in the last 6 months. SOME OF THE WORK-UP DURING THIS HOSPITAL VISIT CONSISTED OF: Lipid panel: Triglyceride 162, cholesterol is 102, LDL is 26, HDL is 42. CT of the head is reported that there is hypodensity in the subcortical right watershed region. Correlate with the patient's symptoms. 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 This could be evaluated with MRI. I personally reviewed CT head, and it appears that patient has a subacute stroke involving the left cerebellar hemisphere as well. Carotid duplex was reported as less than 50% stenosis of the right carotid bifurcation. 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 Objective - Vital Signs Vital signs: Vital Signs Temp 98.5 F 04/16/23 07:11 Pulse 60 04/16/23 07:11 Resp 20 04/16/23 07:11 BP 164/82 04/16/23 07:11 Pulse Ox 95 04/16/23 07:11 FiO2 Intake & Output 04/15/23 04/16/23 04/16/23 18:59 06:59 18:59 Intake Total 1320 500 Output Total 1500 450 Balance -180 50 Weight 97 kg Intake: IV 300 Sodium Chloride 0.9% 1, 300 000 ml @ 75 mls/hr IV . [id number] [facility] Rx#:[id number] Oral 1020 500 Output: Urine 1500 450 Other: Voiding Method External Catheter External Catheter Indwelling Catheter - Exam Patient is alert and awake in no distress. Speech is mildly hoarse but no aphasia or dysarthria. No paraphasic errors. Patient knows it is April 2023 and that he is in [facility] in [facility]. He knows name of the current president. Patient is slightly slow mentation, and slow latency time to answer questions. On cranial nerve examination, pupils are equal, round and reacting, visual urban are full with no neglect. Face is symmetric and tongue protrudes the midline. On muscle strength testing there is no pronator drift. Patient's left shoulder is slightly weak because of arthritis. 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 Sensory touch is equal. No ataxia for [id number] testing. Gait deferred. - Labs CBC & Chem 7: 04/12/23 15:49 04/12/23 15:49 Labs: Abnormal Lab Results - Last 24 Hours (Table) 04/15/23 04/15/23 04/16/23 Range/Units 16:51 21:16 07:15 POC Glucose (mg/dL) 190 H 145 H 127 H (70-110) mg/dL 04/16/23 Range/Units 12:29 POC Glucose (mg/dL) 179 H (70-110) mg/dL Assessment and Plan Assessment: This is an 83-year-old gentleman with history of a brain bleed about 20 years ago, atrial fibrillation on eliquis and has pacemaker , diabetes, diabetic neuro ilya was non-compliant taking his medication and take them sporadically. He's been having worsening of his dizziness. Despite his dizziness is worse when he stands up. He also has blank stares in the last month to month was in which he is nonresponsive lasting 1-[address] of the head that showed hypodensity subcortical right parietal region, which appears somewhat old. On my review, there is evidence of subacute stroke involving the left cerebellar hemisphere, which is more recent as compared to the right parietal ischemic area. Patient's strokes are probably cardioembolic. Hypodensity over right frontal parietal seems old and the last CT of the head was about the 2019 in our system which was not there. He has history of atrial fibrillation and not compliant taking eliquis. He has acute on chronic dizziness likely due to his positive orthostatic hypotension. According to family he has dizziness when he stands up which goes with the orthostatic hypotension Episodes of blank stares and the last 1-2 years lasting 1-2 minutes and during these episodes he is nonresponsive: Unsure if patient is having the seizures. Asymptomatic left ICA of 50-69% stenosis on the carotid duplex. History of brain bleed about 20 years ago Atrial fibrillation on eliquis and has a pacemaker Diabetes mellitus Diabetic neuropathy History of depression Noncompliant taking medication Plan: Recent 2-D echo on 03/07/2023 reported as normal left ventricle systolic motion with hypokinesis of the inferior apical wall. Normal functioning bioprosthetic valve in aortic position. Cardiology is on board EEG performed today was abnormal due to background slowing of mild to moderate degree, suggestive of encephalopathy. No epileptiform activity was seen. Because of his blank stares and there is a concern for possible seizures, the refore Dr. Hernandez started the patient on Vimpat 50 mg twice a day. He avoided Keppra because of his history of depression which can cause the worsening of agitation and mood. May consider stopping Vimpat in 4 weeks, if stops having staring spells, as I believe, his spells could be related to the CVA. Cannot obtain the MRI of the brain since the patient has a pacemaker Patient is on eliquis 5mg bid and lipitor 20mg daily. Dr. Hernandez initially added ASA 81mg daily for his carotid stenosis but the primary felt there is risk of bleed especially since he is on anticoagulation and fall risk. He already has history of falls. I agree with the primary, if the risk outweigh the benefit, therefore Dr. Hernandez stopped aspirin. I also agree. Patient was notified that he is to be compliant taking his medication including his home eliquis. Regarding the positive orthostatic hypotension defer the management to the primary team. Patient has asymptomatic left ICA stenosis and recommended to follow up with a vascular surgeon team as an outpatient in 6 months. I recommend medical management for now. PT and OT are consulted Hemoglobin A1c 6.3. Lipids are well controlled with LDL 26.9. Continue Lipitor 20 mg daily. Defer the rest of the medical management to primary and other specialists Upon discharge recommend the patient to follow-up with a neurologist as an outpatient within 2-3 weeks.
[2023-04-16 17:13] LABS: Glucose,Whole Blood 136 mg/dL (70-110)
--- NOTE | 2023-04-16 17:38 | CT ---
EXAMINATION TYPE: CT angio head neck CT DLP: 514.70 mGycm, Automated exposure control for dose reduction was used. DATE OF EXAM: 04/16/2023 5:15 PM COMPARISON: CT brain 04/12/2023.. CLINICAL INDICATION:Male, 83 years old with history of RIght ICA stenosis, CVA; PHH, RIght ICA stenos is, CVA TECHNIQUE: Axially acquired helical CT angiogram of the head and neck was obtained with contrast. Axi al images are supplemented with 3D reconstructions [facility] NASCET criteria used. Contrast used:70ml mL of Isovue 370 with IV Contrast, Oral contrast used: None. FINDINGS: CTA HEAD: No evidence of acute intracranial hemorrhage, mass effect, or midline shift. The ventricles, sulci, a nd cisterns are unremarkable. The visualized portions of the internal carotid arteries, middle cerebral arteries, anterior cerebral arteries, and posterior cerebral arteries are patent. The basilar and vertebral arteries are patent. CTA NECK: Right Carotid System: The common carotid and external carotid arteries are patent. There is less than 70% stenosis at the c arotid bifurcation secondary to calcified plaque. The rest of the internal carotid artery is patent. Left Carotid System: The common carotid and external carotid arteries are patent. There is less than 70% stenosis at the c arotid bifurcation secondary to calcified plaque. The rest of the internal carotid artery is patent. Vertebral arteries are patent without evidence hemodynamically significant stenosis. There is a three-vessel aortic arch. The origins of the great vessels are patent. No evidence of hemo dynamically significant stenosis. Upper thorax: Enlarged lymph nodes in the mediastinum left low paratracheal measuring up to 19 mm AP window measuring up to 12 mm right low paratracheal measuring up to 14 mm in short axis. IMPRESSION: 1. Up to 70% stenosis of the bilateral carotid bifurcation secondary to predominantly calcified plaqu e. 2. No evidence of dissection of the cervical internal carotid arteries or vertebral arteries 3. No evidence of intracranial high-grade stenosis or intracranial aneurysm.
--- NOTE | 2023-04-16 19:17 | P.PN ---
Subjective This is a pleasant 83-year-old male with history diabetes mellitus type 2, peripheral neuropathy, chronic atrial fibrillation, hypertension, stroke, severe aortic stenosis status post TAVR, mild cardiomyopathy EF 40-45%, mild increasing dementia Patient presents because he was feeling dizzy for the last 2 days, he describes his dizziness is nonspecific and the room is spinning. His oriented to time place and person, he is a hospital and he can tell its April 2023, he knows the name of the president. Patient says that his dizziness has improved earlier this morning and currently is not dizzy, no headache or leg Numbness. No Chest Pain or Dyspnea. No Other GI or Urinary Symptoms. Patient Conference Was Taking His home Patient was recently discharged from this facility status post renal retention and Horan catheter. A moving van driver involved him for high troponin came back to normal with recommendation for outpatient stress test, hold patient felt follow- up with. Vitals stable. unremarkable CBC, nylon, BMP, liver enzymes, Urinalysis is negative for infection. Chest x-ray: No acute process KUB: Nonobstructive gas pattern 10 EKG showing ventricular paced rhythm CT of the brain: Hypodensity within the subcortical right buttock shaft region. Finding appear more suggestive of an old interval subcortical infarct from compression Patient was recently in this hospital last month for urinary retention status post Horan catheter. Also patient had elevated troponin, evaluated by moving van driver showing preserved ejection fraction 50-55% with hypokinesia of inferior apical wall 04/14/2023 I doing well, he denies any more dizziness. His lying in bed most of the time. No other new complaints. Vitals are stable He remains on normal saline 75 mm/h, Eliquis 5 mg and aspirin is added. Also he is on Vimpat Cardiology has cleared the patient for discharge, he scheduled for a nuclear stress test as an outpatient on 04/25 Neurology also on the case will added baby aspirin today, EEG still pending which could be done on Sunday. Physical therapy evaluation is requested. I discussed the plan with the patient today he refused to go to rehab and he wants to go home upon discharge Carotid duplex showing left internal carotid artery stenosis 50-69% 04/15/2030 Patient clinically doing well, sent in bed most of the time, no more dizziness, no other new complaints. Patient was already on eliquis for his A. fib, there was concerns about his adherence to therapy and the importance of compliance explained for the patient extensively On the top of that aspirin was added by neurology service for his carotid stenosis on the left side 50-69%. This is her risk of bleeding for the patient I talked to the patient and he is agreeable However patient looks very weak and he needs assistance to move around and this is even felt by the staff and bedside nurse. I talked to the patient extensively his refusing to go to subacute rehab he wants to go home with home care. Patient is at risk of falling and risk of bleeding is higher while he is on blood thinner. We will continue to monitor for now. We will discontinue IV fluid, he tolerates diet well. Creatinine is stable. 04/16/2023 Patient clinically is and he is awake alert and his dizziness has stopped since admission and denies any other complaints currently Also I talked to the patient and his [id number] Rubia at bedside I discussed his problems and management plan in details with the patient and Mrs. Saul, initially the patient was refusing to go to rehab however his high risk of falling as per Dorys he has fallen about 7-8 times in the last 6 months and patient agrees he had multiple falls before. As such patient is high-risk of falling and is currently on blood thinner Eliquis which but about her risk of bleeding therefore aspirin indicated for him initially because of carotid stenosis carries Higher risk than benefits, therefore aspirin was discontinued and I discussed this with the patient and his [id number] both in agreement. Nevertheless patient is still at risk of bleeding been on Eliquis therefore I have lengthy discussion with them and eventually patient and [id number] agreed for the patient to go to rehab upon discharge Also I discussed the case with the neurologist on the case twice and he recommended to do CTA of the brain today which came back showing bilateral stenosis of internal carotid artery about 70% therefore patient was referred to Dr. Horan vascular surgeon as an outpatient We will check been may be considered for discharge from rehab. This was discussed with the staff Objective - Vital Signs Vital signs: Vital Signs Temp 98.3 F 04/16/23 12:15 Pulse 60 04/16/23 12:15 Resp 21 04/16/23 12:15 BP 102/61 04/16/23 12:15 Pulse Ox 97 04/16/23 12:15 FiO2 Intake & Output 04/16/23 04/16/23 04/17/23 06:59 18:59 06:59 Intake Total 500 540 Output Total 450 350 Balance 50 190 Weight 97 kg Intake: Oral 500 540 Output: Urine 450 350 Other: Voiding Method External Catheter Indwelling Catheter - Exam GENERAL: The patient is alert and oriented x3, not in any acute distress. Well developed, well nourished. HEENT: Pupils are round and equally reacting to light. EOMI. No scleral icterus. No conjunctival pallor. Normocephalic, atraumatic. No pharyngeal erythema. No thyromegaly. CARDIOVASCULAR: S1 and S2 present. No murmurs, rubs, or gallops. PULMONARY: Chest is clear to auscultation, no wheezing , no crackles. ABDOMEN: Soft, nontender, nondistended, normoactive bowel sounds. No palpable organomegaly. MUSCULOSKELETAL: No joint swelling or deformity. EXTREMITIES: No cyanosis, clubbing, or pedal edema. NEUROLOGICAL: Gross neurological examination did not reveal any focal deficits. SKIN: No rashes. no petechiae. - Labs CBC & Chem 7: 04/12/23 15:49 04/12/23 15:49 Labs: Abnormal Lab Results - Last 24 Hours (Table) 04/15/23 04/16/23 04/16/23 Range/Units 21:16 07:15 12:29 POC Glucose (mg/dL) 145 H 127 H 179 H (70-110) mg/dL 04/16/23 Range/Units 17:12 POC Glucose (mg/dL) 136 H (70-110) mg/dL Assessment and Plan Assessment: Transient dizziness with possible vertigo. Could be possible metabolic/toxic encephalopathy secondary to medication as patient was on antihistamine and Xanax at home Interval change of the CT of the brain in the right subcortical brain with possible interval changes. She is left ICA stenosis 50-69%. CVA of the neck showing bilateral internal carotid stenosis about 70% on both sides History of Urinary retention Generalized weakness Status post dual-chamber per pacemaker History of mild cardiomyopathy EF 40-45% History of prior transcatheter aortic valve replacement Chronic atrial fibrillation History of stroke Hypertension Hyperlipidemia Insulin-dependent diabetes mellitus Dementia Plan: Continue with telemetry monitoring Continue with Eliquis. Aspirin 81 mg was held because it filled cavities higher risk than benefits Discontinue normal saline 75 ml per hour Cardiology consults, Neurology consult follow up with vascular surgery as an outpatient Labs and medication were reviewed.. Continue same treatment. Continue with symptomatic treatment. Resume home medication. Monitor labs and vitals. DVT and GI prophylaxis. Further recommendations as per clinical course of the p atient DVT prophylaxis: eliquis GI Prophylaxis: Pepcid PT/OT: Pending. Patient was counseled to go to rehab while he is in a blood thinner, patient declines risks benefits are explained extensively and he verbalized understanding Prognosis is guarded
[2023-04-16 19:54] LABS: Glucose,Whole Blood 207 mg/dL (70-110)
[2023-04-16] MEDS: MELATONIN 3 MG TABLET PO SCH (20:39)
[2023-04-16] MEDS: ARIPiprazole 5 MG TAB PO SCH (20:43)
[2023-04-17 07:07] LABS: Glucose,Whole Blood 121 mg/dL (70-110)
[2023-04-17 07:35] VITALS: PULSE 60
[2023-04-17] MEDS: ARIPiprazole 10 MG TAB PO SCH (08:15)
[2023-04-17] MEDS: lisinopriL 10 MG TAB PO SCH (08:15)
[2023-04-17] MEDS: amLODIPine 10 MG TAB PO SCH (08:15)
[2023-04-17] MEDS: GABAPENTIN 100 MG CAP PO SCH (08:15)
[2023-04-17] MEDS: TAMSULOSIN 0.4 MG CAP.ER.24H PO SCH (08:15)
[2023-04-17] MEDS: METOPROLOL TARTRATE 50 MG TAB PO SCH (08:15)
[2023-04-17] MEDS: ATORVASTATIN 20 MG TAB PO SCH (08:15)
[2023-04-17] MEDS: APIXABAN 5 MG TAB PO SCH (08:16)
[2023-04-17] MEDS: LACOSAMIDE 50 MG TABLET PO SCH (08:16)
[2023-04-17] MEDS: FAMOTIDINE 20 MG/2 ML VIAL IV SCH (08:53)
[2023-04-17 11:07] LABS: Blood Urea Nitrogen 19.8 mg/dL (9.0-27.0); Calcium 10.1 mg/dL (8.7-10.3); Carbon Dioxide 25.3 mmol/L (21.6-31.8); Chloride 105 mmol/L (96-109); Glucose 124 mg/dL (70-110); Sodium 141 mmol/L (135-145)
[2023-04-17 11:53] LABS: Glucose,Whole Blood 124 mg/dL (70-110)
--- NOTE | 2023-04-17 13:07 | P.GSCN ---
History of Present Illness Consult date: 04/17/23 Reason for Consult: Bilateral carotid stenosis Requesting physician: Jordan Schwarz History of present illness: This is an 83-year-old male with a past medical history including atrial fibrillation, S, pacemaker, diabetes mellitus, diabetic peripheral neuropathy presented to the emergency department on 04/22/2023 for generalized weakness, dizziness and headache. According to chart Family also reported that patient wi ll have a blank stare part 1-2 minutes at home. He had a CT of the brain that reported a hypodensity within the subcortical right watershed region. Reporting that findings appear more suggestive of an but interval subcortical infarct from comparison. Neurology was consulted. They did further evaluation with a carotid duplex that reported right ICA stenosis less than 50% with 50-69% stenosis of the left ICA. He also had an EEG done that was Normal with background slowing of mild to moderate degree. Suggestive of generalized cerebral dysfunction. Dr. Mcdowell with neurology reviewed previous CT head from 07/18/2025 and reported it appears patient has evidence of left cerebellar stroke in the previous study but the right parietal subcortical CVA was not present. However even on the right parietal subcortical CVA appears chronic in nature. He recommended checking a CTA of the neck which reported 70% ICA stenosis of the bilateral carotid bifurcations. Vascular surgery was consulted for carotid stenosis. Patient states he has no focal deficits. He denies any weakness in his upper or lower extremities are on one side than the other. Currently denies any shortness of breath, chest pain, abdominal pain, nausea or vomiting. Denies any headache. No visual impairment or speech deficits. He denies any pain in his lower extremities, denies pain with walking. He is currently on Eliquis for his atrial fibrillation. Review of Systems A 14 point review systems was completed all pertinent positives and negatives as stated in the HPI. Past Medical History Past Medical History: Atrial Fibrillation, Heart Failure, CVA/TIA, Diabetes Mellitus, Hypertension Additional Past Medical History / Comment(s): Moderate to severe aortic stenosis - had TAVR History of Any Multi-Drug Resistant Organisms: None Reported Past Surgical History: Orthopedic Surgery, Tonsillectomy Additional Past Surgical History / Comment(s): brain sx 2006 - due to bleed, TAVR, right hip 2019 Past Anesthesia/Blood Transfusion Reactions: No Reported Reaction Past Psychological History: Anxiety, Depression Smoking Status: Never smoker Past Alcohol Use History: None Reported Past Drug Use History: None Reported Medications and Allergies Home Medications Medication Instructions Recorded Confirmed Type Apixaban [Eliquis] 5 mg PO BID 07/18/19 04/12/23 History Tamsulosin HCl [Flomax] 0.4 mg PO DAILY 06/09/21 04/12/23 History ARIPiprazole [Abilify] 5 mg PO HS 11/06/22 04/12/23 History Acetaminophen/Diphenhydramine 2 tab PO HS 11/06/22 04/12/23 History [Tylenol PM 500-25mg] Cholecalciferol [Vitamin D3 (125 125 mcg PO DAILY 11/06/22 04/12/23 History Mcg = 5000 Iu)] Ergocalciferol (Vitamin D2) 1,250 mcg PO MO 11/06/22 04/12/23 History [Drisdol (50,000 Iu)] Acetaminophen Tab [Tylenol] 650 mg PO Q6HR PRN #30 tab 11/09/22 04/12/23 Rx amLODIPine [Norvasc] 10 mg PO DAILY #30 tab 11/09/22 04/12/23 Rx ARIPiprazole [Abilify] 10 mg PO DAILY 03/06/23 04/12/23 History Metoprolol Tartrate [Lopressor] 100 mg PO BID 03/06/23 04/12/23 History Gabapentin 300 mg PO BID #4 cap 03/07/23 04/12/23 Rx ALPRAZolam [Xanax] 0.25 mg PO DAILY 04/12/23 04/12/23 History Atorvastatin [Lipitor] 20 mg PO DAILY 04/12/23 04/12/23 History Insulin Glargine,Hum.rec.anlog 8 units SQ DAILY 04/12/23 04/12/23 History [Lantus Solostar Pen] Melatonin 3 mg PO HS 04/12/23 04/12/23 History lisinopriL [Zestril] 10 mg PO DAILY 04/12/23 04/12/23 History Allergies Allergy/AdvReac Type Severity Reaction Status Date / Time No Known Allergies Allergy Verified 04/12/23 15:22 Surgical - Exam Vital Signs Temp Pulse Resp BP Pulse Ox 98.2 F 65 18 124/64 98 04/12/23 14:02 04/12/23 14:02 04/12/23 14:02 04/12/23 14:02 04/12/23 14:02 - General General appearance: The patient is alert, oriented, appears in no acute distress. HET: Head is normocephalic and atraumatic. Pupils are equal and reactive. Neck: Supple. Heart: Regular. Lungs: Equal expansion, normal respiratory effort. Abdomen: Soft, nontender, nondistended. Extremities: Normal skin color and turgor. Bilateral No lower extremity edema. Nonpalpable PT or DP pulses. Neurological: No focal deficits. Results - Labs 04/12/23 15:49 04/17/23 07:11 Abnormal Lab Results - Last 24 Hours (Table) 04/16/23 04/16/23 04/17/23 Range/Units 17:12 19:52 07:06 BUN/Creatinine Ratio (12.00-20.00) Ratio Glucose (70-110) mg/dL POC Glucose (mg/dL) 136 H 207 H 121 H (70-110) mg/dL 04/17/23 04/17/23 Range/Units 07:11 11:52 BUN/Creatinine Ratio 22.00 H (12.00-20.00) Ratio Glucose 124 H (70-110) mg/dL POC Glucose (mg/dL) 124 H (70-110) mg/dL Diabetes panel 04/17/23 Range/Units 07:11 Sodium 141 (135-145) mmol/L Potassium 4.0 (3.5-5.5) mmol/L Chloride 105 (96-109) mmol/L Carbon Dioxide 25.3 (21.6-31.8) mmol/L BUN 19.8 (9.0-27.0) mg/dL Creatinine 0.9 (0.6-1.5) mg/dL Glucose 124 H (70-110) mg/dL Calcium 10.1 (8.7-10.3) mg/dL Calcium panel 04/17/23 Range/Units 07:11 Calcium 10.1 (8.7-10.3) mg/dL Pituitary panel 04/17/23 Range/Units 07:11 Sodium 141 (135-145) mmol/L Potassium 4.0 (3.5-5.5) mmol/L Chloride 105 (96-109) mmol/L Carbon Dioxide 25.3 (21.6-31.8) mmol/L BUN 19.8 (9.0-27.0) mg/dL Creatinine 0.9 (0.6-1.5) mg/dL Glucose 124 H (70-110) mg/dL Calcium 10.1 (8.7-10.3) mg/dL Adrenal panel 04/17/23 Range/Units 07:11 Sodium 141 (135-145) mmol/L Potassium 4.0 (3.5-5.5) mmol/L Chloride 105 (96-109) mmol/L Carbon Dioxide 25.3 (21.6-31.8) mmol/L BUN 19.8 (9.0-27.0) mg/dL Creatinine 0.9 (0.6-1.5) mg/dL Glucose 124 H (70-110) mg/dL Calcium 10.1 (8.7-10.3) mg/dL - Imaging Comments: Carotid duplex carotid duplex: Right ICA PSV 92, ratio 1.02. Left ICA PSV 136, ratio 1.99. Less than 50% stenosis of the right carotid bifurcation. 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 CT angiogram head and neck: Up to 70% stenosis of the bilateral carotid bifurcation secondary to predominantly calcified plaque. No evidence of dissection of the cervical internal carotid arteries or vertebral arteries. No evidence of intracranial high-grade stenosis or intracranial aneurysm. Assessment and Plan Assessment: 1. Asymptomatic Bilateral internal carotid artery stenosis approximately 70% 2. Dizziness 3. Generalized weakness 4. History coronary artery disease status post pacemaker 5. Chronic Atrial fibrillation on Eliquis 6. History of stroke 7. Diabetes mellitus 8. Peripheral neuropathy Plan: 1. Will add aspirin 81 mg daily and recommend increasing a atorvastatin to 40 mg daily 2. Recommend medical management at this point. Will have patient follow-up as an outpatient in the next 4 weeks can discuss further workup at that time 3. Continue with recommendations from neurology Thank you for this consultation, there is no indication for any vascular surgical intervention at this time. Recommend outpatient follow-up. We will sign off at this time. The impression and plan of care has been dictated as directed. I performed a history and examination of this patient, discussed the same with the dictator. I agree with the dictator's note ,documented as a scribe. Any additional findings or plans will be noted.
[2023-04-17 14:03] VITALS: BP 148/77; RESP 16; TEMP 98.3
--- NOTE | 2023-04-17 15:08 | P.DS ---
Providers Date of admission: 04/14/23 21:32 Attending physician: Julianne Sprague Consults: 04/13/23 12:02 Consult Physician Urgent Consulting Provider: Tatianna Huitron Consult Reason/Comments: dizziness, hyokinesia on echo Do you want consulting provider notified?: Yes 04/13/23 12:12 Consult Physician Routine Consulting Provider: Les Hernandez Consult Reason/Comments: interval change of brain hypodensity Do you want consulting provider notified?: Yes 04/17/23 11:22 Consult Physician Urgent Consulting Provider: Chico Golden Consult Reason/Comments: Bilateral ICA stenosis 70%. Do you want consulting provider notified?: Yes Primary care physician: [facility] Course: Diagnoses: Transient dizziness with possible vertigo. Could be possible metabolic/toxic encephalopathy secondary to medication as patient was on antihistamine and Xanax at home Interval change of the CT of the brain in the right subcortical brain with possible interval changes. Bilateral ICA stenosis 70% %. vascular surgery recommend aspirin and her dose of Lipitor 40 mg History of Urinary retention Generalized weakness Status post dual-chamber per pacemaker History of mild cardiomyopathy EF 40-45% History of prior transcatheter aortic valve replacement Chronic atrial fibrillation History of stroke Hypertension Hyperlipidemia Insulin-dependent diabetes mellitus Vascular Dementia Hospital course: This is a pleasant 83-year-old male with history diabetes mellitus type 2, peripheral neuropathy, chronic atrial fibrillation, hypertension, stroke, severe aortic stenosis status post TAVR, mild cardiomyopathy EF 40-45%, mild increasing dementia Patient presents because he was feeling dizzy for 2 days, CT of the brain was showing recurrent strokes worse than before from 2019 but they're not acute there old. When asked the patient he said he is taking his Eliquis but the family mentioned he is not and probably he has memory problem from his vascular dementia from his strokes. Neurology eval which is obtained and he was started on Vimpat for abnormal EEG also recommended CTA of the neck which shows bilateral internal carotid artery stenosis about 70%, vascular surgery team were consulted and they recommended to add aspirin 81 mg and increased dose of Lipitor to 40 mg, earlier aspirin was held across patient was refusing to go to rehab, I discussed the case with the patient and daughter in law at bedside Dorys and after explaining the risks and benefits patient changes his mind and he is agreeable to go to rehab. Patient still at-risk of fall and if he keeps falling then we recommend to hold back on his blood thinners and antiplatelet medication as per his doctor as an outpatient however now he can continue taking them as he is going for rehab and felt like the benefits more than the risk as recommended by consultants. Rhythm that patient is back to baseline and he denies any other new complaints, no new focal neurological deficit currently however he is very weak and he needs assistance with mobility. Patient was cleared for discharge by all consultants including neurology, vascular surgery and technical service rep. Cardiology team recommended nuclear scan which is already scheduled as an outpatient on 04/25. Patient is agreeable to go to rehab today. Problems and management plan were discussed with the patient and he verbalized understanding and acceptance Patient was found stable and can be discharged home in guarded prognosis however he needs follow-up as an outpatient. Patient was instructed to follow up with PCP Dr. Holt within one week and patient agrees Patient was instructed to follow up with the neurologist Dr. Joshi in 2-3 weeks and vascular surgery Dr. Horan in 2-3 weeks as an outpatient Patient was instructed to follow up with his technical service rep as an outpatient and he has nuclear scans scheduled on 04/25 within 1 week from discharge Physical exam -Gen: patient is a AAOx2-3 partially, no distress. Generally weak CVS: S1-S2, RRR, no murmur Lungs: B/L CTA, no wheezing Abdomen: soft, no distention, no tenderness, positive bowel sounds Extremity: no leg edema or induration Time spent more than 35 minutes Patient Condition at Discharge: Stable Plan - Discharge Summary Discharge Rx Participant: Yes New Discharge Prescriptions: No Action Apixaban [Eliquis] 5 mg PO BID Acetaminophen/Diphenhydramine [Tylenol PM 500-25mg] 2 tab PO HS Acetaminophen Tab [Tylenol] 650 mg PO Q6HR PRN #30 tab PRN Reason: Mild Pain (Scale 1 To 3) amLODIPine [Norvasc] 10 mg PO DAILY #30 tab Insulin Glargine,Hum.rec.anlog [Lantus Solostar Pen] 8 units SQ DAILY Melatonin 3 mg PO HS Tamsulosin HCl [Flomax] 0.4 mg PO DAILY Cholecalciferol [Vitamin D3 (125 Mcg = 5000 Iu)] 125 mcg PO DAILY Ergocalciferol (Vitamin D2) [Drisdol (50,000 Iu)] 1,250 mcg PO MO ARIPiprazole [Abilify] 5 mg PO HS ARIPiprazole [Abilify] 10 mg PO DAILY Metoprolol Tartrate [Lopressor] 100 mg PO BID Gabapentin 300 mg PO BID #4 cap ALPRAZolam [Xanax] 0.25 mg PO DAILY lisinopriL [Zestril] 10 mg PO DAILY Atorvastatin [Lipitor] 20 mg PO DAILY Discharge Medication List Apixaban [Eliquis] 5 mg PO BID 07/18/19 [History] Tamsulosin HCl [Flomax] 0.4 mg PO DAILY 06/09/21 [History] ARIPiprazole [Abilify] 5 mg PO HS 11/06/22 [History] Acetaminophen/Diphenhydramine [Tylenol PM 500-25mg] 2 tab PO HS 11/06/22 [History] Cholecalciferol [Vitamin D3 (125 Mcg = 5000 Iu)] 125 mcg PO DAILY 11/06/22 [History] Ergocalciferol (Vitamin D2) [Drisdol (50,000 Iu)] 1,250 mcg PO MO 11/06/22 [History] Acetaminophen Tab [Tylenol] 650 mg PO Q6HR PRN #30 tab 11/09/22 [Rx] amLODIPine [Norvasc] 10 mg PO DAILY #30 tab 11/09/22 [Rx] ARIPiprazole [Abilify] 10 mg PO DAILY 03/06/23 [History] Metoprolol Tartrate [Lopressor] 100 mg PO BID 03/06/23 [History] Gabapentin 300 mg PO BID #4 cap 03/07/23 [Rx] ALPRAZolam [Xanax] 0.25 mg PO DAILY 04/12/23 [History] Atorvastatin [Lipitor] 20 mg PO DAILY 04/12/23 [History] Insulin Glargine,Hum.rec.anlog [Lantus Solostar Pen] 8 units SQ DAILY 04/12/23 [History] Melatonin 3 mg PO HS 04/12/23 [History] lisinopriL [Zestril] 10 mg PO DAILY 04/12/23 [History] Follow up Appointment(s)/Referral(s): Chico Golden DO [STAFF PHYSICIAN] - 4 Weeks Roland Holt MD [Primary Care Provider] - 1-2 days [facility], [NON-STAFF] - 1 Week Activity/Diet/Wound Care/Special Instructions: heart healthy diet activity is restricted till you see your doctor Discharge Disposition: TRANSFER TO SNF/ECF
[2023-04-18] MEDS ORDERED: ASPIRIN 81 MG PO SCH (09:00)
[2023-04-18] MEDS ORDERED: FAMOTIDINE 20 MG TAB PO SCH (09:00)
--- NOTE | 2023-04-18 13:02 | P.PN ---
Subjective Progress Note Date: 04/17/23 04/17/2023: Patient was seen for a follow-up. Patient is laying comfortably in the bed. Patient is getting ready for discharge. Offers no new complaints. 04/16/2023: Patient initially seen by Dr. Les Hernandez. Please refer to his note for details. Patient is a 83-year-old male with new hypodensity on CT over the right frontoparietal, but seems old. Patient is noncompliant taking medication, states that he was missing about 5 doses of Eliquis out of 14 doses of a week. This is because he was very depressed after his . Continue Eliquis. Patient also has left ICA stenosis 50-69% but no antiplatelets because of falls and feels outpatient. Patient was seen for a follow-up. Patient denies headache. Complains of slight dizziness, which he describes as lightheadedness but no vertigo. He denies any falls in the last 6 months. SOME OF THE WORK-UP DURING THIS HOSPITAL VISIT CONSISTED OF: Lipid panel: Triglyceride 162, cholesterol is 102, LDL is 26, HDL is 42. CT of the head is reported that there is hypodensity in the subcortical right watershed region. Correlate with the patient's symptoms. 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 This could be evaluated with MRI. I personally reviewed CT head, and it appears that patient has a subacute stroke involving the left cerebellar hemisphere as well. Carotid duplex was reported as less than 50% stenosis of the right carotid bifurcation. 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 Objective - Vital Signs Vital signs: Vital Signs Temp 98.3 F 04/17/23 13:13 Pulse 60 04/17/23 13:54 Resp 16 04/17/23 13:54 BP 105/63 04/17/23 13:54 Pulse Ox 97 04/17/23 13:54 FiO2 Intake & Output 04/17/23 04/18/23 04/18/23 18:59 06:59 18:59 Other: Voiding Method External Catheter - Exam Patient is alert and awake in no distress. Speech is mildly hoarse but no aphasia or dysarthria. No paraphasic errors. Patient knows it is Sunday, April 2023 and that he is in [facility] in [facility]. He knows name of the current president. Patient is slightly slow mentation, and slow latency time to answer questions. On cranial nerve examination, pupils are equal, round and reacting, visual urban are full with no neglect. Face is symmetric and tongue protrudes the midline. On muscle strength testing there is a left pronator drift. Patient's left shoulder is slightly weak because of arthritis. The strength is (right/left) deltoid 5/5-, biceps 5/5-, triceps 5/5, long wall shear operator 5/5, hip flexion 5/5, ankle dorsi flexion 5/5. Sensory touch is equal. No ataxia for [id number] testing. Gait deferred. - Labs CBC & Chem 7: 04/12/23 15:49 04/17/23 07:11 Assessment and Plan Assessment: This is an 83-year-old gentleman with history of a brain bleed about 20 years ago, atrial fibrillation on eliquis and has pacemaker , diabetes, diabetic neuropathy was non-compliant taking his medication and take them sporadically. He's been having worsening of his dizziness. Despite his dizziness is worse when he stands up. He also has blank stares in the last month to month was in which he is nonresponsive lasting 1-[address] of the head that showed hypodensity subcortical right parietal region, which appears somewhat old. On my review, there is evidence of subacute stroke involving the left cerebellar hemisphere, which is more recent as compared to the right parietal ischemic area. Patient's strokes are probably cardioembolic. Hypodensity over right frontal parietal seems old and the last CT of the head was about the 2019 in our system which was not there. He has history of atrial fibrillation and not compliant taking eliquis. He has acute on chronic dizziness likely due to his positive orthostatic hypotension. According to family he has dizziness when he stands up which goes with the orthostatic hypotension Episodes of blank stares and the last 1-2 years lasting 1-2 minutes and during these episodes he is nonresponsive: Unsure if patient is having the seizures. Asymptomatic left ICA of 50-69% stenosis on the carotid duplex. History of brain bleed about 20 years ago Atrial fibrillation on eliquis and has a pacemaker Diabetes mellitus Diabetic neuropathy History of depression Noncompliant taking medication Plan: Recent 2-D echo on 03/07/2023 reported as normal left ventricle systolic motion with hypokinesis of the inferior apical wall. Normal functioning bioprosthetic valve in aortic position. Cardiology is on board EEG performed today was abnormal due to background slowing of mild to moderate degree, suggestive of encephalopathy. No epileptiform activity was seen. Because of his blank stares and there is a concern for possible seizures, therefore Dr. Hernandez started the patient on Vimpat 50 mg twice a day. He avoided Keppra because of his history of depression which can cause the worsening of agitation and mood. May consider stopping Vimpat in 4 weeks, if stops having staring spells, as I believe, his spells could be related to the CVA. Cannot obtain the MRI of the brain since the patient has a pacemaker Patient is on eliquis 5mg bid and lipitor 20mg daily. Dr. Hernandez initially added ASA 81mg daily for his carotid stenosis but the primary felt there is risk of bleed especially since he is on anticoagulation and fall risk. He already has history of falls. I agree with the primary, if the risk outweigh the benefit, therefore Dr. Hernandez stopped aspirin. I also agree. Patient was notified that he is to be compliant taking his medication including his home eliquis. Regarding the positive orthostatic hypotension defer the management to the primary team. Patient has asymptomatic left ICA stenosis and recommended to follow up with a vascular surgeon team as an outpatient in 6 months. I recommend medical management for now. PT and OT are consulted Hemoglobin A1c 6.3. Lipids are well controlled with LDL 26.9. Continue Lipitor 20 mg daily. Defer the rest of the medical management to primary and other specialists Upon discharge recommend the patient to follow-up with a neurologist as an outpatient within 2-3 weeks.
[2023-04-18] MEDS ORDERED: ATORVASTATIN 40 MG TAB PO SCH (21:00)
== END 2023-04-17 19:55 | DRG 92 ==
LOC: EC 13:58 → 6NMEDSUR 19:21 → 5NMEDONC 04-13 01:52 → OBSVTOIN 04-14 21:32
PROVIDERS: ADMIT Hospitalist; ATTEND Hospitalist
DX: G92.8 Other toxic encephalopathy (principal); F01.53 Vascular dementia, unspecified severity, with mood disturbance; I42.9 Cardiomyopathy, unspecified; I48.21 Permanent atrial fibrillation; E11.40 Type 2 diabetes mellitus with diabetic neuropathy, unspecified; E78.5 Hyperlipidemia, unspecified; F32.A Depression, unspecified; F41.9 Anxiety disorder, unspecified; I11.0 Hypertensive heart disease with heart failure; I25.10 Atherosclerotic heart disease of native coronary artery without angina pectoris; I35.0 Nonrheumatic aortic (valve) stenosis; I50.9 Heart failure, unspecified; I65.23 Occlusion and stenosis of bilateral carotid arteries; I95.1 Orthostatic hypotension; T45.0X5A Adverse effect of antiallergic and antiemetic drugs, initial encounter; T42.4X5A Adverse effect of benzodiazepines, initial encounter; K59.00 Constipation, unspecified; Z66 Do not resuscitate; Z79.01 Long term (current) use of anticoagulants; Z79.4 Long term (current) use of insulin; Z79.899 Other long term (current) drug therapy; Z86.73 Personal history of transient ischemic attack (TIA), and cerebral infarction without residual deficits; Z91.199 Patient's noncompliance with other medical treatment and regimen due to unspecified reason; Z91.81 History of falling; Z95.0 Presence of cardiac pacemaker; Z95.2 Presence of prosthetic heart valve
CPT/HCPCS: 36415; 70450; 70496; 70498; 71046; 74018; 80048; 80053; 80061; 81001; 82607; 82746; 83605; 83735; 84484; 85025; 85610; 85730; 93005; 93880; 95816; 96360; 96361; 99285

== ENCOUNTER 2023-05-05 15:33 | Observation (INO) | payer MEDICARE ==
--- NOTE | 2023-05-05 16:50 | ED ---
General Adult HPI - General Chief complaint: Weakness Stated complaint: Weakness Time Seen by Provider: 05/05/23 16:10 Source: patient, RN notes reviewed Mode of arrival: EMS Limitations: no limitations - History of Present Illness Initial comments: Patient is a pleasant 83-year-old male presenting to the emergency department with concern for weakness. Patient states he fell trying to get out of his chair. Patient states he is not able to get up on his own and feels weak. Patient states specifically he has had right leg weakness for the past one week. Patient has not noticed any significant change since 1 week ago. Patient denies any significant injury or area of concern is feels weak in general. Patient does have renal failure and is on dialysis - Related Data Home Medications Medication Instructions Recorded Confirmed Apixaban [Eliquis] 5 mg PO BID 07/18/19 04/12/23 Tamsulosin HCl [Flomax] 0.4 mg PO DAILY 06/09/21 04/12/23 ARIPiprazole [Abilify] 5 mg PO HS 11/06/22 04/12/23 Cholecalciferol [Vitamin D3 (125 125 mcg PO DAILY 11/06/22 04/12/23 Mcg = 5000 Iu)] Ergocalciferol (Vitamin D2) 1,250 mcg PO MO 11/06/22 04/12/23 [Drisdol (50,000 Iu)] ARIPiprazole [Abilify] 10 mg PO DAILY 03/06/23 04/12/23 Metoprolol Tartrate [Lopressor] 100 mg PO BID 03/06/23 04/12/23 lisinopriL [Zestril] 10 mg PO DAILY 04/12/23 04/12/23 Previous Rx's Medication Instructions Recorded Acetaminophen Tab [Tylenol] 650 mg PO Q6HR PRN #30 tab 11/09/22 amLODIPine [Norvasc] 10 mg PO DAILY #30 tab 11/09/22 ALPRAZolam [Xanax] 0.25 mg PO DAILY #5 tab 04/17/23 Aspirin 81 mg PO DAILY tab 04/17/23 Atorvastatin [Lipitor] 40 mg PO HS tab 04/17/23 Famotidine [Pepcid] 20 mg PO DAILY tab 04/17/23 Gabapentin [Neurontin] 200 mg PO BID #20 cap 04/17/23 INSULIN ASPART (NovoLOG) [NovoLOG 0 unit SQ ACHS #10 ml 04/17/23 (formulary)] Lacosamide [Vimpat] 50 mg PO BID #60 tab 04/17/23 Melatonin 3 mg PO HS PRN #0 04/17/23 Allergies Allergy/AdvReac Type Severity Reaction Status Date / Time No Known Allergies Allergy Verified 05/05/23 15:46 Review of Systems ROS Statement: Those systems with pertinent positive or pertinent negative responses have been documented in the HPI. ROS Other: All systems not noted in ROS Statement are negative. Constitutional: Denies: fever Eyes: Denies: eye pain ENT: Denies: ear pain Respiratory: Denies: cough Cardiovascular: Denies: chest pain Gastrointestinal: Denies: abdominal pain Neurological: Reports: as per HPI Past Medical History Past Medical History: Atrial Fibrillation, Heart Failure, CVA/TIA, Diabetes Mellitus, Hypertension Additional Past Medical History / Comment(s): Moderate to severe aortic stenosis - had TAVR History of Any Multi-Drug Resistant Organisms: None Reported Past Surgical History: Orthopedic Surgery, Tonsillectomy Additional Past Surgical History / Comment(s): brain sx 2006 - due to bleed, TAVR, right hip 2019 Past Anesthesia/Blood Transfusion Reactions: No Reported Reaction Past Psychological History: Anxiety, Depression Smoking Status: Never smoker Past Alcohol Use History: None Reported Past Drug Use History: None Reported General Exam Limitations: no limitations General appearance: alert, in no apparent distress Head exam: Present: atraumatic Eye exam: Present: normal appearance ENT exam: Present: normal oropharynx Neck exam: Present: normal inspection. Absent: tenderness Respiratory exam: Present: normal lung sounds bilaterally Cardiovascular Exam: Present: regular rate, normal rhythm GI/Abdominal exam: Present: soft. Absent: tenderness Extremities exam: Absent: tenderness Back exam: Present: normal inspection. Absent: tenderness Neurological exam: Present: alert Expanded Neurological exam: Present: protecting the airway Speech: Present: fluid speech Cranial nerves: EOM's Intact: Normal Motor strength exam: RUE: 5, LUE: 5, RLE: 5, LLE: 3 Eye Response: (4) open spontaneously Motor Response: (6) obeys commands Verbal Response: (5) oriented Psychiatric exam: Present: normal affect, normal mood Skin exam: Present: normal color Course Vital Signs 05/05/23 05/05/23 05/05/23 15:37 15:45 17:45 Temperature 97.9 F Pulse Rate 72 60 60 Respiratory 18 17 18 Rate Blood Pressure 89/53 94/51 99/58 O2 Sat by Pulse 94 L 97 98 Oximetry 05/05/23 05/05/23 05/05/23 18:00 19:30 19:57 Temperature 98.1 F Pulse Rate 95 60 60 Respiratory 18 16 18 Rate Blood Pressure 85/42 106/57 113/60 O2 Sat by Pulse 96 93 L 96 Oximetry EKG Findings - EKG Results: EKG: interpreted by ODESSAD (Paced rhythm with a rate of 60. Left axis. Diffuse Q waves. White count QRS complex.) Medical Decision Making - Medical Decision Making Was pt. sent in by a medical professional or institution (, PA, DRIVER GUIDE, urgent care, hospital, or senior living...) When possible be specific @ -No Did you speak to anyone other than the patient for history (EMS, parent, family, police, friend...)? What history was obtained from this source @ -No Did you review nursing and triage notes (agree or disagree)? Why? @ -I reviewed and agree with nursing and triage notes Were old charts reviewed (outside hosp., previous admission, EMS record, old EKG, old radiological studies, urgent care reports/EKG's, senior living records)? Report findings @ -No old charts were reviewed Differential Diagnosis (chest pain, altered mental status, abdominal pain women, abdominal pain men, vaginal bleeding, weakness, fever, dyspnea, syncope, headache, dizziness, GI bleed, back pain, seizure, CVA, palpatations, mental health, musculoskeletal)? @ -Differential Weakness: Hypoglycemia, shock, sepsis, hyponatremia, anemia, infection, CO, ETOH, adverse medicine reaction, overdose, stroke, this is not meant to be an all-inclusive list. EKG interpreted by me (3pts min.). @ -As above X-rays interpreted by me (1pt min.). @ -Chest x-ray shows pacemaker, postoperative changes. No acute abnormality. Radiologist interpretation still pending CT interpreted by me (1pt min.). @ -Computed tomography scan of the brain does not reveal obvious large hemorrhage or mass. There is slight changes right parietal. radiologist interpretation still pending U/S interpreted by me (1pt. min.). @ -None done What testing was considered but not performed or refused? (CT, X-rays, U/S, labs)? Why? @ -None What meds were considered but not given or refused? Why? @ -None Did you discuss the management of the patient with other professionals (professionals i.e. , PA, DRIVER GUIDE, lab, RT, psych nurse, licensed master social worker, pneumatic jacketer, teacher, food safety officer, medical case manager)? Give summary @ -Case was discussed with practitioner Wei Murillo, who will admit covering Dr. Holt Was smoking cessation discussed for >3mins.? @ -No Was critical care preformed (if so, how long)? @ -No Were there social determinants of health that impacted care today? How? (Homelessness, low income, unemployed, alcoholism, drug addiction, transportation, low edu. Level, literacy, decrease access to med. care, alf, rehab)? @ -No Was there de-escalation of care discussed even if they declined (Discuss DNR or withdrawal of care, Hospice)? DNR status @ -No What co-morbidities impacted this encounter? (DM, HTN, Smoking, COPD, CAD, Cancer, CVA, ARF, Chemo, Hep., AIDS, mental health diagnosis, sleep apnea, morbid obesity)? @ -None Was patient admitted / discharged? Hospital course, mention meds given and route, prescriptions, significant lab abnormalities, going to OR and other pertinent info. @ -Patient not a TPA candidate secondary to risks outweighing the benefit. Patient symptoms onset 1 week ago. Patient reevaluated and updated. Patient blood pressure improved with IV fluids. Patient will be admitted with neurology consult. Admission orders written. Undiagnosed new problem with uncertain prognosis? @ -No Drug Therapy requiring intensive monitoring for toxicity (Heparin, Nitro, Insulin, Cardizem)? @ -No Were any procedures done? @ -No Diagnosis/symptom? @ -CVA, acute kidney injury Acute, or Chronic, or Acute on Chronic? @ -Acute, acute Uncomplicated (without systemic symptoms) or Complicated (systemic symptoms)? @ -default Side effects of treatment? @ -No Exacerbation, Progression, or Severe Exacerbation? @ -No Poses a threat to life or bodily function? How? (Chest pain, USA, CO, pneumonia, PE, COPD, DKA, ARF, appy, cholecystitis, CVA, Diverticulitis, Homicidal, Suicidal, threat to staff... and all critical care pts) @ -No - Lab Data Result diagrams: 05/05/23 17:27 05/05/23 17:27 Lab Results 05/05/23 05/05/23 05/05/23 Range/Units 17:27 17:27 17:27 WBC 10.3 (3.8-10.6) k/uL RBC 4.52 (4.30-5.90) m/uL Hgb 14.5 (13.0-17.5) gm/dL Hct 44.5 (39.0-53.0) % MCV 98.5 (80.0-100.0) fL MCH 32.1 (25.0-35.0) pg MCHC 32.6 (31.0-37.0) g/dL RDW 12.6 (11.5-15.5) % Plt Count 126 L (150-450) k/uL MPV 8.5 Neutrophils % 86 % Lymphocytes % 7 % Monocytes % 6 % Eosinophils % 0 % Basophils % 0 % Neutrophils # 8.9 H (1.3-7.7) k/uL Lymphocytes # 0.7 L (1.0-4.8) k/uL Monocytes # 0.7 (0-1.0) k/uL Eosinophils # 0.0 (0-0.7) k/uL Basophils # 0.0 (0-0.2) k/uL PT 12.2 (10.0-12.5) sec INR 1.1 (<1.2) APTT 22.7 (22.0-30.0) sec Sodium 137 (137-145) mmol/L Potassium 5.1 (3.5-5.1) mmol/L Chloride 100 (98-107) mmol/L Carbon Dioxide 26 (22-30) mmol/L Anion Gap 11 mmol/L BUN 44 H (9-20) mg/dL Creatinine 1.49 H (0.66-1.25) mg/dL Est GFR (CKD-EPI)AfAm 50 (>60 ml/min/1.73 sqM) Est GFR (CKD-EPI)NonAf 43 (>60 ml/min/1.73 sqM) Glucose 165 H (74-99) mg/dL Calcium 10.3 H (8.4-10.2) mg/dL Total Bilirubin 0.8 (0.2-1.3) mg/dL AST 25 (17-59) U/L ALT 22 (4-49) U/L Alkaline Phosphatase 84 (38-126) U/L Creatine Kinase 46 L (55-170) U/L Total Protein 7.0 (6.3-8.2) g/dL Albumin 4.1 (3.5-5.0) g/dL Disposition Clinical Impression: CVA (cerebral vascular accident), Acute kidney injury Disposition: ADMITTED IP TO THIS HOSP Is patient prescribed a controlled substance at d/c from ED?: No Referrals: Roland Holt MD [Primary Care Provider] - 1-2 days Time of Disposition: 20:36
[2023-05-05 17:53] LABS: Basophils % (A) 0 %; Eosinophils % (A) 0 %; HCT 44.5 % (39.0-53.0); HGB 14.5 gm/dL (13.0-17.5); Lymphocytes # (A) 0.7 k/uL (1.0-4.8); Lymphocytes % (A) 7 %; MCH 32.1 pg (25.0-35.0); MCHC 32.6 g/dL (31.0-37.0); MCV 98.5 fL (80.0-100.0); Mean Platelet Volume 8.5; Monocytes # (A) 0.7 k/uL (0-1.0); Monocytes % (A) 6 %; Neutrophils # (A) 8.9 k/uL (1.3-7.7); Neutrophils % (A) 86 %; Platelet Count 126 k/uL (150-450); RBC 4.52 m/uL (4.30-5.90); RDW 12.6 % (11.5-15.5); WBC 10.3 k/uL (3.8-10.6)
[2023-05-05 18:02] LABS: INR 1.1 (<1.2); Partial Thromboplastin Time 22.7 sec (22.0-30.0); Prothrombin Time 12.2 sec (10.0-12.5)
[2023-05-05 18:20] LABS: ALT 22 U/L (4-49); AST 25 U/L (17-59); African American GFR (CKD) 50 (>60 ml/min/1.73 sqM); Albumin 4.1 g/dL (3.5-5.0); Alkaline Phosphatase 84 U/L (38-126); Anion Gap 11 mmol/L; Blood Urea Nitrogen 44 mg/dL (9-20); Calcium 10.3 mg/dL (8.4-10.2); Carbon Dioxide 26 mmol/L (22-30); Chloride 100 mmol/L (98-107); Creatine Kinase 46 U/L (55-170); Glucose 165 mg/dL (74-99); Non-African American GFR(CKD) 43 (>60 ml/min/1.73 sqM); Potassium 5.1 mmol/L (3.5-5.1); Sodium 137 mmol/L (137-145); Total Bilirubin 0.8 mg/dL (0.2-1.3)
[2023-05-05] MEDS ORDERED: SODIUM CHLORIDE 0.9% 1,000 ML IV STA (18:57)
[2023-05-05] MEDS ORDERED: ASPIRIN 325 MG TAB PO STA (20:31)
[2023-05-05] MEDS: SODIUM CHLORIDE 0.9% 1,000 ML IV SCH (21:33)
--- NOTE | 2023-05-06 00:56 | CT ---
EXAMINATION TYPE: CT brain wo con CT DLP: 1196.4 mGycm, Automated exposure control for dose reduction was used. DATE OF EXAM: 05/05/2023 7:33 PM COMPARISON: CT head 04/12/2023. CLINICAL INDICATION:Male, 83 years old with history of Neuro deficit, acute, stroke suspected, Fall, no LOC, pt is on blood thinners. TECHNIQUE: Brain: Axial CT images of the brain were obtained with coronal and sagittal reformats created and rev iewed. Contrast used: None. Oral contrast used: None. FINDINGS: Extra-axial spaces: No abnormal extra-axial fluid collections. Ventricular system: Appear dilated in proportion to the degree of cerebral atrophy. Cerebral parenchyma: No increased attenuation to suggest acute intraparenchymal hemorrhage. The gra y-white matter interface appears maintained. Moderate generalized brain atrophy. Scattered hypoatte nuating areas are seen within the cerebral white matter, nonspecific but most often seen with chronic microvascular ischemic changes; mild/moderate in degree. Stable appearing patch of subcortical hypo attenuation in the right parietal lobe most consistent with remote infarct. Cerebellum: No acute abnormality. Encephalomalacia in the left cerebellar hemisphere with overlying s uboccipital craniotomy changes. Mass effect: No evidence of mass effect or midline shift. Intracranial vasculature: Atherosclerotic calcifications of the larger arteries near the skull base. Soft tissues: Normal. Visualized orbits: Orbital contents appear grossly intact. Calvarium/osseous structures: No evidence of calvarial fracture. Similar appearance of left suboccipi chrystal craniotomy changes. Paranasal sinuses and mastoid air cells: Apparent operative opening in the medial wall of the right m axillary sinus. There is mild paranasal sinus mucosal thickening. No definite fluid levels. The masto id air cells are clear. Material in the right auditory canal is likely cerumen. MRI is more sensitive for detecting acute processes such as infarct, and may be considered if clinica lly warranted. IMPRESSION: Overall stable intracranial findings. No CT evidence of an acute intracranial abnormality.
--- NOTE | 2023-05-06 01:06 | XR ---
EXAMINATION TYPE: XR chest 2V DATE OF EXAM: 05/05/2023 7:40 PM CLINICAL INDICATION:Male, 83 years old with history of altered mental status; [facility] COMPARISON: 04/12/2023 TECHNIQUE: XR chest 2V. Frontal PA and lateral views of the chest. FINDINGS: The heart size is upper normal. Pacemaker overlies the left chest with leads appearing to terminate over the RA, RV, and coronary sinus, as before. Status post TAVR. Mild pulmonary vascular congestion. Mild asymmetric elevation of the left hemidiaphragm. Mild bibasilar lung opacities likely atelectasi s. No focal consolidation, pleural effusion, or pneumothorax. Moderate to severe degenerative changes of the shoulders and spine. Anterior wedge deformity of a lum bar vertebral body, technically age indeterminate but is most likely chronic. IMPRESSION: 1. Bibasilar atelectasis. Otherwise no acute pulmonary abnormality. 2. Borderline mild cardiomegaly with mild vascular congestion and postoperative changes, similar to previous.
[2023-05-06] MEDS ORDERED: DEXTROSE 50% SYRINGE 50 ML IVP PRN ×2 (05:55)
[2023-05-06] MEDS ORDERED: SODIUM CHLORIDE 0.9% 1,000 ML IV SCH (06:00)
[2023-05-06] MEDS: INSULIN DETEMIR (LEVEMIR) 100 UNIT/ML SYR SQ SCH (07:00)
[2023-05-06 07:01] LABS: Glucose,Whole Blood 119 mg/dL (70-110)
[2023-05-06] MEDS: SODIUM CHLORIDE 0.9% 1,000 ML IV SCH ×2 (07:48→18:47)
[2023-05-06] MEDS: INSULIN ASPART (NovoLOG) 100 UNIT/ML VIAL SQ SCH ×4 (07:48→21:13)
[2023-05-06] MEDS: CHOLECALCIFEROL 125 MCG (5000 IU) TABLET PO SCH (08:50)
[2023-05-06] MEDS: amLODIPine 10 MG TAB PO SCH (08:50)
[2023-05-06] MEDS: GABAPENTIN 300 MG CAP PO SCH ×2 (08:50→21:15)
[2023-05-06] MEDS: TAMSULOSIN 0.4 MG CAP.ER.24H PO SCH (08:50)
[2023-05-06] MEDS: ARIPiprazole 5 MG TAB PO SCH ×2 (08:50→21:17)
[2023-05-06] MEDS: METOPROLOL TARTRATE 50 MG TAB PO SCH ×2 (08:50→21:28)
[2023-05-06] MEDS ORDERED: ASPIRIN 325 MG TAB PO SCH (09:00)
[2023-05-06 11:28] LABS: African American GFR (CKD) 65 (>60 ml/min/1.73 sqM); Anion Gap 10 mmol/L; Blood Urea Nitrogen 40 mg/dL (9-20); Calcium 9.6 mg/dL (8.4-10.2); Carbon Dioxide 25 mmol/L (22-30); Chloride 105 mmol/L (98-107); Glucose 126 mg/dL (74-99); Non-African American GFR(CKD) 56 (>60 ml/min/1.73 sqM); Potassium 4.5 mmol/L (3.5-5.1); Sodium 140 mmol/L (137-145)
[2023-05-06 12:29] LABS: Glucose,Whole Blood 118 mg/dL (70-110)
--- NOTE | 2023-05-06 12:36 | P.HPIM ---
History of Present Illness H&P Date: 05/06/23 Chief Complaint: Weakness * 83-year-old gentleman with past medical history significant for intracranial hemorrhage 20 years ago, history of atrial fibrillation status post pacemaker in place on Eliquis, history of severe aortic stenosis status post TAVR, diabetes mellitus, diabetic neuropathy, left internal carotid artery stenosis, history of depression, presents to the emergency department with complains of generalized weakness. Patient states he was trying to get out of the chair and fell out. Patient states he was not able to get up and felt having generalized weakness. Patient did specifically mentioned that he had right lower extremity weakness ongoing for 1 week prior to admission. * Patient denies of injury from fall * was accompanied by daughter at bedside, patient was discharged from rehab yesterday, patient had been noncompliant and was sent home, he had 2 falls at home. Patient does have global weakness, per daughter patient has been noncompliant with medications as well he has been very forgetful * Workup in ER included vitals which were within normal limits * Serum chemistry obtained showed WBC of 10.3 hemoglobin 14.5 platelet count of 126 * Sodium of 137 potassium 5.1 be 144 creatinine 1.49 glucose 165 calcium 10.3 * Workup in ER included CT head which was negative for acute intracranial process, chronic microvascular ischemic changes were noted mild paranasal sinus disease noted * Patient admitted as observation with consultation for neurology for further evaluation to rule out CVA REVIEW OF SYSTEMS: Generalized weakness, fall CONSTITUTIONAL: No fever, no malaise, no fatigue. HEENT: No recent visual problems or hearing problems. Denied any sore throat. CARDIOVASCULAR: No chest pain, orthopnea, PND, no palpitations, no syncope. PULMONARY: No shortness of breath, no cough, no hemoptysis. GASTROINTESTINAL: No diarrhea, no nausea, no vomiting, no abdominal pain. NEUROLOGICAL: No headaches, no weakness, no numbness. HEMATOLOGICAL: Denies any bleeding or petechiae. GENITOURINARY: Denies any burning micturition, frequency, or urgency. MUSCULOSKELETAL/RHEUMATOLOGICAL: Denies any joint pain, swelling, or any muscle pain. ENDOCRINE: Denies any polyuria or polydipsia. PHYSICAL EXAMINATION: GENERAL: The patient is alert and oriented x3, . Ill appearance HEENT: Pupils are round and equally reacting to light. EOMI. CARDIOVASCULAR: S1 and S2 present. No murmurs, rubs, or gallops. PULMONARY: Chest is clear to auscultation, no wheezing or crackles. ABDOMEN: Soft, nontender, nondistended, normoactive bowel sounds. No palpable organomegaly. MUSCULOSKELETAL: No joint swelling or deformity. EXTREMITIES: No cyanosis, clubbing, or pedal edema. NEUROLOGICAL: Alert to person place and situation, ill appearance, impaired cognition Past Medical History Past Medical History: Atrial Fibrillation, Heart Failure, CVA/TIA, Diabetes Rachna litus, Hypertension Additional Past Medical History / Comment(s): Moderate to severe aortic stenosis - had TAVR History of Any Multi-Drug Resistant Organisms: None Reported Past Surgical History: Orthopedic Surgery, Tonsillectomy Additional Past Surgical History / Comment(s): brain sx 2006 - due to bleed, TAVR, right hip 2019 Past Anesthesia/Blood Transfusion Reactions: No Reported Reaction Past Psychological History: Anxiety, Depression Smoking Status: Never smoker Past Alcohol Use History: None Reported Past Drug Use History: None Reported Medications and Allergies Home Medications Medication Instructions Recorded Confirmed Type Apixaban [Eliquis] 5 mg PO BID 07/18/19 05/05/23 History Tamsulosin HCl [Flomax] 0.4 mg PO DAILY 06/09/21 05/05/23 History ARIPiprazole [Abilify] 5 mg PO DAILY 11/06/22 05/05/23 History Cholecalciferol [Vitamin D3 (125 125 mcg PO DAILY 11/06/22 05/05/23 History Mcg = 5000 Iu)] Ergocalciferol (Vitamin D2) 1,250 mcg PO Q7D 11/06/22 05/05/23 History [Drisdol (50,000 Iu)] amLODIPine [Norvasc] 10 mg PO DAILY #30 tab 11/09/22 05/05/23 Rx ARIPiprazole [Abilify] 10 mg PO HS 03/06/23 05/05/23 History Metoprolol Tartrate [Lopressor] 100 mg PO BID 03/06/23 05/05/23 History lisinopriL [Zestril] 10 mg PO DAILY 04/12/23 05/05/23 History Acetaminophen Tab [Tylenol] 650 mg PO W/LUNCH 05/05/23 05/05/23 History Acetaminophen/Diphenhydramine 2 tab PO HS 05/05/23 05/05/23 History [Tylenol PM 500-25mg] Atorvastatin [Lipitor] 20 mg PO HS 05/05/23 05/05/23 History Gabapentin 300 mg PO BID 05/05/23 05/05/23 History Insulin Glargine,Hum.rec.anlog 8 units SQ DAILY 05/05/23 05/05/23 History [Insulin Glargine Solostar] Allergies Allergy/AdvReac Type Severity Reaction Status Date / Time No Known Allergies Allergy Verified 05/05/23 21:16 Physical Exam Vitals: Vital Signs Temp Pulse Pulse Resp BP BP Pulse Ox 05/06/23 08:05 96 05/06/23 08:00 98.2 F 60 14 138/62 99 05/06/23 04:00 60 16 124/57 96 05/06/23 02:00 60 20 114/56 92 L 05/06/23 00:00 60 16 115/55 96 05/05/23 22:02 98.4 F 61 18 105/65 97 05/05/23 19:57 98.1 F 60 18 113/60 96 05/05/23 19:30 60 16 106/57 93 L 05/05/23 18:00 95 18 85/42 96 05/05/23 17:45 60 18 99/58 98 05/05/23 15:45 60 17 94/51 97 05/05/23 15:37 97.9 F 72 18 89/53 94 L Intake and Output 05/05/23 05/06/23 05/06/23 22:59 06:59 14:59 Other: Weight 95.254 kg Results CBC & Chem 7: 05/05/23 17:27 05/06/23 09:25 Labs: Abnormal Lab Results - Last 24 Hours (Table) 05/05/23 05/05/23 05/06/23 Range/Units 17:27 17:27 06:59 Plt Count 126 L (150-450) k/uL Neutrophils # 8.9 H (1.3-7.7) k/uL Lymphocytes # 0.7 L (1.0-4.8) k/uL BUN 44 H (9-20) mg/dL Creatinine 1.49 H (0.66-1.25) mg/dL Glucose 165 H (74-99) mg/dL POC Glucose (mg/dL) 119 H (70-110) mg/dL Calcium 10.3 H (8.4-10.2) mg/dL Creatine Kinase 46 L (55-170) U/L Assessment and Plan Assessment: Assessment and plan * Right lower extremity weakness rule out CVA * Bilateral internal carotid artery stenosis approximately 70% * History of CVA * Progressive cognitive impairment suspect onset of dementia * History of atrial fibrillation status post pacemaker in place * Status post TVAR for * History of cardiomyopathy with ejection fraction 45% * Sick sinus syndrome with pacemaker in place [employer] * Diabetes mellitus type 2 * In regards to weakness, will need neurology evaluation, continue neuro checks, continue aspirin, Eliquis, Lipitor. Unable to do MRI secondary to pacemaker * In regards to carotid artery stenosis continue antiplatelet and statin * In regards to history affective fibrillation continue Eliquis, metoprolol, telemetry monitoring * In regards to diabetes mellitus Accu-Cheks before meals at bedtime continue patient on correctional insulin, Lantus monitor for hypoglycemia * CODE STATUS is full code Time with Patient: Greater than 30
[2023-05-06 14:39] LABS: HCT 35.8 % (39.0-53.0); HGB 11.9 gm/dL (13.0-17.5); MCH 32.9 pg (25.0-35.0); MCHC 33.2 g/dL (31.0-37.0); MCV 99.1 fL (80.0-100.0); Mean Platelet Volume 8.8; RBC 3.62 m/uL (4.30-5.90); RDW 12.5 % (11.5-15.5); WBC 5.7 k/uL (3.8-10.6)
[2023-05-06 15:05] LABS: Platelet Count 95 k/uL (150-450)
[2023-05-06] MEDS: CARBIDOPA-LEVODOPA 10-100 MG 1 EACH TAB PO SCH ×3 (15:18→21:27)
[2023-05-06] MEDS: ACETAMINOPHEN TAB 325 MG TAB PO SCH (15:18)
[2023-05-06] MEDS: APIXABAN 5 MG TAB PO SCH ×2 (15:19→21:16)
--- NOTE | 2023-05-06 15:45 | P.CNNES ---
History of Present Illness Consult date: 05/06/23 Reason for Consult: CVA History of Present Illness: The pt is an 83 y/o. right handed male who is seen in neurologic consultation on 2022, via teleneurology. History is obtained from review of the chart, the pt and his son, who is present at the bedside at the end of the evaluation. The pt reports falling twice, in 2 hrs. He says he has no strength in his legs. He had been residing in a rehab facility, after a possible TIA. The pt reports that he received 20 minutes if therapy daily, then, the rest of the time, he was in bed. The pt feels he is weak because of "lack of use". According to the pt's son, the pt was discharged from the rehab facility, yesterday, because of noncompliance. He reportedly fell at home. According to the p's daughter, he is also noncompliant with his meds. The pt denies back and neck pain. He does report pain in his right leg. He denies arm weakness and difficulty breathing. He states that the weakness began about 2wks ago. It is not worsening or improving. He says he has "Laid around for 2 wks". The pt reports that when he was able to walk, his feet shuffled on the floor. He denies changes in his handwriting. He denies difficulty swallowing. He does report a "raspy" voice. He denies stiffness of his muscles and tremor of his hands. The pt does state that he has some difficulty with his memory, for the past 6mos. The pt's son feels the memory difficulties have been present for closer to a year and are worsening. In the emergency department, CT scan of the brain was performed. There is no evidence of acute ischemia or hemorrhage. There is diffuse cortical atrophy. Past Medical History Past Medical History: Atrial Fibrillation, Heart Failure, CVA/TIA, Diabetes Mellitus, Hypertension Additional Past Medical History / Comment(s): Moderate to severe aortic stenosis - had TAVR History of Any Multi-Drug Resistant Organisms: None Reported Past Surgical History: Orthopedic Surgery, Tonsillectomy Additional Past Surgical History / Comment(s): brain sx 2006 - due to bleed, TAVR, right hip 2019 Past Anesthesia/Blood Transfusion Reactions: No Reported Reaction Past Psychological History: Anxiety, Depression Smoking Status: Never smoker Past Alcohol Use History: None Reported Past Drug Use History: None Reported Medications and Allergies Home Medications Medication Instructions Recorded Confirmed Type Apixaban [Eliquis] 5 mg PO BID 07/18/19 05/05/23 History Tamsulosin HCl [Flomax] 0.4 mg PO DAILY 06/09/21 05/05/23 History ARIPiprazole [Abilify] 5 mg PO DAILY 11/06/22 05/05/23 History Cholecalciferol [Vitamin D3 (125 125 mcg PO DAILY 11/06/22 05/05/23 History Mcg = 5000 Iu)] Ergocalciferol (Vitamin D2) 1,250 mcg PO Q7D 11/06/22 05/05/23 History [Drisdol (50,000 Iu)] amLODIPine [Norvasc] 10 mg PO DAILY #30 tab 11/09/22 05/05/23 Rx ARIPiprazole [Abilify] 10 mg PO HS 03/06/23 05/05/23 History Metoprolol Tartrate [Lopressor] 100 mg PO BID 03/06/23 05/05/23 History lisinopriL [Zestril] 10 mg PO DAILY 04/12/23 05/05/23 History Acetaminophen Tab [Tylenol] 650 mg PO W/LUNCH 05/05/23 05/05/23 History Acetaminophen/Diphenhydramine 2 tab PO HS 05/05/23 05/05/23 History [Tylenol PM 500-25mg] Atorvastatin [Lipitor] 20 mg PO HS 05/05/23 05/05/23 History Gabapentin 300 mg PO BID 05/05/23 05/05/23 History Insulin Glargine,Hum.rec.anlog 8 units SQ DAILY 05/05/23 05/05/23 History [Insulin Glargine Solostar] Allergies Allergy/AdvReac Type Severity Reaction Status Date / Time No Known Allergies Allergy Verified 05/05/23 21:16 Physical Examination - Vital Signs Vital Signs: Vital Signs Temp Pulse Pulse Resp BP BP Pulse Ox 05/06/23 08:05 96 05/06/23 08:00 98.2 F 60 14 138/62 99 05/06/23 04:00 60 16 124/57 96 05/06/23 02:00 60 20 114/56 92 L 05/06/23 00:00 60 16 115/55 96 05/05/23 22:02 98.4 F 61 18 105/65 97 05/05/23 19:57 98.1 F 60 18 113/60 96 05/05/23 19:30 60 16 106/57 93 L 05/05/23 18:00 95 18 85/42 96 05/05/23 17:45 60 18 99/58 98 05/05/23 15:45 60 17 94/51 97 05/05/23 15:37 97.9 F 72 18 89/53 94 L Intake and Output 05/05/23 05/06/23 05/06/23 22:59 06:59 14:59 Other: Weight 95.254 kg General: The pt is reclining in the bed. He is well nourished and in no acute distress HEENT: Atraumatic, normocephalic. Fundus not visualized. No scleral icterus. Mucous membranes moist. Neck: Supple, with carotid bruits Heart: Regular rate and rhythm Lungs: No obvious wheeze or cough Extremities: No edema Neurological examination Mental status: The pt is awake and alert. Oriented to name,and . He incor rectly states his age to be "84". He is not oriented to the year or his current location. Speech is clear, but hypophonic. There is mask like facies and decreased blink rate. Cranial nerves: Pupils equal at 3mm, round and reactive to light. Visual urban full. Extraocular movements intact. Facial sensation intact. No facial asymmetry. Hearing grossly intact. Uvula and palate midline. Shoulder shrug symmetric. Tongue protrudes midline Motor: Strength 5/5 in the bilateral upper extremities. Hip flexors 3-4/5. Ankle dorsiflexors 1/5. Plantar flexors 5/5. There is no cogwheel rigidity Sensation: Intact to light touch. No extinction with double simultaneous stimulation Coordination: Finger to nose testing is intact. There is bradykinesia. There is left dysdiadochokinesia. There is no tremor Deep tendon reflexes: 2+/4+ in the uppers. Patellar reflexes absent Gait: Not assessed Results - Laboratory Findings CBC and BMP: 05/06/23 13:54 05/06/23 09:25 Abnormal Lab Findings: Abnormal Labs 05/05/23 05/05/23 05/06/23 17:27 17:27 06:59 Plt Count 126 L Neutrophils # 8.9 H Lymphocytes # 0.7 L BUN 44 H Creatinine 1.49 H Glucose 165 H POC Glucose (mg/dL) 119 H Calcium 10.3 H Creatine Kinase 46 L Assessment and Plan Assessment: 1. The pt is an 83 y/o male who exhibits signs of Parkinsonism and cognitive deficit. 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 History of cerebral hemorrhage in 2006 3. Plan: 1. Will initiate low dose Sinemet, with goal of titration, to therapeutic dose. Should follow up with a neurologist, outpt 2. Physical therapy evaluation 3. Social work for safe discharge plan Thank you for allowing us to participate in the care of this pt. Dr. Les Hrenandez will assume neurologic coverage of this pt as of 2022. Time with Patient: Greater than 30 (spent 55 minutes caring for this pt today)
[2023-05-06 17:17] LABS: Glucose,Whole Blood 147 mg/dL (70-110)
[2023-05-06] MEDS ORDERED: ATORVASTATIN 20 MG TAB PO SCH (21:00)
[2023-05-06 21:14] LABS: Glucose,Whole Blood 117 mg/dL (70-110)
[2023-05-06] MEDS: ARIPiprazole 10 MG TAB PO SCH (21:28)
[2023-05-06] MEDS: ATORVASTATIN 40 MG TAB PO SCH (21:28)
[2023-05-06 23:02] LABS: LDL Cholesterol,Calculated 31.8 mg/dL (0.0-131.0); VLDL Calculation 13.46 mg/dL (5.00-40.00)
[2023-05-07] MEDS: SODIUM CHLORIDE 0.9% 1,000 ML IV SCH ×3 (02:59→15:38)
[2023-05-07] MEDS: INSULIN ASPART (NovoLOG) 100 UNIT/ML VIAL SQ SCH ×4 (05:55→21:06)
[2023-05-07 05:56] LABS: Glucose,Whole Blood 116 mg/dL (70-110)
[2023-05-07] MEDS: INSULIN DETEMIR (LEVEMIR) 100 UNIT/ML SYR SQ SCH (05:57)
[2023-05-07 08:05] LABS: African American GFR (CKD) >90 (>60 ml/min/1.73 sqM); Anion Gap 13 mmol/L; Blood Urea Nitrogen 30 mg/dL (9-20); Calcium 9.5 mg/dL (8.4-10.2); Carbon Dioxide 19 mmol/L (22-30); Chloride 108 mmol/L (98-107); Glucose 112 mg/dL (74-99); Non-African American GFR(CKD) 84 (>60 ml/min/1.73 sqM); Sodium 140 mmol/L (137-145)
[2023-05-07 08:14] LABS: Potassium 4.7 mmol/L (3.5-5.1)
[2023-05-07] MEDS: METOPROLOL TARTRATE 50 MG TAB PO SCH ×2 (09:19→21:05)
[2023-05-07] MEDS: TAMSULOSIN 0.4 MG CAP.ER.24H PO SCH (09:19)
[2023-05-07] MEDS: APIXABAN 5 MG TAB PO SCH ×2 (09:20→21:05)
[2023-05-07] MEDS: CARBIDOPA-LEVODOPA 10-100 MG 1 EACH TAB PO SCH ×3 (09:20→21:05)
[2023-05-07] MEDS: GABAPENTIN 300 MG CAP PO SCH ×2 (09:20→21:04)
[2023-05-07] MEDS: amLODIPine 10 MG TAB PO SCH (09:20)
[2023-05-07] MEDS: CHOLECALCIFEROL 125 MCG (5000 IU) TABLET PO SCH (09:26)
--- NOTE | 2023-05-07 13:14 | P.PN ---
Subjective Progress Note Date: 05/07/23 I am seeing the patient for the first time during this admission. Please refer to Dr. Draper's note for further details. According Dr. Draper seems the patient exhibiting parkinsonian is some and cognitive deficits with possible idiopathic Parkinson's disease versus secondary due to cerebral injury.. Patient stated that the he presented to Hospital because of bilateral lower extremity weakness right more than the left the last 2 weeks denies any neck pain or back pain. He states he has a pacemaker. Objective - Vital Signs Vital signs: Vital Signs Temp 98.1 F 05/07/23 08:39 Pulse 60 05/07/23 08:39 Resp 17 05/07/23 08:39 BP 122/62 05/07/23 08:39 Pulse Ox 94 L 05/07/23 09:00 FiO2 Intake & Output 05/06/23 05/07/23 05/07/23 18:59 06:59 18:59 Output Total 215 815 Balance -215 -815 Output: Urine 215 815 Other: # Bowel Movements 1 1 - Exam General: Lying in bed and is not in acute distress. Neuro: The patient is awake alert oriented to self place and time. Patient is following simple commands. No aphasia and no neglect The pupils are round equal and reactive to light. Visual urban are full to consultation. No facial weakness. No dysarthria. Motor: Is lifting bilateral upper extremity symmetrically and equally and is seems strong. While lower extremity on the right is about 3-4 while the left is 4. Reflexes in the upper R1 positive while lowers are 0-1. Sensation is normal to touch throughout. Plantars are mute - Labs CBC & Chem 7: 05/06/23 13:54 05/07/23 06:18 Labs: Abnormal Lab Results - Last 24 Hours (Table) 05/06/23 05/06/23 05/06/23 Range/Units 09:25 13:54 17:15 RBC 3.62 L (4.30-5.90) m/uL Hgb 11.9 L (13.0-17.5) gm/dL Hct 35.8 L (39.0-53.0) % Plt Count 95 L (150-450) k/uL Chloride (98-107) mmol/L Carbon Dioxide (22-30) mmol/L BUN (9-20) mg/dL Glucose (74-99) mg/dL POC Glucose (mg/dL) 147 H (70-110) mg/dL HDL Cholesterol 37.70 L (40.00-60.00) mg/dL 05/06/23 05/07/23 05/07/23 Range/Units 21:12 05:54 06:18 RBC (4.30-5.90) m/uL Hgb (13.0-17.5) gm/dL Hct (39.0-53.0) % Plt Count (150-450) k/uL Chloride 108 H (98-107) mmol/L Carbon Dioxide 19 L (22-30) mmol/L BUN 30 H (9-20) mg/dL Glucose 112 H (74-99) mg/dL POC Glucose (mg/dL) 117 H 116 H (70-110) mg/dL HDL Cholesterol (40.00-60.00) mg/dL Assessment and Plan Assessment: This is an 83-year-old gentleman who states she's been having bilateral lower extremity weakness right more than left for the last [address] Draper note she felt that the patient is exhibiting parkinsonism and cognitive deficit. Patient denies of any you a lower back pain. Bilateral lower extremity weakness right more than left: History of a cerebral hemorrhage in 2006 Pacemaker Diabetes mellitus and most recent hemoglobin A1c is 6.3 on 03/07/2023. Plan: Get repeat CT of the head for tomorrow. I ordered CT lumbar spine Cannot obtain MRI since has pacemaker. Ordered TSH. He had a vitamin B12 and it was 527 on 04/16/2003. Dr. Draper start the patient on Sinemet for concern of parkinsonism [place] [id number] tablet 3 times a day. We'll defer the rest of the medical management to primary team Time with Patient: Less than 30
[2023-05-07 13:15] LABS: Glucose,Whole Blood 139 mg/dL (70-110)
[2023-05-07] MEDS: ACETAMINOPHEN TAB 325 MG TAB PO SCH (13:24)
--- NOTE | 2023-05-07 13:34 | P.PN ---
Subjective Progress Note Date: 05/07/23 * 83-year-old gentleman with past medical history significant for intracranial hemorrhage 20 years ago, history of atrial fibrillation status post pacemaker in place on Eliquis, history of severe aortic stenosis status post TAVR, diabetes mellitus, diabetic neuropathy, left internal carotid artery stenosis, history of depression, presents to the emergency department with complains of generalized weakness. Patient states he was trying to get out of the chair and fell out. Patient states he was not able to get up and felt having generalized weakness. Patient did specifically mentioned that he had right lower extremity weakness ongoing for 1 week prior to admission. * Patient denies of injury from fall * was accompanied by daughter at bedside, patient was discharged from rehab yesterday, patient had been noncompliant and was sent home, he had 2 falls at home. Patient does have global weakness, per daughter patient has been noncompliant with medications as well he has been very forgetful * Workup in ER included vitals which were within normal limits * Serum chemistry obtained showed WBC of 10.3 hemoglobin 14.5 platelet count of 126 * Sodium of 137 potassium 5.1 be 144 creatinine 1.49 glucose 165 calcium 10.3 * Workup in ER included CT head which was negative for acute intracranial process, chronic microvascular ischemic changes were noted mild paranasal sinus disease noted * Patient admitted as observation with consultation for neurology for further evaluation to rule out CVA * 05/07/2023: Patient seen and evaluated bedside in ER room 27, patient is alert to person place and situation. CT lumbar spine ordered by neurology, will need repeat CT head, patient started on Sinemet by neurology will need physical therapy evaluation explained it's not safe for him to go home and he'll need to reconsider going to subacute rehab REVIEW OF SYSTEMS: Generalized weakness, fall CONSTITUTIONAL: No fever, no malaise, no fatigue. HEENT: No recent visual problems or hearing problems. Denied any sore throat. CARDIOVASCULAR: No chest pain, orthopnea, PND, no palpitations, no syncope. PULMONARY: No shortness of breath, no cough, no hemoptysis. GASTROINTESTINAL: No diarrhea, no nausea, no vomiting, no abdominal pain. NEUROLOGICAL: No headaches, no weakness, no numbness. HEMATOLOGICAL: Denies any bleeding or petechiae. GENITOURINARY: Denies any burning micturition, frequency, or urgency. MUSCULOSKELETAL/RHEUMATOLOGICAL: Denies any joint pain, swelling, or any muscle pain. ENDOCRINE: Denies any polyuria or polydipsia. PHYSICAL EXAMINATION: GENERAL: The patient is alert and oriented x3, . Ill appearance HEENT: Pupils are round and equally reacting to light. EOMI. CARDIOVASCULAR: S1 and S2 present. No murmurs, rubs, or gallops. PULMONARY: Chest is clear to auscultation, no wheezing or crackles. ABDOMEN: Soft, nontender, nondistended, normoactive bowel sounds. No palpable organomegaly. MUSCULOSKELETAL: No joint swelling or deformity. EXTREMITIES: No cyanosis, clubbing, or pedal edema. NEUROLOGICAL: Alert to person place and situation, ill appearance, impaired cognition left lower extremity weakness and chronic Objective - Vital Signs Vital signs: Vital Signs Temp 98.1 F 05/07/23 08:39 Pulse 60 05/07/23 13:19 Resp 18 05/07/23 13:19 BP 120/64 05/07/23 13:19 Pulse Ox 96 05/07/23 13:19 FiO2 Intake & Output 05/06/23 05/07/23 05/07/23 18:59 06:59 18:59 Output Total 215 815 Balance -215 -815 Output: Urine 215 815 Other: # Bowel Movements 1 1 - Labs CBC & Chem 7: 05/06/23 13:54 05/07/23 06:18 Labs: Abnormal Lab Results - Last 24 Hours (Table) 05/06/23 05/06/23 05/06/23 Range/Units 09:25 13:54 17:15 RBC 3.62 L (4.30-5.90) m/uL Hgb 11.9 L (13.0-17.5) gm/dL Hct 35.8 L (39.0-53.0) % Plt Count 95 L (150-450) k/uL Chloride (98-107) mmol/L Carbon Dioxide (22-30) mmol/L BUN (9-20) mg/dL Glucose (74-99) mg/dL POC Glucose (mg/dL) 147 H (70-110) mg/dL HDL Cholesterol 37.70 L (40.00-60.00) mg/dL 05/06/23 05/07/23 05/07/23 Range/Units 21:12 05:54 06:18 RBC (4.30-5.90) m/uL Hgb (13.0-17.5) gm/dL Hct (39.0-53.0) % Plt Count (150-450) k/uL Chloride 108 H (98-107) mmol/L Carbon Dioxide 19 L (22-30) mmol/L BUN 30 H (9-20) mg/dL Glucose 112 H (74-99) mg/dL POC Glucose (mg/dL) 117 H 116 H (70-110) mg/dL HDL Cholesterol (40.00-60.00) mg/dL 05/07/23 Range/Units 13:13 RBC (4.30-5.90) m/uL Hgb (13.0-17.5) gm/dL Hct (39.0-53.0) % Plt Count (150-450) k/uL Chloride (98-107) mmol/L Carbon Dioxide (22-30) mmol/L BUN (9-20) mg/dL Glucose (74-99) mg/dL POC Glucose (mg/dL) 139 H (70-110) mg/dL HDL Cholesterol (40.00-60.00) mg/dL Assessment and Plan Assessment: Assessment and plan * Bilateral lower extremity weakness Right> Left rule out CVA * Parkinsonism and cognitive deficit * Bilateral internal carotid artery stenosis approximately 70% * History of CVA * Progressive cognitive impairment suspect onset of dementia * History of atrial fibrillation status post pacemaker in place * Status post TVAR for * History of cardiomyopathy with ejection fraction 45% * Sick sinus syndrome with pacemaker in place [employer] * Diabetes mellitus type 2 * In regards to weakness, appreciate input from neurology, CT lumbar spine, repe at CT had requested, initial CT head was negative, * In regards to parkinsonism, patient started on Sinemet, will need physical therapy evaluation * In regards to carotid artery stenosis continue antiplatelet and statin * In regards to history affective fibrillation continue Eliquis, metoprolol, telemetry monitoring * In regards to diabetes mellitus Accu-Cheks before meals at bedtime continue patient on correctional insulin, Lantus monitor for hypoglycemia * Patient will need physical therapy evaluation for discharge disposition not safe to go home * CODE STATUS is full code Time with Patient: Greater than 30
--- NOTE | 2023-05-07 14:06 | CT ---
EXAMINATION TYPE: CT lumbar spine wo con DATE OF EXAM: 05/07/2023 COMPARISON: None HISTORY: leg weakness CT DLP: 1619.6 mGycm CONTRAST: None TECHNIQUE: CT of the lumbar spine is performed on a spiral scan at 3 mm thick sections. Reconstructed images are performed in the coronal and sagittal planes. FINDINGS: T12-L1: No focal disc herniation or significant disc bulge is evident. No spinal canal stenosis or neural foraminal stenosis is present. L1-L2: Mild disc bulge and anterior thecal sac flattening. The spinal canal stenosis is present. Neural foramen are patent No spinal canal stenosis or neural fo raminal stenosis is present L2-L3: No focal disc herniation or significant disc bulge is evident. L3: There is a compression deformity with severe loss of vertebral body height. There is some posteri or wall displacement estimated at 0.5 cm. Mild spinal canal narrowing appears to be present. 0.9 cm. L3-L4: No focal disc herniation or significant disc bulge is evident. Facet hypertrophy is present wi th posterior lateral thecal sac compression. L4-L5: Broad-based disc bulge is present. Separately and ligamentum flavum laxity is present with pos terior lateral thecal sac compression or spinal canal stenosis is present. Neural foraminal narrowing is present L5-S1: No focal disc herniation or significant disc bulge is evident. Vacuum disc phenomena is presen t Facet hypertrophy is present as is some posterior lateral thecal sac impression from ligamentum fla vum laxity greater on the right. Vertebral alignment appears normal. IMPRESSION: 1. Severe compression deformity L3 with posterior superior wall displacement contributing to spinal c anal stenosis posterior to the L3 level. 2. Facet hypertrophy with ligamentum flavum laxity and disc bulge at L4-5 contributing to spinal terrie l stenosis. 3. Additional levels of facet hypertrophy are present and foraminal narrowing discussed above
[2023-05-07 17:10] LABS: Glucose,Whole Blood 112 mg/dL (70-110)
[2023-05-07] MEDS: ZINC OXIDE PASTE (Z-GUARD) 1 APPLIC APPLIC TOPICAL PRN (17:31)
[2023-05-07 20:43] LABS: Glucose,Whole Blood 167 mg/dL (70-110)
[2023-05-07] MEDS: ARIPiprazole 10 MG TAB PO SCH (21:05)
[2023-05-07] MEDS: ATORVASTATIN 40 MG TAB PO SCH (21:05)
[2023-05-08 08:04] LABS: Glucose,Whole Blood 125 mg/dL (70-110)
[2023-05-08] MEDS: INSULIN ASPART (NovoLOG) 100 UNIT/ML VIAL SQ SCH ×4 (08:22→20:39)
--- NOTE | 2023-05-08 09:06 | CT ---
EXAMINATION TYPE: CT brain wo con DATE OF EXAM: 05/08/2023 COMPARISON: 05/05/2023 HISTORY: Leg Weakness CT DLP: 1335.[address] of the brain was performed. The ventricles, basal cisterns and sulci overlying the cerebral convexities demonstrate mild enlargem ent. There is no evidence for intracranial hemorrhage or sulcal effacement. There is decreased attenuation about the periventricular white matter and deep white matter of both c erebral hemispheres, compatible with chronic small vessel ischemia. Differential diagnosis does inclu de demyelination. No mass effects are seen.No midline shift. Osseous calvarium is intact. If symptoms persist consider MRI. IMPRESSION: 1. Age related atrophic and chronic small vessel ischemic change without acute intracranial process s een at this time.
--- NOTE | 2023-05-08 09:55 | CA ---
Transthoracic Echo Report Name: Jarrod Tinoco Age: 83 Gender: M : 1940 Exam Date: 05/07/2023 11:18 Exam Location: [facility] Ht (in): 75 Wt (lb): 210 Ordering Physician: Moises Aldridge DO Attending/Referring Phys: Change Room Attendant Robin Crisostomo Procedure CPT: Indications: Thrombus Cardiac Hx: Technical Quality: Technically difficult study Contrast 1: Definity Total Dose (mL): 2 Contrast 2: Total Dose (mL): MEASUREMENTS (Male / Female) Normal Values 2D ECHO LV Diastolic Diameter PLAX 3.4 cm 4.2 - 5.9 / 3.9 - 5.3 cm LV Systolic Diameter PLAX 2.6 cm IVS Diastolic Thickness 2.1 cm 0.6 - 1.0 / 0.6 - 0.9 cm LVPW Diastolic Thickness 1.7 cm 0.6 - 1.0 / 0.6 - 0.9 cm LV Relative Wall Thickness 1.1 RV Internal Dim ED PLAX 2.9 cm LVOT Diameter 2.1 cm LV Diastolic Volume MOD BP 81.6 cm??? 67 - 155 / 56 - 104 cm??? LV Systolic Volume MOD BP 40.5 cm??? 22 - 58 / 19 - 49 cm??? LV Ejection Fraction MOD BP 50.3 % >= 55 % LV Cardiac Index MOD BP 1111.9 cm???/min???m??? LV Diastolic Volume MOD 4C 106.4 cm??? LV Systolic Volume MOD 4C 40.6 cm??? LV Ejection Fraction MOD 4C 61.9 % LV Cardiac Index MOD 4C 1781.2 cm???/min???m??? LV Diastolic Length 4C 8.9 cm LV Systolic Length 4C 7.9 cm LV Diastolic Volume MOD 2C 57.4 cm??? LV Systolic Volume MOD 2C 37.2 cm??? LV Ejection Fraction MOD 2C 35.1 % LV Cardiac Index MOD 2C 545.3 cm???/min???m??? LV Diastolic Length 2C 8.0 cm LV Systolic Length 2C 7.3 cm LA Volume 135.6 cm??? 18 - 58 / 22 - 52 cm??? LA Volume Index 60.2 cm???/m??? 16 - 28 cm???/m??? DOPPLER AV Peak Velocity 106.7 cm/s AV Peak Gradient 4.6 mmHg LVOT Peak Velocity 90.6 cm/s LVOT Peak Gradient 3.3 mmHg LVOT Velocity Time Integral 18.8 cm LVOT Stroke Volume 64.9 cm??? LVOT Stroke Volume Index 29.0 ml/m??? LVOT Cardiac Index 1755.7 cm???/min???m??? AV Area Cont Eq pk 2.9 cm??? MV Peak Velocity 110.1 cm/s MV Peak Gradient 4.8 mmHg MV Mean Velocity 46.7 cm/s MV Mean Gradient 1.2 mmHg MV Velocity Time Integral 28.9 cm Mitral E Point Velocity 105.2 cm/s Mitral A Point Velocity 23.9 cm/s Mitral E to A Ratio 4.4 MV Deceleration Time 315.6 ms MV E' Velocity 4.2 cm/s Mitral E to MV E' Ratio 25.1 TR Peak Velocity 220.1 cm/s TR Peak Gradient 19.4 mmHg Right Ventricular Systolic Press 24.4 mmHg FINDINGS Left Ventricle Normal LV size and wall thickness. Inferoapical hypokenesis. Left ventricular ejection fraction is estimated at 50-55 %. Right Ventricle Normal right ventricular size. Catheter/pacemaker wire in the right ventricular cavity. RVSP= 24mmHg. Right Atrium Normal right atrial size. Left Atrium Severe left atrial dilatation. LA volume index= 59ml/m2 Mitral Valve Mild Mitral valve calcification. No mitral regurgitation. Aortic Valve Bioprosthetic AV. Aortic valve not well visualized. No aortic regurgitation. No aortic stenosis. Tricuspid Valve Tricuspid valve not well visualized. Mild TR. Pulmonic Valve Pulmonic valve not well visualized. Pericardium Not well visualized. Aorta Normal size aortic root. CONCLUSIONS [employer] diifficult and limited views. Normal LV systolic function Previewed by: Dr. Srinivas Tavares MD (Electronically Signed) Final Date: 08 May 2023 09:55
[2023-05-08] MEDS: TAMSULOSIN 0.4 MG CAP.ER.24H PO SCH (10:00)
[2023-05-08] MEDS: INSULIN DETEMIR (LEVEMIR) 100 UNIT/ML SYR SQ SCH (10:00)
[2023-05-08] MEDS: METOPROLOL TARTRATE 50 MG TAB PO SCH ×2 (10:00→20:11)
[2023-05-08] MEDS: CARBIDOPA-LEVODOPA 10-100 MG 1 EACH TAB PO SCH (10:01)
[2023-05-08] MEDS: GABAPENTIN 300 MG CAP PO SCH ×2 (10:01→20:11)
[2023-05-08] MEDS: CHOLECALCIFEROL 125 MCG (5000 IU) TABLET PO SCH (10:01)
[2023-05-08] MEDS: amLODIPine 10 MG TAB PO SCH (10:01)
[2023-05-08] MEDS: APIXABAN 5 MG TAB PO SCH ×2 (10:01→20:11)
[2023-05-08] MEDS: ARIPiprazole 5 MG TAB PO SCH (10:02)
[2023-05-08] MEDS: ACETAMINOPHEN TAB 325 MG TAB PO SCH (10:02)
[2023-05-08] MEDS: SODIUM CHLORIDE 0.9% 1,000 ML IV SCH (10:04)
[2023-05-08] MEDS ORDERED: ACETAMINOPHEN TAB 325 MG TAB PO PRN (10:18)
[2023-05-08 11:03] LABS: HGB 12.8 g/dL (13.0-17.0); MCH 32.2 pg (27.0-32.0); MCHC 32.8 g/dL (32.0-37.0); Mean Platelet Volume 10.4 FL (9.5-12.2); NRBC Per 100 WBC 0 X 10*3/uL (0.00-0.01); Platelet Count 117 X 10*3/uL (140-440); RBC 3.98 X 10*6/uL (4.40-5.60); RDW 12.3 % (11.5-14.5); WBC 7.75 X 10*3/uL (4.50-10.00)
[2023-05-08 11:23] LABS: BUN/Creat Ratio 27.25 Ratio (12.00-20.00); Blood Urea Nitrogen 21.8 mg/dL (9.0-27.0); Calcium 9.4 mg/dL (8.7-10.3); Chloride 106 mmol/L (96-109); Glucose 132 mg/dL (70-110); Sodium 140 mmol/L (135-145)
[2023-05-08 12:28] LABS: Glucose,Whole Blood 168 mg/dL (70-110)
--- NOTE | 2023-05-08 12:37 | P.PN ---
Subjective Progress Note Date: 05/08/23 * 83-year-old gentleman with past medical history significant for intracranial hemorrhage 20 years ago, history of atrial fibrillation status post pacemaker in place on Eliquis, history of severe aortic stenosis status post TAVR, diabetes mellitus, diabetic neuropathy, left internal carotid artery stenosis, history of depression, presents to the emergency department with complains of generalized weakness. Patient states he was trying to get out of the chair and fell out. Patient states he was not able to get up and felt having generalized weakness. Patient did specifically mentioned that he had right lower extremity weakness ongoing for 1 week prior to admission. * Patient denies of injury from fall * was accompanied by daughter at bedside, patient was discharged from rehab yesterday, patient had been noncompliant and was sent home, he had 2 falls at home. Patient does have global weakness, per daughter patient has been noncompliant with medications as well he has been very forgetful * Workup in ER included vitals which were within normal limits * Serum chemistry obtained showed WBC of 10.3 hemoglobin 14.5 platelet count of 126 * Sodium of 137 potassium 5.1 be 144 creatinine 1.49 glucose 165 calcium 10.3 * Workup in ER included CT head which was negative for acute intracranial process, chronic microvascular ischemic changes were noted mild paranasal sinus disease noted * Patient admitted as observation with consultation for neurology for further evaluation to rule out CVA * 05/07/2023: Patient seen and evaluated bedside in ER room 27, patient is alert to person place and situation. CT lumbar spine ordered by neurology, will need repeat CT head, patient started on Sinemet by neurology will need physical therapy evaluation explained it's not safe for him to go home and he'll need to reconsider going to subacute rehab * 05/08/2023: Patient seen and evaluated bedside, CT lumbar spine show severe compression deformity L3 with posterior displacement contributing to spinal canal stenosis at L3, which could contribute to lower extremity myelopathy. Repeat CT brain negative for acute intracranial process chronic small vessel ischemic changes noted. Back surgery consulted K plan discussed with patient and daughter at bedside REVIEW OF SYSTEMS: Generalized weakness, fall CONSTITUTIONAL: No fever, no malaise, no fatigue. HEENT: No recent visual problems or hearing problems. Denied any sore throat. CARDIOVASCULAR: No chest pain, orthopnea, PND, no palpitations, no syncope. PULMONARY: No shortness of breath, no cough, no hemoptysis. GASTROINTESTINAL: No diarrhea, no nausea, no vomiting, no abdominal pain. NEUROLOGICAL: No headaches, no weakness, no numbness. HEMATOLOGICAL: Denies any bleeding or petechiae. GENITOURINARY: Denies any burning micturition, frequency, or urgency. MUSCULOSKELETAL/RHEUMATOLOGICAL: Denies any joint pain, swelling, or any muscle pain. ENDOCRINE: Denies any polyuria or polydipsia. PHYSICAL EXAMINATION: GENERAL: The patient is alert and oriented x3, . Ill appearance HEENT: Pupils are round and equally reacting to light. EOMI. CARDIOVASCULAR: S1 and S2 present. No murmurs, rubs, or gallops. PULMONARY: Chest is clear to auscultation, no wheezing or crackles. ABDOMEN: Soft, nontender, nondistended, normoactive bowel sounds. No palpable organomegaly. MUSCULOSKELETAL: No joint swelling or deformity. EXTREMITIES: No cyanosis, clubbing, or pedal edema. NEUROLOGICAL: Alert to person place and situation, ill appearance, impaired cognition left lower extremity weakness and chronic motor strength is 3 x 5 bilateral lower extremity Objective - Vital Signs Vital signs: Vital Signs Temp 98.9 F 05/08/23 07:58 Pulse 58 L 05/08/23 07:58 Resp 16 05/08/23 07:58 BP 145/63 05/08/23 07:58 Pulse Ox 95 05/08/23 07:58 FiO2 Intake & Output 05/07/23 05/08/23 05/08/23 18:59 06:59 18:59 Intake Total 1600 Output Total 700 Balance 900 Weight 108 kg 85.5 kg Intake: Intake, IV Titration 1200 Amount Sodium Chloride 0.9% 1, 1200 000 ml @ 100 mls/hr IV . Q10H [facility] Rx#:[id number] Oral 400 Output: Urine 700 Other: Voiding Method External Catheter # Voids 1 # Bowel Movements 1 1 - Labs CBC & Chem 7: 05/08/23 06:21 05/08/23 06:21 Labs: Abnormal Lab Results - Last 24 Hours (Table) 05/07/23 05/07/23 05/07/23 Range/Units 13:13 17:09 20:41 RBC (4.40-5.60) X 10*6/uL Hgb (13.0-17.0) g/dL Hct (39.6-50.0) % MCV (80.0-97.0) FL MCH (27.0-32.0) pg Plt Count (140-440) X 10*3/uL BUN/Creatinine Ratio (12.00-20.00) Ratio Glucose (70-110) mg/dL POC Glucose (mg/dL) 139 H 112 H 167 H (70-110) mg/dL 05/08/23 05/08/23 05/08/23 Range/Units 06:21 06:21 08:03 RBC 3.98 L (4.40-5.60) X 10*6/uL Hgb 12.8 L (13.0-17.0) g/dL Hct 39.0 L (39.6-50.0) % MCV 98.0 H (80.0-97.0) FL MCH 32.2 H (27.0-32.0) pg Plt Count 117 L (140-440) X 10*3/uL BUN/Creatinine Ratio 27.25 H (12.00-20.00) Ratio Glucose 132 H (70-110) mg/dL POC Glucose (mg/dL) 125 H (70-110) mg/dL 05/08/23 Range/Units 12:27 RBC (4.40-5.60) X 10*6/uL Hgb (13.0-17.0) g/dL Hct (39.6-50.0) % MCV (80.0-97.0) FL MCH (27.0-32.0) pg Plt Count (140-440) X 10*3/uL BUN/Creatinine Ratio (12.00-20.00) Ratio Glucose (70-110) mg/dL POC Glucose (mg/dL) 168 H (70-110) mg/dL Assessment and Plan Assessment: Assessment and plan * 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 Bilateral lower extremity weakness Right> Left rule out CVA * Parkinsonism and cognitive deficit * Bilateral internal carotid artery stenosis approximately 70% * History of CVA * Progressive cognitive impairment suspect onset of dementia * History of atrial fibrillation status post pacemaker in place * Status post TVAR for * History of cardiomyopathy with ejection fraction 45% * Sick sinus syndrome with pacemaker in place [employer] * Diabetes mellitus type 2 * In regards to weakness, appreciate input from neurology, spine surgery consulted, CT lumbar spine reviewed, does have lumbar spine compression fracture with spinal stenosis, intubated to lower extremity weakness * In regards to parkinsonism, patient started on Sinemet, will need physical therapy evaluation * In regards to carotid artery stenosis continue antiplatelet and statin * In regards to history affective fibrillation continue Eliquis, metoprolol, telemetry monitoring * In regards to diabetes mellitus Accu-Cheks before meals at bedtime continue juan jasso on correctional insulin, Lantus monitor for hypoglycemia * Patient will need physical therapy evaluation for discharge disposition not safe to go home * CODE STATUS is full code
--- NOTE | 2023-05-08 12:45 | P.CNOR ---
History of Present Illness - [facility] Consult date: 05/08/23 Requesting physician: Les Hernandez Consult reason: other (compression lumbar with leg weakness) History of present illness: Patient is an 83-year-old male who presented the emergency department at [facility] with concern for bilateral lower extremity weakness. Orthopedics was consulted due to lower extremity weakness. Patient was seen at bedside this morning lying semirecumbent position on 5N medical floor. Patient states about 3 weeks ago he did go to rehab due to falls and bilateral lower extremity weakness. Patient says he was discharged home a few days ago from rehab and did have several falls once he got home. Patient says during these falls he says his legs just seem to give out underneath him. Patient denies having any dizziness/nausea/lightheadedness prior to the falls. Currently at bedside, patient denies any back pain or bilateral lower extremity pain. Patient says he does have some numbness and tingling that moves from his right hip to his right knee at the front of the leg. Patient denies any other areas of numbness/tingling. Patient states typically he does use a walker or cane to ambulate and does say he has a shuffling gait. Patient does note he does have some tremors of his hands and he is not sure when this started. Patient does have a history of renal failure for which she is on dialysis. Computed tomography scan of the brain performed in the emergency department negative for any acute changes. Negative for any bleeds. Patient denies chest pain, fever, shortness of breath, nausea, vomiting, change in vision. Past Medical History Past Medical History: Atrial Fibrillation, Heart Failure, CVA/TIA, Diabetes Mellitus, Hypertension Additional Past Medical History / Comment(s): Moderate to severe aortic stenosis - had TAVR History of Any Multi-Drug Resistant Organisms: None Reported Past Surgical History: Orthopedic Surgery, Tonsillectomy Additional Past Surgical History / Comment(s): brain sx 2006 - due to bleed, TAVR, right hip 2019 Past Anesthesia/Blood Transfusion Reactions: No Reported Reaction Past Psychological History: Anxiety, Depression Smoking Status: Never smoker Past Alcohol Use History: None Reported Past Drug Use History: None Reported Medications and Allergies Home Medications Medication Instructions Recorded Confirmed Type Apixaban [Eliquis] 5 mg PO BID 07/18/19 05/05/23 History Tamsulosin HCl [Flomax] 0.4 mg PO DAILY 06/09/21 05/05/23 History ARIPiprazole [Abilify] 5 mg PO DAILY 11/06/22 05/05/23 History Cholecalciferol [Vitamin D3 (125 125 mcg PO DAILY 11/06/22 05/05/23 History Mcg = 5000 Iu)] Ergocalciferol (Vitamin D2) 1,250 mcg PO Q7D 11/06/22 05/05/23 History [Drisdol (50,000 Iu)] amLODIPine [Norvasc] 10 mg PO DAILY #30 tab 11/09/22 05/05/23 Rx ARIPiprazole [Abilify] 10 mg PO HS 03/06/23 05/05/23 History Metoprolol Tartrate [Lopressor] 100 mg PO BID 03/06/23 05/05/23 History lisinopriL [Zestril] 10 mg PO DAILY 04/12/23 05/05/23 History Acetaminophen Tab [Tylenol] 650 mg PO W/LUNCH 05/05/23 05/05/23 History Acetaminophen/Diphenhydramine 2 tab PO HS 05/05/23 05/05/23 History [Tylenol PM 500-25mg] Atorvastatin [Lipitor] 20 mg PO HS 05/05/23 05/05/23 History Gabapentin 300 mg PO BID 05/05/23 05/05/23 History Insulin Glargine,Hum.rec.anlog 8 units SQ DAILY 05/05/23 05/05/23 History [Insulin Glargine Solostar] Allergies Allergy/AdvReac Type Severity Reaction Status Date / Time No Known Allergies Allergy Verified 05/05/23 21:16 Physical Examination Inspection: Positive for scoliosis throughout spine. Positive for right lower extremity contracture from the hip to the knee. Positive for multiple abrasions throughout the bilateral upper extremities. Negative for any open fractures. Sensation: Sensation is somewhat diminished from the anterior right large cavity from the hip to the knee. Sensation is equal, symmetric, bilaterally intact throughout the rest of the lower and upper extremities. Palpation: Nontender to palpation throughout spine and bilateral lower extremity exam Range of motion: Patient has full range of motion throughout bilateral upper extremities on exam. 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 Motor: 4+/5 in all major motor groups in bilateral upper extremities. 3+/5 in resisted right hip flexion/extension and right knee flexion/extension. 4-/5 in resisted left hip flexion/extension and left knee flexion/extension. 4+/5 in bilateral ankle dorsi/plantar flexion Neurovascular: Radial pulses intact bilaterally. DP pulses intact bilaterally. Cap refill under 3 seconds in digits upper extremities. Special tests: Negative Homans bilaterally. Negative Bin bilaterally. Results - Labs Labs: Abnormal Lab Results - Last 24 Hours (Table) 05/07/23 05/07/23 05/07/23 Range/Units 13:13 17:09 20:41 POC Glucose (mg/dL) 139 H 112 H 167 H (70-110) mg/dL 05/08/23 Range/Units 08:03 POC Glucose (mg/dL) 125 H (70-110) mg/dL H & H 05/05/23 05/06/23 Range/Units 17:27 13:54 Hgb 14.5 11.9 L (13.0-17.5) gm/dL Hct 44.5 35.8 L (39.0-53.0) % Coagulation 05/05/23 Range/Units 17:27 INR 1.1 (<1.2) Result Diagrams: 05/08/23 06:21 05/08/23 06:21 - Diagnostic results CT Scan - lumbar: report reviewed, image reviewed (L3 compression fracture evident on CT. Degenerative disc disease present in the lumbar spine as well as lumbar spondylosis and spinal canal stenosis) Assessment and Plan Assessment: 1. Bilateral lower extremity weakness; L3 vertebral compression fracture, chronic; degenerative disc disease; lumbar spondylosis; spinal canal stenosis Plan: 1. Bilateral lower extremity weakness; L3 vertebral compression fracture, chronic; degenerative disc disease; lumbar spondylosis; spinal canal stenosis - patient was examined at bedside this morning. L3 compression fracture evident on CT. Degenerative disc disease present in the lumbar spine as well as lumbar spondylosis and spinal canal stenosis. I did discuss the findings of the computed tomography scan of lumbar spine with the patient and I did discuss the findings of patient's exam and CT with my attending, Dr. Rosales. At this time we are not recommending any emergent/urgent orthopedic surgical intervention. We are recommending conservative measures via use of pain medication and PT/OT. Patient may benefit from steroids to help with symptoms in the lower extremities. Patient may also benefit from Flexeril for spasms. We are not recommending any further orthopedic imaging at this time. We will continue to follow patient during his stay in hospital. 2. Appreciate medical and neurology management 3. Pain management - Neurontin; Tylenol 4. DVT prophylaxis - Eliquis 5. GI prophylaxis recs 6. PT/OT - weightbearing as tolerated with walker and assistance 7. Encourage incentive spirometer use 8. Appreciate consult Time with Patient: Less than 30
[2023-05-08 14:39] VITALS: BMI 23.6
--- NOTE | 2023-05-08 15:48 | P.PN ---
Subjective Progress Note Date: 05/08/23 I am following-up with patient and he feels about the same. Continues to have weakness in legs. States he does have back pain but having difficulty providing details. Objective - Vital Signs Vital signs: Vital Signs Temp 98.1 F 05/08/23 12:15 Pulse 59 L 05/08/23 12:15 Resp 16 05/08/23 12:15 BP 121/64 05/08/23 12:15 Pulse Ox 95 05/08/23 12:15 FiO2 Intake & Output 05/07/23 05/08/23 05/08/23 18:59 06:59 18:59 Intake Total 1600 Output Total 700 Balance 900 Weight 108 kg 85.5 kg 85.5 kg Intake: Intake, IV Titration 1200 Amount Sodium Chloride 0.9% 1, 1200 000 ml @ 100 mls/hr IV . Q10H LAURA Rx#:[id number] Oral 400 Output: Urine 700 Other: Voiding Method External Catheter External Catheter # Voids 1 # Bowel Movements 1 1 - Exam General: Lying in bed and is not in acute distress. Neuro: The patient is awake alert oriented to self place and time. Patient is following simple commands. No aphasia and no neglect The pupils are round equal and reactive to light. Visual urban are full to consultation. No facial weakness. No dysarthria. Motor: Is lifting bilateral upper extremity symmetrically and equally and is seems strong. While lower extremity on the right is about 3-4 while the left is 4. Reflexes in the upper R1 positive while lowers are 0-1. Sensation is normal to touch throughout. Plantars are mute - Labs CBC & Chem 7: 05/08/23 06:21 05/08/23 06:21 Labs: Abnormal Lab Results - Last 24 Hours (Table) 05/07/23 05/07/23 05/08/23 Range/Units 17:09 20:41 06:21 RBC 3.98 L (4.40-5.60) X 10*6/uL Hgb 12.8 L (13.0-17.0) g/dL Hct 39.0 L (39.6-50.0) % MCV 98.0 H (80.0-97.0) FL MCH 32.2 H (27.0-32.0) pg Plt Count 117 L (140-440) X 10*3/uL BUN/Creatinine Ratio (12.00-20.00) Ratio Glucose (70-110) mg/dL POC Glucose (mg/dL) 112 H 167 H (70-110) mg/dL 05/08/23 05/08/23 05/08/23 Range/Units 06:21 08:03 12:27 RBC (4.40-5.60) X 10*6/uL Hgb (13.0-17.0) g/dL Hct (39.6-50.0) % MCV (80.0-97.0) FL MCH (27.0-32.0) pg Plt Count (140-440) X 10*3/uL BUN/Creatinine Ratio 27.25 H (12.00-20.00) Ratio Glucose 132 H (70-110) mg/dL POC Glucose (mg/dL) 125 H 168 H (70-110) mg/dL Assessment and Plan Assessment: This is an 83-year-old gentleman who states she's been having bilateral lower extremity weakness right more than left for the last [address] Draper note she felt that the patient is exhibiting parkinsonism and cognitive deficit. Patient denies of any you a lower back pain. Bilateral lower extremity weakness right more than left: Due to compression of L3 with displacement contributing to L3. History of a cerebral hemorrhage in 2006 Pacemaker Diabetes mellitus and most recent hemoglobin A1c is 6.3 on 03/07/2023. Plan: Repeat CT of the head: It is reported as age related atrophic and chronic small vessel ischemic change without acute intracranial process seen at this time. CT lumbar spine: It's reported severe compression deformity L3 with posture superior wall displacement contributing to spinal canal stenosis posterior to the L3 level. Facet hypertrophy with ligamentum flavum laxity and disc bulge at L4-L5 contributing to spinal canal stenosis. Additional level facet hypertrophy are present and femoral narrowing discussed above. Orthopedic surgery team is consulted. Cannot obtain MRI since has pacemaker. Ordered TSH. He had a vitamin B12 and it was 527 on 04/16/2003. Dr. Draper start the patient on Sinemet for concern [place] [address] tablet 3 times a day but upon further imaging he had L3 compression fracture. So I discontinued Sinemet and would recommend further evaluation as outpatient with neurologist within 2 week about ?Parkisonsism. We'll defer the rest of the medical management to primary team The plan is discussed with patient and primary attending. There is no further neurological work-up. Time with Patient: Less than 30
[2023-05-08] MEDS: ZINC OXIDE PASTE (Z-GUARD) 1 APPLIC APPLIC TOPICAL PRN ×2 (16:02→20:40)
[2023-05-08 17:44] LABS: Glucose,Whole Blood 138 mg/dL (70-110)
[2023-05-08] MEDS: ATORVASTATIN 40 MG TAB PO SCH (20:11)
[2023-05-08 20:22] LABS: Glucose,Whole Blood 171 mg/dL (70-110)
[2023-05-08] MEDS: ARIPiprazole 10 MG TAB PO SCH (21:06)
[2023-05-09] MEDS: SODIUM CHLORIDE 0.9% 1,000 ML IV SCH ×2 (04:42)
[2023-05-09 07:41] LABS: Glucose,Whole Blood 144 mg/dL (70-110)
[2023-05-09] MEDS: INSULIN ASPART (NovoLOG) 100 UNIT/ML VIAL SQ SCH ×2 (07:44→12:54)
[2023-05-09 07:56] VITALS: PULSE 58; RESP 17; TEMP 98.6
[2023-05-09] MEDS: INSULIN DETEMIR (LEVEMIR) 100 UNIT/ML SYR SQ SCH (09:15)
[2023-05-09] MEDS: APIXABAN 5 MG TAB PO SCH (09:16)
[2023-05-09] MEDS: amLODIPine 10 MG TAB PO SCH (09:16)
[2023-05-09] MEDS: ARIPiprazole 5 MG TAB PO SCH (09:16)
[2023-05-09] MEDS: METOPROLOL TARTRATE 50 MG TAB PO SCH (09:16)
[2023-05-09] MEDS: TAMSULOSIN 0.4 MG CAP.ER.24H PO SCH (09:16)
[2023-05-09] MEDS: CHOLECALCIFEROL 125 MCG (5000 IU) TABLET PO SCH (09:16)
[2023-05-09] MEDS: GABAPENTIN 300 MG CAP PO SCH (09:16)
[2023-05-09] MEDS ORDERED: methylPREDNISolone 4 MG TAB TAPER PO SCH (10:00)
[2023-05-09 10:51] LABS: HCT 36.4 % (39.6-50.0); Mean Platelet Volume 10.7 FL (9.5-12.2); NRBC Per 100 WBC 0 X 10*3/uL (0.00-0.01); Platelet Count 130 X 10*3/uL (140-440); RBC 3.64 X 10*6/uL (4.40-5.60); RDW 12.1 % (11.5-14.5)
[2023-05-09 11:00] LABS: BUN/Creat Ratio 25.11 Ratio (12.00-20.00); Blood Urea Nitrogen 22.6 mg/dL (9.0-27.0); Calcium 9.3 mg/dL (8.7-10.3); Carbon Dioxide 23.7 mmol/L (21.6-31.8); Chloride 110 mmol/L (96-109); Glucose 145 mg/dL (70-110); Potassium 3.8 mmol/L (3.5-5.5); Sodium 143 mmol/L (135-145)
--- NOTE | 2023-05-09 11:32 | P.DS ---
Providers Date of admission: 05/05/23 20:33 Expected date of discharge: 05/09/23 Attending physician: Julianne Sprague Consults: 05/05/23 20:32 Consult Physician Routine Consulting Provider: Cherie Draper Consult Reason/Comments: cva Do you want consulting provider notified?: Yes 05/07/23 17:55 Consult Physician Routine Consulting Provider: Mariusz Rosales Consult Reason/Comments: compression lumbar with leg weakness Do you want consulting provider notified?: Yes Primary care physician: [facility] Course: * 83-year-old gentleman with past medical history significant for intracranial hemorrhage 20 years ago, history of atrial fibrillation status post pacemaker in place on Eliquis, history of severe aortic stenosis status post TAVR, diabetes mellitus, diabetic neuropathy, left internal carotid artery stenosis, history of depression, presents to the emergency department with complains of generalized weakness. Patient states he was trying to get out of the chair and fell out. Patient states he was not able to get up and felt having generalized weakness. Patient did specifically mentioned that he had right lower extremity weakness ongoing for 1 week prior to admission. * Patient denies of injury from fall * was accompanied by daughter at bedside, patient was discharged from rehab yesterday, patient had been noncompliant and was sent home, he had 2 falls at home. Patient does have global weakness, per daughter patient has been noncompliant with medications as well he has been very forgetful * Workup in ER included vitals which were within normal limits * Serum chemistry obtained showed WBC of 10.3 hemoglobin 14.5 platelet count of 126 * Sodium of 137 potassium 5.1 be 144 creatinine 1.49 glucose 165 calcium 10.3 * Workup in ER included CT head which was negative for acute intracranial process, chronic microvascular ischemic changes were noted mild paranasal sinus disease noted * Patient admitted as observation with consultation for neurology for further evaluation to rule out CVA * 05/07/2023: Patient seen and evaluated bedside in ER room 27, patient is alert to person place and situation. CT lumbar spine ordered by neurology, will need repeat CT head, patient started on Sinemet by neurology will need physical therapy evaluation explained it's not safe for him to go home and he'll need to reconsider going to subacute rehab * 05/08/2023: Patient seen and evaluated bedside, CT lumbar spine show severe compression deformity L3 with posterior displacement contributing to spinal canal stenosis at L3, which could contribute to lower extremity myelopathy. Repeat CT brain negative for acute intracranial process chronic small vessel ischemic changes noted. Back surgery consulted K plan discussed with patient and daughter at bedside * 05/09/2023: Patient seen and evaluated bedside, patient alert and oriented 4, lower extremity weakness has improved him a appreciate input from neurology they have discontinue Sinemet and recommend outpatient follow-up with neurology. Information provided patient to be discharged to subacute rehab patient is in agreement with discharge REVIEW OF SYSTEMS: Generalized weakness, fall, improved CONSTITUTIONAL: No fever, no malaise, no fatigue. HEENT: No recent visual problems or hearing problems. Denied any sore throat. CARDIOVASCULAR: No chest pain, orthopnea, PND, no palpitations, no syncope. PULMONARY: No shortness of breath, no cough, no hemoptysis. GASTROINTESTINAL: No diarrhea, no nausea, no vomiting, no abdominal pain. NEUROLOGICAL: No headaches, no weakness, no numbness. HEMATOLOGICAL: Denies any bleeding or petechiae. GENITOURINARY: Denies any burning micturition, frequency, or urgency. MUSCULOSKELETAL/RHEUMATOLOGICAL: Denies any joint pain, swelling, or any muscle pain. ENDOCRINE: Denies any polyuria or polydipsia. PHYSICAL EXAMINATION: GENERAL: The patient is alert and oriented x3, HEENT: Pupils are round and equally reacting to light. EOMI. CARDIOVASCULAR: S1 and S2 present. No murmurs, rubs, or gallops. PULMONARY: Chest is clear to auscultation, no wheezing or crackles. ABDOMEN: Soft, nontender, nondistended, normoactive bowel sounds. No palpable organomegaly. MUSCULOSKELETAL: No joint swelling or deformity. EXTREMITIES: No cyanosis, clubbing, or pedal edema. 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 Bilateral lower extremity weakness Right> Left rule out CVA * Parkinsonism and cognitive deficit * Bilateral internal carotid artery stenosis approximately 70% * History of CVA * Progressive cognitive impairment suspect onset of dementia * History of atrial fibrillation status post pacemaker in place * Status post TVAR for * History of cardiomyopathy with ejection fraction 45% * Sick sinus syndrome with pacemaker in place [employer] * Diabetes mellitus type 2 * In regards to weakness, appreciate input from neurology, spine surgery consulted, CT lumbar spine reviewed, does have lumbar spine compression fracture with spinal stenosis, contributing to lotion with the weakness, seen by spine surgery recommended conservative management, patient started on Medrol Dosepak to be discharged to subacute rehab * In regards to parkinsonism, patient was started on Sinemet, however later discontinued by neurology with recommendations to have a follow up outpatient with neurology to review how he does after rehab * In regards to carotid artery stenosis continue antiplatelet and statin * In regards to history affective fibrillation continue Eliquis, metoprolol * In regards to diabetes mellitus, home regimen continued * Patient will need physical therapy evaluation for discharge disposition not safe to go home, discharge to subacute rehab Patient Condition at Discharge: Fair Plan - Discharge Summary Discharge Rx Participant: No New Discharge Prescriptions: New methylPREDNISolone Dose Pack [Medrol Dose Pack] 24 mg PO DAILY 7 Days #21 tab Continue Apixaban [Eliquis] 5 mg PO BID amLODIPine [Norvasc] 10 mg PO DAILY #30 tab Acetaminophen/Diphenhydramine [Tylenol PM 500-25mg] 2 tab PO HS Atorvastatin [Lipitor] 20 mg PO HS Insulin Glargine,Hum.rec.anlog [Insulin Glargine Solostar] 8 units SQ DAILY Tamsulosin HCl [Flomax] 0.4 mg PO DAILY Cholecalciferol [Vitamin D3 (125 Mcg = 5000 Iu)] 125 mcg PO DAILY Ergocalciferol (Vitamin D2) [Drisdol (50,000 Iu)] 1,250 mcg PO Q7D ARIPiprazole [Abilify] 5 mg PO DAILY ARIPiprazole [Abilify] 10 mg PO HS Metoprolol Tartrate [Lopressor] 100 mg PO BID lisinopriL [Zestril] 10 mg PO DAILY Acetaminophen Tab [Tylenol] 650 mg PO W/LUNCH Gabapentin 300 mg PO BID 3 Days #6 cap Discharge Medication List Apixaban [Eliquis] 5 mg PO BID 07/18/19 [History] Tamsulosin HCl [Flomax] 0.4 mg PO DAILY 06/09/21 [History] ARIPiprazole [Abilify] 5 mg PO DAILY 11/06/22 [History] Cholecalciferol [Vitamin D3 (125 Mcg = 5000 Iu)] 125 mcg PO DAILY 11/06/22 [History] Ergocalciferol (Vitamin D2) [Drisdol (50,000 Iu)] 1,250 mcg PO Q7D 11/06/22 [History] amLODIPine [Norvasc] 10 mg PO DAILY #30 tab 11/09/22 [Rx] ARIPiprazole [Abilify] 10 mg PO HS 03/06/23 [History] Metoprolol Tartrate [Lopressor] 100 mg PO BID 03/06/23 [History] lisinopriL [Zestril] 10 mg PO DAILY 04/12/23 [History] Acetaminophen Tab [Tylenol] 650 mg PO W/LUNCH 05/05/23 [History] Acetaminophen/Diphenhydramine [Tylenol PM 500-25mg] 2 tab PO HS 05/05/23 [History] Atorvastatin [Lipitor] 20 mg PO HS 05/05/23 [History] Insulin Glargine,Hum.rec.anlog [Insulin Glargine Solostar] 8 units SQ DAILY 05/05/23 [History] Gabapentin 300 mg PO BID 3 Days #6 cap 05/09/23 [Rx] methylPREDNISolone Dose Pack [Medrol Dose Pack] 24 mg PO DAILY 7 Days #21 tab 05/09/23 [Rx] Follow up Appointment(s)/Referral(s): Roland Holt MD [Primary Care Provider] - 1-2 days Les Erickson MD [STAFF PHYSICIAN] - 10 Days (Needs Eval for Parkinson outpatient) Mariusz Rosales DO [Doctor of Osteopathic Medicine] - 1 Week Discharge Disposition: TRANSFER TO SNF/ECF
[2023-05-09 12:15] LABS: Glucose,Whole Blood 177 mg/dL (70-110)
--- NOTE | 2023-05-09 13:41 | P.PN ---
Subjective Progress Note Date: 05/09/23 Principal diagnosis: Bilateral lower extremity weakness; L3 vertebral compression fracture, chronic; degenerative disc disease; lumbar spondylosis; spinal canal stenosis Patient was seen at bedside this morning lying semirecumbent position. Patient says he did get up therapy and sat in the chair. Patient says he did not have any back pain when he got up and states when he got up out of bed he did feel somewhat lightheaded but it went away after a few seconds. Patient says he is still having some spasms in the right lower extremity in his thigh. This has been on and off during his stay in hospital. Patient denies chest pain, fever, SOb, nausea, vomiting, change in vision, loss of bowel/bladder control. Objective - Vital Signs Vital signs: Vital Signs Temp 98.6 F 05/09/23 07:55 Pulse 58 L 05/09/23 07:55 Resp 17 05/09/23 07:55 BP 147/67 05/09/23 07:55 Pulse Ox 94 L 05/09/23 07:55 FiO2 Intake & Output 05/08/23 05/09/23 05/09/23 18:59 06:59 18:59 Intake Total 240 120 Output Total 300 400 Balance -300 -160 120 Weight 85.5 kg 90.5 kg Intake: Oral 240 120 Output: Urine 300 400 Other: Voiding Method External Catheter External Catheter External Catheter - Exam Inspection: Positive for scoliosis throughout spine. Positive for right lower extremity contracture from the hip to the knee. Positive for multiple abrasions throughout the bilateral upper extremities. Negative for any open fractures. Sensation: Sensation is somewhat diminished from the anterior right large cavity from the hip to the knee. Sensation is equal, symmetric, bilaterally intact throughout the rest of the lower and upper extremities. Palpation: Nontender to palpation throughout spine and bilateral lower extremity exam Range of motion: Patient has full range of motion throughout bilateral upper extremities on exam. 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 Motor: 4+/5 in all major motor groups in bilateral upper extremities. 3+/5 in resisted right hip flexion/extension and right knee flexion/extension. 4-/5 in resisted left hip flexion/extension and left knee flexion/extension. 4+/5 in bilateral ankle dorsi/plantar flexion Neurovascular: Radial pulses intact bilaterally. DP pulses intact bilaterally. Cap refill under 3 seconds in digits upper extremities. Special tests: Negative Homans bilaterally. Negative Bin bilaterally. - Labs CBC & Chem 7: 05/09/23 07:32 05/09/23 07:32 Labs: Abnormal Lab Results - Last 24 Hours (Table) 05/08/23 05/08/23 05/08/23 Range/Units 12:27 17:43 20:21 RBC (4.40-5.60) X 10*6/uL Hgb (13.0-17.0) g/dL Hct (39.6-50.0) % MCV (80.0-97.0) FL MCH (27.0-32.0) pg Plt Count (140-440) X 10*3/uL Chloride (96-109) mmol/L BUN/Creatinine Ratio (12.00-20.00) Ratio Glucose (70-110) mg/dL POC Glucose (mg/dL) 168 H 138 H 171 H (70-110) mg/dL 05/09/23 05/09/23 05/09/23 Range/Units 07:32 07:32 07:33 RBC 3.64 L (4.40-5.60) X 10*6/uL Hgb 12.0 L (13.0-17.0) g/dL Hct 36.4 L (39.6-50.0) % MCV 100.0 H (80.0-97.0) FL MCH 33.0 H (27.0-32.0) pg Plt Count 130 L (140-440) X 10*3/uL Chloride 110 H (96-109) mmol/L BUN/Creatinine Ratio 25.11 H (12.00-20.00) Ratio Glucose 145 H (70-110) mg/dL POC Glucose (mg/dL) 144 H (70-110) mg/dL Assessment and Plan Assessment: 1. Bilateral lower extremity weakness; L3 vertebral compression fracture, chronic; degenerative disc disease; lumbar spondylosis; spinal canal stenosis Plan: 1. Bilateral lower extremity weakness; L3 vertebral compression fracture, chronic; degenerative disc disease; lumbar spondylosis; spinal canal stenosis - patient was examined at bedside this morning. L3 compression fracture evident on CT. Degenerative disc disease present in the lumbar spine as well as lumbar spondylosis and spinal canal stenosis. I did discuss the findings of the computed tomography scan of lumbar spine with the patient and I did discuss the findings of patient's exam and CT with my attending, Dr. Rosales. At this time we are not recommending any emergent/urgent orthopedic surgical intervention. We are recommending conservative measures via use of pain medication and PT/OT. Patient may benefit from steroids to help with symptoms in the lower extremities. Patient may also benefit from Flexeril for spasms. We are not recommending any further orthopedic imaging at this time. We do recommend patient to follow-up in the outpatient setting with Dr. Rosales for continued evaluation. Patient stable orthopedic standpoint for discharge. At this time orthopedics is signing off. Please do not hesitate to contact us with any further questions. 2. Appreciate medical and neurology management 3. Pain management - Neurontin; Tylenol 4. DVT prophylaxis - Eliquis 5. GI prophylaxis recs 6. PT/OT - weightbearing as tolerated with walker and assistance 7. Encourage incentive spirometer use 8. Appreciate consult Time with Patient: Less than 30
[2023-05-10] MEDS ORDERED: ERGOCALCIFEROL 1,250 MCG (50,000 IU) CAPSULE PO SCH (09:00)
== END 2023-05-09 13:47 ==
LOC: EC 15:33 → 3SCARD 20:33 → 4SSUR 05-07 11:56 → 5NMEDONC 05-07 13:35
PROVIDERS: ADMIT Hospitalist; ATTEND Hospitalist
DX: S32.039A Unspecified fracture of third lumbar vertebra, initial encounter for closed fracture (principal); W19.XXXA Unspecified fall, initial encounter; M51.36 Other intervertebral disc degeneration, lumbar region; M48.061 Spinal stenosis, lumbar region without neurogenic claudication; M47.16 Other spondylosis with myelopathy, lumbar region; N17.9 Acute kidney failure, unspecified; I65.23 Occlusion and stenosis of bilateral carotid arteries; I48.91 Unspecified atrial fibrillation; I11.0 Hypertensive heart disease with heart failure; I50.9 Heart failure, unspecified; E11.40 Type 2 diabetes mellitus with diabetic neuropathy, unspecified; F32.A Depression, unspecified; F41.9 Anxiety disorder, unspecified; I42.9 Cardiomyopathy, unspecified; G20.C Parkinsonism, unspecified; Z86.73 Personal history of transient ischemic attack (TIA), and cerebral infarction without residual deficits; Z95.0 Presence of cardiac pacemaker; Z95.2 Presence of prosthetic heart valve; Z79.01 Long term (current) use of anticoagulants; Z79.82 Long term (current) use of aspirin; Z79.4 Long term (current) use of insulin; Z79.899 Other long term (current) drug therapy
CPT/HCPCS: 96361 ×3; 96372 ×5; 96360; 99285; 36415; 94760; 93005; 97530 ×2; 97162; 97167; 92610; 92523; 97129; 82652; 80061; 80053; 80048 ×4; 84443; 82550; 85025; 85027 ×3; 85610; 85730; 71046; 72131; 70450 ×2; G0378 ×7; C8929; J7509; 93306